=== PATIENT | female | born 1970 | race Caucasian/White ===

== ENCOUNTER 2017-06-06 14:28 | Emergency (ER) | payer OTHER, SELFPAY | END 2017-06-06 18:47 | disposition home or self-care (01) | PROVIDERS: Emergency Provider Family Medicine; Family Provider Nurse Practitioner Family; Visit Provider Family Medicine | DX: R10.12 Left upper quadrant pain (principal); N30.01 Acute cystitis with hematuria | CPT/HCPCS: 71020; 74177; 80053; 81001; 81025; 82150; 83690; 85025; 87086; 96365; 96375; 99284; J2405; Q9967 ==

== ENCOUNTER → 2017-07-01 13:23 | Outpatient (CLI) | payer OTHER, SELFPAY ==
--- NOTE | 2017-07-01 13:27 | US_ITS ---
US thyroid HISTORY: Thyromegaly ITS.REASON: enlarged thyroid ORDERING PHYSICIAN: Joey Morris MD PATIENT AGE: 46 years COMPARISON: None FINDINGS: Right lobe: 4.6 x 2.4 x 1.9 cm with diffuse heterogeneous echogenicity. 1.6 x 1.4 cm heterogeneous nodular area upper pole 2.4 x 1.8 cm heterogeneous nodular area mid polar region Left lobe: 4.1 x 1.9 x 1.9 cm with diffuse heterogeneous echogenicity 1.4 cm slightly hypoechoic nodule heterogeneous upper pole Isthmus: 4 mm thick with heterogeneous echogenicity IMPRESSION: Multinodular appearance of the thyroid gland. The largest nodular areas on the right at 2.4 cm
== END ==
PROVIDERS: Family Provider Nurse Practitioner Family; PCP Nurse Practitioner Family; Visit Provider Otolaryngology
DX: E04.9 Nontoxic goiter, unspecified (principal)
CPT/HCPCS: 76536

== ENCOUNTER → 2017-07-01 14:18 | Outpatient (CLI) | payer OTHER, SELFPAY ==
[2017-07-01 16:44] LABS: Free Thyroxine Index 3.3 ug/dL (5.93-13.13); T4 (Thyroxine) 10.3 ug/dl (4.7-13.3); Thyroid Stimulating Hormone 2.25 uIU/ml (0.358-3.740); Triiodothryronine (T3) Uptake 32 % (31-39)
[2017-07-08 08:47] LABS: Thyroid Peroxidase Antibodies >600 IU/mL (0-34)
[2017-07-13 19:19] LABS: Thyroid Stimulating Immunoglob 88 % (0-139)
== END ==
PROVIDERS: Family Provider Nurse Practitioner Family; PCP Nurse Practitioner Family; Visit Provider Otolaryngology
DX: E04.9 Nontoxic goiter, unspecified (principal)
CPT/HCPCS: 36415; 83520; 84436; 84443; 84479; 86376

== ENCOUNTER → 2017-08-02 10:06 | Outpatient (CLI) | payer OTHER, SELFPAY ==
--- NOTE | 2017-08-02 10:53 | US_ITS ---
US organ site (thyroid), US biopsy guidance, US thyroid Ordering Physician: Joey Morris MD HISTORY: ITS.REASON: NEOPLASM OF THYROIDthyroid. Nodule: 46 years: Female TECHNIQUE: Ultrasound thyroid with subsequent FNA lower pole right lobe nodule ========FINDINGS AND PROCEDURE: = ULTRASOUND thyroid COMPARISON is made to previous ultrasound thyroid 07/01/2017 from this facility. Inhomogeneous thyroid throughout but there is a more focal appearing nodule at the lower pole right lobe which measures up to 2.45 cm x 2 cm. The mass was identified& best approach for access to perform aspiration biopsy of this nodule. Scanning by Dr. Osuna and technologist MW ULTRASOUND-GUIDED FNA BIOPSY- thyroid nodule lower pole right lobe: Following sterile preparation as well as local skin, and cautious deeper placement of Xylocaine anesthetic . Under ultrasound guidance the biopsy needle, was advanced to the nodule and positioned. Needle tip was observed passing into the nodule on each of 4 FNA biopsies passes. FNA specimen material obtained and subsequently submitted to cytopathology. Patient tolerated procedure well. IMPRESSION: Enlarged inhomogeneous right lobe thyroid with a dominant ill-defined nodule lower pole right lobe . This 2.45 cm nodule at lower pole right lobe sampled with 4 FNA biopsy passes today CYTOPATHOLOGY REPORT: Negative for malignancy. Findings compatible with chronic lymphocytic thyroiditis
== END ==
PROVIDERS: Family Provider Nurse Practitioner Family; PCP Nurse Practitioner Family; Visit Provider Otolaryngology
DX: D49.7 Neoplasm of unspecified behavior of endocrine glands and other parts of nervous system (principal)
CPT/HCPCS: 10022; 76536; 76942

== ENCOUNTER 2017-08-02 12:17 | Emergency (ER) | payer OTHER, SELFPAY ==
[2017-08-02 13:20] VITALS: BP 168/100; PULSE 80; RESP 18; TEMP 36.8; O2SAT 96; BMI 42.5
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
[2017-08-02 14:24] LABS: Microscopic, Urine URINE MICROSCOPIC (MICROSCOPIC)
[2017-08-02 14:28] LABS: Appearance,Urine CLEAR (Clear); Bilirubin,Urine Negative (Negative); Blood, Urine Negative (Negative); Color,Urine YELLOW (Yellow); Glucose,Urine (UA) Negative (Negative); Ketones,Urine Negative (Negative); Leukocyte Esterase,Urine 1+ (Negative); Nitrate,Urine Negative (Negative); Protein,Urine Negative (Negative); Specific Gravity, Urine 1.025 (1.005-1.030); Urobilinogen,Urine 0.2 EU/dl (0.2)
[2017-08-02 14:43] LABS: Basophils % 0.2 % (0.1-2.0); Eosinophils # 0.2 K/mm3 (0.0-0.4); Eosinophils % 2.3 % (0.1-12.0); Hematocrit 34.4 % (37.0-47.0); Hemoglobin 11.3 g/dL (12.2-16.2); Lymphocytes # 2.4 K/mm3 (0.7-4.5); Lymphocytes % 30.3 K/mm3 (10-50); Mean Corpuscular HGB Conc 32.9 g/dL (31.8-35.4); Mean Corpuscular Hemoglobin 27.9 pg (27.0-31.2); Mean Corpuscular Volume 84.7 fl (81-99); Mean Platelet Volume 7.4 fl (7.4-10.4); Monocytes # 0.4 K/mm3 (0.1-1.0); Monocytes % 4.5 % (1.7-9.3); Neutrophils % 62.7 % (37.0-80.0); Platelet Count 281 K/mm3 (142-424); Red Blood Count 4.06 M/mm3 (4.20-5.40)
[2017-08-02 14:58] LABS: Bacteria,Urine 2+ /lpf; WBC,Urine Occasional #/hpf (0-3)
[2017-08-02 16:32] VITALS: BP 134/70; PULSE 78; RESP 20; TEMP 37.1; O2SAT 99
== END 2017-08-02 16:33 | disposition home or self-care (01) ==
PROVIDERS: Emergency Provider General Practice; Family Provider Nurse Practitioner Family; PCP Nurse Practitioner Family
DX: S20.20XA Contusion of thorax, unspecified, initial encounter (principal); V47.6XXA Car passenger injured in collision with fixed or stationary object in traffic accident, initial encounter; Y92.488 Other paved roadways as the place of occurrence of the external cause; Z79.82 Long term (current) use of aspirin; I10 Essential (primary) hypertension; E78.5 Hyperlipidemia, unspecified; E03.9 Hypothyroidism, unspecified
CPT/HCPCS: 36415; 73502; 74176; 81001; 85025; 87086; 99282

== ENCOUNTER → 2017-09-27 10:48 | Outpatient (CLI) | payer OTHER, SELFPAY ==
[2017-09-27 10:51] LABS: Adenovirus,PCR Not Detected (NotDetected); Bordetella Pertussis Not Detected (NotDetected); Chlamydophila Pneumoniae, PCR Not Detected (NotDetected); Coronavirus 229E Not Detected (NotDetected); Coronavirus NL63 Not Detected (NotDetected); Coronavirus OC43 Not Detected (NotDetected); Coronovirus HKU1,PCR Not Detected (NotDetected); Human Metapneumovirus Not Detected (NotDetected); Influenza A, PCR Not Detected (NotDetected); Influenza AH1, 2009 Not Detected (NotDetected); Influenza AH1, PCR Not Detected (NotDetected); Influenza AH3,PCR Not Detected (NotDetected); Influenza B, PCR Not Detected (NotDetected); Mycoplasma Pneumoniae, PCR Not Detected (NotDected); Parainfluenza 1, PCR Not Detected (NotDetected); Parainfluenza 2, PCR Not Detected (NotDetected); Parainfluenza 3, PCR Not Detected (NotDetected); Parainfluenza 4, PCR Not Detected (NotDetected); Respiratory Syncytial Virus Not Detected (NotDetected); Rhinovirus/Enterovirus Not Detected (NotDetected)
== END ==
PROVIDERS: Visit Provider Nurse Practitioner Family
DX: J02.9 Acute pharyngitis, unspecified (principal); R05 Cough
CPT/HCPCS: 87486; 87581; 87633; 87798

== ENCOUNTER → 2017-11-04 13:23 | Outpatient (CLI) | payer OTHER, SELFPAY ==
--- NOTE | 2017-11-04 13:24 | US_ITS ---
US thyroid HISTORY: ITS.REASON: thyroiditis ORDERING PHYSICIAN: Joey Morris MD PATIENT AGE: 47 years Comparison: 07/01/2017 FINDINGS: The right lobe measures 4.8 x 2.1 x 2.1 cm. There is diffuse heterogeneous echogenicity as before. Dominant nodule in the lower pole on the right is 3.6 x 2 cm not significantly changed. 1 cm isoechoic nodule upper pole unchanged. The left lobe is 4.1 x 1.2 x 1.8 cm 1.4 cm slightly hypoechoic nodule upper pole unchanged. IMPRESSION: Overall no change multinodular goiter
== END ==
PROVIDERS: Family Provider Nurse Practitioner Family; PCP Nurse Practitioner Family; Visit Provider Otolaryngology
DX: E06.9 Thyroiditis, unspecified (principal)
CPT/HCPCS: 76536

== ENCOUNTER → 2017-11-04 13:58 | Outpatient (CLI) | payer OTHER, SELFPAY ==
[2017-11-04 17:51] LABS: Free T4 (Free Thyroxine) 1.05 ng/dl (0.76-1.46); Thyroid Stimulating Hormone 1.76 uIU/ml (0.358-3.740)
[2017-11-06 19:35] LABS: Thyroid Peroxidase Antibodies >600 IU/mL (0-34)
[2017-11-07 20:18] LABS: Calcitonin <2.0 pg/mL (0.0-5.0)
[2017-11-09 15:56] LABS: Thyroid Stimulating Immunoglob <0.10 IU/L (0.00-0.55)
== END ==
PROVIDERS: Family Provider Nurse Practitioner Family; PCP Nurse Practitioner Family; Visit Provider Otolaryngology
DX: E06.9 Thyroiditis, unspecified (principal)
CPT/HCPCS: 36415; 82308; 83520; 84439; 84443; 86376

== ENCOUNTER 2017-12-07 16:29 | Observation (INO) ==
--- NOTE | 2017-12-07 16:43 | Emergency Department Note ---
ED Disposition Clinical Impression: Nausea vomiting and diarrhea, Atypical chest pain, Hypertension, Proctitis Disposition: Still a Patient Condition on Discharge: Fair Instructions: DI for Acute Abdomen Referrals: Dejah Aldridge [Primary Care Provider] - - Critical Care Critical Care Time: No Attestation: On 12/07/17, the high probability of a clinically significant, sudden or life threatening deterioration of the following system(s) required my full and direct attention, intervention and personal management. The time I documented below is in addition to time spent performing reported procedures but includes the following listed in this critical care notation. Medical Decision Making - Jose Inquiry Pt receiving controlled substance: No Jose was queried for this patient: No Vital Signs: 12/07/17 16:30 12/07/17 19:03 Temperature 97.9 F Temperature Source Oral Pulse Rate [Right Brachial] 69 58 L Respiratory Rate 20 18 Blood Pressure [Right Arm] 123/78 140/94 Blood Pressure Mean [Right Arm] 93 109 Blood Pressure Source [Right Arm] Automatic Cuff Automatic Cuff Blood Pressure Position [Right Arm] Sitting Sitting 02 Sat by Pulse Oximetry 98 99 Oxygen Delivery Method Room Air Room Air - Lab Data Lab Results 12/07/17 17:00: Urine Color Yellow, Urine Appearance Cloudy, Urine pH 5.5, Ur Specific [place] >= 1.030, Urine Protein 1+, Urine Glucose (UA) Negative, Urine Ketones Trace, Urine Blood Negative, Urine Nitrate Negative, Urine Bilirubin Negative, Urine Urobilinogen 0.2, Ur Leukocyte Esterase Negative, Urine RBC Occasional, Urine WBC 10-20, Ur Squamous Epith Cells Tntc, Urine Bacteria 3+, Hyaline Casts 3-5 12/07/17 17:13: WBC 8.5, RBC 5.50 H, Hgb 14.7, Hct 47.4 H, MCV 86.1, MCH 26.7 L , MCHC 31.0 L, RDW 15.3, Plt Count 334, MPV 6.9 L, Neut % (Auto) 66.8, Lymph % ( Auto) 25.6, [place] % (Auto) 5.1, Eos % (Auto) 2.2, Baso % (Auto) 0.2, Neut # (Auto ) 5.7, Lymph # (Auto) 2.2, [place] # (Auto) 0.4, Eos # (Auto) 0.2, Baso # (Auto) 0.0 12/07/17 17:13: Sodium 137, Potassium 4.0, Chloride 103, Carbon Dioxide 25, Anion Gap 13.0, BUN 12, Creatinine 1.03 H, Estimated Creat Clear 54, Estimated GFR 58 L, Est GFR ( Amer) 70, Glucose 97, Calcium 9.4, Magnesium 1.9, Total Bilirubin 0.8, AST 19, ALT 28, Alkaline Phosphatase 105, Troponin I < 0.02 , Total Protein 9.0 H, Albumin 4.3, Globulin 4.7 H, Albumin/Globulin Ratio 0.9 L , Lipase 152 Result diagrams: 12/07/17 17:13 12/07/17 17:13 Orders (Tests/Meds): ED MEDICATIONS Generic Name Dose Route Start Last Admin Trade Name Freq PRN Reason Stop Dose Admin Metronidazole 100 mls @ 100 mls/hr 12/07/17 19:30 12/07/17 19:35 Flagyl 500mg/100ml Ivpb IV 12/21/17 19:29 100 mls/hr Q8H BALTA Administration Protocol Metoclopramide HCl 5 mg 12/07/17 19:51 Reglan 10mg/2ml Vial IVP 12/07/17 19:52 ONCE ONE Discontinued Medications Generic Name Dose Route Start Last Admin Trade Name Freq PRN Reason Stop Dose Admin Famotidine 20 mg 12/07/17 16:44 12/07/17 17:05 Pepcid 20mg/2ml Vial IV 12/07/17 16:45 20 mg ONCE ONE Administration Sodium Chloride 1,000 mls @ 999 mls/hr 12/07/17 17:00 12/07/17 17:06 Sod Chlor 0.9% 1000ml Bag IV 12/07/17 18:00 999 mls/hr .Q1H1M BALTA Administration Ketorolac Tromethamine 30 mg 12/07/17 16:44 12/07/17 17:05 Toradol 30mg/Ml Vial IV 12/07/17 16:45 30 mg ONCE ONE Administration Levofloxacin 750 mg 12/07/17 19:26 12/07/17 19:34 Levaquin 750mg Tablet PO 12/07/17 19:27 750 mg ONCE ONE Administration Protocol Loperamide HCl 4 mg 12/07/17 17:40 12/07/17 18:28 Imodium 2 Mg Capsule PO 12/07/17 17:41 4 mg ONCE ONE Administration Meperidine HCl 12.5 mg 12/07/17 18:43 Meperidine 25mg/Ml 1ml Syringe IV 12/07/17 18:44 ONCE ONE Morphine Sulfate 2 mg 12/07/17 17:40 12/07/17 18:28 Morphine 2mg/Ml Syringe IV 12/07/17 17:41 2 mg ONCE ONE Administration Promethazine HCl 12.5 mg 12/07/17 16:44 12/07/17 17:05 Phenergan 25mg/Ml 1ml Vial IV 12/07/17 16:45 12.5 mg ONCE ONE Administration Sodium Chloride 25 ml 12/07/17 16:44 12/07/17 17:07 Sod Chlor 0.9% 25ml Bag IV 12/07/17 16:45 25 ml ONCE ONE Administration ORDERS Category Date Time Status CT abdomen pelvis wo con Stat Cat Scan 12/07/17 18:42 Taken Diarrhea Panel, PCR Stat Lab 12/07/17 18:00 Received Urine Culture Stat Micro 12/07/17 17:00 Received - Radiology Data #1 Image(s): Chest, Abdomen Image Reviewed: Yes I reviewed the patient's radiology image Preliminary Findings: Abnormal Chest x-ray is within normal limits. Normal x-ray no free air minute fluid levels without dilatation suggesting early picture of gastroenteritis no acute. see final report below: MPRESSION: 1. Air-fluid levels within the large bowel which may be seen with diarrhea or colitis. 2. Left nephrolithiasis - ECG Data Tracing #1 Normal sinus rhythm 66/min no acute finding ECG initial impression date: 12/07/17 ECG initial impression time: 16:30 Medical Decision Narrative: I discussed with on-call physician Dr. Alvarado who accepted to admit the patient for IV fluids IV antibiotics and surgical consultation. Nausea/Vomiting/Diarrhea HPI - General Chief complaint: Abdominal Pain Stated complaint: vomitting, diarrhea, chest pain Time Seen by Provider: 12/07/17 16:30 Mode of Arrival: Ambulatory Limitations: No Limitations Description of Symptoms (Recalled from ER Triage Doc. by RN): Pt c/o vomitting and diarrhea, states diarrhea began yesterday, vomtting began this morning. Pt reports began having intermittent sharp chest pain approx 2 hours ago, describes pain as sharp in nature and points to midsternal area when describing where she is hurting. - History of Present Illness HPI Narrative: I noted the above nursing triage and I agree. 47 years old white female s/p appendectomy with history of hypertension and fibroid disease of the neck. Yesterday, she developed diarrhea 10 and today she vomited 3 associated with sharp retrosternal chest pain intermittent and sharp in character. She developed progressive generalized weakness with no hematemesis coffee-ground emesis bleeding per rectum or melanotic stool. She has no dysuria hematuria or frequent. MD complaint: nausea, vomiting, diarrhea Onset (ago): day(s) (started yesterday) Description of Vomiting: food contents, watery, bilious Associated Abdominal Pain: No Associated symptoms: other (She complains of retrosternal chest pain.) - Related Data Home Medications Medication Instructions Recorded Confirmed aspirin 81 mg tablet,delayed 81 mg PO QDAY 06/21/17 11/04/17 release atorvastatin 80 mg tablet 80 mg PO QDAY 06/21/17 11/04/17 bisoprolol fumarate 5 mg tablet 5 mg PO QDAY 06/21/17 11/04/17 cetirizine 10 mg tablet 10 mg PO QDAY 06/21/17 11/04/17 hydrochlorothiazide 12.5 mg tablet 12.5 mg PO QDAY 06/21/17 11/04/17 sertraline 100 mg tablet 100 mg PO QDAY 06/21/17 11/04/17 spironolactone 25 mg tablet 25 mg PO QAM 06/21/17 11/04/17 Losartan Potassium [Cozaar] 100 mg PO .qd 08/02/17 11/04/17 furosemide 20 mg tablet 20 mg PO DAILY tab 09/01/17 11/04/17 Amlodipine Besylate [Amlodipine 10 mg PO DAILY 11/04/17 11/04/17 10mg Tab] Diclofenac Potassium [Diclofenac 50 mg PO BID 11/04/17 11/04/17 50mg Tab] Methocarbamol [Robaxin 750mg Tab] 750 mg PO BID 11/04/17 11/04/17 Previous Rx's Medication Instructions Recorded levothyroxine 88 mcg tablet 88 mcg PO DAILY 90 Days #90 tab 11/11/17 levothyroxine 88 mcg tablet 88 mcg PO ONCE #90 tab 11/11/17 Allergies Allergy/AdvReac Type Severity Reaction Status Date / Time No Known Allergies Allergy Verified 11/11/17 12:32 [facility] History I have reviewed the patient's past medical history: Yes Medical History: Reports:: Hyperlipidemia, Hypertension Denies:: Cancer, Diabetes Mellitus Type 1, Diabetes Mellitus Type 2, MRSA Other Medical History: Reports: Arthritis, Hypothyroidism, Sinus Problems, Thyroid Disease Comment: irregular heart beat Other Surgeries: Yes: Appendectomy, Tubal Ligation Amputation: No Fractures: No Comment: Thyroid Bx 08/02/2017 - Social History Smoking Status: Former smoker Tobacco Type: cigarettes #Yrs smoked (if former smoker): 10 Alcohol Intake: never Substance Use Type: denies use - Psychiatric History Expresses thoughts of harming self/others: None Suicide Plan Description: No Plan Family Hx:: Hypertension, Hyperlipidemia, Coronary Artery Disease Comment: Glaucoma, ROS Obtained: Yes All systems reviewed & no additional complaints Physical Exam - General General appearance: alert, in no apparent distress, other (No cardiopulmonary distress.) - Head Head exam: atraumatic, normocephalic, normal inspection - Eye Eye exam: Present: normal appearance, PERRL, EOMI - ENT ENT exam: Present: normal exam, normal oropharynx, mucous membranes moist, TM's normal bilaterally, normal external ear exam - Neck Neck exam: Present: normal inspection, full ROM, trachea midline. Absent: meningismus, lymphadenopathy - Chest Chest inspection: Present: normal inspection, symmetric chest wall rise. Absent : tenderness - Respiratory Respiratory exam: Present: normal lung sounds bilaterally. Absent: respiratory distress - Cardiovascular Cardiovascular exam: Present: regular rate, normal rhythm. Absent: JVD - Abdominal Exam Abdominal exam: Present: soft, normal bowel sounds. Absent: distention, tenderness, guarding, rebound, rigidity - Extremities Exam Extremities exam: Present: normal inspection, full ROM, normal capillary refill. Absent: calf tenderness - Back Exam Back exam: Present: normal inspection. Absent: tenderness - Neurological Exam Neurological exam: Present: alert, oriented X3, CN II-XII intact, motor sensory deficit, reflexes normal - Psychiatric Psychiatric exam: Present: normal affect, normal mood - Skin Skin exam: Present: warm, dry, intact, normal color - Lymphatic Lymphatic Findings: no adenopathy
[2017-12-07 17:21] LABS: Basophils % 0.2 % (0.1-2.0); Eosinophils # 0.2 K/mm3 (0.0-0.4); Eosinophils % 2.2 % (0.1-12.0); Hematocrit 47.4 % (37.0-47.0); Hemoglobin 14.7 g/dL (12.2-16.2); Lymphocytes # 2.2 K/mm3 (0.7-4.5); Lymphocytes % 25.6 K/mm3 (10-50); Mean Corpuscular Hemoglobin 26.7 pg (27.0-31.2); Mean Corpuscular Volume 86.1 fl (81-99); Mean Platelet Volume 6.9 fl (7.4-10.4); Monocytes # 0.4 K/mm3 (0.1-1.0); Monocytes % 5.1 % (1.7-9.3); Neutrophils # 5.7 K/mm3 (1.8-7.8); Neutrophils % 66.8 % (37.0-80.0); Platelet Count 334 K/mm3 (142-424); Red Cell Distribution Width 15.3 % (11.5-17.5); White Blood Count 8.5 K/mm3 (4.8-10.8)
[2017-12-07 17:36] LABS: Alanine Aminotransferase 28 U/L (12-78); Albumin Level 4.3 gm/dL (3.4-5.0); Albumin/Globulin Ratio 0.9 (1.1-1.8); Alkaline Phosphatase 105 U/L (46-116); Aspartate Amino Transferase 19 U/L (15-37); Bilirubin,Total 0.8 mg/dL (0.2-1.0); Blood Urea Nitrogen 12 mg/dL (7-18); Calcium 9.4 mg/dL (8.5-10.1); Carbon Dioxide 25 mmol/L (21.0-32.0); Chloride 103 mmol/L (98-107); Globulin 4.7 gm/dl (1.3-3.2); Glucose 97 mg/dL (74-106); Lipase 152 u/L (73-393); Sodium 137 mmol/L (136-145)
[2017-12-07 17:44] LABS: Microscopic, Urine URINE MICROSCOPIC (MICROSCOPIC)
[2017-12-07 17:46] LABS: Appearance,Urine CLOUDY (Clear); Blood, Urine Negative (Negative); Color,Urine YELLOW (Yellow); Glucose,Urine (UA) Negative (Negative); Ketones,Urine TRACE (Negative); Leukocyte Esterase,Urine Negative (Negative); PH,Urine 5.5 (5.0-8.5); Protein,Urine 1+ (Negative); Specific Gravity, Urine >= 1.030 (1.005-1.030); Urobilinogen,Urine 0.2 EU/dl (0.2)
[2017-12-07 18:14] LABS: Bilirubin,Urine Negative (Negative)
[2017-12-07 18:18] LABS: Bacteria,Urine 3+ /lpf; RBC,Urine Occasional #/hpf (0-3); Squamous Epithelial Cell,Urine TNTC #/hpf (0-5)
--- NOTE | 2017-12-07 20:47 | History & Physical Report ---
*Admission Date: 12/07/17 *Chief complaint: abd pain *History of present illness: this wf with lower abd pain with n/v over the last few days with no fever or diarrhea 7 years old white female s/p appendectomy with history of hypertension and fibroid disease of the neck. Yesterday, she developed diarrhea 10 and today she vomited 3 associated with sharp retrosternal chest pain intermittent and sharp in character. She developed progressive generalized weakness with no hematemesis coffee-ground emesis bleeding per rectum or melanotic stool. She has no dysuria hematuria or frequent. [facility] History I have reviewed the patient's past medical history: Yes Medical History: Reports:: Hyperlipidemia, Hypertension Denies:: Cancer, Diabetes Mellitus Type 1, Diabetes Mellitus Type 2, MRSA Other Medical History: Reports: Arthritis, Hypothyroidism, Sinus Problems, Thyroid Disease Other Surgeries: Yes: Appendectomy, Tubal Ligation Amputation: No Fractures: No - *Social History Smoking Status: Former smoker Tobacco Type: cigarettes #Yrs smoked (if former smoker): 10 Alcohol Intake: never Substance Use Type: denies use - Psychiatric History Expresses thoughts of harming self/others: None Suicide Plan Description: No Plan *Family Hx:: Hypertension, Hyperlipidemia, Coronary Artery Disease Review of Systems - Review of Systems Review of systems:: pertinent systems reviewed and negative unless documented below - Constitutional Denies fever(s) - Eyes Denies change in vision - ENT Denies sinus pain, Denies tongue swelling - *Cardiovascular Denies chest pain at rest - *Respiratory Denies chest congestion, Denies cough - *Gastrointestinal Reports abdominal pain, Reports nausea, Reports vomiting, Denies loose stools, Denies black, tarry stools - *Genitourinary Denies painful urination, Denies pelvic pain - *Musculoskeletal Denies joint pain, Denies joint swelling, Denies neck pain - Integumentary/Breasts Denies rash - *Neurologic Denies headache(s), Denies seizure-like activity - Psychiatric Denies depression Meds Home Medications Medication Instructions Recorded Confirmed Type aspirin 81 mg tablet,delayed 81 mg PO QDAY 06/21/17 11/04/17 History release atorvastatin 80 mg tablet 80 mg PO QDAY 06/21/17 11/04/17 History bisoprolol fumarate 5 mg tablet 5 mg PO QDAY 06/21/17 11/04/17 History cetirizine 10 mg tablet 10 mg PO QDAY 06/21/17 11/04/17 History hydrochlorothiazide 12.5 mg tablet 12.5 mg PO QDAY 06/21/17 11/04/17 History sertraline 100 mg tablet 100 mg PO QDAY 06/21/17 11/04/17 History spironolactone 25 mg tablet 25 mg PO QAM 06/21/17 11/04/17 History Losartan Potassium [Cozaar] 100 mg PO .qd 08/02/17 11/04/17 History furosemide 20 mg tablet 20 mg PO DAILY tab 09/01/17 11/04/17 History Amlodipine Besylate [Amlodipine 10 mg PO DAILY 11/04/17 11/04/17 History 10mg Tab] Diclofenac Potassium [Diclofenac 50 mg PO BID 11/04/17 11/04/17 History 50mg Tab] Methocarbamol [Robaxin 750mg Tab] 750 mg PO BID 11/04/17 11/04/17 History Allergies Allergy/AdvReac Type Severity Reaction Status Date / Time No Known Allergies Allergy Verified 11/11/17 12:32 Exam Vital signs and Labs for Last 24 Hours: Temp Pulse Resp BP Pulse Ox 97.9 F 58 L 18 140/94 99 12/07/17 16:30 12/07/17 19:03 12/07/17 19:03 12/07/17 19:03 12/07/17 19:03 Laboratory Results - last 24 hr 12/07/17 17:00: Urine Color Yellow, Urine Appearance Cloudy, Urine pH 5.5, Ur Specific [place] >= 1.030, Urine Protein 1+, Urine Glucose (UA) Negative, Urine Ketones Trace, Urine Blood Negative, Urine Nitrate Negative, Urine Bilirubin Negative, Urine Urobilinogen 0.2, Ur Leukocyte Esterase Negative, Urine RBC Occasional, Urine WBC 10-20, Ur Squamous Epith Cells Tntc, Urine Bacteria 3+, Hyaline Casts 3-5 12/07/17 17:13: WBC 8.5, RBC 5.50 H, Hgb 14.7, Hct 47.4 H, MCV 86.1, MCH 26.7 L , MCHC 31.0 L, RDW 15.3, Plt Count 334, MPV 6.9 L, Neut % (Auto) 66.8, Lymph % ( Auto) 25.6, [place] % (Auto) 5.1, Eos % (Auto) 2.2, Baso % (Auto) 0.2, Neut # (Auto ) 5.7, Lymph # (Auto) 2.2, [place] # (Auto) 0.4, Eos # (Auto) 0.2, Baso # (Auto) 0.0 12/07/17 17:13: Sodium 137, Potassium 4.0, Chloride 103, Carbon Dioxide 25, Anion Gap 13.0, BUN 12, Creatinine 1.03 H, Estimated Creat Clear 54, Estimated GFR 58 L, Est GFR ( Amer) 70, Glucose 97, Calcium 9.4, Magnesium 1.9, Total Bilirubin 0.8, AST 19, ALT 28, Alkaline Phosphatase 105, Troponin I < 0.02 , Total Protein 9.0 H, Albumin 4.3, Globulin 4.7 H, Albumin/Globulin Ratio 0.9 L , Lipase 152 I & O for Last 24 hours: Intake & Output 12/05/17 12/06/17 12/07/17 12/08/17 11:59 11:59 11:59 11:59 Weight 245 lb - Constitutional no acute distress - *Routine HEENT Exam Head: Present: normocephalic Eye: Present: EOMI, PERRL ENT: Present: mucous membranes dry - *Routine Neck Exam Present: supple - *Routine Respiratory Exam Present: CTA bilaterally - *Routine Cardiovascular Exam Present: RRR, murmur - *Routine Abdominal Exam Present: soft, tenderness - *Routine Extremities Exam Absent: calf tenderness - Routine Back/Spine/Pelvis Exam Back/Spine: Absent: CVA tenderness - *Routine Skin Exam Present: intact - *Routine Neurological Exam Present: alert, oriented X3, CN II-XII intact - Routine Psychiatric Exam Present: normal affect H&P: Result - Labs Labs: Short CBC 12/07/17 Range/Units 17:13 WBC 8.5 (4.8-10.8) K/mm3 Hgb 14.7 (12.2-16.2) g/dL Hct 47.4 H (37.0-47.0) % Plt Count 334 (142-424) K/mm3 BMP 12/07/17 17:13 Sodium 137 Potassium 4.0 Chloride 103 Carbon Dioxide 25 BUN 12 Creatinine 1.03 H Glucose 97 Calcium 9.4 Cardiac Enzymes 12/07/17 Range/Units 17:13 Troponin I < 0.02 (0.00-0.06) ng/ml Liver Function 12/07/17 Range/Units 17:13 Total Bilirubin 0.8 (0.2-1.0) mg/dL AST 19 (15-37) U/L ALT 28 (12-78) U/L Alkaline Phosphatase 105 (46-116) U/L Albumin 4.3 (3.4-5.0) gm/dL Urine 12/07/17 Range/Units 17:00 Urine Color Yellow (Yellow) Urine Appearance Cloudy (Clear) Urine pH 5.5 (5.0-8.5) Ur Specific [place] >= 1.030 (1.005-1.030) Urine Protein 1+ (Negative) Urine Glucose (UA) Negative (Negative) Assessment and Plan (1) Colitis Current visit: Yes Status: Acute Category: Medical Code(s): K52.9 - Noninfective gastroenteritis and colitis, unspecified
[2017-12-08 06:38] LABS: Basophils % 0.1 % (0.1-2.0); Eosinophils # 0.2 K/mm3 (0.0-0.4); Eosinophils % 3.7 % (0.1-12.0); Hematocrit 39.2 % (37.0-47.0); Lymphocytes # 1.5 K/mm3 (0.7-4.5); Lymphocytes % 26.1 K/mm3 (10-50); Mean Corpuscular HGB Conc 30.6 g/dL (31.8-35.4); Mean Corpuscular Hemoglobin 26.6 pg (27.0-31.2); Mean Corpuscular Volume 86.8 fl (81-99); Mean Platelet Volume 7.2 fl (7.4-10.4); Monocytes # 0.4 K/mm3 (0.1-1.0); Monocytes % 6.7 % (1.7-9.3); Neutrophils # 3.5 K/mm3 (1.8-7.8); Neutrophils % 63.3 % (37.0-80.0); Platelet Count 213 K/mm3 (142-424); Red Blood Count 4.52 M/mm3 (4.20-5.40); Red Cell Distribution Width 15.2 % (11.5-17.5); White Blood Count 5.6 K/mm3 (4.8-10.8)
[2017-12-08 07:13] LABS: Hemoglobin 12.1 g/dL (12.2-16.2)
[2017-12-08 07:17] LABS: Anion Gap 11.6 mEq/L (5-15); Potassium 3.6 mmoL/L (3.5-5.1)
[2017-12-08 07:51] LABS: Calcium 8.1 mg/dL (8.5-10.1)
--- NOTE | 2017-12-08 08:12 | Pharmacy Consult Notes ---
[facility] Pharmacy VTE Monitoring - Patient Demographics Admission date: 12/08/17 Report Date: 12/08/17 Time: 08:10 Allergies/Adverse Reactions: Patient Allergies No Known Allergies Allergy (Verified 11/11/17 12:32) Height: 1.57 m Weight: 112.293 kg Patient Problems: Current Active Problems Nausea vomiting and diarrhea (Acute) Atypical chest pain (Acute) Hypertension (Acute) Proctitis (Acute) Colitis (Acute) - VTE Risk Labs: VTE Related Lab Results Hgb 12.1 g/dL (12.2-16.2) L D 12/08/17 05:58 Hct 39.2 % (37.0-47.0) 12/08/17 05:58 Plt Count 213 K/mm3 (142-424) D 12/08/17 05:58 BUN 12 mg/dL (7-18) 12/08/17 05:58 Creatinine 0.84 mg/dL (0.55-1.02) 12/08/17 05:58 Estimated Creat Clear 66 mL/min (0-300) 12/08/17 05:58 Was VTE Risk Assessment Performed: Yes VTE Score: 2 VTE Risk Level: Very Low Risk Clinical Trial Participant: No - Prophylaxis VTE Prophylaxis Ordered?: Yes Types of VTE Prophylaxis: TEDS Knee High
--- NOTE | 2017-12-08 11:38 | Consult Report ---
*Admission Date: 12/08/17 *Chief complaint: nausea, vomiting, and diarrhea *History of present illness: This is a 47-year-old female seen in consultation from Dr. Alvarado for evaluation regarding abdominal pain. Below is a forwarded copy of her HPI from her admission history and physical. this wf with lower abd pain with n/v over the last few days with no fever or diarrhea 7 years old white female s/p appendectomy with history of hypertension and fibroid disease of the neck. Yesterday, she developed diarrhea 10 and today she vomited 3 associated with sharp retrosternal chest pain intermittent and sharp in character. She developed progressive generalized weakness with no hematemesis coffee-ground emesis bleeding per rectum or melanotic stool. She has no dysuria hematuria or frequent. Review of Systems - Constitutional Denies body ache(s) - *Cardiovascular Denies chest pain - *Respiratory Denies cough - *Gastrointestinal Reports abdominal pain, Reports loose stools, Reports nausea, Reports vomiting, Denies vomiting blood, Denies bright, red blood in stools - *Neurologic Denies headache(s), Denies seizure-like activity - Hematologic/Lymphatic Denies easy bleeding H History Medical History: Reports:: Hyperlipidemia, Hypertension Denies:: Cancer, Diabetes Mellitus Type 1, Diabetes Mellitus Type 2, MRSA Other Medical History: Reports: Arthritis, Hypothyroidism, Sinus Problems, Thyroid Disease Other Surgeries: Yes: Appendectomy, Thyroidectomy (biopsy), Tubal Ligation Amputation: No Fractures: No - *Social History Educational Level: Completed High School Smoking Status: Never smoker Tobacco Type: cigarettes #Yrs smoked (if former smoker): 10 Alcohol Intake: never Substance Use Type: denies use Occupational Status: unemployed Housing: house Household Members: significant other, children - Psychiatric History Expresses thoughts of harming self/others: None Suicide Plan Description: No Plan *Family Hx:: Hypertension, Hyperlipidemia, Coronary Artery Disease Meds Home Medications Medication Instructions Recorded Confirmed Type aspirin 81 mg tablet,delayed 81 mg PO QDAY 06/21/17 11/04/17 History release atorvastatin 80 mg tablet 80 mg PO QDAY 06/21/17 11/04/17 History bisoprolol fumarate 5 mg tablet 5 mg PO QDAY 06/21/17 11/04/17 History cetirizine 10 mg tablet 10 mg PO QDAY 06/21/17 11/04/17 History hydrochlorothiazide 12.5 mg tablet 12.5 mg PO QDAY 06/21/17 11/04/17 History sertraline 100 mg tablet 100 mg PO QDAY 06/21/17 11/04/17 History spironolactone 25 mg tablet 25 mg PO QAM 06/21/17 11/04/17 History Losartan Potassium [Cozaar] 100 mg PO .qd 08/02/17 11/04/17 History furosemide 20 mg tablet 20 mg PO DAILY tab 09/01/17 11/04/17 History Amlodipine Besylate [Amlodipine 10 mg PO DAILY 11/04/17 11/04/17 History 10mg Tab] Diclofenac Potassium [Diclofenac 50 mg PO BID 11/04/17 11/04/17 History 50mg Tab] Methocarbamol [Robaxin 750mg Tab] 750 mg PO BID 11/04/17 11/04/17 History Levothyroxine Sodium [Synthroid 88 mcg PO ONCE 12/07/17 12/07/17 History 88mcg (0.088mg) tablet] Allergies Allergy/AdvReac Type Severity Reaction Status Date / Time No Known Allergies Allergy Verified 11/11/17 12:32 Exam Vital signs and Labs for Last 24 Hours: Temp Pulse Resp BP Pulse Ox 97.8 F 67 16 108/74 95 12/08/17 07:45 12/08/17 07:45 12/08/17 07:45 12/08/17 07:45 12/08/17 07:45 Laboratory Results - last 24 hr 12/07/17 17:00: Urine Color Yellow, Urine Appearance Cloudy, Urine pH 5.5, Ur Specific [place] >= 1.030, Urine Protein 1+, Urine Glucose (UA) Negative, Urine Ketones Trace, Urine Blood Negative, Urine Nitrate Negative, Urine Bilirubin Negative, Urine Urobilinogen 0.2, Ur Leukocyte Esterase Negative, Urine RBC Occasional, Urine WBC 10-20, Ur Squamous Epith Cells Tntc, Urine Bacteria 3+, Hyaline Casts 3-5 12/07/17 17:13: WBC 8.5, RBC 5.50 H, Hgb 14.7, Hct 47.4 H, MCV 86.1, MCH 26.7 L , MCHC 31.0 L, RDW 15.3, Plt Count 334, MPV 6.9 L, Neut % (Auto) 66.8, Lymph % ( Auto) 25.6, [place] % (Auto) 5.1, Eos % (Auto) 2.2, Baso % (Auto) 0.2, Neut # (Auto ) 5.7, Lymph # (Auto) 2.2, [place] # (Auto) 0.4, Eos # (Auto) 0.2, Baso # (Auto) 0.0 12/07/17 17:13: Sodium 137, Potassium 4.0, Chloride 103, Carbon Dioxide 25, Anion Gap 13.0, BUN 12, Creatinine 1.03 H, Estimated Creat Clear 54, Estimated GFR 58 L, Est GFR ( Amer) 70, Glucose 97, Calcium 9.4, Magnesium 1.9, Total Bilirubin 0.8, AST 19, ALT 28, Alkaline Phosphatase 105, Troponin I < 0.02 , Total Protein 9.0 H, Albumin 4.3, Globulin 4.7 H, Albumin/Globulin Ratio 0.9 L , Lipase 152 12/07/17 17:13: ESR 52 H 12/07/17 17:13: C-Reactive Protein 1.5 H 12/07/17 18:00: Stl Aeromonas (PCR) Not detected, Stl C. cayetanensis PCR Not detected, Stool Rotavirus (PCR) Not detected, Stl Adenov F 40/41 PCR Not detected, Stool Astrovirus (PCR) Not detected, Stool Campylobacter PCR Not detected, Stl C.difficile Tox PCR Not detected, Stool Cryptosporidium PCR Not detected, Stl E.coli Shiga Tox PCR Not detected, Stool E coli O157 PCR Not detected, Stl Enterotoxigenic E PCR Not detected, Stool EPEC (PCR) Not detected , Stool EAEC (PCR) Not detected, Stl E. histolytica PCR Not detected, Stool Giardia Lamblia PCR Not detected, Stool Salmonella PCR Not detected, Stool Sapovirus (PCR) Not detected, Stl P. shigelloides PCR Not detected, Stl Shigella /EIEC PCR Not detected, St Y.enterocolitica PCR Not detected, Stool Vibrio (PCR ) Not detected, Stl Vibrio cholerae PCR Not detected, Stl Norovirus GI/GII PCR Not detected 12/08/17 05:58: WBC 5.6 D, RBC 4.52, Hgb 12.1 L D, Hct 39.2, MCV 86.8, MCH 26.6 L, MCHC 30.6 L, RDW 15.2, Plt Count 213 D, MPV 7.2 L, Neut % (Auto) 63.3, Lymph % (Auto) 26.1, [place] % (Auto) 6.7, Eos % (Auto) 3.7, Baso % (Auto) 0.1, Neut # (Auto) 3.5, Lymph # (Auto) 1.5, [place] # (Auto) 0.4, Eos # (Auto) 0.2, Baso # (Auto) 0.0 12/08/17 05:58: Sodium 139, Potassium 3.6, Chloride 108 H, Carbon Dioxide 23, Anion Gap 11.6, BUN 12, Creatinine 0.84, Estimated Creat Clear 66, Estimated GFR 73, Est GFR ( Amer) 88 D, Glucose 88, Calcium 8.1 L D, Magnesium 1.7 D I & O for Last 24 hours: Intake & Output 12/05/17 12/06/17 12/07/17 12/08/17 11:59 11:59 11:59 11:59 Intake Total 2034 Output Total 0 / 0 Balance 2034 Weight 247 lb 9.003 oz Microbiology Reports for the Last 24 Hours: Microbiology 12/07/17 17:00 Urine,Clean Catch Urine Culture - Preliminary - Constitutional no acute distress - *Routine Respiratory Exam Absent: respiratory distress - *Routine Cardiovascular Exam Present: RRR - *Routine Abdominal Exam Present: soft Results - Labs 12/08/17 05:58 12/08/17 05:58 Laboratory Results - last 24 hr 12/07/17 17:00: Urine Color Yellow, Urine Appearance Cloudy, Urine pH 5.5, Ur Specific [place] >= 1.030, Urine Protein 1+, Urine Glucose (UA) Negative, Urine Ketones Trace, Urine Blood Negative, Urine Nitrate Negative, Urine Bilirubin Negative, Urine Urobilinogen 0.2, Ur Leukocyte Esterase Negative, Urine RBC Occasional, Urine WBC 10-20, Ur Squamous Epith Cells Tntc, Urine Bacteria 3+, Hyaline Casts 3-5 12/07/17 17:13: WBC 8.5, RBC 5.50 H, Hgb 14.7, Hct 47.4 H, MCV 86.1, MCH 26.7 L , MCHC 31.0 L, RDW 15.3, Plt Count 334, MPV 6.9 L, Neut % (Auto) 66.8, Lymph % ( Auto) 25.6, [place] % (Auto) 5.1, Eos % (Auto) 2.2, Baso % (Auto) 0.2, Neut # (Auto ) 5.7, Lymph # (Auto) 2.2, [place] # (Auto) 0.4, Eos # (Auto) 0.2, Baso # (Auto) 0.0 12/07/17 17:13: Sodium 137, Potassium 4.0, Chloride 103, Carbon Dioxide 25, Anion Gap 13.0, BUN 12, Creatinine 1.03 H, Estimated Creat Clear 54, Estimated GFR 58 L, Est GFR ( Amer) 70, Glucose 97, Calcium 9.4, Magnesium 1.9, Total Bilirubin 0.8, AST 19, ALT 28, Alkaline Phosphatase 105, Troponin I < 0.02 , Total Protein 9.0 H, Albumin 4.3, Globulin 4.7 H, Albumin/Globulin Ratio 0.9 L , Lipase 152 12/07/17 17:13: ESR 52 H 12/07/17 17:13: C-Reactive Protein 1.5 H 12/07/17 18:00: Stl Aeromonas (PCR) Not detected, Stl C. cayetanensis PCR Not detected, Stool Rotavirus (PCR) Not detected, Stl Adenov F 40/41 PCR Not detected, Stool Astrovirus (PCR) Not detected, Stool Campylobacter PCR Not detected, Stl C.difficile Tox PCR Not detected, Stool Cryptosporidium PCR Not detected, Stl E.coli Shiga Tox PCR Not detected, Stool E coli O157 PCR Not detected, Stl Enterotoxigenic E PCR Not detected, Stool EPEC (PCR) Not detected , Stool EAEC (PCR) Not detected, Stl E. histolytica PCR Not detected, Stool Giardia Lamblia PCR Not detected, Stool Salmonella PCR Not detected, Stool Sapovirus (PCR) Not detected, Stl P. shigelloides PCR Not detected, Stl Shigella /EIEC PCR Not detected, St Y.enterocolitica PCR Not detected, Stool Vibrio (PCR ) Not detected, Stl Vibrio cholerae PCR Not detected, Stl Norovirus GI/GII PCR Not detected 12/08/17 05:58: WBC 5.6 D, RBC 4.52, Hgb 12.1 L D, Hct 39.2, MCV 86.8, MCH 26.6 L, MCHC 30.6 L, RDW 15.2, Plt Count 213 D, MPV 7.2 L, Neut % (Auto) 63.3, Lymph % (Auto) 26.1, [place] % (Auto) 6.7, Eos % (Auto) 3.7, Baso % (Auto) 0.1, Neut # (Auto) 3.5, Lymph # (Auto) 1.5, [place] # (Auto) 0.4, Eos # (Auto) 0.2, Baso # (Auto) 0.0 12/08/17 05:58: Sodium 139, Potassium 3.6, Chloride 108 H, Carbon Dioxide 23, Anion Gap 11.6, BUN 12, Creatinine 0.84, Estimated Creat Clear 66, Estimated GFR 73, Est GFR ( Amer) 88 D, Glucose 88, Calcium 8.1 L D, Magnesium 1.7 D Assessment and Plan (1) Colitis Current visit: Yes Status: Acute Category: Medical Code(s): K52.9 - Noninfective gastroenteritis and colitis, unspecified (2) Nausea vomiting and diarrhea Current visit: Yes Status: Acute Category: Medical Code(s): R11.2 - Nausea with vomiting, unspecified; R19.7 - Diarrhea, unspecified likely secondary to gastroenteritis No need for acute surgical intervention Slow advancement of diet Maintain hydration OK for discharge home from a surgical standpoint if and when she tolerates (at least) clear liquids
--- NOTE | 2017-12-08 13:32 | Discharge Summary ---
General - General Admission date:: 12/07/17 Discharge date: 12/08/17 HPI HPI: This is a 47-year-old female seen in consultation from Dr. Alvarado for evaluation regarding abdominal pain. Below is a forwarded copy of her HPI from her admission history and physical. this wf with lower abd pain with n/v over the last few days with no fever or diarrhea 7 years old white female s/p appendectomy with history of hypertension and fibroid disease of the neck. Yesterday, she developed diarrhea 10 and today she vomited 3 associated with sharp retrosternal chest pain intermittent and sharp in character. She developed progressive generalized weakness with no hematemesis coffee-ground emesis bleeding per rectum or melanotic stool. She has no dysuria hematuria or frequent. Hospital Course Hospital Course: pt did better with ivf and abx - labs remained stable and she was seen by surg - need for acute surgical intervention Slow advancement of diet Maintain hydration OK for discharge home from a surgical standpoint if and when she tolerates (at least) clear liquids pt tolerated diet and will d/c at this time to follow up with pcp and surg Objective Vital signs: Temp Pulse Resp BP Pulse Ox 97.8 F 67 16 108/74 95 12/08/17 07:45 12/08/17 07:45 12/08/17 07:45 12/08/17 07:45 12/08/17 07:45 no acute distress - *Routine HEENT Exam Head: Present: normocephalic Eye: Present: EOMI, PERRL ENT: Present: mucous membranes dry - *Routine Neck Exam Present: supple - *Routine Respiratory Exam Present: CTA bilaterally. Absent: respiratory distress - *Routine Cardiovascular Exam Present: RRR - *Routine Abdominal Exam Absent: tenderness - *Routine Extremities Exam Present: full ROM - *Routine Skin Exam Present: intact - *Routine Neurological Exam Present: alert, oriented X3, CN II-XII intact - Routine Psychiatric Exam Present: normal affect Results Labs on day of discharge: Labs from last 24 hours 12/08/17 12/08/17 12/07/17 05:58 05:58 18:00 WBC 5.6 D RBC 4.52 Hgb 12.1 L D Hct 39.2 MCV 86.8 MCH 26.6 L MCHC 30.6 L RDW 15.2 Plt Count 213 D MPV 7.2 L Neut % (Auto) 63.3 Lymph % (Auto) 26.1 Harvey % (Auto) 6.7 Eos % (Auto) 3.7 Baso % (Auto) 0.1 Neut # (Auto) 3.5 Lymph # (Auto) 1.5 Harvey # (Auto) 0.4 Eos # (Auto) 0.2 Baso # (Auto) 0.0 ESR Sodium 139 Potassium 3.6 Chloride 108 H Carbon Dioxide 23 Anion Gap 11.6 BUN 12 Creatinine 0.84 Estimated Creat Clear 66 Estimated GFR 73 Est GFR ( Amer) 88 D Glucose 88 Calcium 8.1 L D Magnesium 1.7 D Total Bilirubin AST ALT Alkaline Phosphatase Troponin I C-Reactive Protein Total Protein Albumin Globulin Albumin/Globulin Ratio Lipase Urine Color Urine Appearance Urine pH Ur Specific Ault Urine Protein Urine Glucose (UA) Urine Ketones Urine Blood Urine Nitrate Urine Bilirubin Urine Urobilinogen Ur Leukocyte Esterase Urine RBC Urine WBC Ur Squamous Epith Cells Urine Bacteria Hyaline Casts Stl Aeromonas (PCR) Not detected Stl C. cayetanensis PCR Not detected Stool Rotavirus (PCR) Not detected Stl Adenov F 40/41 PCR Not detected Stool Astrovirus (PCR) Not detected Stool Campylobacter PCR Not detected Stl C.difficile Tox PCR Not detected Stool Cryptosporidium PCR Not detected Stl E.coli Shiga Tox PCR Not detected Stool E coli O157 PCR Not detected Stl Enterotoxigenic E PCR Not detected Stool EPEC (PCR) Not detected Stool EAEC (PCR) Not detected Stl E. histolytica PCR Not detected Stool Giardia Lamblia PCR Not detected Stool Salmonella PCR Not detected Stool Sapovirus (PCR) Not detected Stl P. shigelloides PCR Not detected Stl Shigella/EIEC PCR Not detected St Y.enterocolitica PCR Not detected Stool Vibrio (PCR) Not detected Stl Vibrio cholerae PCR Not detected Stl Norovirus GI/GII PCR Not detected 12/07/17 12/07/17 12/07/17 17:13 17:13 17:13 WBC RBC Hgb Hct MCV MCH MCHC RDW Plt Count MPV Neut % (Auto) Lymph % (Auto) Harvey % (Auto) Eos % (Auto) Baso % (Auto) Neut # (Auto) Lymph # (Auto) Harvey # (Auto) Eos # (Auto) Baso # (Auto) ESR 52 H Sodium 137 Potassium 4.0 Chloride 103 Carbon Dioxide 25 Anion Gap 13.0 BUN 12 Creatinine 1.03 H Estimated Creat Clear 54 Estimated GFR 58 L Est GFR ( Amer) 70 Glucose 97 Calcium 9.4 Magnesium 1.9 Total Bilirubin 0.8 AST 19 ALT 28 Alkaline Phosphatase 105 Troponin I < 0.02 C-Reactive Protein 1.5 H Total Protein 9.0 H Albumin 4.3 Globulin 4.7 H Albumin/Globulin Ratio 0.9 L Lipase 152 Urine Color Urine Appearance Urine pH Ur Specific Ault Urine Protein Urine Glucose (UA) Urine Ketones Urine Blood Urine Nitrate Urine Bilirubin Urine Urobilinogen Ur Leukocyte Esterase Urine RBC Urine WBC Ur Squamous Epith Cells Urine Bacteria Hyaline Casts Stl Aeromonas (PCR) Stl C. cayetanensis PCR Stool Rotavirus (PCR) Stl Adenov F 40/41 PCR Stool Astrovirus (PCR) Stool Campylobacter PCR Stl C.difficile Tox PCR Stool Cryptosporidium PCR Stl E.coli Shiga Tox PCR Stool E coli O157 PCR Stl Enterotoxigenic E PCR Stool EPEC (PCR) Stool EAEC (PCR) Stl E. histolytica PCR Stool Giardia Lamblia PCR Stool Salmonella PCR Stool Sapovirus (PCR) Stl P. shigelloides PCR Stl Shigella/EIEC PCR St Y.enterocolitica PCR Stool Vibrio (PCR) Stl Vibrio cholerae PCR Stl Norovirus GI/GII PCR 12/07/17 12/07/17 17:13 17:00 WBC 8.5 RBC 5.50 H Hgb 14.7 Hct 47.4 H MCV 86.1 MCH 26.7 L MCHC 31.0 L RDW 15.3 Plt Count 334 MPV 6.9 L Neut % (Auto) 66.8 Lymph % (Auto) 25.6 Harvey % (Auto) 5.1 Eos % (Auto) 2.2 Baso % (Auto) 0.2 Neut # (Auto) 5.7 Lymph # (Auto) 2.2 Harvey # (Auto) 0.4 Eos # (Auto) 0.2 Baso # (Auto) 0.0 ESR Sodium Potassium Chloride Carbon Dioxide Anion Gap BUN Creatinine Estimated Creat Clear Estimated GFR Est GFR ( Amer) Glucose Calcium Magnesium Total Bilirubin AST ALT Alkaline Phosphatase Troponin I C-Reactive Protein Total Protein Albumin Globulin Albumin/Globulin Ratio Lipase Urine Color Yellow Urine Appearance Cloudy Urine pH 5.5 Ur Specific Ault >= 1.030 Urine Protein 1+ Urine Glucose (UA) Negative Urine Ketones Trace Urine Blood Negative Urine Nitrate Negative Urine Bilirubin Negative Urine Urobilinogen 0.2 Ur Leukocyte Esterase Negative Urine RBC Occasional Urine WBC 10-20 Ur Squamous Epith Cells Tntc Urine Bacteria 3+ Hyaline Casts 3-5 Stl Aeromonas (PCR) Stl C. cayetanensis PCR Stool Rotavirus (PCR) Stl Adenov F 40/41 PCR Stool Astrovirus (PCR) Stool Campylobacter PCR Stl C.difficile Tox PCR Stool Cryptosporidium PCR Stl E.coli Shiga Tox PCR Stool E coli O157 PCR Stl Enterotoxigenic E PCR Stool EPEC (PCR) Stool EAEC (PCR) Stl E. histolytica PCR Stool Giardia Lamblia PCR Stool Salmonella PCR Stool Sapovirus (PCR) Stl P. shigelloides PCR Stl Shigella/EIEC PCR St Y.enterocolitica PCR Stool Vibrio (PCR) Stl Vibrio cholerae PCR Stl Norovirus GI/GII PCR Preliminary micro results at discharge 12/07/17 17:00 Urine Culture - Preliminary Urine,Clean Catch DS: Diagnosis - Discharge Diagnosis (1) Colitis Status: Acute (2) Nausea vomiting and diarrhea Status: Acute Discharge Plan - Patient Discharge Instructions ACTIVITY: Continue current activity DIET: continue same diet - Follow up Plan Disposition: Home, Self-Custodial Medications: Home Medications Medication Instructions Recorded Confirmed Type aspirin 81 mg tablet,delayed 81 mg PO DAILY 06/21/17 12/08/17 History release atorvastatin 80 mg tablet 80 mg PO DAILY 06/21/17 12/08/17 History bisoprolol fumarate 5 mg tablet 5 mg PO DAILY 06/21/17 12/08/17 History cetirizine 10 mg tablet 10 mg PO DAILY 06/21/17 12/08/17 History hydrochlorothiazide 12.5 mg tablet 12.5 mg PO DAILY 06/21/17 12/08/17 History sertraline 100 mg tablet 100 mg PO DAILY 06/21/17 12/08/17 History Losartan Potassium [Cozaar] 100 mg PO DAILY 08/02/17 12/08/17 History furosemide 20 mg tablet 20 mg PO DAILY tab 09/01/17 12/08/17 History Amlodipine Besylate [Amlodipine 10 mg PO DAILY 11/04/17 12/08/17 History 10mg Tab] Diclofenac Potassium [Diclofenac 50 mg PO BID 11/04/17 12/08/17 History 50mg Tab] Methocarbamol [Robaxin 750mg Tab] 750 mg PO BID 11/04/17 12/08/17 History Levothyroxine Sodium [Synthroid 88 mcg PO ONCE 12/07/17 12/07/17 History 88mcg (0.088mg) tablet] Spironolactone [Aldactone 25mg 25 mg PO DAILY 12/08/17 12/08/17 History Tab] Prescriptions/Medication Reconciliation: Continue aspirin 81 mg tablet,delayed release 81 mg PO DAILY hydrochlorothiazide 12.5 mg tablet 12.5 mg PO DAILY cetirizine 10 mg tablet 10 mg PO DAILY bisoprolol fumarate 5 mg tablet 5 mg PO DAILY sertraline 100 mg tablet 100 mg PO DAILY atorvastatin 80 mg tablet 80 mg PO DAILY levothyroxine 88 mcg tablet 88 mcg PO DAILY 90 Days #90 tab furosemide 20 mg tablet 20 mg PO DAILY tab Losartan Potassium [Cozaar] 100 mg PO DAILY Amlodipine Besylate [Amlodipine 10mg Tab] 10 mg PO DAILY Methocarbamol [Robaxin 750mg Tab] 750 mg PO BID Levothyroxine Sodium [Synthroid 88mcg (0.088mg) tablet] 88 mcg PO ONCE Spironolactone [Aldactone 25mg Tab] 25 mg PO DAILY Discontinued Diclofenac Potassium [Diclofenac 50mg Tab] 50 mg PO BID
== END 2017-12-08 14:38 | disposition home or self-care (01) ==
LOC: 2ND 16:29 → ER 16:29 → 2ND 21:50
PROVIDERS: ADMIT Emergency Medicine; ATTEND Emergency Medicine

== ENCOUNTER → 2017-12-20 08:32 | Outpatient (CLI) | payer OTHER, SELFPAY ==
--- NOTE | 2017-12-20 08:30 | US_ITS ---
US transvaginal HISTORY: ITS.REASON: OVARIAN CYST ORDERING PHYSICIAN: Shelbi Rankin PATIENT AGE: 47 years Comparison: 12/07/2017 FINDINGS: The uterus measures 7.3 x 3.6 x 4.4 cm with a combined endometrial thickness of 4 mm. No uterine mass evident. The left ovary is 2.5 x 2.5 cm and contains a 2.3 x 1.8 cm cyst which has benign characteristics. The right ovary is 1.8 x 1.3 cm and has an unremarkable appearance. No cul-de-sac fluid evident. IMPRESSION: 2.3 cm left ovarian cyst otherwise negative pelvic ultrasound
== END ==
PROVIDERS: PCP Physician Assistant; Visit Provider Physician Assistant
DX: N83.209 Unspecified ovarian cyst, unspecified side (principal)
CPT/HCPCS: 76830

== ENCOUNTER → 2018-02-28 14:57 | Outpatient (CLI) | payer OTHER, SELFPAY ==
[2018-02-28 16:36] LABS: Free T4 (Free Thyroxine) 0.97 ng/dl (0.76-1.46); Thyroid Stimulating Hormone 2.28 uIU/ml (0.358-3.740)
[2018-03-04 18:26] LABS: Thyroid Peroxidase Antibodies 590 IU/mL (0-34)
[2018-03-04 18:32] LABS: Thyroid Stimulating Immunoglob <0.10 IU/L (0.00-0.55)
== END ==
PROVIDERS: Family Provider Nurse Practitioner Family; PCP Physician Assistant; Visit Provider Otolaryngology
DX: E04.1 Nontoxic single thyroid nodule (principal); E06.9 Thyroiditis, unspecified
CPT/HCPCS: 36415; 84439; 84443; 84445; 86376

== ENCOUNTER → 2018-03-07 08:56 | Outpatient (CLI) | payer OTHER, SELFPAY ==
--- NOTE | 2018-03-07 08:57 | US_ITS ---
ULTRASOUND THYROID HISTORY: Thyroid enlarged follow-up nodules. COMPARISON: Previous biopsy June 2017. Most recent scan November 04, 2017 . PROCEDURE: Multiple sagittal & transverse ultrasound images of the thyroid. ----- FINDINGS: Inhomogeneous gland/very heterogeneous thyroid gland bilaterally. Making it difficult to discern nodules from the irregular appearing background gland RIGHT LOBE: 4.6 length is 2.2 cm past 2.3 cm AP Nodule A: Nodule a measures up to 1.1 cm on sagittal view. I believe it measures actually a 1.4 cm transverse which is similar to the June 2017 study. Again the very inhomogeneous gland makes it difficult to delineate these nodules. Nodule B: at the midportion right lobe I has not changed significantly. It measures I believe up to 2.2 cm diameter on today's images stable since October and June 2017. Period Nodule C: Lower pole right lobe measures up to 2.4 x 2.16. It appears similar to October 2017 LEFT LOBE: 4.1 cm length x 1.9 cm wide x 1.7 cm AP Nodule A: 1.9 cm length x 0.8 cm AP 1.4 cm transverse solid nodule slightly variable density. :. Today's image demonstrates slight additional fullness at the inferior margin of this left lobe nodule which was not previously included on prior October 31, 2017 exam measurements. This making this measures slightly larger overall today. However when going back to the June study this nodule over in entirety I believe actually appears fairly stable. ( Its shape on the June, is reminiscent shape of [facility] that June) . ISTHMUS:. Normal thickness less than 4 mm. IMPRESSION......... Overall no significant change since October. Ongoing follow-up suggested Very coarse architecture, heterogeneous multinodular gland. Difficult to discern individual nodules. However the 3 nodules at right lobe show no significant no appreciable change since 2017 including the larger nodules towards the mid and lower right lobe. The nodule at upper pole left lobe I believe is actually stable since June 2017 when measured similar points. . Mild thyromegaly, with right lobe larger than left.
== END ==
PROVIDERS: Family Provider Nurse Practitioner Family; PCP Physician Assistant; Visit Provider Otolaryngology
DX: E04.1 Nontoxic single thyroid nodule (principal)
CPT/HCPCS: 76536

== ENCOUNTER → 2018-09-20 14:48 | Outpatient (CLI) | payer OTHER, SELFPAY ==
--- NOTE | 2018-09-20 14:50 | US_ITS ---
US thyroid HISTORY: Follow-up thyroid nodules ITS.REASON: thyroid nodule ORDERING PHYSICIAN: Joey Morris MD PATIENT AGE: 48 years Comparison: 03/07/2018 FINDINGS: The right lobe is 4.7 x 2.4 x 2.3 cm. There is heterogeneous echogenicity with multiple isoechoic nodules. 15 x 9 mm nodule upper pole, 2.6 x 2.4 cm nodule mid pole, 2.2 x 1.97 m nodule lower pole. These are not significant changed. Left lobe is 4.3 x 2.4 x 1.7 cm. 19 x 9 mm hypoechoic nodule upper pole unchanged. There is diffuse heterogeneous echogenicity of both thyroid lobes IMPRESSION: No change in multinodular goiter
== END ==
PROVIDERS: PCP Physician Assistant; Visit Provider Otolaryngology
DX: E03.9 Hypothyroidism, unspecified (principal); E04.1 Nontoxic single thyroid nodule; E06.9 Thyroiditis, unspecified
CPT/HCPCS: 76536

== ENCOUNTER → 2019-01-18 08:26 | Outpatient (CLI) | payer OTHER, SELFPAY ==
--- NOTE | 2019-01-18 08:28 | US_ITS ---
US thyroid HISTORY: Follow-up of thyroid nodules ITS.REASON: Thyroid nodule ORDERING PHYSICIAN: Joey Morris MD PATIENT AGE: 48 years Comparison: 09/20/2018, 03/07/2018 FINDINGS: Study is technically difficult due to diffuse heterogeneous echogenicity of the thyroid gland. The right lobe is 4.9 x 2.2 x 2 cm. Heterogeneous echogenicity noted with multiple heterogeneous nodules. Nodule A: Upper pole 2 x 1.5 cm, isoechoic with heterogeneous echogenicity previously 1.8 x 0.9 cm. Nodule B: 2 x 2 cm, isoechoic with heterogeneous echogenicity, ill-defined previously 2.6 x 2.4 cm Nodule C: 0.8 cm slightly hypoechoic unchanged lower pole posteriorly The left lobe is 4.2 x 1.4 x 1.8 cm. Nodule A: Heterogeneous and slightly hypoechoic upper pole 2 cm unchanged. IMPRESSION: Multinodular goiter. Multiple heterogeneous thyroid nodules probably unchanged given the difference in scanning technique. Continued follow-up suggested
[2019-01-18 14:44] LABS: Free T4 (Free Thyroxine) 0.91 ng/dl (0.76-1.46); Thyroid Stimulating Hormone 3.07 uIU/ml (0.358-3.740)
[2019-01-20 06:14] LABS: Thyroid Peroxidase Antibodies >600 IU/mL (0-34)
[2019-01-20 20:34] LABS: Thyroid Stimulating Immunoglob <0.10 IU/L (0.00-0.55)
== END ==
PROVIDERS: PCP Nurse Practitioner Family; Visit Provider Otolaryngology
DX: E04.1 Nontoxic single thyroid nodule (principal)
CPT/HCPCS: 36415; 76536; 84439; 84443; 84445; 86376

== ENCOUNTER 2019-01-25 17:00 | Outpatient (RCR) | payer OTHER, SELFPAY | END 2019-03-07 09:13 | disposition home or self-care (01) | LOC: PT.CARL 17:00 | PROVIDERS: Visit Provider Orthopaedic Surgery | DX: M25.511 Pain in right shoulder (principal) | CPT/HCPCS: 97010; 97014; 97033; 97110; 97140; 97163; G0283 ==

== ENCOUNTER → 2019-05-24 08:16 | Outpatient (CLI) | payer OTHER, SELFPAY ==
[2019-05-24 08:43] LABS: Blood Urea Nitrogen 14 mg/dL (7-18); Calcium 9.4 mg/dL (8.5-10.1); Carbon Dioxide 30 mmol/L (21.0-32.0); Chloride 103 mmol/L (98-107); Creatinine,Serum 0.84 mg/dL (0.55-1.02); Estimated Glomerular Filt Rate 73 ml/min (>60); GFR (African American) 88 ML/MIN (>60); Glucose 99 mg/dL (74-106); Sodium 143 mmol/L (136-145)
== END ==
PROVIDERS: Visit Provider Urology
DX: R06.00 Dyspnea, unspecified (principal); I11.9 Hypertensive heart disease without heart failure; I25.10 Atherosclerotic heart disease of native coronary artery without angina pectoris; E78.5 Hyperlipidemia, unspecified; K21.9 Gastro-esophageal reflux disease without esophagitis; E66.9 Obesity, unspecified; R53.83 Other fatigue; F17.200 Nicotine dependence, unspecified, uncomplicated
CPT/HCPCS: 36415; 80048

== ENCOUNTER → 2019-06-12 07:03 | Outpatient (CLI) | payer OTHER, SELFPAY ==
--- NOTE | 2019-06-12 | CA_ITS ---
APPROVED REPORT Exam: Pharmacologic Technologist: Emily Pascal Ht: 5 ft 2 in Wt: 245 lbs BSA: 2.08 m2 HR: 59 bpm BP: 187/119 mmHg Indications: Shortness of Air Medical History Medications: Levothyroxine,,,,, Furosemide (LASIX),,,,, Losartan,,,,, Atorvastatin,,,,, HCTZ,,,,, BisOPROLOL,,,,, DOxazosin,,,,, Sertraline,,,,, NaSAL SPRAY,,,,, INHALER,,,,, Stress Test Details Test: LEXISCAN HR Resting HR: 64 bpm Max Heart Rate (APMHR): 173 bpm Max HR Achieved: 96 bpm Target HR (85% APMHR): 147 bpm % of APMHR: 55 Recovery HR: 78 bpm BP Resting BP: 187.0/119.0 mmHg Max BP: 198.0/119.0 mmHg Recovery BP: 198.0/119.0 mmHg ECG Clinical Reason for Termination: Completed Protocol Exercise duration: 04:36 min Highest Stage Achieved: Stress ECG Conclusion Resting ECG: Normal sinus rhythm. Symptoms: No chest pain Arrhythmias/Ectopy: None ST-T Changes: , 1.[address] segment changes Conclusion: Non-diagnostic lexiscan stress test. Patient received the infusion per protocol without chest pain, ST segment changes or arrhythmias. See the nuclear report for further information. Electronically signed by : Kleber Cash, 06/13/2019 15:18:57
--- NOTE | 2019-06-12 07:04 | CA_ITS ---
APPROVED REPORT EXAM: Comprehensive 2D, Doppler, and color-flow Echocardiogram [employer] Servicer: Maria Guardado RVT Ht: 5 ft 4 in Wt: 251lbs BSA: 2.16 BP: 150/92 mmHg Indications: Shortness of Breath, Dyspnea, Hypertension,Smoker,Edema 2D Dimensions LVOT 1.90 cm (M/F) 1.5-2.5 M-Mode Dimensions RVDd 1.44 cm (0.9-2.6) LVDd 5.58 cm (3.5-5.7) LVDs 4.14 cm (3.5-5.7) IVSd 0.76 cm (0.6-1.1) PWd 0.68 cm (0.6-1.1) EF (Teich) 50.20% FS 25.80% EDV (Teich) 152.40 mL ESV (Teich) 75.90 mL LV Diastology E/A Ratio 1.34 Mitral Valve MV A Velocity 52.00 (40-130 cm/s) Left Ventricle Left atrium is normal size, left ventricle is normal size, mild concentric left ventricular hypertrophy, visually estimated ejection fraction 55% with no regional wall motion abnormality, diastolic parameters are inconclusive. Right Ventricle Right atrium right ventricular normal size and contractility. Aortic Valve Aortic valve is minimally thickened and fibrosed. Mitral Valve Mitral valve is grossly normal, there is mild mitral regurgitation. Tricuspid Valve Tricuspid valve is grossly normal, there is mild tricuspid regurgitation. Pulmonic Valve Pulmonic valve is poorly visualized. Great Vessels Aortic root is normal size. Pericardium No significant pericardial effusion noted. Conclusion 1. Normal left ventricular size, preserved left ventricular systolic function, visually estimated ejection fraction 55% with no regional wall motion abnormality, diastolic parameters are inconclusive. 2. Mild mitral and tricuspid regurgitation. 3. No significant pericardial effusion noted. Electronically signed by : Kleber Cash, 06/13/2019 15:11:42
--- NOTE | 2019-06-12 07:04 | NM_ITS ---
APPROVED REPORT Exam: Nuclear Stress Test Indication: Chest pain, SOB, HTN, High cholesterol, Former tobacco use, Family history Patient Location: Outpatient Stress Tech: Emily Pascal NM Tech:Una Noland, ARRT, RT (R)(N) Ht: 5 ft 2 in Wt: 245 lbs Bra Size: 42D HR: 59 bpm BP: 187/119 mmHg BSA: 2.08 m2 BMI: 44.8 History: Chest pain, SOB, HTN, High cholesterol, Former tobacco use, Family history Procedure: Patient received a 0.4 mg of intravenous Lexiscan, resting heart rate 59 bpm, resting blood pressure 187/119 mmHg, with Lexiscan maximum heart rate achived was 95 bpm which is Less than 85 % of the maximum predicted heart rate and blood pressure was 181/112 mmHg. With Lexiscan, patient denied any complaint of chest pain. Electrocardiogram Resting electrocardiogram showed sinus rhythm, with Lexiscan there is less than 1.[address] segment depression noted from the baseline EKG. The EKG portion of the Lexiscan Myoview is nondiagnostic. Cardiac Stress and Resting SPECT Images: Cardiac Stress and Resting SPECT images were obtained using technetium 99m Myoview 31.8 mCi stress and 10.08 mCi at rest. Gated SPECT with analysis of segmental wall motion and calculation of the ejection fraction also done. Mild decrease tracer activity in the anterior wall which improves on the resting images is likely secondary to reversible ischemia, computer derived ejection fraction is 54% with no regional wall motion abnormality, right ventricle is normal size and contractility. The study is technically limited due to patient's body habitus. Conclusion: 1. The EKG portion of the Lexiscan Myoview is nondiagnostic. 2. Likely mild reversible ischemia involving the anterior wall, computer derived ejection fraction 54% with no regional wall motion abnormality, right ventricle is normal size and contractility. 3. Likely abnormal Lexiscan Myoview study, the study is technically limited due to patient's body habitus. Electronically signed by : Kleber Cash, 06/16/2019 12:16:06
--- NOTE | 2019-06-12 07:34 | HMH.ITSHM ---
Current Home Medications as stated by this patient Peyton Peterson or small business representative. []DOXAZOSIN SERTRALINE LOSARTAN FUROSEMIDE HCTZ LEVOTHYROXINE ATORVASTATIN INHALER BISOPROLOL NASAL SPRAY
== END ==
PROVIDERS: PCP Nurse Practitioner Family; Visit Provider Urology
DX: R06.09 Other forms of dyspnea (principal); I11.9 Hypertensive heart disease without heart failure; R60.9 Edema, unspecified; R94.39 Abnormal result of other cardiovascular function study; Z82.49 Family history of ischemic heart disease and other diseases of the circulatory system
CPT/HCPCS: 78452; 93017; 93306; A9502; J2785

== ENCOUNTER 2019-06-20 23:53 | Observation (INO) ==
[2019-06-20 23:32] LABS: Basophils % 0.4 % (0.1-2.0); Eosinophils # 0.2 K/mm3 (0.0-0.4); Hematocrit 39.4 % (37.0-47.0); Hemoglobin 12.7 g/dL (12.2-16.2); Lymphocytes # 2.5 K/mm3 (0.7-4.5); Mean Corpuscular HGB Conc 32.3 g/dL (31.8-35.4); Mean Corpuscular Volume 85.2 fl (81-99); Mean Platelet Volume 7.5 fl (7.4-10.4); Monocytes # 0.3 K/mm3 (0.1-1.0); Neutrophils # 7.2 K/mm3 (1.8-7.8); Neutrophils % 70.6 % (37.0-80.0); Platelet Count 303 K/mm3 (142-424); Red Blood Count 4.63 M/mm3 (4.20-5.40); Red Cell Distribution Width 14.7 % (11.5-17.5); White Blood Count 10.2 K/mm3 (4.8-10.8)
[2019-06-20 23:37] LABS: Anion Gap 12.6 mEq/L (5-15); Blood Urea Nitrogen 13 mg/dL (7-18); Calcium 8.9 mg/dL (8.5-10.1); Carbon Dioxide 30 mmol/L (21.0-32.0); Chloride 102 mmol/L (98-107); Glucose 104 mg/dL (74-106); Sodium 141 mmol/L (136-145)
--- NOTE | 2019-06-21 00:51 | Emergency Department Note ---
ED Disposition Clinical Impression: CAD (coronary artery disease) Qualifiers: Coronary Disease-Associated Artery/Lesion type: unspecified vessel or lesion type [place] vs. transplanted heart: [place] heart Associated angina: angina presence unspecified Qualified Code(s): I25.10 - Atherosclerotic heart disease of [place] coronary artery without angina pectoris Obesity Qualifiers: Obesity type: due to excess calories Obesity classification: adult class 3 (BMI >= 40) Serious obesity comorbidity presence: with serious comorbidity Body mass index: BMI 45.0-49.9 Qualified Code(s): E66.01 - Morbid (severe) obesity due to excess calories; Z68.42 - Body mass index (BMI) 45.0-49.9, adult Medication adverse effect Qualifiers: Encounter type: initial encounter Qualified Code(s): T50.905A - Adverse effect of unspecified drugs, medicaments and biological substances, initial encounter Disposition: Admitted as Observation Condition on Discharge: Good - Critical Care Critical Care Time: No Attestation: On 06/20/19, the high probability of a clinically significant, sudden or life threatening deterioration of the following system(s) required my full and direct attention, intervention and personal management. The time I documented below is in addition to time spent performing reported procedures but includes the following listed in this critical care notation. Medical Decision Making - Medical Records Medical records reviewed: Yes: I reviewed the patient's medical records. - Jose Inquiry Pt receiving controlled substance: No Vital Signs: 06/20/19 23:11 Temperature 97.7 F Temperature Source Oral Pulse Rate [Right Brachial] 62 Respiratory Rate 18 Blood Pressure [Right Arm] 123/72 Blood Pressure Mean [Right Arm] 89 Blood Pressure Source [Right Arm] Automatic Cuff Blood Pressure Position [Right Arm] Sitting 02 Sat by Pulse Oximetry 94 L Oxygen Delivery Method Room Air - Lab Data Lab results reviewed: Yes: I reviewed the patient's lab results. Lab Results 06/20/19 23:18: WBC 10.2, RBC 4.63, Hgb 12.7, Hct 39.4, MCV 85.2, MCH 27.5, MCHC 32.3, RDW 14.7, Plt Count 303, MPV 7.5, Neut % (Auto) 70.6, Lymph % (Auto) 24.0, [place] % (Auto) 3.0, Eos % (Auto) 2.0, Baso % (Auto) 0.4, Neut # (Auto) 7.2, Lymph # (Auto) 2.5, [place] # (Auto) 0.3, Eos # (Auto) 0.2, Baso # (Auto) 0.0 06/20/19 23:18: Sodium 141, Potassium 3.6, Chloride 102, Carbon Dioxide 30, Anion Gap 12.6, BUN 13, Creatinine 1.23 H, Estimated Creat Clear 45, Estimated GFR 47 L, Est GFR ( Amer) 57 L, Glucose 104, Calcium 8.9, Troponin I < 0.02 06/20/19 23:18: Serum HCG, Qual Negative Result diagrams: 06/20/19 23:18 06/20/19 23:18 Orders (Tests/Meds): ORDERS Category Date Time Status Chest XR -- portable [XR chest portable] Stat Exams 06/20/19 23:17 Taken Troponin I Q3H Lab 06/21/19 02:30 Ordered Troponin I Q3H Lab 06/21/19 05:30 Ordered - ECG Data Tracing #1 Normal Sinus Rhythm: Yes Ischemic changes: non-specific ST-T wave changes - Physician Consults Physician Consulted: santy Reason -: Pt condition Additional Consult: ade Reason -: Admission - INNA Score for Non-Stemi Age of Patient: 40-49 years old Heart Rate: 50-69 bpm Systolic Blood Pressure: 120-139 mmhg Serum Creatinine: 1.20-1.59 mg/dl CHF [place] Class: I-No CHF Other Risk Factors: None Non-Stemi Risk Score: 72 Weakness HPI - General Chief complaint: Weakness Stated complaint: hypotension Time Seen by Provider: 06/21/19 00:00 Mode of Arrival: EMS Source of Information: Patient, EMS, Medical Record Limitations: No Limitations Description of Symptoms (Recalled from ER Triage Doc. by RN): hypotensive after taking first dose of carvedilol; was put on it today for her heart by dr madera's office; states is due to have a cardiac cath in the morning for a 70% LAD blockage she was made aware of. states she felt dizzy and lightheaded and got concerned so she called 911 - History of Present Illness HPI Narrative: pt with hx of cad and to have cath this am - took meds tonight and felt dizzy and blurred vision - no syncope or loss of vision MD Complaint: generalized weakness Onset (ago): hour(s) Duration: now resolved Migration: none Context: new medication Associated symptoms: denies other symptoms - Related Data Home Medications Medication Instructions Recorded Confirmed aspirin 81 mg tablet,delayed 81 mg PO DAILY 06/21/17 06/21/19 release cetirizine 10 mg tablet 10 mg PO DAILY 06/21/17 06/21/19 sertraline 100 mg tablet 100 mg PO DAILY 06/21/17 06/21/19 Doxazosin Mesylate [Cardura 4mg 4 mg PO BID 06/21/19 06/21/19 Tab] Loperamide HCl [Imodium 2 mg 2 mg PO DIRECTED 06/21/19 06/21/19 capsule] carvediloL [Carvedilol 25mg Tab] 25 mg PO BID 06/21/19 06/21/19 hydroCHLOROthiazide 50 mg PO DAILY 06/21/19 06/21/19 [Hydrochlorothiazide 50mg Tab] Previous Rx's Medication Instructions Recorded levothyroxine 88 mcg tablet 88 mcg PO DAILY #90 tab 03/24/18 nitroglycerin 0.4 mg sublingual 0.4 mg SUBLINGUAL Q5-15M PRN #30 05/26/18 tablet tab atorvastatin 80 mg tablet 80 mg PO DAILY #30 tab 02/06/19 furosemide 20 mg tablet 20 mg PO DAILY #30 tab 02/06/19 losartan 100 mg tablet 100 mg PO DAILY #30 tab 02/06/19 Allergies Allergy/AdvReac Type Severity Reaction Status Date / Time No Known Allergies Allergy Verified 06/19/19 13:54 [facility] History - Hepatitis A Screen Drug use history?: No High risk sexual behaviors?: No History of sexually transmitted infection?: No Currently employed?: No Childcare worker?: No Do you have indoor plumbing?: Yes Do you have electricity?: Yes Attestation statement:: This patient has been screened for Hepatitis A risk factors. I have reviewed the patient's past medical history: Yes Medical History: Reports:: Asthma, Chronic Obstructive Pulmonary Disease (COPD), Gastroesophageal Reflux Disease(GERD), Hyperlipidemia, Hypertension Denies:: Cancer, Diabetes Mellitus Type 1, Diabetes Mellitus Type 2, Internal Pacemaker, MRSA Other Medical History: Reports: Arthritis, Hypothyroidism, Sinus Problems, Thyroid Disease Comment: irregular heart beat Other Surgeries: Yes: Appendectomy, Thyroidectomy, Tubal Ligation. No: Pacemaker Amputation: No Fractures: No Comment: Thyroid Bx 08/02/2017 - Social History Smoking Status: Never smoker Tobacco Type: cigarettes #Yrs smoked (if former smoker): 10 Alcohol Intake: never Substance Use Type: denies use Occupational Status: unemployed Housing: house Household Members: significant other, children Family Hx:: Hypertension, Hyperlipidemia, Coronary Artery Disease Comment: Glaucoma, ROS Obtained: Yes All systems reviewed & no additional complaints - Constitutional Constitutional: Denies fever(s) - Eyes Eyes: Denies change in vision - ENT Ears, Nose, Mouth, and Throat: Denies sore throat - Cardiovascular Cardiovascular: Reports as per HPI, Denies chest pain, Denies dyspnea, Reports lightheadedness - Respiratory Respiratory: No cough - Gastrointestinal Gastrointestingal: Denies: abdominal pain - Genitourinary Female Genitourinary: Denies hematuria - Musculoskeletal Musculoskeletal: Denies joint swelling - Integumentary/Breasts Skin/Breast: Denies rash - Neurologic Neurologic: Denies focal weakness, Denies headache(s), Denies seizure-like acti vity Physical Exam - General General appearance: alert, obese - Head Head exam: normocephalic - Eye Eye exam: Present: PERRL, EOMI. Absent: nystagmus - ENT ENT exam: Present: mucous membranes moist - Neck Neck exam: Present: trachea midline - Respiratory Respiratory exam: Present: normal lung sounds bilaterally. Absent: respiratory distress - Cardiovascular Cardiovascular exam: Present: regular rate, systolic murmur - Abdominal Exam Abdominal exam: Present: soft - Extremities Exam Extremities exam: Present: full ROM. Absent: calf tenderness - Neurological Exam Neurological exam: Present: alert, oriented X3, CN II-XII intact - Psychiatric Psychiatric exam: Present: normal affect - Skin Skin exam: Absent: rash
--- NOTE | 2019-06-21 07:34 | Pharmacy Consult Notes ---
[facility] Pharmacy VTE Monitoring - Patient Demographics Admission date: 06/21/19 Report Date: 06/21/19 Time: 07:34 Allergies/Adverse Reactions: Patient Allergies No Known Allergies Allergy (Verified 06/19/19 13:54) Height: 1.57 m Weight: 109.798 kg Patient Problems: Current Active Problems Medication adverse effect (Acute) CAD (coronary artery disease) (Chronic) Obesity (Acute) - VTE Risk Labs: VTE Related Lab Results Hgb 12.7 g/dL (12.2-16.2) 06/20/19 23:18 Hct 39.4 % (37.0-47.0) 06/20/19 23:18 Plt Count 303 K/mm3 (142-424) 06/20/19 23:18 BUN 13 mg/dL (7-18) 06/20/19 23:18 Creatinine 1.23 mg/dL (0.55-1.02) H 06/20/19 23:18 Estimated Creat Clear 45 mL/min (50-200) 06/20/19 23:18 Was VTE Risk Assessment Performed: Yes VTE Score: 2 VTE Risk Level: Very Low Risk Clinical Trial Participant: No - Prophylaxis VTE Prophylaxis Ordered?: Yes Types of VTE Prophylaxis: TEDS Knee High Location of Applied Device: Bilateral Lower Extremeties
--- NOTE | 2019-06-21 08:32 | History & Physical Report ---
*Admission Date: 06/21/19 <HaqRasheeda 06/21/19 08:32> *Chief complaint: Near syncopal episode <HaqRasheeda 06/21/19 08:47> *History of present illness: Nicholas is a 48-year-old female with a history of hypertension, leg edema, and recent abnormal stress test who presented to [facility] emergency room after nearly passing out. She describes taking her cardiac meds last evening after which she became dizzy was unable to walk. She states she had recently been started on a new blood pressure pill on 06/19/2019 but did not start until last evening. She also describes not taking any of her meds for the last few days until last evening. Denies having chest pain and shortness of breath. She did become a little nauseated. She denies palpitations and diaphoresis. She had a positive stress test about 2 weeks ago with her follow-up visit on 06/19/2019. Blood pressure was found to be quite elevated and medication was added. Plan was made for cardiac catheterization this a.m. She has not had any chest pain. Troponin I's have been negative x3. She has had no chest pain since admission and is breathing without problems. <EunKathyaRasheeda 06/21/19 08:47> [facility] History Medical History: Reports:: Asthma, Chronic Obstructive Pulmonary Disease (COPD), Coronary Artery Disease, Gastroesophageal Reflux Disease(GERD), Hyperlipidemia, Hypertension Denies:: Cancer, Diabetes Mellitus Type 1, Diabetes Mellitus Type 2, Internal Pacemaker, MRSA <Rasheeda Haq 06/21/19 08:32> *Have you ever received a pneumonia vaccine?: No <Rasheeda Haq 06/21/19 08:32> *Have you received a flu vaccine this season?: No (Would like to have prior to leaving) <Rasheeda Haq 06/21/19 08:32> Other Medical History: Reports: Arthritis, Hypothyroidism, Sinus Problems, Thyroid Disease <Rasheeda Haq 06/21/19 08:32> Other Surgeries: Yes: Appendectomy, Thyroidectomy, Tubal Ligation. No: Pacemaker <Rasheeda Haq 06/21/19 08:32> Amputation: No <Rasheeda Haq 06/21/19 08:32> Fractures: No <Rasheeda Haq 06/21/19 08:32> - *Social History Educational Level: Completed High School <Rasheeda Haq 06/21/19 08:32> Smoking Status: Former smoker <Rasheeda Haq 06/21/19 08:32> Tobacco Type: cigarettes <Rasheeda Haq 06/21/19 08:32> #Yrs smoked (if former smoker): 10 <Rasheeda Haq 06/21/19 08:32> Smoking End Date: 08/29/2018 <Rasheeda Haq 06/21/19 08:32> Alcohol Intake: current <Rasheeda Haq 06/21/19 08:32> Alcohol Intake Frequency:: holidays/special occasions only <EunRasheeda 06/21/19 08:32> Substance Use Type: denies use <EunRasheeda 06/21/19 08:32> *Occupational Status:: unemployed <EunRasheeda 06/21/19 08:32> Housing: house <EunRasheeda 06/21/19 08:32> Household Members: children <Rasheeda Haq 06/21/19 08:32> *Travel in the last 8 weeks: None <Rasheeda Haq 06/21/19 08:32> Comment: She babysits with her 8-month-old granddaughter <EunRasheeda 06/21/19 08:47> Family Hx:: Coronary Artery Disease, Heart Attack, Hyperlipidemia, Hypertension <HaqRasheeda 06/21/19 08:32> Review of Systems - Constitutional Denies fever(s), Denies headache(s) <HaqRasheeda 06/21/19 08:47> - Eyes Reports blurry vision, Reports change in vision <EunRasheeda 06/21/19 08:47> - ENT Denies ear pain, Denies sore throat <EunRasheeda 06/21/19 08:47> - *Cardiovascular Denies chest pain, Denies shortness of breath, Denies irregular heart rhythm <Rasheeda Haq 06/21/19 08:47> - *Respiratory Denies cough, Denies shortness of breath <Rasheeda Haq 06/21/19 08:47> - *Gastrointestinal Denies abdominal pain, Denies change in stools, Denies constipation, Denies loose stools, Denies heartburn, Denies vomiting blood, Denies vomiting <EunRasheeda Chalino 06/21/19 08:47> - *Genitourinary Denies difficulty urinating <Rasheeda Haq - 06/21/19 08:47> - *Musculoskeletal Reports joint pain <HaqRasheeda 06/21/19 08:47> - *Neurologic Denies abnormal walking, Denies localized weakness, Denies headache(s), Denies seizure-like activity <Rasheeda Haq - 06/21/19 08:47> Meds Home Medications Medication Instructions Recorded Confirmed Type aspirin 81 mg tablet,delayed 81 mg PO DAILY 06/21/17 06/21/19 History release cetirizine 10 mg tablet 10 mg PO DAILY 06/21/17 06/21/19 History sertraline 100 mg tablet 100 mg PO DAILY 06/21/17 06/21/19 History levothyroxine 88 mcg tablet 88 mcg PO DAILY #90 tab 03/24/18 06/21/19 Rx nitroglycerin 0.4 mg sublingual 0.4 mg SUBLINGUAL Q5-15M PRN #30 05/26/18 06/21/19 Rx tablet tab atorvastatin 80 mg tablet 80 mg PO DAILY #30 tab 02/06/19 06/21/19 Rx furosemide 20 mg tablet 20 mg PO DAILY #30 tab 02/06/19 06/21/19 Rx losartan 100 mg tablet 100 mg PO DAILY #30 tab 02/06/19 06/21/19 Rx Doxazosin Mesylate [Cardura 4mg 4 mg PO BID 06/21/19 06/21/19 History Tab] Loperamide HCl [Imodium 2 mg 2 mg PO DIRECTED 06/21/19 06/21/19 History capsule] Metoclopramide HCl [Reglan 5mg 5 mg PO AC 06/21/19 06/21/19 History Tablet] NIFEdipine [Procardia Xl] 90 mg PO DAILY 06/21/19 06/21/19 History Spironolactone 100 mg PO DAILY 06/21/19 06/21/19 History carvediloL [Carvedilol 25mg Tab] 25 mg PO BID 06/21/19 06/21/19 History hydroCHLOROthiazide 50 mg PO DAILY 06/21/19 06/21/19 History [Hydrochlorothiazide 50mg Tab] methocarbamoL [Methocarbamol 750mg 750 mg PO BID 06/21/19 06/21/19 History Tab] <SlickCrow hodgson Mark - 06/21/19 14:37> Allergies Allergy/AdvReac Type Severity Reaction Status Date / Time No Known Allergies Allergy Verified 06/19/19 13:54 <SlickCrow Mark - 06/21/19 14:37> Exam Vital signs and Labs for Last 24 Hours: Temp Pulse Resp BP Pulse Ox 97.7 F 69 18 118/80 95 06/21/19 11:58 06/21/19 14:00 06/21/19 14:00 06/21/19 14:00 06/21/19 14:00 Laboratory Results - last 24 hr 06/20/19 23:18: WBC 10.2, RBC 4.63, Hgb 12.7, Hct 39.4, MCV 85.2, MCH 27.5, MCHC 32.3, RDW 14.7, Plt Count 303, MPV 7.5, Neut % (Auto) 70.6, Lymph % (Auto) 24.0, [place] % (Auto) 3.0, Eos % (Auto) 2.0, Baso % (Auto) 0.4, Neut # (Auto) 7.2, Lymph # (Auto) 2.5, [place] # (Auto) 0.3, Eos # (Auto) 0.2, Baso # (Auto) 0.0 06/20/19 23:18: Sodium 141, Potassium 3.6, Chloride 102, Carbon Dioxide 30, Anion Gap 12.6, BUN 13, Creatinine 1.23 H, Estimated Creat Clear 45, Estimated GFR 47 L, Est GFR ( Amer) 57 L, Glucose 104, Calcium 8.9, Troponin I < 0.02 06/20/19 23:18: Serum HCG, Qual Negative 06/21/19 02:35: Troponin I < 0.02 06/21/19 06:24: Troponin I < 0.02 <SlickCrow Mark - 06/21/19 14:37> Temp Pulse Resp BP Pulse Ox 98.6 F 64 20 119/66 94 L 06/21/19 04:00 06/21/19 04:00 06/21/19 04:00 06/21/19 04:00 06/21/19 04:00 Laboratory Results - last 24 hr 06/20/19 23:18: WBC 10.2, RBC 4.63, Hgb 12.7, Hct 39.4, MCV 85.2, MCH 27.5, MCHC 32.3, RDW 14.7, Plt Count 303, MPV 7.5, Neut % (Auto) 70.6, Lymph % (Auto) 24.0, [place] % (Auto) 3.0, Eos % (Auto) 2.0, Baso % (Auto) 0.4, Neut # (Auto) 7.2, Lymph # (Auto) 2.5, [place] # (Auto) 0.3, Eos # (Auto) 0.2, Baso # (Auto) 0.0 06/20/19 23:18: Sodium 141, Potassium 3.6, Chloride 102, Carbon Dioxide 30, Anion Gap 12.6, BUN 13, Creatinine 1.23 H, Estimated Creat Clear 45, Estimated GFR 47 L, Est GFR ( Amer) 57 L, Glucose 104, Calcium 8.9, Troponin I < 0.02 06/20/19 23:18: Serum HCG, Qual Negative 06/21/19 02:35: Troponin I < 0.02 06/21/19 06:24: Troponin I < 0.02 <Rasheeda Haq - 06/21/19 08:32> I & O for Last 24 hours: Intake & Output 06/19/19 06/20/19 06/21/19 06/22/19 11:59 11:59 11:59 11:59 Intake Total 118 / 118 Balance 118 / 118 Weight 242 lb 1 oz <Crow Kruger - 06/21/19 14:37> Intake & Output 06/18/19 06/19/19 06/20/19 06/21/19 11:59 11:59 11:59 11:59 Intake Total 118 / 118 Balance 118 / 118 Weight 242 lb 1 oz <Rasheeda Haq - 06/21/19 08:32> Radiology Reports for the Last 24 Hours: 06/20/2019 chest x-ray IMPRESSION: No acute findings. <Rasheeda Haq 06/21/19 08:47> - Constitutional no acute distress <Rasheeda Haq 06/21/19 08:47> - *Routine HEENT Exam Head: Present: normocephalic <Rasheeda Haq 06/21/19 08:47> Eye: Present: PERRL. Absent: conjunctival icterus, scleral injection <Rasheeda Haq 06/21/19 08:47> - *Routine Neck Exam Present: supple. Absent: carotid bruit, lymphadenopathy, thyromegaly <Rasheeda Haq 06/21/19 08:47> - *Routine Respiratory Exam Present: CTA bilaterally (Anteriorly and posteriorly) <Rasheeda Haq 06/21/19 08:47> - *Routine Cardiovascular Exam Present: RRR <Rasheeda Haq 06/21/19 08:47> Comments: monitor showing sinus rhythm <Rasheeda Haq 06/21/19 08:47> - *Routine Abdominal Exam Present: soft, normoactive bowel sounds. Absent: tenderness, distended <Rasheeda Haq 06/21/19 08:47> - *Routine Extremities Exam Present: pulses intact. Absent: edema, calf tenderness <Rasheeda Haq 06/21/19 08:47> - *Routine Neurological Exam Present: alert, oriented X3 <Rasheeda Haq 06/21/19 08:47> Assessment and Plan (1) Medication adverse effect Current visit: Yes Status: Acute Qualifiers: Encounter type: initial encounter Qualified Code(s): T50.905A - Adverse effect of unspecified drugs, medicaments and biological substances, initial encounter Category: Medical Code(s): T50.905A - Adverse effect of unspecified drugs, medicaments and biological substances, initial encounter (2) CAD (coronary artery disease) Current visit: Yes Status: Chronic Qualifiers: Coronary Disease-Associated Artery/Lesion type: unspecified vessel or lesion type [place] vs. transplanted heart: [place] heart Associated angina: angina presence unspecified Qualified Code(s): I25.10 - Atherosclerotic heart disease of [place] coronary artery without angina pectoris Category: Medical Code(s): I25.10 - Atherosclerotic heart disease of [place] coronary artery without angina pectoris (3) Hypertension Current visit: No Status: Chronic Qualifiers: Hypertension type: essential hypertension Qualified Code(s): I10 - Essential (primary) hypertension Category: Medical Code(s): I10 - Essential (primary) hypertension (4) Edema Current visit: No Status: Chronic Qualifiers: Edema type: unspecified Qualified Code(s): R60.9 - Edema, unspecified Category: Medical Code(s): R60.9 - Edema, unspecified (5) GERD (gastroesophageal reflux disease) Current visit: No Status: Chronic Qualifiers: Esophagitis presence: without esophagitis Qualified Code(s): K21.9 - Gastro-esophageal reflux disease without esophagitis Category: Medical Code(s): K21.9 - Gastro-esophageal reflux disease without esophagitis (6) Hyperlipemia Current visit: No Status: Chronic Qualifiers: Hyperlipidemia type: mixed hyperlipidemia Qualified Code(s): E78.2 - Mixed hyperlipidemia Category: Medical Code(s): E78.5 - Hyperlipidemia, unspecified <Rasheeda Haq - 06/21/19 08:33> (1) Shortness of breath Current visit: Yes Status: Acute Category: Medical Code(s): R06.02 - Shortness of breath (2) Abnormal stress test Current visit: Yes Status: Acute Category: Medical Code(s): R94.39 - Abnor mal result of other cardiovascular function study (3) Medication adverse effect Current visit: Yes Status: Acute Qualifiers: Encounter type: initial encounter Qualified Code(s): T50.905A - Adverse effect of unspecified drugs, medicaments and biological substances, initial encounter Category: Medical Code(s): T50.905A - Adverse effect of unspecified drugs, medicaments and biological substances, initial encounter (4) Hypertension Current visit: No Status: Chronic Qualifiers: Hypertension type: essential hypertension Qualified Code(s): I10 - Essential (primary) hypertension Category: Medical Code(s): I10 - Essential (primary) hypertension (5) Edema Current visit: No Status: Chronic Qualifiers: Edema type: unspecified Qualified Code(s): R60.9 - Edema, unspecified Category: Medical Code(s): R60.9 - Edema, unspecified (6) GERD (gastroesophageal reflux disease) Current visit: No Status: Chronic Qualifiers: Esophagitis presence: without esophagitis Qualified Code(s): K21.9 - Gastro-esophageal reflux disease without esophagitis Category: Medical Code(s): K21.9 - Gastro-esophageal reflux disease without esophagitis (7) Hyperlipemia Current visit: No Status: Chronic Qualifiers: Hyperlipidemia type: mixed hyperlipidemia Qualified Code(s): E78.2 - Mixed hyperlipidemia Category: Medical Code(s): E78.5 - Hyperlipidemia, unspecified (8) Obesity Current visit: Yes Status: Chronic Qualifiers: Obesity type: due to excess calories Obesity classification: adult class 3 (BMI >= 40) Serious obesity comorbidity presence: with serious comorbidity Body mass index: BMI 45.0-49.9 Qualified Code(s): E66.01 - Morbid (severe) obesity due to excess calories; Z68.42 - Body mass index (BMI) 45.0-49.9, adult Category: Medical Code(s): E66.9 - Obesity, unspecified (9) Fatigue Current visit: No Status: Chronic Qualifiers: Fatigue type: other Qualified Code(s): R53.83 - Other fatigue Category: Medical Code(s): R53.83 - Other fatigue (10) Hypertensive heart disease Current visit: No Status: Chronic Qualifiers: Heart failure presence: without heart failure Qualified Code(s): I11.9 - Hypertensive heart disease without heart failure Category: Medical Code(s): I11.9 - Hypertensive heart disease without heart failure (11) Tobacco dependence syndrome Current visit: No Status: Chronic Category: Medical Code(s): F17.200 - Nicotine dependence, unspecified, uncomplicated <SlickCrow Mark - 06/21/19 14:37> - Assessment and plan all Dx Assessment and Plan for all problems:: Patient seen and examined this morning. She is comfortable. Concur with above assessment and plan. Defer to cardiology for further recommendations. <Crow Kruger - 06/21/19 14:37> Cardiology to see. She will have a Cardiac cath sometime today. <Rasheeda Haq - 06/21/19 08:47>
--- NOTE | 2019-06-21 09:53 | Consult Report ---
History of Present Illness Consult date: 06/21/19 Requesting physician: Yefri Alvarado Consult reason: hypotension Chief complaint: weakness and dizziness Additional Medical History:: 1. Hypertension 2. Hyperlipidemia 3. GERD 4. COPD 5. Diastolic dysfunction History of present illness: This is a 48-year-old white female who is a known patient of Dr. Romeo. The patient was seen this week and set up for left heart cath and renal angiogram today due to shortness of breath, abnormal stress test and malignant hypertension. She does not have any known coronary artery disease. She did have a previous stress test a few years ago that was normal and now her recent stress test is abnormal and she is being set up for left heart cath to determine whether or not she has coronary artery disease. Her blood pressure medications were changed at her visit this week. The patient states that she took the carvedilol and the Procardia that she was changed to and she started to feel bad. She states that she suddenly became weak and dizzy and felt as if she were going to pass out. The patient states that she felt like her heart was racing when this happened and just did not feel well. She decided to come into the emergency department because she felt like she was having a reaction to 1 of the new medications. The patient has previously taking bisoprolol with no issues in the past. She believes that the carvedilol is the medication that caused her to feel so bad. However she took the carvedilol and Procardia at the same time. The patient reports that her shortness of breath continues. She is short of breath all the time and it is worse with minimal exertion. Rest does improve the symptoms but does not always completely resolve it. She does have an abnormal stress test and is scheduled to undergo left cardiac catheterization today as well as renal angiogram. She denies any fever, chills, nausea, vomiting, diarrhea, PND or orthopnea. [facility] History I have reviewed the patient's past medical history: Yes Medical History: Reports:: Asthma, Chronic Obstructive Pulmonary Disease (COPD), Gastroesophageal Reflux Disease(GERD), Hyperlipidemia, Hypertension Denies:: Cancer, Diabetes Mellitus Type 1, Diabetes Mellitus Type 2, Internal Pacemaker, MRSA *Have you ever received a pneumonia vaccine?: No *Have you received a flu vaccine this season?: No (Would like to have prior to leaving) Other Medical History: Reports: Arthritis, Hypothyroidism, Sinus Problems, Thyroid Disease Other Surgeries: Yes: Appendectomy, Thyroidectomy, Tubal Ligation. No: Pacemaker Amputation: No Fractures: No - *Social History Educational Level: Completed High School Smoking Status: Former smoker Tobacco Type: cigarettes #Yrs smoked (if former smoker): 10 Smoking End Date: 08/29/2018 Alcohol Intake: current Alcohol Intake Frequency:: holidays/special occasions only Substance Use Type: denies use *Occupational Status:: unemployed Housing: house Household Members: children *Travel in the last 8 weeks: None Family Hx:: Coronary Artery Disease, Heart Attack, Hyperlipidemia, Hypertension Meds Home Medications Medication Instructions Recorded Confirmed Type aspirin 81 mg tablet,delayed 81 mg PO DAILY 06/21/17 06/21/19 History release cetirizine 10 mg tablet 10 mg PO DAILY 06/21/17 06/21/19 History sertraline 100 mg tablet 100 mg PO DAILY 06/21/17 06/21/19 History levothyroxine 88 mcg tablet 88 mcg PO DAILY #90 tab 03/24/18 06/21/19 Rx nitroglycerin 0.4 mg sublingual 0.4 mg SUBLINGUAL Q5-15M PRN #30 05/26/18 06/21/19 Rx tablet tab atorvastatin 80 mg tablet 80 mg PO DAILY #30 tab 02/06/19 06/21/19 Rx furosemide 20 mg tablet 20 mg PO DAILY #30 tab 02/06/19 06/21/19 Rx losartan 100 mg tablet 100 mg PO DAILY #30 tab 02/06/19 06/21/19 Rx Amlodipine Besylate [Amlodipine 10 mg PO DAILY 06/21/19 06/21/19 History 10mg Tab] Doxazosin Mesylate [Cardura 4mg 2 mg PO BID 06/21/19 06/21/19 History Tab] Loperamide HCl [Imodium 2 mg 2 mg PO DIRECTED 06/21/19 06/21/19 History capsule] Metoclopramide HCl [Reglan 5mg 5 mg PO AC 06/21/19 06/21/19 History Tablet] Spironolactone 100 mg PO DAILY 06/21/19 06/21/19 History bisoproloL fumarate [Bisoprolol 10 mg PO DAILY 06/21/19 06/21/19 History 10mg Tablet] hydroCHLOROthiazide 50 mg PO DAILY 06/21/19 06/21/19 History [Hydrochlorothiazide 50mg Tab] methocarbamoL [Methocarbamol 750mg 750 mg PO BID 06/21/19 06/21/19 History Tab] Allergies Allergy/AdvReac Type Severity Reaction Status Date / Time No Known Allergies Allergy Verified 06/19/19 13:54 Review of Systems - Review of Systems Review of systems:: pertinent systems reviewed and negative unless documented below - Constitutional Reports fatigue, Reports lack of energy, Reports weakness - *Respiratory Reports shortness of breath, Reports shortness of breath with activity - *Neurologic Reports dizziness, Reports weakness, Denies abnormal walking, Denies localized weakness, Denies headache(s), Denies seizure-like activity Exam Vital signs and Labs for Last 24 Hours: Temp Pulse Resp BP Pulse Ox 97.9 F 66 18 111/63 94 L 06/21/19 08:00 06/21/19 08:00 06/21/19 08:00 06/21/19 08:00 06/21/19 08:00 Laboratory Results - last 24 hr 06/20/19 23:18: WBC 10.2, RBC 4.63, Hgb 12.7, Hct 39.4, MCV 85.2, MCH 27.5, MCHC 32.3, RDW 14.7, Plt Count 303, MPV 7.5, Neut % (Auto) 70.6, Lymph % (Auto) 24.0, Mcculloch % (Auto) 3.0, Eos % (Auto) 2.0, Baso % (Auto) 0.4, Neut # (Auto) 7.2, Lymph # (Auto) 2.5, Mcculloch # (Auto) 0.3, Eos # (Auto) 0.2, Baso # (Auto) 0.0 06/20/19 23:18: Sodium 141, Potassium 3.6, Chloride 102, Carbon Dioxide 30, Anion Gap 12.6, BUN 13, Creatinine 1.23 H, Estimated Creat Clear 45, Estimated GFR 47 L, Est GFR ( Amer) 57 L, Glucose 104, Calcium 8.9, Troponin I < 0.02 06/20/19 23:18: Serum HCG, Qual Negative 06/21/19 02:35: Troponin I < 0.02 06/21/19 06:24: Troponin I < 0.02 I & O for Last 24 hours: Intake & Output 06/18/19 06/19/19 06/20/19 06/21/19 23:59 23:59 23:59 23:59 Intake Total 118 / 118 Balance 118 / 118 Weight 247 lb 242 lb 1 oz Narrative: Her telemetry strip is sinus rhythm with a rate of 61. - Constitutional no acute distress, morbidly obese - *Routine HEENT Exam Head: Present: normocephalic, atraumatic Eye: Present: EOMI, PERRL ENT: Present: mucous membranes moist - *Routine Neck Exam Present: supple, full ROM, normal carotid upstroke. Absent: JVD, carotid bruit, lymphadenopathy - *Routine Respiratory Exam Present: CTA bilaterally - *Routine Cardiovascular Exam Present: RRR, Normal S1, Normal S2. Absent: murmur, gallop - *Routine Abdominal Exam Present: soft, normoactive bowel sounds. Absent: tenderness, distended - *Routine Extremities Exam Present: edema, full ROM, pulses intact, normal capillary refill. Absent: cyanosis, clubbing - *Routine Skin Exam Present: intact, warm. Absent: erythema, rash - *Routine Neurological Exam Present: alert, oriented X3, CN II-XII intact, moving all extremities, normal speech. Absent: sensory deficit, motor deficit - Routine Psychiatric Exam Present: normal affect, normal thought process - Detailed Eye Exam Eyelids: Left normal inspection Assessment and Plan (1) Shortness of breath Current visit: Yes Status: Acute Category: Medical Code(s): R06.02 - Shortness of breath (2) Abnormal stress test Current visit: Yes Status: Acute Category: Medical Code(s): R94.39 - Abnormal result of other cardiovascular function study (3) Medication adverse effect Current visit: Yes Status: Acute Qualifiers: Encounter type: initial encounter Qualified Code(s): T50.905A - Adverse effect of unspecified drugs, medicaments and biological substances, initial encounter Category: Medical Code(s): T50.905A - Adverse effect of unspecified drugs, medicaments and biological substances, initial encounter (4) Hypertension Current visit: No Status: Chronic Qualifiers: Hypertension type: essential hypertension Qualified Code(s): I10 - Essential (primary) hypertension Category: Medical Code(s): I10 - Essential (primary) hypertension (5) Edema Current visit: No Status: Chronic Qualifiers: Edema type: unspecified Qualified Code(s): R60.9 - Edema, unspecified Category: Medical Code(s): R60.9 - Edema, unspecified (6) GERD (gastroesophageal reflux disease) Current visit: No Status: Chronic Qualifiers: Esophagitis presence: without esophagitis Qualified Code(s): K21.9 - Gastro-esophageal reflux disease without esophagitis Category: Medical Code(s): K21.9 - Gastro-esophageal reflux disease without esophagitis (7) Hyperlipemia Current visit: No Status: Chronic Qualifiers: Hyperlipidemia type: mixed hyperlipidemia Qualified Code(s): E78.2 - Mixed hyperlipidemia Category: Medical Code(s): E78.5 - Hyperlipidemia, unspecified (8) Obesity Current visit: Yes Status: Chronic Qualifiers: Obesity type: due to excess calories Obesity classification: adult class 3 (BMI >= 40) Serious obesity comorbidity presence: with serious comorbidity Body mass index: BMI 45.0-49.9 Qualified Code(s): E66.01 - Morbid (severe) obesity due to excess calories; Z68.42 - Body mass index (BMI) 45.0-49.9, adult Category: Medical Code(s): E66.9 - Obesity, unspecified (9) Fatigue Current visit: No Status: Chronic Qualifiers: Fatigue type: other Qualified Code(s): R53.83 - Other fatigue Category: Medical Code(s): R53.83 - Other fatigue (10) Hypertensive heart disease Current visit: No Status: Chronic Qualifiers: Heart failure presence: without heart failure Qualified Code(s): I11.9 - Hypertensive heart disease without heart failure Category: Medical Code(s): I11.9 - Hypertensive heart disease without heart failure (11) Tobacco dependence syndrome Current visit: No Status: Chronic Category: Medical Code(s): F17.200 - Nicotine dependence, unspecified, uncomplicated - Assessment and plan all Dx Assessment and Plan for all problems:: Plan: 1. The patient was admitted to the hospital after an adverse reaction to 1 of her new medications. She was recently started on carvedilol and Procardia. Both medications have been discontinued at this time as her blood pressure is on the lower side. 2. The patient has been scheduled for left cardiac catheterization today on an outpatient basis due to her continued shortness of breath and abnormal stress test. We will proceed with left cardiac catheterization as previously scheduled to evaluate for coronary artery disease. 3. She is also been set up for a renal angiogram given her malignantly elevated high blood pressure on an outpatient basis. However her blood pressure is under good control today. 4. Her LDL goal is less than 100. 5. Her blood pressure is well controlled. 6. Tobacco cessation is highly advised and counseled. 7. We will get her started back on bisoprolol 10 mg p.o. daily as she took this in the past with no issues. 8. Weight loss is highly encouraged. 9. We will get her started back on her diuretics for her bilateral lower extremity edema. 10. The patient has been educated on the risks and benefits of proceeding with left cardiac catheterization and renal angiogram. The patient is verbalized understanding and is agreeable in proceeding with the procedures. 11. Further recommendations will be made pending the patient's response to treatment and the results of her left cardiac catheterization and renal angiogram later today. Thank you for the opportunity to help participate in the care of this patient.
[2019-06-22 07:10] LABS: Basophils % 0.4 % (0.1-2.0); Eosinophils # 0.1 K/mm3 (0.0-0.4); Eosinophils % 2.2 % (0.1-12.0); Hematocrit 38.5 % (37.0-47.0); Hemoglobin 12.3 g/dL (12.2-16.2); Lymphocytes # 2.2 K/mm3 (0.7-4.5); Lymphocytes % 35.5 % (10-50); Mean Corpuscular Volume 86.9 fl (81-99); Mean Platelet Volume 7.3 fl (7.4-10.4); Monocytes # 0.3 K/mm3 (0.1-1.0); Monocytes % 3.9 % (1.7-9.3); Neutrophils # 3.7 K/mm3 (1.8-7.8); Neutrophils % 58.1 % (37.0-80.0); Platelet Count 238 K/mm3 (142-424); Red Blood Count 4.43 M/mm3 (4.20-5.40); Red Cell Distribution Width 14.6 % (11.5-17.5); White Blood Count 6.3 K/mm3 (4.8-10.8)
[2019-06-22 07:21] LABS: Calcium 8.7 mg/dL (8.5-10.1)
--- NOTE | 2019-06-22 07:57 | Progress Note ---
Subjective Date: 06/22/19 Time: 07:55 Interval history: 48-year-old white female in no acute distress. Patient now admits that she was not taking her medication for blood pressure at home. Cardiac cath yesterday showed normal coronary arteries and normal renal arteries as well. Exam Vital signs and Labs for Last 24 Hours: Temp Pulse Resp BP Pulse Ox 97.5 F L 75 17 139/92 H 96 06/22/19 04:00 06/22/19 04:00 06/22/19 04:00 06/22/19 04:00 06/22/19 04:00 Laboratory Results - last 24 hr 06/22/19 06:39: WBC 6.3 D, RBC 4.43, Hgb 12.3, Hct 38.5, MCV 86.9, MCH 27.8, MCHC 32.0, RDW 14.6, Plt Count 238, MPV 7.3 L, Neut % (Auto) 58.1, Lymph % (Auto) 35.5, Dickens % (Auto) 3.9, Eos % (Auto) 2.2, Baso % (Auto) 0.4, Neut # (Auto) 3.7, Lymph # (Auto) 2.2, Dickens # (Auto) 0.3, Eos # (Auto) 0.1, Baso # (Auto) 0.0 06/22/19 06:39: Sodium 140, Potassium 4.0, Chloride 106, Carbon Dioxide 30, Anion Gap 8.0, BUN 10, Creatinine 0.83 D, Estimated Creat Clear 63, Estimated GFR 74, Est GFR ( Amer) 89 D, Glucose 100, Calcium 8.7 I & O for Last 24 hours: Intake & Output 06/19/19 06/20/19 06/21/19 06/22/19 11:59 11:59 11:59 11:59 Intake Total 118 / 118 2087 / 2087 Output Total 800 / 800 Balance 118 / 118 1287 / 1287 Weight 242 lb 1 oz 249 lb 3 oz - *Routine Respiratory Exam Present: CTA bilaterally. Absent: accessory muscle use, rales, rhonchi, wheezes - *Routine Cardiovascular Exam Present: RRR. Absent: murmur, gallop, rubs Progress Note: A&P (1) Shortness of breath Status: Acute Current Visit: Yes (2) Abnormal stress test Status: Acute Current Visit: Yes (3) Medication adverse effect Status: Acute Current Visit: Yes (4) Hypertension Status: Chronic Current Visit: No (5) Edema Status: Chronic Current Visit: No (6) GERD (gastroesophageal reflux disease) Status: Chronic Current Visit: No (7) Hyperlipemia Status: Chronic Current Visit: No (8) Obesity Status: Chronic Current Visit: Yes (9) Fatigue Status: Chronic Current Visit: No (10) Hypertensive heart disease Status: Chronic Current Visit: No (11) Tobacco dependence syndrome Status: Chronic Current Visit: No Assessment and Plan for All Diagnoses:: 1. Okay for discharge home from cardiology standpoint. 2. Home medication recommendations include bisoprolol 10 mg daily, spironolactone 25 mg daily and Lasix 20 mg daily. Discontinue all other medications for blood pressure at this time. 3. Follow-up in our office in 1 week with a BMP.
--- NOTE | 2019-06-22 08:13 | Progress Note ---
<Nikki Selby - Last Filed: 06/22/19 08:08> Internal Medicine - PN: Subj *Date: 06/22/19 *Time: 08:08 Interval history: Patient states she is feeling well this morning. She denies any chest pain or shortness of breath. She states she slept well last night and ate well this morning. Her only complaint is some pain at her IV site. Exam Vital signs and Labs for Last 24 Hours: Temp Pulse Resp BP Pulse Ox 97.5 F L 75 17 139/92 H 96 06/22/19 04:00 06/22/19 04:00 06/22/19 04:00 06/22/19 04:00 06/22/19 04:00 Laboratory Results - last 24 hr 06/22/19 06:39: WBC 6.3 D, RBC 4.43, Hgb 12.3, Hct 38.5, MCV 86.9, MCH 27.8, MCHC 32.0, RDW 14.6, Plt Count 238, MPV 7.3 L, Neut % (Auto) 58.1, Lymph % (Auto) 35.5, Wright % (Auto) 3.9, Eos % (Auto) 2.2, Baso % (Auto) 0.4, Neut # (Auto) 3.7, Lymph # (Auto) 2.2, Wright # (Auto) 0.3, Eos # (Auto) 0.1, Baso # (Auto) 0.0 06/22/19 06:39: Sodium 140, Potassium 4.0, Chloride 106, Carbon Dioxide 30, Anion Gap 8.0, BUN 10, Creatinine 0.83 D, Estimated Creat Clear 63, Estimated GFR 74, Est GFR ( Amer) 89 D, Glucose 100, Calcium 8.7 I & O for Last 24 hours: Intake & Output 06/19/19 06/20/19 06/21/19 06/22/19 11:59 11:59 11:59 11:59 Intake Total 118 / 118 2086 / 2086 Output Total 800 / 800 Balance 118 / 118 1287 / 1287 Weight 242 lb 1 oz 249 lb 3 oz Radiology Reports for the Last 24 Hours: Cardiac Cath IMPRESSION Normal coronary arteries Preserved ejection fraction Elevated LVEDP consistent with diastolic dysfunction Normal renal arteries PLAN 1. Medical management - Constitutional no acute distress - *Routine Respiratory Exam Present: CTA bilaterally - *Routine Cardiovascular Exam Present: RRR - *Routine Abdominal Exam Present: soft, normoactive bowel sounds. Absent: tenderness - *Routine Extremities Exam Absent: cyanosis, clubbing, edema - *Routine Skin Exam Present: warm. Absent: rash - *Routine Neurological Exam Present: alert, oriented X3 Assessment and Plan (1) Shortness of breath Current visit: Yes Status: Acute Category: Medical Code(s): R06.02 - Shortness of breath (2) Abnormal stress test Current visit: Yes Status: Acute Category: Medical Code(s): R94.39 - Abnormal result of other cardiovascular function study (3) Medication adverse effect Current visit: Yes Status: Acute Qualifiers: Encounter type: initial encounter Qualified Code(s): T50.905A - Adverse effect of unspecified drugs, medicaments and biological substances, initial encounter Category: Medical Code(s): T50.905A - Adverse effect of unspecified drugs, medicaments and biological substances, initial encounter (4) Hypertension Current visit: No Status: Chronic Qualifiers: Hypertension type: essential hypertension Qualified Code(s): I10 - Essential (primary) hypertension Category: Medical Code(s): I10 - Essential (primary) hypertension (5) Edema Current visit: No Status: Chronic Qualifiers: Edema type: unspecified Qualified Code(s): R60.9 - Edema, unspecified Category: Medical Code(s): R60.9 - Edema, unspecified (6) GERD (gastroesophageal reflux disease) Current visit: No Status: Chronic Qualifiers: Esophagitis presence: without esophagitis Qualified Code(s): K21.9 - Gastro-esophageal reflux disease without esophagitis Category: Medical Code(s): K21.9 - Gastro-esophageal reflux disease without esophagitis (7) Hyperlipemia Current visit: No Status: Chronic Qualifiers: Hyperlipidemia type: mixed hyperlipidemia Qualified Code(s): E78.2 - Mixed hyperlipidemia Category: Medical Code(s): E78.5 - Hyperlipidemia, unspecified (8) Obesity Current visit: Yes Status: Chronic Qualifiers: Obesity type: due to excess calories Obesity classification: adult class 3 (BMI >= 40) Serious obesity comorbidity presence: with serious comorbidity Body mass index: BMI 45.0-49.9 Qualified Code(s): E66.01 - Morbid (severe) obesity due to excess calories; Z68.42 - Body mass index (BMI) 45.0-49.9, adult Category: Medical Code(s): E66.9 - Obesity, unspecified (9) Fatigue Current visit: No Status: Chronic Qualifiers: Fatigue type: other Qualified Code(s): R53.83 - Other fatigue Category: Medical Code(s): R53.83 - Other fatigue (10) Hypertensive heart disease Current visit: No Status: Chronic Qualifiers: Heart failure presence: without heart failure Qualified Code(s): I11.9 - Hypertensive heart disease without heart failure Category: Medical Code(s): I11.9 - Hypertensive heart disease without heart failure (11) Tobacco dependence syndrome Current visit: No Status: Chronic Category: Medical Code(s): F17.200 - Nicotine dependence, unspecified, uncomplicated - Assessment and plan all Dx Assessment and Plan for all problems:: Patient's cardiac cath was normal. Cardiology feels she can be discharged home on her home medications to include bisoprolol 10 mg daily, spironolactone 25 mg daily, and Lasix 20 mg daily. They recommend to discontinue all other medications for blood pressure at this time and she will follow-up in their office in 1 week. <Crow Kruger - Last Filed: 06/22/19 08:19> Internal Medicine - PN: Subj *Date: 06/22/19 *Time: 08:18 Exam Vital signs and Labs for Last 24 Hours: Temp Pulse Resp BP Pulse Ox 97.5 F L 77 19 145/77 H 98 06/22/19 08:00 06/22/19 08:00 06/22/19 08:00 06/22/19 08:00 06/22/19 08:00 Laboratory Results - last 24 hr 06/22/19 06:39: WBC 6.3 D, RBC 4.43, Hgb 12.3, Hct 38.5, MCV 86.9, MCH 27.8, MCHC 32.0, RDW 14.6, Plt Count 238, MPV 7.3 L, Neut % (Auto) 58.1, Lymph % (Auto) 35.5, Wright % (Auto) 3.9, Eos % (Auto) 2.2, Baso % (Auto) 0.4, Neut # (Auto) 3.7, Lymph # (Auto) 2.2, Wright # (Auto) 0.3, Eos # (Auto) 0.1, Baso # (Auto) 0.0 06/22/19 06:39: Sodium 140, Potassium 4.0, Chloride 106, Carbon Dioxide 30, Anion Gap 8.0, BUN 10, Creatinine 0.83 D, Estimated Creat Clear 63, Estimated GFR 74, Est GFR ( Amer) 89 D, Glucose 100, Calcium 8.7 I & O for Last 24 hours: Intake & Output 06/19/19 06/20/19 06/21/19 06/22/19 11:59 11:59 11:59 11:59 Intake Total 118 / 118 7 / 2087 Output Total 800 / 800 Balance 118 / 118 1287 / 1287 Weight 242 lb 1 oz 249 lb 3 oz Assessment and Plan (1) Shortness of breath Current visit: Yes Status: Acute Category: Medical Code(s): R06.02 - Shortness of breath (2) Abnormal stress test Current visit: Yes Status: Acute Category: Medical Code(s): R94.39 - Abnormal result of other cardiovascular function study (3) Medication adverse effect Current visit: Yes Status: Acute Qualifiers: Encounter type: initial encounter Qualified Code(s): T50.905A - Adverse effect of unspecified drugs, medicaments and biological substances, initial encounter Category: Medical Code(s): T50.905A - Adverse effect of unspecified drugs, medicaments and biological substances, initial encounter (4) Hypertension Current visit: No Status: Chronic Qualifiers: Hypertension type: essential hypertension Qualified Code(s): I10 - Essential (primary) hypertension Category: Medical Code(s): I10 - Essential (primary) hypertension (5) Edema Current visit: No Status: Chronic Qualifiers: Edema type: unspecified Qualified Code(s): R60.9 - Edema, unspecified Category: Medical Code(s): R60.9 - Edema, unspecified (6) GERD (gastroesophageal reflux disease) Current visit: No Status: Chronic Qualifiers: Esophagitis presence: without esophagitis Qualified Code(s): K21.9 - Gastro-esophageal reflux disease without esophagitis Category: Medical Code(s): K21.9 - Gastro-esophageal reflux disease without esophagitis (7) Hyperlipemia Current visit: No Status: Chronic Qualifiers: Hyperlipidemia type: mixed hyperlipidemia Qualified Code(s): E78.2 - Mixed hyperlipidemia Category: Medical Code(s): E78.5 - Hyperlipidemia, unspecified (8) Obesity Current visit: Yes Status: Chronic Qualifiers: Obesity type: due to excess calories Obesity classification: adult class 3 (BMI >= 40) Serious obesity comorbidity presence: with serious comorbidity Body mass index: BMI 45.0-49.9 Qualified Code(s): E66.01 - Morbid (severe) obesity due to excess calories; Z68.42 - Body mass index (BMI) 45.0-49.9, adult Category: Medical Code(s): E66.9 - Obesity, unspecified (9) Fatigue Current visit: No Status: Chronic Qualifiers: Fatigue type: other Qualified Code(s): R53.83 - Other fatigue Category: Medical Code(s): R53.83 - Other fatigue (10) Hypertensive heart disease Current visit: No Status: Chronic Qualifiers: Heart failure presence: without heart failure Qualified Code(s): I11.9 - Hypertensive heart disease without heart failure Category: Medical Code(s): I11.9 - Hypertensive heart disease without heart failure (11) Tobacco dependence syndrome Current visit: No Status: Chronic Category: Medical Code(s): F17.200 - Nicotine dependence, unspecified, uncomplicated - Assessment and plan all Dx Assessment and Plan for all problems:: Patient seen and examined. Concur with above. Reinforced importance of medication compliance
--- NOTE | 2019-06-22 12:59 | Electrocardiograph Report ---
APPROVED REPORT Exam: Resting ECG HR:60 bpm ECG Measurements Heart Rate 60 AXES UT 162 P 25 QRSd 74 QRS 54 QT 442 T65 QTc 442 <Conclusion> Normal sinus rhythm Normal ECG Electronically signed by : Vance Flood, 06/22/2019 12:59:02
--- NOTE | 2019-06-23 21:48 | Discharge Summary ---
General - General Admission date:: 06/21/19 <Crow Kruger - 06/25/19 08:26> 06/21/19 <Nikki Selby - 06/23/19 21:49> Discharge date: 06/22/19 <Nikki Selby - 06/23/19 21:49> HPI HPI: Nicholas is a 48-year-old female with a history of hypertension, leg edema, and recent abnormal stress test who presented to [facility] emergency room after nearly passing out. She describes taking her cardiac meds, after which, she became dizzy was unable to walk. She states she had recently been started on a new blood pressure pill on 06/19/2019 but did not start until the night of admission. She also describes not taking any of her meds for the last few days until the night of admission. Denies having chest pain and shortness of breath. She did become a little nauseated. She denies palpitations and diaphoresis. She had a positive stress test about 2 weeks ago with her follow-up visit on 06/19/2019. Blood pressure was found to be quite elevated and medication was added. Plan was made for cardiac catheterization. <Nikki Selby - 06/23/19 21:49> Hospital Course Hospital Course: Patient's chest x-ray showed nothing acute. Her chest pain resolved and her cardiac enzymes returned normal. As patient was already scheduled for a cardiac cath, cardiology felt this should be done. Her carvedilol and Procardia were discontinued due to hypotension. She was started on bisoprolol 10 mg daily as she had taken this in the past without any issues. She was also started back on diuretics for her bilateral lower extremity edema. She had a heart catheterization and it showed normal coronaries with a preserved ejection fraction. There was an elevated LVEDP consistent with diastolic dy sfunction. Her renal arteries were normal. She was kept overnight after the heart cath and felt well by the next morning. She slept well and was eating well. Cardiology felt she was stable to be discharged home on bisoprolol 10 mg daily, spironolactone 25 mg daily, and Lasix 20 mg daily. They recommended to discontinue all other medications for blood pressure and follow-up in their office in 1 week. The reinforced the importance of medical compliance and the patient was stable to be discharged. <Nikki Selby - 06/23/19 21:49> Objective Vital signs: Temp Pulse Resp BP Pulse Ox 97.5 F L 80 19 145/77 H 98 06/22/19 08:00 06/22/19 12:00 06/22/19 08:00 06/22/19 08:00 06/22/19 08:00 <Crow Kruger - 06/25/19 08:26> Temp Pulse Resp BP Pulse Ox 97.5 F L 80 19 145/77 H 98 06/22/19 08:00 06/22/19 12:00 06/22/19 08:00 06/22/19 08:00 06/22/19 08:00 <Nikki Selby - 06/23/19 21:49> Narrative: - Constitutional no acute distress - *Routine Respiratory Exam Present: CTA bilaterally - *Routine Cardiovascular Exam Present: RRR - *Routine Abdominal Exam Present: soft, normoactive bowel sounds. Absent: tenderness - *Routine Extremities Exam Absent: cyanosis, clubbing, edema - *Routine Skin Exam Present: warm. Absent: rash - *Routine Neurological Exam Present: alert, oriented X3 <Nikki Selby - 06/23/19 21:49> DS: Diagnosis - Discharge Diagnosis (1) Shortness of breath Status: Acute (2) Abnormal stress test Status: Acute (3) Medication adverse effect Status: Acute (4) Hypertension Status: Chronic (5) Edema Status: Chronic (6) GERD (gastroesophageal reflux disease) Status: Chronic (7) Hyperlipemia Status: Chronic (8) Obesity Status: Chronic (9) Fatigue Status: Chronic (10) Hypertensive heart disease Status: Chronic (11) Tobacco dependence syndrome Status: Chronic <Nikki Selby - 06/23/19 21:43> (1) Shortness of breath Status: Acute (2) Abnormal stress test Status: Acute (3) Medication adverse effect Status: Acute (4) Hypertension Status: Chronic (5) Edema Status: Chronic (6) GERD (gastroesophageal reflux disease) Status: Chronic (7) Hyperlipemia Status: Chronic (8) Obesity Status: Chronic (9) Fatigue Status: Chronic (10) Hypertensive heart disease Status: Chronic (11) Tobacco dependence syndrome Status: Chronic <Crow Kruger - 06/25/19 08:26> Discharge Plan - Patient Discharge Instructions ACTIVITY: Continue current activity <Nikki Selby - 06/23/19 21:49> DIET: continue same diet <Nikki Selby - 06/23/19 21:49> Additional Instructions: BMP Lab before visit <SlickCrow Mark - 06/25/19 08:26> Patient Instructions: Heart-Healthy Diet, DI for Angina, DI for Cardiac Catheterization, DI for Surgical Site Infection <Crow Kruger - 06/25/19 08:26> Forms: <Crow Kruger - 06/25/19 08:26> - Follow up Plan Follow up with: Raman Salvador MD [Staff Physician] - 06/28/19 9:50 am <Crow Kruger - 06/25/19 08:26> Disposition: Home, Self-Care <Crow Kruger - 06/25/19 08:26> Home Medications: Home Medications Medication Instructions Recorded Confirmed Type aspirin 81 mg tablet,delayed 81 mg PO DAILY 06/21/17 06/21/19 History release cetirizine 10 mg tablet 10 mg PO DAILY 06/21/17 06/21/19 History sertraline 100 mg tablet 100 mg PO DAILY 06/21/17 06/21/19 History levothyroxine 88 mcg tablet 88 mcg PO DAILY #90 tab 03/24/18 06/21/19 Rx nitroglycerin 0.4 mg sublingual 0.4 mg SUBLINGUAL Q5-15M PRN #30 05/26/18 06/21/19 Rx tablet tab atorvastatin 80 mg tablet 80 mg PO DAILY #30 tab 02/06/19 06/21/19 Rx furosemide 20 mg tablet 20 mg PO DAILY #30 tab 02/06/19 06/21/19 Rx Loperamide HCl [Imodium 2 mg 2 mg PO DIRECTED 06/21/19 06/21/19 History capsule] Metoclopramide HCl [Reglan 5mg 5 mg PO AC 06/21/19 06/21/19 History Tablet] Spironolactone 100 mg PO DAILY 06/21/19 06/21/19 History methocarbamoL [Methocarbamol 750mg 750 mg PO BID 06/21/19 06/21/19 History Tab] bisoproloL fumarate [Zebeta 5mg 10 mg PO DAILY #30 tab 06/22/19 Rx tablet] <Crow Kruger - 06/25/19 08:26> Prescriptions/Medication Reconciliation: New bisoproloL fumarate [Zebeta 5mg tablet] 10 mg PO DAILY #30 tab Continued aspirin 81 mg tablet,delayed release 81 mg PO DAILY cetirizine 10 mg tablet 10 mg PO DAILY sertraline 100 mg tablet 100 mg PO DAILY furosemide 20 mg tablet 20 mg PO DAILY #30 tab levothyroxine 88 mcg tablet 88 mcg PO DAILY #90 tab nitroglycerin 0.4 mg sublingual tablet 0.4 mg SUBLINGUAL Q5-15M PRN #30 tab PRN Reason: chest pain atorvastatin 80 mg tablet 80 mg PO DAILY #30 tab Loperamide HCl [Imodium 2 mg capsule] 2 mg PO DIRECTED Metoclopramide HCl [Reglan 5mg Tablet] 5 mg PO AC methocarbamoL [Methocarbamol 750mg Tab] 750 mg PO BID Spironolactone 100 mg PO DAILY Discontinued losartan 100 mg tablet 100 mg PO DAILY #30 tab hydroCHLOROthiazide [Hydrochlorothiazide 50mg Tab] 50 mg PO DAILY carvediloL [Carvedilol 25mg Tab] 25 mg PO BID NIFEdipine [Procardia Xl] 90 mg PO DAILY Doxazosin Mesylate [Cardura 4mg Tab] 4 mg PO BID <Crow Kruger - 06/25/19 08:26> - Problem Reconciliation Problems Reviewed?: Yes <Crow Kruger - 06/25/19 08:26> Yes <Nikki Selby - 06/23/19 21:49> - Additional Information Additional Information: Patient seen and examined. Concur with plan for discharge as outlined above. <Crow Kruger - 06/25/19 08:26>
== END 2019-06-22 15:00 | disposition home or self-care (01) ==
LOC: 2ND 23:53 → ER 23:53 → 2ND 06-21 02:19
PROVIDERS: ADMIT Family Medicine; ATTEND Family Medicine
DX: Z79.899 Other long term (current) drug therapy; Z23 Encounter for immunization; I25.10 Atherosclerotic heart disease of native coronary artery without angina pectoris; K21.9 Gastro-esophageal reflux disease without esophagitis; Z91.128 Patient's intentional underdosing of medication regimen for other reason; I95.2 Hypotension due to drugs; T46.1X5A Adverse effect of calcium-channel blockers, initial encounter; R94.39 Abnormal result of other cardiovascular function study; J44.9 Chronic obstructive pulmonary disease, unspecified; E66.01 Morbid (severe) obesity due to excess calories; E03.9 Hypothyroidism, unspecified; I50.30 Unspecified diastolic (congestive) heart failure; R06.09 Other forms of dyspnea; I11.0 Hypertensive heart disease with heart failure; T44.7X5A Adverse effect of beta-adrenoreceptor antagonists, initial encounter; Z82.49 Family history of ischemic heart disease and other diseases of the circulatory system; Z72.0 Tobacco use; E78.2 Mixed hyperlipidemia; Z68.42 Body mass index [BMI] 45.0-49.9, adult
CPT/HCPCS: 36252; 36415; 71010; 71045; 80048; 84484; 84703; 85025; 90686; 93005; 93458; 99152; 99283; C1725; C1760; C1769; G0378; J1644; Q9967

== ENCOUNTER → 2019-06-28 07:43 | Outpatient (CLI) | payer OTHER, SELFPAY ==
[2019-06-28 10:57] LABS: Anion Gap 13.6 mEq/L (5-15); Blood Urea Nitrogen 17 mg/dL (7-18); Calcium 9.1 mg/dL (8.5-10.1); Carbon Dioxide 29 mmol/L (21.0-32.0); Chloride 103 mmol/L (98-107); Creatinine,Serum 0.88 mg/dL (0.55-1.02); Estimated Glomerular Filt Rate 69 ml/min (>60); GFR (African American) 83 ML/MIN (>60); Glucose 89 mg/dL (74-106); Potassium 4.6 mmoL/L (3.5-5.1); Sodium 141 mmol/L (136-145)
== END ==
PROVIDERS: Visit Provider Family Medicine
DX: R06.02 Shortness of breath (principal); R94.39 Abnormal result of other cardiovascular function study; I10 Essential (primary) hypertension
CPT/HCPCS: 36415; 80048

== ENCOUNTER → 2019-07-25 12:44 | Outpatient (CLI) | payer OTHER, SELFPAY ==
--- NOTE | 2019-07-25 12:44 | US_ITS ---
PROCEDURE: US THYROID CLINICAL INDICATION: Goiter Follow-up thyroid nodules COMPARISON: 01/18/2019 FINDINGS: Right lobe: 5 x 2.2 x 2.2 cm. There is diffuse heterogeneous echogenicity. Multiple nodules are present including a solid isoechoic nodule upper pole at 14 mm by 22 mm unchanged, solid-appearing hypoechoic nodule mid polar region at 24 x 14 mm unchanged, solid-appearing isoechoic nodule lower pole at 17 mm unchanged. Hypoechoic nodules present along the posterior and inferior right lobe at 8 mm unchanged Left lobe: 4 x 1.2 x 1.6 cm. Diffuse heterogeneous echogenicity. Isoechoic 16 mm nodule lower pole unchanged Isthmus: Additional findings: IMPRESSION: No change multinodular goiter Dictated by: Mino Mendosa MD 07/25/2019 15:47 Electronically signed by Mino Mendosa MD in [place] 07/25/2019 15:47
== END ==
PROVIDERS: PCP Physician Assistant; Visit Provider Otolaryngology
DX: E06.3 Autoimmune thyroiditis (principal)
CPT/HCPCS: 76536

== ENCOUNTER → 2019-10-25 15:37 | Outpatient (CLI) | payer OTHER, SELFPAY ==
[2019-10-25 18:08] LABS: Anion Gap 12.2 mEq/L (5-15); Blood Urea Nitrogen 9 mg/dl (7-17); Calcium 9.7 mg/dl (8.4-10.2); Carbon Dioxide 28 mmol/L (22.0-30.0); Chloride 102 mmol/L (98-107); Estimated Glomerular Filt Rate 89 ml/min (>60); GFR (African American) 108 ML/MIN (>60); Glucose 90 mg/dl (74-100); Potassium 4.2 mmoL/L (3.5-5.1); Sodium 138 mmol/L (136-145)
== END ==
PROVIDERS: Visit Provider Urology
DX: E78.5 Hyperlipidemia, unspecified (principal); I10 Essential (primary) hypertension; I51.89 Other ill-defined heart diseases; F17.200 Nicotine dependence, unspecified, uncomplicated
CPT/HCPCS: 36415; 80048

== ENCOUNTER → 2020-01-31 14:15 | Outpatient (CLI) | payer OTHER, SELFPAY ==
--- NOTE | 2020-01-31 14:16 | US_ITS ---
PROCEDURE: US THYROID CLINICAL INDICATION: Hypothyroid Month follow-up COMPARISON: US US THYROID from 07/25/2019 FINDINGS: Right lobe: 2.5cm x 5.0cm x 2.1cm Left lobe: 1.5cm x 4.2cm x 1.5cm Isthmus: 5 mm Additional findings: There is diffuse heterogeneous echogenicity of the thyroid gland with a multinodular configuration. On the right there is a 12 mm nodular area in the upper pole unchanged and a 23 mm nodular area in the mid polar region unchanged as well as a 23 nodular area in the lower pole probably unchanged given difference in technique. On the left a hypoechoic nodules noted in the upper pole at 7 mm unchanged. A 15 mm hypoechoic nodular area noted in the mid polar region unchanged IMPRESSION: No change multinodular goiter Dictated by: Mino Mendosa MD 02/01/2020 09:06 Mino Mendosa MD in [place] 02/01/2020 09:06
[2020-01-31 15:37] LABS: Basophils % 0.5 % (0.1-2.0); Eosinophils # 0.1 K/mm3 (0.0-0.4); Eosinophils % 1.3 % (0.1-12.0); Hematocrit 42.7 % (37.0-47.0); Hemoglobin 14.4 g/dL (12.2-16.2); Lymphocytes # 3.2 K/mm3 (0.7-4.5); Lymphocytes % 35.5 % (10-50); Mean Corpuscular HGB Conc 33.8 g/dL (31.8-35.4); Mean Corpuscular Hemoglobin 28.5 pg (27.0-31.2); Mean Corpuscular Volume 84.3 fl (81-99); Mean Platelet Volume 7.3 fl (7.4-10.4); Monocytes # 0.3 K/mm3 (0.1-1.0); Monocytes % 3.7 % (1.7-9.3); Neutrophils # 5.3 K/mm3 (1.8-7.8); Platelet Count 303 K/mm3 (142-424); Red Blood Count 5.06 M/mm3 (4.20-5.40); Red Cell Distribution Width 14.5 % (11.5-17.5); White Blood Count 8.9 K/mm3 (4.8-10.8)
[2020-01-31 15:56] LABS: Hemoglobin A1C 5.5 % (4.0-6.0)
[2020-01-31 16:08] LABS: Chloride 102 mmol/L (98-107); Potassium 4.3 mmoL/L (3.5-5.1); Sodium 142 mmol/L (136-145)
[2020-01-31 16:11] LABS: Alanine Aminotransferase 19 U/L (12-78); Albumin Level 4.6 g/dl (3.5-5.0); Albumin/Globulin Ratio 1.3 (1.1-1.8); Alkaline Phosphatase 95 U/L (38-126); Anion Gap 15.3 mEq/L (5-15); Aspartate Amino Transferase 23 U/L (14-36); Bilirubin,Total 0.9 mg/dl (0.2-1.3); Blood Urea Nitrogen 17 mg/dl (7-17); Carbon Dioxide 29 mmol/L (22.0-30.0); Estimated Glomerular Filt Rate 77 ml/min (>60); GFR (African American) 93 ML/MIN (>60); Globulin 3.5 g/dL (1.3-3.2); Glucose 91 mg/dl (74-100); Total Protein,Serum 8.1 g/dl (6.3-8.2)
[2020-01-31 16:28] LABS: Free T4 (Free Thyroxine) 1.13 ng/dl (0.78-2.19)
[2020-01-31 16:42] LABS: Thyroid Stimulating Hormone 2.33 uIU/mL (0.465-4.68)
[2020-02-02 10:16] LABS: Thyroid Peroxidase Antibodies >600 IU/mL (0-34)
[2020-02-03 10:16] LABS: Thyroid Stimulating Immunoglob <0.10 IU/L (0.00-0.55)
[2020-02-04 15:09] LABS: Calcitonin <2.0 pg/mL (0.0-5.0)
== END ==
PROVIDERS: PCP Nurse Practitioner Family; Visit Provider Otolaryngology
DX: E04.1 Nontoxic single thyroid nodule (principal); E06.3 Autoimmune thyroiditis
CPT/HCPCS: 36415; 76536; 80053; 82308; 83036; 84439; 84443; 84445; 85025; 86376

== ENCOUNTER → 2020-07-11 13:10 | Outpatient (CLI) | payer OTHER, SELFPAY ==
[2020-07-11 13:44] LABS: Basophils # 0.1 K/mm3 (0-0.2); Basophils % 0.5 % (0.1-2.0); Eosinophils # 0.2 K/mm3 (0.0-0.4); Eosinophils % 2.6 % (0.1-12.0); Lymphocytes # 2.5 K/mm3 (0.7-4.5); Lymphocytes % 27.8 % (10-50); Mean Corpuscular HGB Conc 32.7 g/dL (31.8-35.4); Mean Corpuscular Hemoglobin 27.9 pg (27.0-31.2); Mean Corpuscular Volume 85.5 fl (81-99); Mean Platelet Volume 7.9 fl (7.4-10.4); Monocytes # 0.4 K/mm3 (0.1-1.0); Monocytes % 3.9 % (1.7-9.3); Neutrophils # 5.9 K/mm3 (1.8-7.8); Neutrophils % 65.3 % (37.0-80.0); Platelet Count 365 K/mm3 (142-424); Red Blood Count 5.38 M/mm3 (4.20-5.40); Red Cell Distribution Width 15.1 % (11.5-17.5)
[2020-07-11 13:48] LABS: Hemoglobin A1C 5.3 % (4.0-6.0)
[2020-07-11 14:31] LABS: Chloride 98 mmol/L (98-107)
[2020-07-11 14:32] LABS: Sodium 140 mmol/L (136-145)
[2020-07-11 14:34] LABS: Alanine Aminotransferase 25 U/L (12-78); Alkaline Phosphatase 110 U/L (38-126); Aspartate Amino Transferase 28 U/L (14-36); Bilirubin,Total 0.6 mg/dl (0.2-1.3); Blood Urea Nitrogen 18 mg/dl (7-17); Carbon Dioxide 33 mmol/L (22.0-30.0); Estimated Glomerular Filt Rate 53 ml/min (>60); GFR (African American) 64 ML/MIN (>60)
[2020-07-11 14:35] LABS: Albumin Level 5.1 g/dl (3.5-5.0); Albumin/Globulin Ratio 1.4 (1.1-1.8); Calcium 10.4 mg/dl (8.4-10.2); Chol/HDL Ratio 4.1 (1-3.5); Cholesterol 203 mg/dl (140-200); Globulin 3.7 g/dL (1.3-3.2); Glucose 103 mg/dl (74-100); HDL Cholesterol 49 mg/dl (40-60); Total Protein,Serum 8.8 g/dl (6.3-8.2); Triglycerides 295 mg/dl (30-150); VLDL Cholesterol 59 mg/dL (0-40)
== END ==
PROVIDERS: Visit Provider Nurse Practitioner Family
DX: I10 Essential (primary) hypertension (principal); E78.5 Hyperlipidemia, unspecified; L02.12 Furuncle of neck; L03.90 Cellulitis, unspecified
CPT/HCPCS: 36415; 80053; 80061; 83036; 85025

== ENCOUNTER → 2020-07-12 11:05 | Outpatient (CLI) | payer OTHER, SELFPAY ==
[2020-07-12 11:37] LABS: Basophils # 0.1 K/mm3 (0-0.2); Basophils % 0.5 % (0.1-2.0); Eosinophils # 0.3 K/mm3 (0.0-0.4); Hematocrit 45.1 % (37.0-47.0); Hemoglobin 14.4 g/dL (12.2-16.2); Lymphocytes # 3.2 K/mm3 (0.7-4.5); Lymphocytes % 32.6 % (10-50); Mean Corpuscular HGB Conc 31.9 g/dL (31.8-35.4); Mean Corpuscular Hemoglobin 27.4 pg (27.0-31.2); Mean Platelet Volume 7.4 fl (7.4-10.4); Monocytes # 0.4 K/mm3 (0.1-1.0); Neutrophils # 5.8 K/mm3 (1.8-7.8); Neutrophils % 59.8 % (37.0-80.0); Platelet Count 374 K/mm3 (142-424); Red Blood Count 5.24 M/mm3 (4.20-5.40); Red Cell Distribution Width 15.3 % (11.5-17.5); White Blood Count 9.7 K/mm3 (4.8-10.8)
[2020-07-12 12:30] LABS: Blood Urea Nitrogen 19 mg/dl (7-17); Calcium 10.4 mg/dl (8.4-10.2); Carbon Dioxide 28 mmol/L (22.0-30.0); Chloride 101 mmol/L (98-107); Estimated Glomerular Filt Rate 59 ml/min (>60); GFR (African American) 72 ML/MIN (>60); Glucose 125 mg/dl (74-100); Sodium 141 mmol/L (136-145); Urine Pregnancy, HCG Qual. Negative (Negative)
[2020-07-12 12:52] LABS: Coronavirus 19 IgG Antibody Negative (Negative); Coronavirus 19 IgM Antibody Negative (Negative)
== END ==
PROVIDERS: Visit Provider Surgery
DX: Z01.812 Encounter for preprocedural laboratory examination (principal); Z20.822 Contact with and (suspected) exposure to COVID-19; L02.212 Cutaneous abscess of back [any part, except buttock and flank]
CPT/HCPCS: 36415; 80048; 81025; 85025; 86328

== ENCOUNTER → 2020-07-14 11:41 | Outpatient (CLI) | payer OTHER, SELFPAY | PROVIDERS: PCP Nurse Practitioner Family; Visit Provider Surgery | DX: Z01.818 Encounter for other preprocedural examination (principal); Z20.822 Contact with and (suspected) exposure to COVID-19; L02.212 Cutaneous abscess of back [any part, except buttock and flank] | CPT/HCPCS: U0003 ==

== ENCOUNTER 2020-07-15 06:13 | Day surgery (SDC) | payer OTHER, SELFPAY ==
[2020-07-12 13:58] VITALS: BMI 42.3
[2020-07-15] VITALS (11 sets, daily range): BP systolic 132–158; BP diastolic 80–103; PULSE 66–88; RESP 18–20; TEMP 36.2–36.6; O2SAT 93–97
--- NOTE | 2020-07-15 07:00 | P.PN_ITS ---
[facility] Anesthesia Checklist - Patient Identification Patient Identification: Arm Band, Verbal (Name & ) - Structural Data Admitted From: Home Planned Operative Procedure/s: I AND D Consent for Planned Operative Procedure(s) Verified: Yes Verified Documents: Surgical Consent - Chart Verification Results Verified: None - Additional verifications Anesthesia Reactions: No Hx Blood Transfusions: No Blood Transfusion Reaction: No - Anesthesia Plan Anesthesia Risk discussed: Yes Anesthesia Plan: Patient unable to respond/answer ASA Class: II Anesthesia Type: General [facility] History I have reviewed the patient's past medical history: Yes Medical History: Reports:: Asthma, Chronic Obstructive Pulmonary Disease (COPD), Coronary Artery Disease, Gastroesophageal Reflux Disease(GERD), Hyperlipidemia, Hypertension, MRSA (back) Denies:: Cancer, Diabetes Mellitus Type 1, Diabetes Mellitus Type 2, Internal Pacemaker, Seizures *Have you ever received a pneumonia vaccine?: No *Have you received a flu vaccine this season?: No Other Medical History: Reports: Arthritis, Hypothyroidism, Sinus Problems, Thyroid Disease. Denies: Blood Transfusion Reaction Anesthesia experience/problems:: none Other Surgeries: Yes: Appendectomy, Cardiac Catheterization, Thyroidectomy, Tubal Ligation, Other. No: Pacemaker Amputation: No Fractures: No - *Social History Last grade of school completed: High school graduate Smoking Status: Former smoker Tobacco Type: cigarettes #Yrs smoked (if former smoker): 10 Alcohol Intake: never Alcohol Intake Frequency:: holidays/special occasions only Substance Use Type: denies use *Occupational Status:: unemployed Housing: house Household Members: family *Travel in the last 8 weeks: None Family Hx:: Hyperlipidemia, Hypertension
--- NOTE | 2020-07-15 07:40 | P.OP_ITS ---
Date of procedure: 07/15/20 Pre-op Diagnosis:: Abscess right mid back Post-op Diagnosis:: Same Procedure performed:: Incision and drainage abscess right mid back with limited debridement of subcutaneous tissues Surgeon:: Carlos Jansen MD TE[employer] LINE REPAIRER:: Other Anesthesia: LMA Estimated blood loss (mL): 15 Clinical Note:: Patient is a 49-year-old female from [place] who now lives in [place] referred by Kacey Levin from the [facility] for right back abscess. Patient states that this area started as a tender spot on 07/05/2020. She was seen and evaluated in [facility] emergency department the following day on 07/06/2020. She was given a prescription for Bactrim. Reportedly the surgeons in [facility] could not see her for 2 weeks. She followed up with her primary care provider on 07/10/2020. She had Keflex added to her antibiotic regimen and was referred for surgical evaluation. She was seen as a consultation on 07/12/2020. Arrangements were made for early operative incision and drainage under anesthesia. Operative findings:: Consistent with abscessed sebaceous cyst. Overall size of the area of erythema and induration measured approximately 8 x 4 cm. There was central fluctuance. Underlying material was consistent with purulent liquid with caseous debris co nsistent with abscessed sebaceous cyst Operative note:: Patient was taken to the operating room. She was given preoperative intravenous antibiotics. General anesthesia was induced. She was positioned in left lateral position. The area was prepped and draped in the standard surgical fashion. Limited central incision was made overlying the area of fluctuance. Wound was probed with a hemostat. There was some purulent material which exuded from the wound. This was sent for culture. The wound was probed with a hemostat. Incision was opened somewhat to unroofed the abscess cavity. There is some underlying caseous debris consistent with abscess ruptured sebaceous cyst. At this was evacuated and some of the cyst capsule was debrided with sharp dissection. Overall length of the incision measured 3 cm. Wound was irrigated. Hemostasis was achieved with electrocautery. Local anesthetic was infiltrated. Wound was packed with a saline moistened portion of gauze. And covered with clean dry sterile dressing. Condition: stable Disposition: PACU Specimens:: Cultures Complications:: None immediately apparent
--- NOTE | 2020-07-15 07:55 | HMH.ANESI ---
[facility] Anesthesia Record Part I Intake, IV Amount: 800 Estimated blood loss (mL): 5 Urine output (mL): 0 Blood Pressure: 143/86 SaO2: 93 Pulse Rate: 81 Respiratory Rate: 18 Temperature: 97.6 F Patient is:: Awake Stable to PACU at:: 07:56
--- NOTE | 2020-07-15 09:42 | SW/DCPLANNER ---
SET UP WOUND CARE FOR THIS PATIENT WITH [facility] TO START IN THE AM... PATIENT IS TO GO BACK TO THE DOCTOR NEXT WEEK AND IF SHE NEEDS TO CONTINUE DSG CHANGES SHE WILL EITHER NEED TO COME BACK TO THE HOSPITAL OR HAVE FAMILY TO DO IT.. MEDICAID WILL ONLY PAY FOR ONE WEEK OF HOME HEALTH AT THAT TIME SHE WILL NEED TO EITHER HAVE SOMEONE TO ASSIST OR COME BACK TO THE OUTPATIENT DEPT... PATIENT HAS BEEN DISCHARGED TO HOME.
--- NOTE | 2020-07-15 13:54 | P.PN_ITS ---
[facility] Anesthesia Record Part II Discharge Time: 08:18 Destination: Surgical Day Care (OP Surgery) PACU nurse assessment reviewed?: Yes Patient Condition:: Good Anesthesia Complications:: None Swallowing reflex intact?: Yes Cyanosis?: No Blood Pressure: 135/84 Pulse Rate: 70 Temperature: 97.4 F Mental Status: Alert & Oriented Pain level:: 0 Nausea and/or vomitting:: None Intake, IV Amount: 0
== END 2020-07-15 09:20 | disposition home or self-care (01) ==
LOC: OR 06:14
PROVIDERS: PCP Nurse Practitioner Family; Visit Provider Surgery
PROC: (CPT 10061; principal; 2020-07-15 07:30)
DX: L02.212 Cutaneous abscess of back [any part, except buttock and flank] (principal); J44.9 Chronic obstructive pulmonary disease, unspecified; I10 Essential (primary) hypertension; E78.5 Hyperlipidemia, unspecified; I25.10 Atherosclerotic heart disease of native coronary artery without angina pectoris; K21.9 Gastro-esophageal reflux disease without esophagitis; Z86.14 Personal history of Methicillin resistant Staphylococcus aureus infection; M19.90 Unspecified osteoarthritis, unspecified site; E03.9 Hypothyroidism, unspecified; Z79.82 Long term (current) use of aspirin; Z79.899 Other long term (current) drug therapy
CPT/HCPCS: 10061; 87070; 87075; 87205; 96374; J2405

== ENCOUNTER 2020-09-30 13:09 | Emergency (ER) | payer OTHER, SELFPAY ==
[2020-09-30] VITALS (7 sets, daily range): BP systolic 151–186; BP diastolic 82–125; PULSE 56–94; RESP 16–18; TEMP 36.7–37.2; O2SAT 96–100; BMI 43.2
--- NOTE | 2020-09-30 13:39 | HMH.EDUTC ---
[facility] [place] Clinical Impression: Hypertension Qualifiers: Hypertension type: unspecified Qualified Code(s): I10 - Essential (primary) hypertension Disposition: Home, Self-Care Condition on Discharge: Good Additional Instructions: Please take blood pressure medications as prescribed and follow-up with your primary care doctor for further reconciliation to ensure blood pressure is as well controlled as possible. Return if recurrent headache/vision changes, chest pain, shortness of breath, other new concerning symptoms. Referrals: Kacey Levin APRN [Primary Care Provider] - Medical Decision Making - Medical Records Medical records reviewed: No: I reviewed the patient's medical records. - Jose Inquiry Pt receiving controlled substance: No Vital Signs: 09/30/20 13:50 09/30/20 14:34 09/30/20 15:31 Temperature 98.9 F 98.9 F Temperature Source Oral Oral Pulse Rate 69 Pulse Rate [Left Radial] 94 H 83 Respiratory Rate 16 18 Blood Pressure 184/117 H Blood Pressure [Right Arm] 186/124 H 180/125 H Blood Pressure Mean 148 Blood Pressure Mean [Right Arm] 144 143 Blood Pressure Source Blood Pressure Source [Right Arm] Automatic Cuff Blood Pressure Position Blood Pressure Position [Right Arm] Sitting 02 Sat by Pulse Oximetry 99 100 97 Oxygen Delivery Method Room Air Room Air 09/30/20 16:01 09/30/20 16:31 09/30/20 17:01 Temperature Temperature Source Pulse Rate 78 64 56 L Pulse Rate [Left Radial] Respiratory Rate Blood Pressure 164/113 H 174/108 H 153/82 H Blood Pressure [Right Arm] Blood Pressure Mean 130 130 107 Blood Pressure Mean [Right Arm] Blood Pressure Source Blood Pressure Source [Right Arm] Blood Pressure Position Blood Pressure Position [Right Arm] 02 Sat by Pulse Oximetry 98 98 96 Oxygen Delivery Method 09/30/20 17:43 Temperature 98.0 F Temperature Source Oral Pulse Rate 60 Pulse Rate [Left Radial] Respiratory Rate 16 Blood Pressure 151/83 H Blood Pressure [Right Arm] Blood Pressure Mean Blood Pressure Mean [Right Arm] Blood Pressure Source Automatic Cuff Blood Pressure Source [Right Arm] Blood Pressure Position Supine Blood Pressure Position [Right Arm] 02 Sat by Pulse Oximetry Oxygen Delivery Method Room Air - Lab Data Lab Results 09/30/20 15:10: WBC 7.8, RBC 4.96, Hgb 13.4, Hct 42.1, MCV 84.9, MCH 27.0, MCHC 31.9, RDW 15.2, Plt Count 295, MPV 7.4, Neut % (Auto) 56.0, Lymph % (Auto) 37.5, Cowley % (Auto) 3.6, Eos % (Auto) 2.6, Baso % (Auto) 0.3, Neut # (Auto) 4.4, Lymph # (Auto) 2.9, Cowley # (Auto) 0.3, Eos # (Auto) 0.2, Baso # (Auto) 0.0 09/30/20 15:10: Sodium 139, Potassium 4.5, Chloride 103, Carbon Dioxide 31 H, Anion Gap 9.5, BUN 10, Creatinine 0.70, Estimated Creat Clear 87, Estimated GFR 89, Est GFR ( Amer) 108, Glucose 91, Calcium 9.8, Total Bilirubin 0.7, AST 49 H, ALT 37, Alkaline Phosphatase 81, Troponin I < 0.01, Total Protein 8.3 H, Albumin 4.6, Globulin 3.7 H, Albumin/Globulin Ratio 1.2 Result diagrams: 09/30/20 15:10 09/30/20 15:10 Orders (Tests/Meds): ED MEDICATIONS Discontinued Medications Generic Name Dose Route Start Last Admin Trade Name Freq PRN Reason Stop Dose Admin Bisoprolol Fumarate 10 mg 10/01/20 14:31 Bisoprolol 5mg Tablet PO 10/01/20 14:32 ONCE ONE Bisoprolol Fumarate 10 mg 09/30/20 14:31 09/30/20 15:33 Bisoprolol 5mg Tablet PO 09/30/20 14:32 10 mg ONCE ONE Administration Furosemide 20 mg 09/30/20 14:31 09/30/20 15:32 Furosemide 20mg Tablet PO 09/30/20 14:32 20 mg ONCE ONE Administration Medical Decision Narrative: She was transferred to the er due to her elevated b/p and having headache and blurry vision. [facility] [place] - General Stated complaint: blood pressure Time Seen by Provider: 09/30/20 13:40 - History of Present Illness Provider Complaint: She states that she was at Dr. Jansen's office and it was found that her
--- NOTE | 2020-09-30 14:10 | HMH.EDGENADL ---
ED Disposition Clinical Impression: Hypertension Qualifiers: Hypertension type: unspecified Qualified Code(s): I10 - Essential (primary) hypertension Disposition: Home, Self-Care Condition on Discharge: Good Additional Instructions: Please take blood pressure medications as prescribed and follow-up with your primary care doctor for further reconciliation to ensure blood pressure is as well controlled as possible. Return if recurrent headache/vision changes, chest pain, shortness of breath, other new concerning symptoms. Referrals: Kacey Levin APRN [Primary Care Provider] - - Critical Care Critical Care Time: No Attestation: On 09/30/20, the high probability of a clinically significant, sudden or life threatening deterioration of the following system(s) required my full and direct attention, intervention and personal management. The time I documented below is in addition to time spent performing reported procedures but includes the following listed in this critical care notation. Medical Decision Making - Medical Records Medical records reviewed: Yes: I reviewed the patient's medical records. - Jose Inquiry Pt receiving controlled substance: No Vital Signs: 09/30/20 13:50 09/30/20 14:34 09/30/20 15:31 Temperature 98.9 F 98.9 F Temperature Source Oral Oral Pulse Rate 69 Pulse Rate [Left Radial] 94 H 83 Respiratory Rate 16 18 Blood Pressure 184/117 H Blood Pressure [Right Arm] 186/124 H 180/125 H Blood Pressure Mean 148 Blood Pressure Mean [Right Arm] 144 143 Blood Pressure Source [Right Arm] Automatic Cuff Blood Pressure Position [Right Arm] Sitting 02 Sat by Pulse Oximetry 99 100 97 Oxygen Delivery Method Room Air Room Air 09/30/20 16:01 09/30/20 16:31 09/30/20 17:01 Temperature Temperature Source Pulse Rate 78 64 56 L Pulse Rate [Left Radial] Respiratory Rate Blood Pressure 164/113 H 174/108 H 153/82 H Blood Pressure [Right Arm] Blood Pressure Mean 130 130 107 Blood Pressure Mean [Right Arm] Blood Pressure Source [Right Arm] Blood Pressure Position [Right Arm] 02 Sat by Pulse Oximetry 98 98 96 Oxygen Delivery Method - Lab Data Lab Results 09/30/20 15:10: WBC 7.8, RBC 4.96, Hgb 13.4, Hct 42.1, MCV 84.9, MCH 27.0, MCHC 31.9, RDW 15.2, Plt Count 295, MPV 7.4, Neut % (Auto) 56.0, Lymph % (Auto) 37.5, Da[place]hin % (Auto) 3.6, Eos % (Auto) 2.6, Baso % (Auto) 0.3, Neut # (Auto) 4.4, Lymph # (Auto) 2.9, Dauphin # (Auto) 0.3, Eos # (Auto) 0.2, Baso # (Auto) 0.0 09/30/20 15:10: Sodium 139, Potassium 4.5, Chloride 103, Carbon Dioxide 31 H, Anion Gap 9.5, BUN 10, Creatinine 0.70, Estimated Creat Clear 87, Estimated GFR 89, Est GFR ( Amer) 108, Glucose 91, Calcium 9.8, Total Bilirubin 0.7, AST 49 H, ALT 37, Alkaline Phosphatase 81, Troponin I < 0.01, Total Protein 8.3 H, Albumin 4.6, Globulin 3.7 H, Albumin/Globulin Ratio 1.2 Result diagrams: 09/30/20 15:10 09/30/20 15:10 Orders (Tests/Meds): ED MEDICATIONS Discontinued Medications Generic Name Dose Route Start Last Admin Trade Name Freq PRN Reason Stop Dose Admin Bisoprolol Fumarate 10 mg 10/01/20 14:31 Bisoprolol 5mg Tablet PO 10/01/20 14:32 ONCE ONE Bisoprolol Fumarate 10 mg 09/30/20 14:31 09/30/20 15:33 Bisoprolol 5mg Tablet PO 09/30/20 14:32 10 mg ONCE ONE Administration Furosemide 20 mg 09/30/20 14:31 09/30/20 15:32 Furosemide 20mg Tablet PO 09/30/20 14:32 20 mg ONCE ONE Administration ORDERS Category Date Time Status Troponin I Q3H Lab 09/30/20 17:30 Ordered Troponin I Q3H Lab 09/30/20 20:30 Ordered Medical Decision Narrative: Patient presents the emergency department with dull headache and blood pressure complaint. On arrival her blood pressure is around 190/117 mmHg and she does have some vague symptoms associated with blood pressure potentially. At this time, patient will be given her home dose of bisoprolol as well as a Lasix th
--- NOTE | 2020-09-30 14:30 | XR_ITS ---
PROCEDURE: XR CHEST PORTABLE CLINICAL HISTORY: hypertension COMPARISON: CR CXR CHEST(2 VIEWS-NOT PORTABLE) from 06/06/2017 CR CXR2V XR chest 2V from 09/09/2018 CR XR CHEST PORTABLE from 06/20/2019 FINDINGS: The cardiomediastinal silhouette and pulmonary vascularity are within normal limits. The lungs are clear without infiltrates, suspicious nodules, or pleural effusions. No acute bony abnormalities. IMPRESSION: No acute findings. Dictated by: Mino Mendosa MD 09/30/2020 15:31 Mino Mendosa MD in [place] 09/30/2020 15:31
--- NOTE | 2020-09-30 15:03 | ECG_ITS ---
APPROVED REPORT Exam: Resting ECG HR:70 bpm ECG Measurements Heart Rate 70 AXES MI 190 P 40 QRSd 76 QRS 28 QT 404 T 46 QTc 436 Conclusion Normal sinus rhythm Low voltage QRS Old septal changes Abnormal ECG Electronically signed by : Vance Flood, 10/02/2020 17:37:20
[2020-09-30 15:21] LABS: Basophils % 0.3 % (0.1-2.0); Eosinophils # 0.2 K/mm3 (0.0-0.4); Eosinophils % 2.6 % (0.1-12.0); Hematocrit 42.1 % (37.0-47.0); Hemoglobin 13.4 g/dL (12.2-16.2); Lymphocytes # 2.9 K/mm3 (0.7-4.5); Lymphocytes % 37.5 % (10-50); Mean Corpuscular HGB Conc 31.9 g/dL (31.8-35.4); Mean Corpuscular Volume 84.9 fl (81-99); Mean Platelet Volume 7.4 fl (7.4-10.4); Monocytes # 0.3 K/mm3 (0.1-1.0); Monocytes % 3.6 % (1.7-9.3); Neutrophils # 4.4 K/mm3 (1.8-7.8); Platelet Count 295 K/mm3 (142-424); Red Blood Count 4.96 M/mm3 (4.20-5.40); Red Cell Distribution Width 15.2 % (11.5-17.5); White Blood Count 7.8 K/mm3 (4.8-10.8)
[2020-09-30 15:26] LABS: Chloride 103 mmol/L (98-107); Potassium 4.5 mmoL/L (3.5-5.1); Sodium 139 mmol/L (136-145)
[2020-09-30 15:29] LABS: Alanine Aminotransferase 37 U/L (12-78); Albumin Level 4.6 g/dl (3.5-5.0); Albumin/Globulin Ratio 1.2 (1.1-1.8); Alkaline Phosphatase 81 U/L (38-126); Anion Gap 9.5 mEq/L (5-15); Aspartate Amino Transferase 49 U/L (14-36); Bilirubin,Total 0.7 mg/dl (0.2-1.3); Blood Urea Nitrogen 10 mg/dl (7-17); Calcium 9.8 mg/dl (8.4-10.2); Carbon Dioxide 31 mmol/L (22.0-30.0); Creatinine Clearance Estimated 87 mL/min (50-200); Estimated Glomerular Filt Rate 89 ml/min (>60); GFR (African American) 108 ML/MIN (>60); Globulin 3.7 g/dL (1.3-3.2); Glucose 91 mg/dl (74-100); Total Protein,Serum 8.3 g/dl (6.3-8.2)
[2020-09-30 15:41] LABS: Troponin I < 0.01 ng/ml (0.00-0.034)
== END 2020-09-30 17:45 | disposition home or self-care (01) ==
LOC: UTC 13:54 → ER 13:55
PROVIDERS: Emergency Medicine; Emergency Provider Nurse Practitioner Family; PCP Nurse Practitioner Family
DX: I16.0 Hypertensive urgency (principal); R51.9 Headache, unspecified; J44.9 Chronic obstructive pulmonary disease, unspecified; K21.9 Gastro-esophageal reflux disease without esophagitis; E78.5 Hyperlipidemia, unspecified; Z87.891 Personal history of nicotine dependence; Z79.899 Other long term (current) drug therapy
CPT/HCPCS: 71045; 80053; 84484; 85025; 93005; 99282

== ENCOUNTER 2021-01-14 13:03 | Emergency (ER) | payer OTHER, SELFPAY ==
[2021-01-14 14:00] VITALS: BP 147/100; PULSE 98; O2SAT 99
[2021-01-14 14:05] VITALS: BP 165/103; PULSE 106; RESP 20; TEMP 37.4; O2SAT 97; BMI 41.5
[2021-01-14 14:07] LABS: Adenovirus,PCR Not Detected (NotDetected); Bordetella Pertussis Not Detected (NotDetected); Chlamydophila Pneumoniae, PCR Not Detected (NotDetected); Coronavirus 19, PCR Not Detected (NotDetected); Coronavirus 229E Not Detected (NotDetected); Coronavirus NL63 Not Detected (NotDetected); Coronavirus OC43 Not Detected (NotDetected); Coronovirus HKU1,PCR Not Detected (NotDetected); Human Metapneumovirus Not Detected (NotDetected); Influenza A, PCR Not Detected (NotDetected); Influenza AH1, 2009 Not Detected (NotDetected); Influenza AH1, PCR Not Detected (NotDetected); Influenza AH3,PCR Not Detected (NotDetected); Influenza B, PCR Not Detected (NotDetected); Mycoplasma Pneumoniae, PCR Not Detected (NotDetected); Parainfluenza 1, PCR Not Detected (NotDetected); Parainfluenza 2, PCR Not Detected (NotDetected); Parainfluenza 3, PCR Not Detected (NotDetected); Parainfluenza 4, PCR Not Detected (NotDetected); Rhinovirus/Enterovirus Not Detected (NotDetected)
--- NOTE | 2021-01-14 14:11 | XR_ITS ---
PROCEDURE: XR CHEST PORTABLE CLINICAL HISTORY: cough Cough and congestion COMPARISON: CR CXR2V XR chest 2V from 09/09/2018 CR XR CHEST PORTABLE from 06/20/2019 CR XR CHEST PORTABLE from 09/30/2020 FINDINGS: The cardiomediastinal silhouette and pulmonary vascularity are within normal limits. The lungs are clear without infiltrates, suspicious nodules, or pleural effusions. No acute bony abnormalities. IMPRESSION: No acute findings. Dictated by: Mino Mendosa MD 01/14/2021 14:50 Mino Mendosa MD in [facility] 01/14/2021 14:50
--- NOTE | 2021-01-14 14:12 | HMH.EDGENADL ---
ED Disposition Clinical Impression: Viral illness Disposition: Home, Self-Care Condition on Discharge: Good Referrals: Kacey Levin APRN [Primary Care Provider] - 3 days Time of Disposition: 14:16 - Critical Care Critical Care Time: No Attestation: On 01/14/21, the high probability of a clinically significant, sudden or life threatening deterioration of the following system(s) required my full and direct attention, intervention and personal management. The time I documented below is in addition to time spent performing reported procedures but includes the following listed in this critical care notation. Medical Decision Making - Medical Records Medical records reviewed: Yes: I reviewed the patient's medical records. - Jose Inquiry Pt receiving controlled substance: No Vital Signs: 01/14/21 14:00 01/14/21 14:05 Temperature 99.4 F Temperature Source Oral Pulse Rate 98 H Pulse Rate [Left] 106 H Respiratory Rate 20 Blood Pressure 147/100 H Blood Pressure [Right Arm] 165/103 H Blood Pressure Mean [Right Arm] 123 Blood Pressure Source [Right Arm] Automatic Cuff Blood Pressure Position [Right Arm] Supine 02 Sat by Pulse Oximetry 99 97 Oxygen Delivery Method Room Air Orders (Tests/Meds): ORDERS Category Date Time Status CXR --portable [XR chest portable] Stat Exams 01/14/21 14:11 Taken Full Resp Panel w/COVID ([facility]) Routine Lab 01/14/21 14:00 Received - Radiology Data #1 Image(s): Chest Image Reviewed: Yes I reviewed the patient's radiology image Preliminary Findings: Normal/NAD Medical Decision Narrative: 50yo F evaluated for cough. Patient denies fever. Wants to be retested for Covid. Covid test as well as full respiratory panel swab has been completed. Will obtain single view chest x-ray. O2 sats are 97% on room air while coughing. Patient to be discharged home and call with results of her viral swabs. General Adult HPI - General Stated complaint: headache, congestion, sore throat Time Seen by Provider: 01/14/21 14:00 Mode of Arrival: Ambulatory - History of Present Illness HPI narrative: 50yo F presents to the emergency department as directed by her PCP with concern for possible Covid. Patient was tested last Wednesday and found to be negative. She was treated with antibiotics for strep throat. She continues to have a cough, that she states is productive. She denies any fever. She reports exposure to other people with Covid. She reports a loss of sense of smell. She is very congested. No baseline pulmonary dysfunction. - Related Data Home Medications Medication Instructions Recorded Confirmed sertraline 100 mg tablet 100 mg PO DAILY 06/21/17 09/30/20 Previous Rx's Medication Instructions Recorded levothyroxine 88 mcg tablet 88 mcg PO DAILY #90 tab 02/05/20 cephalexin 750 mg capsule 500 mg PO TID 10 Days #30 cap 09/30/20 sulfamethoxazole 800 1 tab PO Q12H 10 Days #20 tab 09/30/20 mg-trimethoprim 160 mg tablet aspirin 81 mg tablet,delayed 81 mg PO DAILY #30 tab 01/08/21 release atorvastatin 80 mg tablet 80 mg PO DAILY #30 tab 01/08/21 bisoprolol fumarate 10 mg tablet 10 mg PO DAILY #30 tab 01/08/21 furosemide 20 mg tablet 20 mg PO DAILY #30 tab 01/08/21 spironolactone 100 mg tablet 100 mg PO DAILY #30 tab 01/08/21 Allergies Allergy/AdvReac Type Severity Reaction Status Date / Time No Known Allergies Allergy Verified 09/30/20 12:55 [facility] History - Hepatitis A Screen Drug use history?: No Attestation statement:: This patient has been screened for Hepatitis A risk factors. I have reviewed the patient's past medical history: Yes Medical History: Reports:: Asthma, Chronic Obstructive Pulmonary Disease (COPD), Coronary Artery Disease, Gastroesophageal Reflux Disease(GERD), Hyperlipidemia, Hypertension, MRSA Denies:: Cancer, Diabetes Mellitus Type 1, Diabetes Mellitus Type 2, Internal Pacemaker, Seizures Other Medical History: Rep
--- NOTE | 2021-01-14 14:26 | PC.NURSE ---
Rad at bedside
[2021-01-14 14:45] VITALS: BP 147/93; PULSE 94; RESP 20; TEMP 37.7; O2SAT 97
[2021-01-14 15:29] LABS: Respiratory Syncytial Virus Detected (NotDetected)
--- NOTE | 2021-01-14 16:27 | PC.NURSE ---
attempted to call patient cell phone to update her on test results. patient did not answer. will attempt to call back at a later time.
--- NOTE | 2021-01-14 18:27 | PC.NURSE ---
called patient and received answer. updated patient on resp panel results.
== END 2021-01-14 14:45 | disposition home or self-care (01) ==
LOC: UTC 13:05 → ER 13:51
PROVIDERS: Emergency Provider Family Medicine; PCP Nurse Practitioner Family
DX: J06.9 Acute upper respiratory infection, unspecified (principal); B97.4 Respiratory syncytial virus as the cause of diseases classified elsewhere; Z87.891 Personal history of nicotine dependence; J44.9 Chronic obstructive pulmonary disease, unspecified; K21.9 Gastro-esophageal reflux disease without esophagitis; I25.10 Atherosclerotic heart disease of native coronary artery without angina pectoris; E78.5 Hyperlipidemia, unspecified; I10 Essential (primary) hypertension; Z79.899 Other long term (current) drug therapy
CPT/HCPCS: 71045; 87581; 87633; 87798; 99281

== ENCOUNTER 2021-01-22 13:56 | Emergency (ER) | payer OTHER, SELFPAY ==
[2021-01-22 14:38] VITALS: BP 149/89; PULSE 93; RESP 22; TEMP 36.6; O2SAT 97; BMI 42.3
--- NOTE | 2021-01-22 14:49 | HMH.EDUTC ---
[facility] Disposition Clinical Impression: Encounter for laboratory testing for COVID-19 virus Sinusitis Qualifiers: Sinusitis location: unspecified location Chronicity: unspecified Qualified Code(s): J32.9 - Chronic sinusitis, unspecified Disposition: Home, Self-Care Condition on Discharge: Good Instructions: DI for COVID-19 (Suspected or Confirmed ), Coronavirus Disease 2019, Preventing the Spread of Coronavirus Discharge Instructions, Sinusitis, DI for Sinusitis Additional Instructions: *Monitor Temp, Over the counter Motrin or Tylenol as directed/as needed Tylenol every 4 hours and Motrin every 6 hours (as long as your family doctor has told you that you can take it) for fever or pain. and straight to ER if unable to lower temp less than 101.0 after medication given *Warm salt water gargles may help to soothe the throat *Throat Lozenges *Warm fluids like tea with honey may help to soothe the throat *Sleep elevated Follow up IMMEDIATELY for new or worsening symptoms or no Noticeable improvement over the next 48-72 hours. 911 for difficulty breathing or swallowing You were tested for today for COVID19 your test result should be back in the next 24-48 hours, you may call to the [facility] [[email or web address]] to see if your test results are back in the next 48 hours [phone] [facility] [[email or web address]] hours are 9am-9pm You was given a handout with instructions for Self Quarantine and Self isolation for while you wait on test results and what to do if they are positive If you are positive the Health Dept will be contacting you also Prescriptions: Amoxicillin/Potassium Clav [Augmentin 875-125 Tablet] 1 tab PO Q12H 7 Days #14 tab Transmission Status: Pending to [facility] Benzonatate [Tessalon Perle 100mg Cap*] 100 mg PO TID PRN #15 cap PRN Reason: Cough Transmission Status: Pending to [facility] Referrals: Kacey Levin APRN [Primary Care Provider] - As needed Time of Disposition: 14:57 Medical Decision Making - Jose Inquiry Pt receiving controlled substance: No Jose was queried for this patient: No Vital Signs: 01/22/21 14:38 Temperature 98 F Temperature Source Oral Pulse Rate [Left] 93 H Respiratory Rate 22 Blood Pressure [Right Arm] 149/89 H Blood Pressure Mean [Right Arm] 109 02 Sat by Pulse Oximetry 97 Orders (Tests/Meds): ORDERS Category Date Time Status Covid-19 Nasal PCR ([facility]) Routine Lab 01/22/21 14:02 Ordered [facility] HPI - General Stated complaint: covid symptoms/test Time Seen by Provider: 01/22/21 14:49 Mode of Arrival: Ambulatory Source of Information: Patient Limitations: No Limitations Description of Symptoms (Recalled from Triage Doc. by RN): pt c/o loss of taste and smell. HEENT Symptoms (Recalled from RN notes): Yes (loss of taste/smell) Resp Symptoms (Recalled from RN notes): No Skin Symptoms (Recalled from RN notes): No MS Symptoms (Recalled from RN notes): No Functional Status (Recalled from RN notes): na - History of Present Illness Provider Complaint: Patient state that she was dx with RSV about a week ago and since then she is still feeling bad and has loss her sense of smell and taste States that she is wanting to get tested for COVID again States that also she has been having sinus pain and pressure with yellowish green mucous and thinks she may have a sinus infection too - Related Data Home Medications Medication Instructions Recorded Confirmed sertraline 100 mg tablet 100 mg PO DAILY 06/21/17 09/30/20 Previous Rx's Medication Instructions Recorded levothyroxine 88 mcg tablet 88 mcg PO DAILY #90 tab 02/05/20 cephalexin 750 mg capsule 500 mg PO TID 10 Days #30 cap 09/30/20 sulfamethoxazole 800 1 tab PO Q12H 10 Days #20 tab 09/30/20 mg-trimethoprim 160 mg tablet aspirin 81 mg tablet,delayed 81 mg PO DAILY #30 tab 01/08/21 release atorvastatin 80 mg tablet 80 mg PO DAILY #30 tab 01/08/21 bisoprolol fumarate 10 mg tablet 10 mg PO DAILY #30 tab 01/08/21 furosemide 20 mg
[2021-01-22 15:23] VITALS: BP 143/85; PULSE 90; RESP 21; TEMP 36.6
== END 2021-01-22 15:23 | disposition home or self-care (01) ==
PROVIDERS: Emergency Provider Nurse Practitioner; PCP Nurse Practitioner Family
DX: J32.9 Chronic sinusitis, unspecified (principal); Z20.822 Contact with and (suspected) exposure to COVID-19; J44.9 Chronic obstructive pulmonary disease, unspecified; I25.10 Atherosclerotic heart disease of native coronary artery without angina pectoris; K21.9 Gastro-esophageal reflux disease without esophagitis; E78.5 Hyperlipidemia, unspecified; I10 Essential (primary) hypertension; Z79.899 Other long term (current) drug therapy
CPT/HCPCS: 99202; G0463; U0003

== ENCOUNTER → 2021-02-03 14:36 | Outpatient (CLI) | payer OTHER, SELFPAY ==
--- NOTE | 2021-02-03 14:59 | US_ITS ---
PROCEDURE: US THYROID CLINICAL INDICATION: hx thyroiditis COMPARISON: US US THYROID from 01/31/2020 FINDINGS: Right lobe: 3.9 x 2.5 x 2.2 cm. There is diffuse heterogeneous echogenicity. Previously noted areas of nodularity are not significantly change in may actually represent just diffuse heterogeneous echogenicity as opposed to true nodules. Left lobe: 4.3 x 2 x 2 cm with diffuse heterogeneous echogenicity previously noted nodular areas are not significantly changed and may only represent heterogeneous areas of echogenicity as opposed to true nodules not readily demonstrated well in both transverse and sagittal planes. Isthmus: 4 mm in thickness Additional findings: IMPRESSION: Overall no change in the diffuse heterogeneous echogenicity of both lobes of the thyroid gland with a somewhat nodular contour but no discrete nodule demonstrated in both transverse and longitudinal planes Dictated by: Mino Mendosa MD 02/03/2021 17:42 Mino Mendosa MD in [place] 02/03/2021 17:42
[2021-02-03 16:13] LABS: Free T4 (Free Thyroxine) 1.03 ng/dl (0.78-2.19)
[2021-02-03 16:26] LABS: Thyroid Stimulating Hormone 3.09 uIU/mL (0.465-4.68)
[2021-02-05 12:42] LABS: Thyroid Peroxidase Antibodies >600 IU/mL (0-34)
[2021-02-07 08:17] LABS: Thyroid Stimulating Immunoglob <0.10 IU/L (0.00-0.55)
== END ==
PROVIDERS: PCP Nurse Practitioner Family; Visit Provider Otolaryngology
DX: E03.9 Hypothyroidism, unspecified (principal); E06.9 Thyroiditis, unspecified
CPT/HCPCS: 36415; 76536; 84439; 84443; 84445; 86376

== ENCOUNTER → 2021-02-27 07:57 | Outpatient (CLI) | payer OTHER, SELFPAY ==
[2021-02-27 08:45] VITALS: PULSE 73; PULSE 76
== END ==
PROVIDERS: PCP Nurse Practitioner Family; Visit Provider Internal Medicine Pulmonary Disease
DX: R06.00 Dyspnea, unspecified (principal)
CPT/HCPCS: 94060; 94618; 94640; 94726; 94729

== ENCOUNTER → 2021-03-17 10:10 | Outpatient (CLI) | payer OTHER, SELFPAY ==
--- NOTE | 2021-03-17 10:10 | CA_ITS ---
APPROVED REPORT EXAM: Comprehensive 2D, Doppler, and color-flow Echocardiogram Smelter Operator: Landy Krishnan RDCS Ht: 5 ft 4 in Wt: 255lbs BSA: 2.17 BP: 150/103 mmHg Indications: HTN,LOPEZ,OBESITY M-Mode Dimensions RVDd 1.92 cm (0.9-2.6) LA Diam 2.40 cm (1.9-4.0) LVDd 4.89 cm (3.5-5.7) Ao Diam 3.19 cm (2.0-3.7) LVDs 3.87 cm (3.5-5.7) IVSd 0.82 cm (0.6-1.1) PWd 0.90 cm (0.6-1.1) EF (Teich) 42.40% FS 20.90% EDV (Teich) 112.30 mL TAPSE 1.49 (<1.7) ESV (Teich) 64.70 mL LV Diastology E Decel Time 193.00 (160-240 msec) E/A Ratio 0.8 MED E' 5.30 (< 7 cm/sec) E'/MED E' Ratio 9.60 (>14) LAT E' 6.00 (<10 cm/sec) E/LAT E' Ratio 8.48 (>14) Mitral Valve MV E Max Kei. 51.00 (40-130 cm/s) MV A Velocity 61.00 (40-130 cm/s) E/A Ratio 0.84 MV Decel. Time 193.00 (160-240 ms) MV PHT 57.00 ms Left Ventricle Left atrium is mildly enlarged, left ventricle is normal size, mild concentric left ventricular hypertrophy, visually estimated ejection fraction 55% with no regional wall motion abnormality, grade 1 diastolic dysfunction seen without tissue Doppler evidence of raise left atrial pressure. Right Ventricle Right atrium and right ventricle is normal size and contractility. Aortic Valve Aortic valve is grossly normal. There is no aortic stenosis or aortic insufficiency. Mitral Valve Mitral valve grossly normal, there is trace mitral regurgitation. Tricuspid Valve Tricuspid valve grossly normal, there is trace tricuspid regurgitation, tricuspid regurgitation jet velocity is inadequate for calculation of the right ventricular systolic pressure. Pulmonic Valve Pulmonic valve is poorly visualized. Great Vessels Aortic root is normal size. Inferior vena cava is normal size with normal inspiratory collapse. Pericardium No significant pericardial effusion noted. Conclusion 1. Normal left ventricular size, preserved left ventricular systolic function, visually estimated ejection fraction 55% with no regional wall motion abnormality, grade 1 diastolic dysfunction seen without tissue Doppler evidence of raise left atrial pressure. 2. Trace mitral and tricuspid regurgitation. 3. No significant pericardial effusion noted. 4. Inferior vena cava is normal size with normal inspiratory collapse. Electronically signed by : Kleber Cash MD 03/17/2021 19:17:13
[2021-03-17 11:40] LABS: Chloride 102 mmol/L (98-107); Potassium 4.6 mmoL/L (3.5-5.1); Sodium 143 mmol/L (136-145)
[2021-03-17 11:42] LABS: Basophils # 0.1 K/mm3 (0-0.2); Basophils % 0.9 % (0.1-2.0); Eosinophils # 0.2 K/mm3 (0.0-0.4); Eosinophils % 2.7 % (0.1-12.0); Hematocrit 46.2 % (37.0-47.0); Hemoglobin 14.6 g/dL (12.2-16.2); Lymphocytes # 2.9 K/mm3 (0.7-4.5); Lymphocytes % 36.5 % (10-50); Mean Corpuscular HGB Conc 31.7 g/dL (31.8-35.4); Mean Corpuscular Hemoglobin 28.3 pg (27.0-31.2); Mean Corpuscular Volume 89.4 fl (81-99); Mean Platelet Volume 7.9 fl (7.4-10.4); Monocytes # 0.3 K/mm3 (0.1-1.0); Monocytes % 4.1 % (1.7-9.3); Neutrophils # 4.5 K/mm3 (1.8-7.8); Neutrophils % 55.7 % (37.0-80.0); Platelet Count 359 K/mm3 (142-424); Red Blood Count 5.16 M/mm3 (4.20-5.40); Red Cell Distribution Width 15.3 % (11.5-17.5); White Blood Count 8.1 K/mm3 (4.8-10.8)
[2021-03-17 11:43] LABS: Anion Gap 13.6 mEq/L (5-15); Blood Urea Nitrogen 15 mg/dl (7-17); Calcium 9.7 mg/dl (8.4-10.2); Carbon Dioxide 32 mmol/L (22.0-30.0); Estimated Glomerular Filt Rate 89 ml/min (>60); GFR (African American) 108 ML/MIN (>60); Glucose 103 mg/dl (74-100)
[2021-03-20 16:12] LABS: D001-IgE D pteronyssinus <0.10 kU/L (Class 0); D002-IgE D farinae <0.10 kU/L (Class 0); E001-IgE Cat Dander <0.10 kU/L (Class 0); E005-IgE Dog Dander <0.10 kU/L (Class 0); E072-IgE Mouse Urine <0.10 kU/L (Class 0); G002-IgE Bermuda Grass <0.10 kU/L (Class 0); G006-IgE Timothy Grass <0.10 kU/L (Class 0); I006-IgE Cockroach, German <0.10 kU/L (Class 0); Immunoglobulin E, Total 24 IU/mL (6-495); M001-IgE Penicillium chrysogen <0.10 kU/L (Class 0); M002-IgE Cladosporium herbarum <0.10 kU/L (Class 0); M003-IgE Aspergillus fumigatus <0.10 kU/L (Class 0); M006-IgE Alternaria alternata <0.10 kU/L (Class 0); T001-IgE Maple/Box Elder <0.10 kU/L (Class 0); T003-IgE Common Silver Birch <0.10 kU/L (Class 0); T006-IgE Cedar, Mountain <0.10 kU/L (Class 0); T007-IgE Oak, White <0.10 kU/L (Class 0); T008-IgE Elm, American <0.10 kU/L (Class 0); T010-IgE Walnut <0.10 kU/L (Class 0); T011-IgE Maple Leaf Sycamore <0.10 kU/L (Class 0); T014-IgE Cottonwood <0.10 kU/L (Class 0); T015-IgE Ash, White <0.10 kU/L (Class 0); T022-IgE Pecan, Hickory <0.10 kU/L (Class 0); T070-IgE White Mulberry <0.10 kU/L (Class 0); W001-IgE Ragweed, Short <0.10 kU/L (Class 0); W011-IgE Thistle, Russian <0.10 kU/L (Class 0); W014-IgE Pigweed, Common <0.10 kU/L (Class 0); W018-IgE Sheep Sorrel <0.10 kU/L (Class 0)
== END ==
PROVIDERS: Internal Medicine Pulmonary Disease; Urology; PCP Nurse Practitioner Family; Visit Provider Nurse Practitioner Family
DX: R06.09 Other forms of dyspnea (principal)
CPT/HCPCS: 36415; 80048; 82785; 85025; 86003; 93306

== ENCOUNTER → 2021-03-17 10:44 | Outpatient (CLI) | payer OTHER, SELFPAY | PROVIDERS: Visit Provider Internal Medicine Pulmonary Disease | DX: B97.4 Respiratory syncytial virus as the cause of diseases classified elsewhere (principal) | CPT/HCPCS: 36415; 80048; 82785; 85025; 86003 ==

== ENCOUNTER → 2021-09-01 13:58 | Outpatient (CLI) | payer OTHER, SELFPAY ==
[2021-09-01 16:21] LABS: Thyroid Stimulating Hormone 4.16 uIU/mL (0.465-4.68)
== END ==
PROVIDERS: Visit Provider Otolaryngology
DX: E03.9 Hypothyroidism, unspecified (principal)
CPT/HCPCS: 36415; 84443

== ENCOUNTER → 2021-09-25 13:35 | Outpatient (CLI) | payer OTHER, SELFPAY | PROVIDERS: PCP Nurse Practitioner Family; Visit Provider Nurse Practitioner Family | DX: G47.33 Obstructive sleep apnea (adult) (pediatric) (principal) | CPT/HCPCS: 95806 ==

== ENCOUNTER 2021-11-13 17:24 | Emergency (ER) | payer OTHER, SELFPAY ==
[2021-11-13 17:26] VITALS: BP 171/124; PULSE 110; RESP 18; TEMP 37.5; O2SAT 95; BMI 40.9
--- NOTE | 2021-11-13 17:59 | XR_ITS ---
PROCEDURE INFORMATION: Exam: XR Chest Exam date and time: 11/13/2021 6:07 PM Age: 51 years old Clinical indication: Patient HX: Cough and congestion since Wednesday morning at 5am she stated. TECHNIQUE: Imaging protocol: XR of the chest. Views: 1 view. COMPARISON: CR XR CHEST PORTABLE 01/14/2021 2:26 PM FINDINGS: Lungs: Unremarkable. No consolidation. Pleural spaces: Unremarkable. No pleural effusion. No pneumothorax. Heart/Mediastinum: Unremarkable. No cardiomegaly. Bones/joints: Unremarkable. IMPRESSION: No acute findings.
[2021-11-13 18:07] LABS: Microscopic, Urine URINE MICROSCOPIC (MICROSCOPIC)
[2021-11-13 18:11] LABS: Appearance,Urine CLOUDY (Clear); Blood, Urine Negative (Negative); Color,Urine DK YELLOW (Yellow); Glucose,Urine (UA) Negative (Negative); Ketones,Urine Negative (Negative); Leukocyte Esterase,Urine 2+ (Negative); Nitrate,Urine Negative (Negative); PH,Urine 6.5 (5.0-8.5); Protein,Urine TRACE (Negative); Specific Gravity, Urine 1.025 (1.005-1.030)
[2021-11-13 18:15] LABS: Bilirubin,Urine 1+ (Negative)
--- NOTE | 2021-11-13 18:27 | HMH.EDGENADL ---
ED Disposition Clinical Impression: Gallbladder sludge UTI (urinary tract infection) Qualifiers: Urinary tract infection type: acute cystitis Hematuria presence: without hematuria Qualified Code(s): N30.00 - Acute cystitis without hematuria Disposition: Home, Self-Care Condition on Discharge: Good Instructions: Gallstones Prescriptions: cephALEXin [Cephalexin 500mg Tab] 500 mg PO BID #14 tab Transmission Status: Pending to [id number] Referrals: Kacey Levin APRN [Primary Care Provider] - Conor Taylor MD [Staff Physician] - - Critical Care Critical Care Time: No Attestation: On 11/13/21, the high probability of a clinically significant, sudden or life threatening deterioration of the following system(s) required my full and direct attention, intervention and personal management. The time I documented below is in addition to time spent performing reported procedures but includes the following listed in this critical care notation. Medical Decision Making - Medical Records Medical records reviewed: Yes: I reviewed the patient's medical records. - Jose Inquiry Pt receiving controlled substance: No Vital Signs: 11/13/21 17:26 11/13/21 18:30 Temperature 99.5 F Temperature Source Oral Pulse Rate 101 H Pulse Rate [Left Radial] 110 H Respiratory Rate 18 18 Blood Pressure 156/108 H Blood Pressure [Right Arm] 171/124 H Blood Pressure Mean 124 Blood Pressure Mean [Right Arm] 139 Blood Pressure Source [Right Arm] Automatic Cuff Blood Pressure Position [Right Arm] Sitting 02 Sat by Pulse Oximetry 95 98 Oxygen Delivery Method Room Air - Lab Data Lab Results 11/13/21 18:00: Urine Color Dk yellow, Urine Appearance Cloudy, Urine pH 6.5, Ur Specific [place] 1.025, Urine Protein Trace, Urine Glucose (UA) Negative, Urine Ketones Negative, Urine Blood Negative, Urine Nitrate Negative, Urine Bilirubin 1+ A, Urine Urobilinogen 1.0, Ur Leukocyte Esterase 2+ A, Urine RBC Occasional, Urine WBC 10-20, Ur Squamous Epith Cells 3-5, Urine Bacteria 2+, Urine Mucus 1+ 11/13/21 18:19: WBC 7.3, RBC 4.88, Hgb 13.6, Hct 41.6, MCV 85.3, MCH 27.9, MCHC 32.7, RDW 15.1, Plt Count 255, MPV 7.6, Neut % (Auto) 67.4, Lymph % (Auto) 20.6, Coffee % (Auto) 5.0, Eos % (Auto) 4.7, Baso % (Auto) 2.4 H, Neut # (Auto) 4.9, Lymph # (Auto) 1.5, Coffee # (Auto) 0.4, Eos # (Auto) 0.3, Baso # (Auto) 0.2 11/13/21 18:19: Sodium 138, Potassium 4.0, Chloride 103, Carbon Dioxide 27, Anion Gap 12.0, BUN 9, Creatinine 0.70, Estimated Creat Clear 169, Estimated GFR 89, Est GFR ( Amer) 107, Glucose 99, Calcium 9.4, Total Bilirubin 0.9, AST 43 H, ALT 30, Alkaline Phosphatase 92, Total Protein 8.0, Albumin 4.5, Globulin 3.5 H, Albumin/Globulin Ratio 1.3, Lipase 104 Result diagrams: 11/13/21 18:19 11/13/21 18:19 Orders (Tests/Meds): ED MEDICATIONS Generic Name Dose Route Start Last Admin Trade Name Freq PRN Reason Stop Dose Admin Sodium Chloride 1,000 mls @ 999 mls/hr 11/13/21 18:00 11/13/21 18:22 Sod Chlor 0.9% 1000ml Bag IV 11/13/21 19:00 999 mls/hr .Q1H1M BALTA Administration Ceftriaxone Sodium 1 gm/ 50 mls @ 100 mls/hr 11/13/21 19:45 11/13/21 19:48 Sodium Chloride IV 11/27/21 19:44 100 mls/hr Q24H BALTA Administration Discontinued Medications Generic Name Dose Route Start Last Admin Trade Name Freq PRN Reason Stop Dose Admin Ketorolac Tromethamine 30 mg 11/13/21 17:59 11/13/21 18:22 Ketorolac 30mg/Ml Vial IV 11/13/21 18:00 30 mg ONCE ONE Administration ORDERS Category Date Time Status Urine Culture Stat Micro 11/13/21 18:00 Received - Radiology Data #1 Image(s): Chest Image Reviewed: Yes I reviewed the patient's radiology results, Yes I reviewed the patient's radiology image, Yes I have reviewed radiologist's interpretation Preliminary Findings: Normal/NAD - CT Data CT Scan: Abdomen, Pelvis Time Received: 19:[address] Reviewed: Yes: I have reviewed the tavares
[2021-11-13 18:29] LABS: Basophils # 0.2 K/mm3 (0-0.2); Basophils % 2.4 % (0.1-2.0); Eosinophils # 0.3 K/mm3 (0.0-0.4); Eosinophils % 4.7 % (0.1-12.0); Hematocrit 41.6 % (37.0-47.0); Hemoglobin 13.6 g/dL (12.2-16.2); Lymphocytes # 1.5 K/mm3 (0.7-4.5); Lymphocytes % 20.6 % (10-50); Mean Corpuscular HGB Conc 32.7 g/dL (31.8-35.4); Mean Corpuscular Hemoglobin 27.9 pg (27.0-31.2); Mean Corpuscular Volume 85.3 fl (81-99); Mean Platelet Volume 7.6 fl (7.4-10.4); Monocytes # 0.4 K/mm3 (0.1-1.0); Neutrophils # 4.9 K/mm3 (1.8-7.8); Neutrophils % 67.4 % (37.0-80.0); Platelet Count 255 K/mm3 (142-424); Red Blood Count 4.88 M/mm3 (4.20-5.40); Red Cell Distribution Width 15.1 % (11.5-17.5); White Blood Count 7.3 K/mm3 (4.8-10.8)
[2021-11-13 18:30] VITALS: BP 156/108; PULSE 101; RESP 18; O2SAT 98
[2021-11-13 18:34] LABS: Chloride 103 mmol/L (98-107); Sodium 138 mmol/L (136-145)
[2021-11-13 18:37] LABS: Alanine Aminotransferase 30 U/L (12-78); Alkaline Phosphatase 92 U/L (38-126); Aspartate Amino Transferase 43 U/L (14-36); Bilirubin,Total 0.9 mg/dl (0.2-1.3); Blood Urea Nitrogen 9 mg/dl (7-17); Calcium 9.4 mg/dl (8.4-10.2); Carbon Dioxide 27 mmol/L (22.0-30.0); Creatinine Clearance Estimated 169 mL/min (50-200); Estimated Glomerular Filt Rate 89 ml/min (>60); GFR (African American) 107 ML/MIN (>60); Glucose 99 mg/dl (74-100); Lipase 104 U/L (23-300)
[2021-11-13 18:38] LABS: Albumin Level 4.5 g/dl (3.5-5.0); Albumin/Globulin Ratio 1.3 (1.1-1.8); Globulin 3.5 g/dL (1.3-3.2)
[2021-11-13 18:40] LABS: Bacteria,Urine 2+ /lpf; Mucus,Urine 1+ /lpf; RBC,Urine Occasional #/hpf (0-3)
--- NOTE | 2021-11-13 19:04 | CT_ITS ---
PROCEDURE INFORMATION: Exam: CT Abdomen And Pelvis Without Contrast Exam date and time: 11/13/2021 7:06 PM Age: 51 years old Clinical indication: Abdominal pain; Localized; Right upper quadrant (ruq); Additional info: Ruq pain TECHNIQUE: Imaging protocol: Computed tomography of the abdomen and pelvis without contrast. Radiation optimization: All CT scans at this facility use at least one of these dose optimization techniques: automated exposure control; mA and/or kV adjustment per patient size (includes targeted exams where dose is matched to clinical indication); or iterative reconstruction. COMPARISON: [facility] CT abdomen pelvis wo con 01/03/2018 5:43 PM FINDINGS: Liver: Normal. No mass. Gallbladder and bile ducts: Increased density within the gallbladder consistent with sludge. No stones identified. Pancreas: See Intraperitoneal space finding. Spleen: Normal. No splenomegaly. Adrenal glands: Normal. No mass. Kidneys and ureters: Nonobstructing 4.5 mm calculus midpole left kidney. Stomach and bowel: Scattered diverticula are demonstrated within the sigmoid colon. Findings compatible with diverticulosis. Appendix: No evidence of appendicitis. Intraperitoneal space: There is subtle stranding of the mesenteric fat in the region of the pancreas. Similar findings were demonstrated on the previous study. The pancreas is suboptimally defined secondary to lack of bowel vascular opacification. Mild changes of pancreatitis could not be excluded (series 3 image number 44, 45). Clinically correlate. Vasculature: Unremarkable. No abdominal aortic aneurysm. Lymph nodes: Unremarkable. No enlarged lymph nodes. Urinary bladder: Unremarkable as visualized. Reproductive: Unremarkable as visualized. Bones/joints: Unremarkable. No acute fracture. Soft tissues: Unremarkable. IMPRESSION: 1. Subtle stranding of the mesenteric fat in the region of the pancreas. Mild changes of pancreatitis could not be excluded. Pancreas is not optimally visualized due to lack of oral as well as IV contrast. Clinical laboratory correlation recommended. 2. Gallbladder sludge. 3. 4.5 mm nonobstructing calculus midpole left kidney. 4. Diverticulosis. No evidence of diverticulitis.
--- NOTE | 2021-11-13 19:14 | PC.NURSE ---
pt back from ct
[2021-11-13 20:05] VITALS: BP 154/97; PULSE 90; RESP 18; TEMP 37.1; O2SAT 98
== END 2021-11-13 20:13 | disposition home or self-care (01) ==
PROVIDERS: Emergency Provider Emergency Medicine; PCP Nurse Practitioner Family
DX: K82.8 Other specified diseases of gallbladder (principal); N30.00 Acute cystitis without hematuria; Z86.14 Personal history of Methicillin resistant Staphylococcus aureus infection; J44.9 Chronic obstructive pulmonary disease, unspecified; I25.10 Atherosclerotic heart disease of native coronary artery without angina pectoris; K21.9 Gastro-esophageal reflux disease without esophagitis; E78.5 Hyperlipidemia, unspecified; I10 Essential (primary) hypertension
CPT/HCPCS: 71045; 74176; 80053; 81001; 83690; 85025; 87086; 96365; 96375; 99284; J0696

== ENCOUNTER → 2021-11-17 12:46 | Outpatient (CLI) | payer OTHER, SELFPAY ==
--- NOTE | 2021-11-17 12:47 | US_ITS ---
FINAL REPORT CLINICAL HISTORY: hypothyroid COMPARISON: February 03, 2021 FINDINGS: THYROID ULTRASOUND Sonographic images of the thyroid was obtained. The right lobe of the thyroid measures 4.3 x 3.1 x 2.7 cm. There is a 7 x 9 x 8 mm solid hypoechoic TI-RADS 4 nodule. There is a 15 x 6 x 11 mm solid isoechoic TI-RADS 3 nodule. In the lower pole there is a 12 x 9 x 10 solid hypoechoic TI-RADS 4 nodule. The left lobe of the thyroid measures 4.0 x 1.8 x 1.8 cm. In the lower pole there is an 8 x 7 x 7 mm solid hypoechoic TI-RADS 4 nodule. The isthmus measures 3 mm. IMPRESSION: Direct comparison is difficult but overall appearance is similar to the prior exam. Recommend additional follow-up in 12 months. Reviewed, Interpreted and Dictated by Carlos Obregon III, MD Transcribed by Vanita Macias Authenticated and [facility]
== END ==
PROVIDERS: PCP Nurse Practitioner Family; Visit Provider Otolaryngology
DX: E03.9 Hypothyroidism, unspecified (principal)
CPT/HCPCS: 76536

== ENCOUNTER → 2021-11-24 14:06 | Outpatient (CLI) | payer OTHER, SELFPAY ==
--- NOTE | 2021-11-24 14:09 | XR_ITS ---
FINAL REPORT CLINICAL HISTORY: Acute cough x 3 wks COMPARISON: November 13, 2021 FINDINGS: Two views of the chest were obtained. The heart size and pulmonary vascularity are within normal limits. The mediastinum is normal. No acute pulmonary abnormality is identified. There is no pneumothorax. There is [id number] degenerative change in the thoracic spine. IMPRESSION: No active cardiopulmonary disease. Reviewed, Interpreted and Dictated by Carlos Obregon III, MD Transcribed by Vanita Macias Authenticated and [facility]
== END ==
PROVIDERS: PCP Nurse Practitioner Family; Visit Provider Nurse Practitioner Family
DX: R06.00 Dyspnea, unspecified (principal); I51.89 Other ill-defined heart diseases; E78.5 Hyperlipidemia, unspecified; J06.9 Acute upper respiratory infection, unspecified; R60.9 Edema, unspecified; F17.200 Nicotine dependence, unspecified, uncomplicated
CPT/HCPCS: 71046

== ENCOUNTER 2021-11-24 19:06 | Emergency (ER) | payer OTHER, SELFPAY ==
[2021-11-24 19:03] VITALS: BP 122/79; PULSE 99; RESP 18; TEMP 36.7; O2SAT 97; BMI 40.2
--- NOTE | 2021-11-24 19:12 | XR_ITS ---
PROCEDURE INFORMATION: Exam: XR Chest Exam date and time: 11/24/2021 7:43 PM Age: 51 years old Clinical indication: Shortness of breath; Patient HX: SOA w palpitations x 1 day; Additional info: Syncope TECHNIQUE: Imaging protocol: XR of the chest. Views: 1 view. COMPARISON: CR XR CHEST 2V 11/24/2021 2:25 PM FINDINGS: Lungs: Unremarkable. No consolidation. Pleural spaces: Unremarkable. No pleural effusion. No pneumothorax. Heart/Mediastinum: Unremarkable. No cardiomegaly. Bones/joints: Unremarkable. IMPRESSION: No acute findings.
--- NOTE | 2021-11-24 19:12 | CT_ITS ---
PROCEDURE INFORMATION: Exam: CT Head Without Contrast Exam date and time: 11/24/2021 7:36 PM Age: 51 years old Clinical indication: Dizziness and visual disturbance; Additional info: Vertigo w change in vision TECHNIQUE: Imaging protocol: Computed tomography of the head without contrast. Radiation optimization: All CT scans at this facility use at least one of these dose optimization techniques: automated exposure control; mA and/or kV adjustment per patient size (includes targeted exams where dose is matched to clinical indication); or iterative reconstruction. COMPARISON: [facility] CT HEAD W/O CONTRAST 06/19/2016 11:36 AM FINDINGS: Brain: Small left basal ganglia dilated perivascular space. Cerebral ventricles: No ventriculomegaly. Paranasal sinuses: Mucosal thickening and secretions in the paranasal sinuses. Mastoid air cells: Visualized mastoid air cells are well aerated. Bones/joints: Hyperostosis frontalis interna. Soft tissues: Unremarkable. Vasculature: Mild chronic small vessel ischemic changes. IMPRESSION: 1. No acute intracranial findings. 2. Mucosal thickening and secretions in the paranasal sinuses. Please exclude acute sinusitis.
--- NOTE | 2021-11-24 19:14 | HMH.EDGENADL ---
ED Disposition Clinical Impression: Hypokalemia Syncope Qualifiers: Syncope type: unspecified Qualified Code(s): R55 - Syncope and collapse Disposition: Still a Patient Condition on Discharge: Fair Instructions: DI for Syncope in Adults (Fainting) Prescriptions: Potassium Citrate [Potassium Citrate ER] 20 meq PO DAILY 10 Days #20 tab Transmission Status: Pending to [phone] Referrals: Provider,Referral, MD [Primary Care Provider] - Time of Disposition: 20:47 - Critical Care Critical Care Time: No Attestation: On , the high probability of a clinically significant, sudden or life threatening deterioration of the following system(s) required my full and direct attention, intervention and personal management. The time I documented below is in addition to time spent performing reported procedures but includes the following listed in this critical care notation. Medical Decision Making - Medical Records Medical records reviewed: Yes: I reviewed the patient's medical records. - Jose Inquiry Pt receiving controlled substance: No Vital Signs: 11/24/21 19:03 Temperature 98.0 F Temperature Source Oral Pulse Rate [Right] 99 H Respiratory Rate 18 Blood Pressure [Right Arm] 122/79 Blood Pressure Mean [Right Arm] 93 02 Sat by Pulse Oximetry 97 - Lab Data Lab Results 11/24/21 19:21: WBC 8.5, RBC 4.86, Hgb 13.9, Hct 38.6, MCV 79.3 L, MCH 28.6, MCHC 36.0 H, RDW 14.3, Plt Count 368, MPV 7.2 L, Neut % (Auto) 59.3, Lymph % (Auto) 31.7, Sumter % (Auto) 5.1, Eos % (Auto) 3.4, Baso % (Auto) 0.6, Neut # (Auto) 5.0, Lymph # (Auto) 2.7, Sumter # (Auto) 0.4, Eos # (Auto) 0.3, Baso # (Auto) 0.1 11/24/21 19:21: Sodium 141, Potassium 2.8 L*, Chloride 100, Carbon Dioxide 33 H, Anion Gap 10.8, BUN 14, Creatinine 0.90, Estimated Creat Clear 130, Estimated GFR 66, Est GFR ( Amer) 80, Glucose 113 H, Calcium 9.6, Magnesium 1.6, Total Bilirubin 0.3, AST 40 H, ALT 27, Alkaline Phosphatase 61, Troponin I < 0.01, Total Protein 7.3, Albumin 4.0, Globulin 3.3 H, Albumin/Globulin Ratio 1.2 11/24/21 19:21: Serum HCG, Qual Negative 11/24/21 19:21: SARS-CoV-2 (PCR) Not detected, Influenza A Untype (PCR) Not detected, Influenza Type B (PCR) Not detected 11/24/21 19:21: D-Dimer 1.20 H Result diagrams: 11/24/21 19:21 11/24/21 19:21 Orders (Tests/Meds): ED MEDICATIONS Discontinued Medications Generic Name Dose Route Start Last Admin Trade Name Freq PRN Reason Stop Dose Admin Potassium Chloride 40 meq 11/24/21 20:10 11/24/21 20:18 Potassium Chloride 20meq Tab PO 11/24/21 20:11 40 meq ONCE ONE Administration ORDERS Category Date Time Status CT angio chest PE protocol Stat Cat Scan 11/24/21 20:09 Ordered Troponin I Q3H Lab 11/24/21 22:15 Ordered Troponin I Q3H Lab 11/25/21 01:15 Ordered Urinalysis and Microscopic Stat Lab 11/24/21 19:12 Ordered - ECG Data Tracing #1 Sinus tachycardia with ventricular rate of 102 beats minute. QRS 88, QTc 420. No ST segment changes. No arrhythmia. Medical Decision Narrative: In summary this is a previously healthy 51-year-old female presenting to the emergency department with syncope. Patient clinically stable on arrival. Vital signs within normal limits, exception of sinus tachycardia. Will obtain CBC, CMP, chest x-ray, EKG, troponin profile, D-dimer, noncontrast head CT. Laboratory results show hypokalemia with potassium of 2.8. Given 40 mill equivalent oral potassium. Renal function is adequate. Other electrolytes are within normal limits. D-dimer is elevated at 1.2. Patient is tachycardic. Concern for pulmonary embolism. CT angio PE obtained. Troponin is undetectable. Doubt right heart strain. EKG shows sinus tachycardia. No signs of ischemia or arrhythmia. Noncontrast head CT shows no intracranial mass or bleed. Does show evidence of acute sinusitis. Care of this patient handed off to the oncoming physician, Dr. Alvarado, joselo
[2021-11-24 19:29] LABS: Coronavirus 19, PCR Not Detected (NotDetected); Influenza A, PCR Not Detected (NotDetected); Influenza B, PCR Not Detected (NotDetected)
[2021-11-24 19:30] LABS: Basophils # 0.1 K/mm3 (0-0.2); Basophils % 0.6 % (0.1-2.0); Eosinophils # 0.3 K/mm3 (0.0-0.4); Eosinophils % 3.4 % (0.1-12.0); Hematocrit 38.6 % (37.0-47.0); Hemoglobin 13.9 g/dL (12.2-16.2); Lymphocytes # 2.7 K/mm3 (0.7-4.5); Lymphocytes % 31.7 % (10-50); Mean Corpuscular Hemoglobin 28.6 pg (27.0-31.2); Mean Corpuscular Volume 79.3 fl (81-99); Mean Platelet Volume 7.2 fl (7.4-10.4); Monocytes # 0.4 K/mm3 (0.1-1.0); Monocytes % 5.1 % (1.7-9.3); Neutrophils % 59.3 % (37.0-80.0); Platelet Count 368 K/mm3 (142-424); Red Blood Count 4.86 M/mm3 (4.20-5.40); Red Cell Distribution Width 14.3 % (11.5-17.5); White Blood Count 8.5 K/mm3 (4.8-10.8)
[2021-11-24 19:50] LABS: Alanine Aminotransferase 27 U/L (12-78); Albumin/Globulin Ratio 1.2 (1.1-1.8); Alkaline Phosphatase 61 U/L (38-126); Anion Gap 10.8 mEq/L (5-15); Aspartate Amino Transferase 40 U/L (14-36); Bilirubin,Total 0.3 mg/dl (0.2-1.3); Blood Urea Nitrogen 14 mg/dl (7-17); Calcium 9.6 mg/dl (8.4-10.2); Carbon Dioxide 33 mmol/L (22.0-30.0); Chloride 100 mmol/L (98-107); Creatinine Clearance Estimated 130 mL/min (50-200); Estimated Glomerular Filt Rate 66 ml/min (>60); GFR (African American) 80 ML/MIN (>60); Globulin 3.3 g/dL (1.3-3.2); Glucose 113 mg/dl (74-100); Magnesium 1.6 mg/dl (1.6-2.3); Sodium 141 mmol/L (136-145); Total Protein,Serum 7.3 g/dl (6.3-8.2)
[2021-11-24 19:51] LABS: HCG Qualitative, Serum Negative (Negative)
--- NOTE | 2021-11-24 19:56 | ECG_ITS ---
APPROVED REPORT Exam: Resting ECG HR:102 bpm ECG Measurements Heart Rate 102 AXES MT 182 P 65 QRSd 88 QRS 44 QT 361 T 61 QTc 420 Conclusion SINUS TACHYCARDIA POSSIBLE LEFT ATRIAL ENLARGEMENT [-0.1mV P-WAVE IN V1/V2] ABNORMAL RHYTHM ECG UNCONFIRMED REPORT Electronically signed by : Vance Flood MD 11/25/2021 22:17:29
[2021-11-24 19:59] LABS: Potassium 2.8 mmoL/L (3.5-5.1)
--- NOTE | 2021-11-24 19:59 | PC.NURSE ---
notified MD of critical potassium 2.8
--- NOTE | 2021-11-24 19:59 | PC.NURSE ---
Critical potassium of 2.8 called from lab. notified.
--- NOTE | 2021-11-24 20:09 | CT_ITS ---
PROCEDURE INFORMATION: Exam: CTA Chest With Contrast Exam date and time: 11/24/2021 8:32 PM Age: 51 years old Clinical indication: Shortness of breath and other: Uri; Patient HX: Syncope, SOB; Additional info: Syncope, uri TECHNIQUE: Imaging protocol: Computed tomographic angiography of the chest with contrast. 3D rendering (Not supervised by radiologist): MIP and/or 3D reconstructed images were created by the technologist. Radiation optimization: All CT scans at this facility use at least one of these dose optimization techniques: automated exposure control; mA and/or kV adjustment per patient size (includes targeted exams where dose is matched to clinical indication); or iterative reconstruction. Contrast material: ISOVUE; Contrast volume: 70 ml; Contrast route: INTRAVENOUS (IV); COMPARISON: CR XR CHEST PORTABLE 11/24/2021 7:43 PM FINDINGS: Pulmonary arteries: Evaluation of the pulmonary arteries is limited to the segmental arterial level due to patient motion artifact. Aorta: Unremarkable. No aortic aneurysm. No aortic dissection. Lungs: Mild scarring and atelectasis in the lower lungs. Pleural spaces: Unremarkable. No pneumothorax. No pleural effusion. Heart: Unremarkable. No cardiomegaly. No pericardial effusion. Lymph nodes: Unremarkable. No enlarged lymph nodes. Bones/joints: Old right rib fractures. Soft tissues: Unremarkable. Other findings: Stigmata of old granulomatous disease. There is a posterior sebaceous cyst. IMPRESSION: Evaluation of the pulmonary arteries is limited to the segmental arterial level due to patient motion artifact. Within the limitations of the study, no pulmonary emboli.
[2021-11-24 20:28] LABS: Troponin I < 0.01 ng/ml (0.00-0.034)
[2021-11-24 21:59] VITALS: BP 126/79; PULSE 81; RESP 18; TEMP 36.7; O2SAT 97
--- NOTE | 2021-11-24 22:47 | PC.NURSE ---
Pt stated it was ok to give information to daughter. This RN updated pt's daughter on POC and d/c status. She is headed this way to cook pickled meat pt, 20 min ETA
== END 2021-11-24 23:40 | disposition home or self-care (01) ==
PROVIDERS: Emergency Medicine; Emergency Provider Emergency Medicine
DX: E87.6 Hypokalemia (principal); R55 Syncope and collapse; Z79.82 Long term (current) use of aspirin; Z79.899 Other long term (current) drug therapy; J44.9 Chronic obstructive pulmonary disease, unspecified; I25.10 Atherosclerotic heart disease of native coronary artery without angina pectoris; K21.9 Gastro-esophageal reflux disease without esophagitis; E78.5 Hyperlipidemia, unspecified; I10 Essential (primary) hypertension; Z86.14 Personal history of Methicillin resistant Staphylococcus aureus infection; M19.90 Unspecified osteoarthritis, unspecified site; E03.9 Hypothyroidism, unspecified
CPT/HCPCS: 70450; 71045; 71275; 80053; 83735; 84484; 84703; 85025; 85378; 93005; 96365; 96375; 99284; C9803; J2405; Q9967; U0003; U0005

== ENCOUNTER → 2022-03-04 09:42 | Outpatient (CLI) | payer OTHER, SELFPAY | PROVIDERS: Visit Provider Surgery | DX: Z01.812 Encounter for preprocedural laboratory examination (principal); Z20.822 Contact with and (suspected) exposure to COVID-19; Z12.11 Encounter for screening for malignant neoplasm of colon | CPT/HCPCS: C9803; U0003; U0005 ==

== ENCOUNTER 2022-03-06 09:45 | Day surgery (SDC) | payer OTHER, SELFPAY ==
[2022-03-03 13:01] VITALS: BMI 39.7
[2022-03-06] VITALS (7 sets, daily range): BP systolic 101–165; BP diastolic 59–110; PULSE 75–104; RESP 16–20; TEMP 36.1–37.2; O2SAT 95–100
[2022-03-06 10:24] LABS: Urine Pregnancy, HCG Qual. Negative (Negative)
--- NOTE | 2022-03-06 10:38 | P.PN_ITS ---
PFSH PFSH Medical History Asthma COPD (chronic obstructive pulmonary disease) Coronary artery disease Ex-smoker GERD (gastroesophageal reflux disease) History of left heart catheterization (LHC) HTN (hypertension), benign Hyperlipemia MATTHEW on CPAP Tobacco dependence syndrome Surgical History History of appendectomy History of incision and drainage History of tubal ligation Family History Other Glaucoma Hyperlipidemia Social History Smoking Status: Current some day smoker tobacco type: e-cigarettes second hand exposure: No alcohol intake: never substance use type: denies use current occupational status: disabled Travel in the last 8 weeks: None household members: family housing: house current occupational exposures/hazards: No caffeine: Yes [facility] Anesthesia Checklist Patient Identification Patient Identification: Arm Band Structural Data Admitted From: Home Planned Operative Procedure/s: Colonoscopy Consent for Planned Operative Procedure(s) Verified: Yes NPO Status Verified Time NPO: 00:00 Additional verifications Anesthesia Reactions: No Hx Blood Transfusions: No Blood Transfusion Reaction: No Airway Assessment C-Spine Mobility Assessed: Yes TMJ Mobility Assessed: Yes Dentition: Good Dentition Neurological Assessment Level of Consciousness: Awake Hx Seizures: No Numbness or tingling in extremities: No Anesthesia Plan Anesthesia Risk discussed: Yes Anesthesia Plan: Verified ASA Class: III Anesthesia Type: MAC
--- NOTE | 2022-03-06 11:29 | HMH.SCOPE ---
Procedure: Date: 03/06/22 Patient Date of :: 1970 Procedure Performed:: Total colonoscopy to terminal ileum with polypectomy using biopsy forceps and snare Indications:: Patient is a 51-year-old female whom I had seen in the past for infected sebaceous cyst on the back. She was scheduled for initial screening colonoscopy. She currently has no primary care provider. Performing Provider:: Carlos Jansen MD Referring Provider:: None Sedation:: MAC sedation Procedure:: Patient was taken to endoscopy procedure room. She was positioned in lateral decubitus position. Adequate intravenous sedation was achieved with anesthesia titration of propofol. Digital examination was performed which was unremarkable. Variable stiffness Olympus colonoscope was inserted via the anus. Is advanced to the cecum. Colonic preparation was good. Ileocecal valve and appendiceal orifice were clearly identified. Colonoscope was advanced a short distance into the terminal ileum which appeared grossly normal. Within the cecum there was a very tiny diminutive polyp removed with cold biopsy forceps. Colonoscope was slowly withdrawn through the colon. In the sigmoid colon there was a very tiny diminutive polyp which was removed with cutting snare. Residual polypoid tissue removed with biopsy forceps. There were some sigmoid diverticuli. Retroflexion within the rectum revealed internal hemorrhoids with anal papilla. Colonoscope was withdrawn. Findings:: Very tiny diminutive polyp in cecum and sigmoid colon Rare sigmoid diverticuli Internal hemorrhoids and anal papilla Recommendations:: Follow-up colonoscopy pending pathology. Likely 5 years Complications:: None Estimated blood obtained (mL): 1
== END 2022-03-06 12:20 | disposition home or self-care (01) ==
PROVIDERS: Visit Provider Surgery
PROC: 0DJD8ZZ Inspection of Lower Intestinal Tract, Via Natural or Artificial Opening Endoscopic (ICD-10-PCS; CPT 45380; principal; 2022-03-06 10:30)
DX: Z12.11 Encounter for screening for malignant neoplasm of colon (principal); K63.5 Polyp of colon; F17.210 Nicotine dependence, cigarettes, uncomplicated
CPT/HCPCS: 45380; 45385; 81025; J2704

== ENCOUNTER → 2022-09-10 13:31 | Outpatient (CLI) | payer OTHER, SELFPAY ==
--- NOTE | 2022-09-10 13:31 | US_ITS ---
FINAL REPORT TECHNIQUE: Real-time grayscale and color ultrasound of the thyroid was performed. CLINICAL HISTORY: thyroid nodules COMPARISON: 11/17/2021 FINDINGS: The right thyroid lobe is heterogeneous and measures 2.1 x 2.4 x 5.3 cm. There is an isoechoic TI-RADS 3 nodule in the mid right thyroid lobe measuring 1.2 cm. The right lobe is otherwise globular in contour. An upper pole nodule is grossly stable. What is measured as lower pole nodule is favored to represent heterogeneous lower pole. Left lobe measures 2.1 x 1.6 x 4.4 cm. It is diffusely heterogeneous. Discrete nodules are difficult to visualize. There is a mixed cystic and solid sub cm upper pole nodule grossly similar to prior study. Isthmus measures 5 mm. IMPRESSION: Diffusely heterogeneous thyroid. Discrete nodules are somewhat difficult to measure due to heterogenicity. There are no convincing concerning nodules that need to be biopsied. Reviewed, Interpreted and Dictated by Zuleika Stein MD Transcribed by Linda Avina Authenticated and . [facility]
[2022-09-10 16:33] LABS: Thyroid Stimulating Hormone 4.72 uIU/mL (0.465-4.68)
== END ==
PROVIDERS: PCP Nurse Practitioner Family; Visit Provider Otolaryngology
DX: E03.9 Hypothyroidism, unspecified (principal)
CPT/HCPCS: 36415; 76536; 84443

== ENCOUNTER → 2023-04-13 11:52 | Outpatient (CLI) | payer OTHER, SELFPAY ==
[2023-04-13 13:59] LABS: Free T4 (Free Thyroxine) 1.22 ng/dl (0.78-2.19)
[2023-04-13 14:08] LABS: Thyroid Stimulating Hormone 1.59 uIU/mL (0.465-4.68)
== END ==
PROVIDERS: PCP Nurse Practitioner Family; Visit Provider Nurse Practitioner
DX: E03.9 Hypothyroidism, unspecified (principal)
CPT/HCPCS: 36415; 84439; 84443

== ENCOUNTER 2023-05-11 07:26 | Day surgery (SDC) | payer OTHER, SELFPAY ==
[2023-05-07 13:05] VITALS: BMI 39.7
[2023-05-11] VITALS (7 sets, daily range): BP systolic 141–173; BP diastolic 90–113; PULSE 60–68; RESP 18; TEMP 36.4–36.7; O2SAT 96–100
== END 2023-05-11 09:45 | disposition home or self-care (01) ==
PROVIDERS: PCP Nurse Practitioner Family; Visit Provider Ophthalmology
PROC: (CPT 66984; principal; 2023-05-11 09:30)
DX: H25.812 Combined forms of age-related cataract, left eye (principal)
CPT/HCPCS: 66984; V2632

== ENCOUNTER 2023-06-22 09:58 | Day surgery (SDC) | payer OTHER, SELFPAY ==
[2023-06-22] VITALS (7 sets, daily range): BP systolic 143–174; BP diastolic 78–98; PULSE 55–75; RESP 16–18; TEMP 36.8; O2SAT 95–100; BMI 42.3
[2023-06-22] MEDS: TETRACAINE 0.5% OPTH SOL 15ML OP ×3 (10:25→10:35)
[2023-06-22] MEDS: PHENYLEPHRINE 2.5% OPHTH SOLN 2ML 0.0500000000000000028 ML OP ×3 (10:25→10:35)
[2023-06-22] MEDS: CYCLOPENTOLATE 2% OPHTH SOLN 2ML BOTTLE OP ×3 (10:25→10:35)
[2023-06-22] MEDS: SODIUM CHLORIDE 0.9% 10ML FLUSH SYRINGE 10 ML IV ×2 (10:43→12:42)
[2023-06-22] MEDS: MIDAZOLAM 2MG/2ML VIAL 1 MG IV (12:42)
[2023-06-22] MEDS: LIDOCAINE 1% PF 2ML AMPULE 2 ML IJ (12:49)
[2023-06-22] MEDS: TOBRAMYCIN/DEX OPTH SUSP 2.5ML OP (12:54)
[2023-06-22] MEDS: TIMOLOL 0.5% OPTH SOLN 5ML OP (12:55)
== END 2023-06-22 13:14 | disposition home or self-care (01) ==
PROVIDERS: PCP Nurse Practitioner Family; Visit Provider Ophthalmology
PROC: (CPT 66984; principal; 2023-06-22 12:30)
DX: H25.811 Combined forms of age-related cataract, right eye (principal)
CPT/HCPCS: 66984; V2632

== ENCOUNTER 2023-09-21 08:02 | Day surgery (SDC) | payer OTHER, SELFPAY ==
[2023-09-17 10:36] VITALS: BMI 42.0
[2023-09-21 08:55] VITALS: PULSE 77; RESP 17; TEMP 36.6; O2SAT 99
[2023-09-21] MEDS: TETRACAINE 0.5% OPTH SOL 15ML OP (09:07)
[2023-09-21] MEDS: APRACLONIDINE 0.5% OPHTH SOLN 5ML OP (09:07)
[2023-09-21] MEDS: TROPICAMIDE 1% OPTH SOLN 2ML OP (09:08)
[2023-09-21] MEDS: PHENYLEPHRINE 2.5% OPHTH SOLN 2ML 0.0500000000000000028 ML OP (09:08)
--- NOTE | 2023-09-21 12:52 | HMH.PROCNOTE ---
[facility] Procedure Note Date: 09/21/23 Time: 12:52 Procedure Note:: Preoperative diagnosis: Posterior Opacification [Right/left] eye Postoperative diagnosis: same Operation: YAG Laser Capsulotomy The patient has undergone uneventful cataract surgery in the past. The patient has noticed that the vision has decreased from the previous good level postop. The patient reports that he/she is having trouble reading and/or driving or that glare is giving them a problem. On exam, the patient was found to have visually significant posterior capsular opacification. The treatment options, risks and benefits were explained and the patient elected to have YAG laser capsulotomy in an attempt to improve the vision. Of note, the best corrected visual acuity is in the 23/30 or worse range by refraction or glare testing. The eye was dilated and 1 drop of 0.5% Iopidine applied. YAG laser energy was applied to the posterior capsular bag with good formation of an opening and no complications were noted. The patient will be seen back for follow up in 2 weeks. 74 pulses 255mj
== END 2023-09-21 12:18 | disposition home or self-care (01) ==
LOC: OUTP 08:03
PROVIDERS: PCP Nurse Practitioner Family; Visit Provider Ophthalmology
PROC: (CPT 66821; principal; 2023-09-21 08:30)
DX: H26.491 Other secondary cataract, right eye (principal)
CPT/HCPCS: 66821

== ENCOUNTER 2023-10-29 12:18 | Outpatient (CLI) | payer OTHER, SELFPAY ==
--- NOTE | 2023-10-29 12:19 | US_ITS ---
FINAL REPORT TECHNIQUE: Sonographic images of the thyroid were obtained. CLINICAL HISTORY: 6 month repeat COMPARISON: 09/10/2022 FINDINGS: THYROID ULTRASOUND The right thyroid gland measures 4.3 x 2.2 x 1.9 cm. The left thyroid gland measures 4.3 x 1.7 x 1.6 cm. The thyroid has a heterogeneous echotexture and multiple nodules bilaterally. The largest nodule on the right measures 14 x 11 x 9 mm. It is mostly solid and isoechoic consistent with a TI-RADS 3 nodule. This nodule is somewhat smaller compared to the prior exam when it measured 20 x 16 x 16 mm. The largest nodule on the left measures 11 x 10 x 9 mm. It is solid, hypoechoic and consistent with a TI-RADS 4 nodule. This nodule was not well-seen on the prior exam. IMPRESSION: Mild nodular goiter with a possible new nodule in the left thyroid lobe. Consider 6 to 12-month follow-up ultrasound. Reviewed, Interpreted and Dictated by Carlos Obregon III, MD Transcribed by Isabel Vaz Authenticated and [facility]
[2023-10-29 15:22] LABS: Free T4 (Free Thyroxine) 1.11 ng/dl (0.78-2.19)
[2023-10-29 15:37] LABS: Thyroid Stimulating Hormone 2.05 uIU/mL (0.465-4.68)
== END 2023-10-29 23:59 | disposition home or self-care (01) ==
LOC: RAD 12:19
PROVIDERS: PCP Nurse Practitioner Family; Visit Provider Nurse Practitioner
DX: E06.3 Autoimmune thyroiditis (principal)
CPT/HCPCS: 36415; 76536; 84439; 84443

== ENCOUNTER 2024-05-01 09:00 | Outpatient (CLI) | payer OTHER, SELFPAY ==
--- NOTE | 2024-05-01 09:01 | US_ITS ---
FINAL REPORT CLINICAL HISTORY: HX OF GOITER -- NODULES COMPARISON: 10/29/2023 FINDINGS: THYROID ULTRASOUND: The right lobe of the thyroid measures 4.7 cm in sagittal length. The left lobe of the thyroid gland measures 4.4 cm in sagittal length. The isthmus of the thyroid gland measures 4.4 mm in thickness. Today's examination reveals a diffuse multinodular goiter, with heterogeneous echotexture, difficult to visualize individual nodules. Would suggest follow-up thyroid ultrasound in 6 months for further evaluation. IMPRESSION: Enlarged heterogeneous thyroid gland, with difficulty visualizing individual nodules. The overall appearance is consistent with a diffuse multinodular goiter. Would suggest follow-up thyroid ultrasound in 6 months for further evaluation. Reviewed, Interpreted and Dictated by Elroy Forrester MD Transcribed by Mini Mcintyre Authenticated and [facility]
[2024-05-01 10:00] LABS: Free T4 (Free Thyroxine) 0.89 ng/dl (0.78-2.19)
[2024-05-01 10:13] LABS: Thyroid Stimulating Hormone 8.32 uIU/mL (0.465-4.68)
== END 2024-05-01 23:59 | disposition home or self-care (01) ==
LOC: RAD 09:01
PROVIDERS: PCP Nurse Practitioner Family; Visit Provider Nurse Practitioner
DX: E04.9 Nontoxic goiter, unspecified (principal); E04.1 Nontoxic single thyroid nodule
CPT/HCPCS: 36415; 76536; 84439; 84443

== ENCOUNTER 2024-10-13 13:38 | Outpatient (CLI) | payer OTHER, SELFPAY ==
--- NOTE | 2024-10-13 13:30 | US_ITS ---
FINAL REPORT TECHNIQUE: Real-time grayscale and color ultrasound of the thyroid was performed. CLINICAL HISTORY: evaluate thyroid nodules COMPARISON: 05/01/2024 FINDINGS: The thyroid gland measures 49 x 26 x 13 mm on the right and 38 x 19 x 14 mm on the left. The isthmus measures 4 mm. The thyroid gland is heterogeneous and diffusely nodular. Nodules: Hypoechoic focus lower pole right lobe measuring 5 mm, TR 3. Left upper lobe hypoechoic nodule measuring 6 mm, TR 4. IMPRESSION: Diffuse goiter. TR 4 superior left lobe. No follow-up required per TI-RADS criteria. Reviewed, Interpreted and Dictated by Elroy Forrester MD Transcribed by Linda Avina Authenticated and [facility]
--- OUTSIDE RECORDS SUMMARY | 2024-10-13 13:40 | XMS_ITS | Continuity of Care Document ---
Author Organization [facility] Phone Care Team Providers Care Ring Spinner Name Role Phone INOCENTE CORRAL Primary Attending INOCENTE CORRAL Unavailable [phone] INOCENTE CORRAL Primary Care [phone] INOCENTE CORRAL Admitting ALLERGIES AND ADVERSE REACTIONS ALLERGIES AND ADVERSE REACTIONS Code System Allergy Substance Adverse Reaction Date Reaction (Severity) Comment Status Reported By Updated By No Known Allergies [id number] on April 06, 2023 1:24:16 AM [facility] RESULTS Patient: ESTHER MOREJON Date of : August 29 2 7 LABORATORY RESULTS ORDER 100: COMP METABOLIC PA LAURENCE (LOINC: 02620-2) ORDER DATE: August 31, 2024 8:12:00 PM UT Specimen Source: Serum/Plasm a Specimen Type: Acellular blo od (serum or plasma) specimen PERFORMING LAB: [address] [id number] Result Comment: Final Result Date: August 31, 2024 8:41:00 PM UT (TECH: HC) LOINC TEST FLAG RESULT REFERENCE RANGE UPDA ASUNCION BY 2951-2 Sodium [Moles/volume ] in Serum or Plasma N 141 mmol/L 136 mmol/L - 145 mmol/L August 31, 2024 8:41:00 PM UTC (TECH: HC) 2823-3 Potassium [Moles/vol ume] in Serum or Plasma N 3.9 mmol/L 3.5 mmol/L - 5.1 mmol/L August 31, 2024 8:41:00 PM UT (TECH: HC) 2075-0 Chloride [Moles/volu me] in Serum or Plasma N 105 mmol/L 98 mmol/L - 107 mmol/L August 31, 2024 8:41:00 PM UTC (TECH: [facility]) 8-9 Carbon dioxide, tota l [Moles/volume] in Serum or Plasma N 29 mmol/L 21 mmol/L - 32 mmol/L August 31, 2024 8:41:00 PM UTC (TECH: HC) 75793-8 Anion gap 3 in Serum or Plasma N 7.0 August 31, 2024 8:41:00 PM UTC (TECH: HC) 2345-7 Glucose [Mass/volume ] in Serum or Plasma N 83 mg/dL 70 mg/dL - 110 mg/dL August 31, 2024 8:41:00 PM UTC (TECH: HC) 3094-0 Urea nitrogen [Mass/volume] in Serum or Plasma N 11 mg/dL 7 mg/dL - 18 mg/dL August 31 8:41:00 PM UTC (TECH: HC) 2160-0 Creatinine [Mass/vol ume] in Serum or Plasma N 0.9 mg/dL 0.6 mg/dL - 1.0 mg/dL August 31, 2024 8:41:00 PM UTC (TECH: [facility]) 3097-3 Urea nitrogen/Creati nine [Mass Ratio] in Serum or Plasma N 12.2 9 - August 31, 2024 8:41:00 PM UTC (TECH: [facility]) 14296-8 Glomerular filtratio n rate/1.73 sq M.predicted by Creatinine-based formula (MDRD) N 76 mL/min >60 August 31, 2024 8:41:00 PM UTC (TECH: [facility]) 74045-1 Osmolality of Serum or Plasma by calculated by sum of electrolytes N 292 mosm/kg 275 mosm/kg - 301 mosm/kg August 31, 2024 8:41:00 PM UTC (TECH: HC) 2885-2 Protein [Mass/volume ] in Serum or Plasma N 7.6 g/dL 6.4 g/dL - 8.2 g/dL August 31, 2024 8:41:00 PM UTC (TECH: HC) 1751-7 Albumin [Mass/volume ] in Serum or Plasma N 3.9 g/dL 3.4 g/dL - 5.0 g/dL August 31, 2024 8:41:00 PM UTC (TECH: ) 88130-7 Calcium [Mass/volume ] in Serum or Plasma N 9.6 mg/dL 8.5 mg/dL - 10.1 mg/dL August 31, 2024 8:41:00 PM [facility] ([employer] ) 78614-0 Calcium [Mass/volume ] corrected for total protein in Serum or Plasma N 9.7 mg/dL 8.5 mg/dL - 1 0.1 mg/dL August 31, 2024 8:41:00 PM [facility] ([employer] ) 1975-2 Bilirubin.total [Mass/volume] in Serum or Plasma N 0.4 mg/dL 0.4 mg/dL - 1.5 mg/dL August 31, 2024 8:41:00 PM [facility] ([employer] ) 1920-8 Aspartate aminotrans ferase [Enzymatic activity/volume] in Serum or Plasma N 16 U/L 15 U/L - 37 U/L August 31, 2024 8:41:00 PM [facility] ([employer] ) 1742-6 Alanine aminotransfe rase [Enzymatic activity/volume] in Serum or Plasma N 25 U/L 12 U/L - 78 U/L August 31, 2024 8:41:00 PM [facility] ([employer] ) 6768-6 Alkaline phosphatase [Enzymatic activity/volume] in Serum or Plasma N 84 U/L 50 U/L - 120 U/L August 31, 2024 8:41:00 PM [facility] ([employer] ) LABORATORY NARRATIVE RESULTS Information is not available RADIOLOGY RESULTS Information is not available PATHOLOGY NARRATIVE RESULTS Information is not available MICROBIOLOGY RESULTS No Micro Labs/Results Exist for Patient BLOOD ADMIN RESULTS Information is not available MEDICATIONS HOME MEDICATIONS Status RXNORM NDC Medication Dose Route Frequency Dates Comments Reported By Updated By Drug Treatment Unknown DISCHARGE MEDICATIONS Status RXNORM NDC Medication Dose Route Frequency Dates Comments Physician Updated By No Discharge Medication Info rmation Available INPATIENT MEDICATIONS Status RXNORM NDC Medication Dose Route Frequency Rat e Quantity Dates Comments Physician Updated By No Inpatient Medication Info rmation Available SOCIAL HISTORY SOCIAL HISTORY SNOMED-CT Social History Element Description Effective Dates Offered Cessation Comment UpdatedBy [id number] Smoking Status Unknown If Ever Smoked SOCIAL HISTORY - Gender Sex: Female SOCIAL HISTORY - Status : status i nformation is not available Intention in Next Year: intention information is not available SOCIAL HISTORY - Sexual Behavior Sexual Orientation Gender Identity SNOMED-CT Description SNO MED -CT Description Activity Level No of Partners Partner Type UpdatedBy Information is not available HEALTH CONCERNS Problems Concern Status Health Concern problem infor mation not available. Smoking Status Status Years Used Consumed packs p er day Health Concern smoking histo ry information not available. Family History Concern Status Health Concern family histor y information not available. ENCOUNTERS ENCOUNTER INFORMATION Reason for Visit Z51.81 Admission August 31, 2024 8:12:[address] [id number] Discharge August 31, 2024 9:12:00 PM [facility] DI SCHARGED TO HOME OR SELF CARE ENCOUNTER DIAGNOSES Notes information is not lilly ilable. Code System Diagnosis Onset Date Diagnosis information is not available. ABSTRACT DIAGNOSES Code System Diagnosis Updated By Z51.81 ICD10 ENCOUNTER FOR TH ERAPEUTIC DRUG LEVEL MONITORING [id number] on September 04, 2024 11:38:12 AM [facility] Z51.81 ICD10 ENCOUNTER FOR TH ERAPEUTIC DRUG LEVEL MONITORING [id number] on September 04, 2024 11:38:13 AM [facility] CARE TEAM Care Ring Spinner Role INOCENTE CORRAL Primary Attending INOCENTE CORRAL Referring INOCENTE CORRAL Primary Care INOCENTE CORRAL Admitting CARE TEAM CARE acct exec Role on Team Status Start Date End Date Update d By ELLIS LOTT Referring normal August 31, 2024 4:00:00 AM [facility] August 31, 2024 9:12:00 PM [facility] [id number] on September 01, 2024 10:54:21 AM [facility] ELLIS LOTT Attending normal August 31, 2024 4:00:00 AM [facility] August 31, 2024 9:12:00 PM [facility] [id number] on September 01, 2024 10:54:21 AM [facility] ELLIS LOTT Admitting normal August 31, 2024 4:00:00 AM [facility] August 31, 2024 9:12:00 PM [facility] [id number] on September 01, 2024 10:54:21 AM [facility] ELLIS LOTT PCP normal August 31, 2024 8:12:34 PM [facility] August 31, 2024 9:12:00 PM [facility] [id number] on September 01, 2024 10:54:21 AM [facility]
--- OUTSIDE RECORDS SUMMARY | 2024-10-13 13:40 | XMS_ITS | Continuity of Care Document ---
[facility] Organization [facility] Address [address] [address] Care Team Providers Care Inflated Ball Molder Name Role Phone INOCENTE CORRAL Primary Care Provider [phone] Assessment No assessment recorded. Plan of Treatment Reminders Order Date Submit Date Provider Last Modified By Organization Details Last Modified Time Details Appointments None record ed. Lab None record ed. Referral None record ed. Procedures None record ed. Surgeries None record ed. Imaging None record ed. Medication Orders None record ed. Patient TargetsNo targets recorded. Patient InstructionsNo instructions recorded. Reason for Referral None Reported. Problems Name Problem SNOMED Code Status Onset Date Resolution Date Notes Provider Name and Address Organization Details Recorded Time Essential hypertension 32727475 Active 2021 Larry Maurilio null, [place] & [place] 4 15:05:59 Chronic bronchitis 63217293 Active 2021 Lynda Stout null, [place] - [place] - [place] & [place] 2 08:52:05 Hypothyroidism 62030138 Active 2021 Larry Thorpe null, [place] - [facility] - [place] & [place] 4 15:06:10 Asthma 129681078 Active 2021 Larry Maurilio null, [place] [facility] [place] & [place] 4 15:05:49 Gastroesophage al reflux disease 586501778 Active 2021 Larry Thorpe null, [place] [facility] [place] & [place] 4 15:06:05 Anxiety 98709550 Active 2021 Larry Thorpe null, [place] [facility] [place] & [place] 4 15:05:47 Edema 249114278 Active 2021 Larry Thorpe null, [place] - [facility] & [place] 4 15:05:56 Fatigue 59142977 Active 2021 Larry Thorpe null, [place] [facility] & [place] 4 15:06:01 Atherosclerosi s Active 2021 Larry Thorpe null, [place] [facility] [place] [facility] & [place] 4 15:05:51 Obstructive sleep apnea syndrome 35315174 Active 2021 Larry Thorpe null, [place] [facility] & [place] 4 15:06:16 Hyperlipidemia 31617783 Active 2021 Larry Thorpe null, [place] [facility] - [facility] & [place] 4 15:06:08 Allergic rhinitis 97354398 Active 2021 Larry Thorpe null[place] [facility] - [place] 4 15:05:45 Depressive disorder 76390078 Active 2021 Larry Thorpe null, [place] - [facility] - [facility] & [place] 4 15:05:54 Obesity 710581775 Active 2021 Larry Thorpe null, [place] - [facility] - [facility] & [place] 4 15:06:13 Acquired hypothyroidism 934960392 Active 2023 INOCENTE CORRAL NP [address] [place], [address] , [place] - [facility] - [place] & [place] 4 15:48:18 Prediabetes 523774818 Active 2023 INOCENTE CORRAL NP [address] [place], [address], [place] [facility] - [place] & [place] 4 15:48:21 Menopausal flushing 694895357 Active 2023 Larry Thorpe null, [place] - [facility] - [facility] & [place] 4 15:19:55 Problem Notes None recorded. Procedures Surgical History Date Name Laterality Status Provider Name and Address Organization Details Recorded Time 03/06/20 22 colonoscopy completed Not Available [facility] 07/19/2022 12:31:01 08/13/19 20 cardiac catheterization completed Not Available [facility] 07/19/2022 12:31:01 08/13/19 18 [facility] 12:31:01 11/13/19 15 Appendectomy completed Not Available [facility] 07/19/2022 12:31:01 Thyroid Surgery completed INOCENTE CORRAL NP [address] [place] [address], [address] [place] [address], [place] - [facility] - [place] & [place] 07/09/2023 11:52:28 Appendectomy completed INOCENTE CORRAL NP [address] [place] [address], [address] [place] [address], [place] - [facility] & [place] 07/09/2023 11:52:28 Colonoscopy completed INOCENTE CORRAL NP [address] [place] [address], [address] [place] [address], [place] - [facility] & [place] 07/09/2023 11:52:28 Cardiovascular Surgery completed INOCENTE CORRAL NP [address] [place] [address], [address] [place] [address], [place] - [facility] & [place] 07/09/2023 11:52:28 Tubal Ligation completed Not Available [facility] 07/19/2022 12:31:01 Imaging Results None recorded. Procedure Notes None recorded. Medical Equipment None Reported. Allergies Allergen ID Allergen Name Allergen Category Reaction Reaction Severity Criticality Documentation Date Start Date Code Code System Note Provider Name and Address Organization Details Recorded Time [id number] No known allergy (situatio n) Not available Not available Not available Not available 09/11/2024 [id number] SNOMED Ana Laura Colon null, [place] - [facility] - [place] & [place] 15:46:44 Medications Name Sig Start Date Stop Date Status Note LastModified by Organization Details LastModified Time Prescriptio n - Renewal active Not Available Not Available Not Available atorvastati n 80 mg tablet Take 1 tablet every day by oral route for 90 days. active Not Available Not Available No t Available ofloxacin 0.3 % eye drops INSTILL 1 DROP INTO OPERATIVE EYE 4 TIMES A DAY FOR 7 DAYS 07/09 completed Not Available Not Available Not Available fluconazole 150 mg tablet 1 tablet today and repeat in 7 to 10 days 07/09 completed Not Available Not Available Not Available hydrocodone 5 mg-acetamin ophen 325 mg tablet TAKE ONE TABLET BY MOUTH EVERY 6 HOURS NEEDED FOR PAIN active Not Available Not Available No t Available phenazopyri dine 200 mg tablet TAKE 1 TABLET BY MOUTH THREE TIMES DAILY AFTER MEALS 03/25 completed Not Available Not Available Not Available sertraline 100 mg tablet TAKE 1 TABLET BY MOUTH ONCE DAILY active Not Available Not Available No t Available metronidazo le 500 mg tablet TAKE 1 TABLET BY MOUTH TWICE DAILY 05/29 completed Not Available Not Available Not Available ciprofloxac in 500 mg tablet TAKE 1 TABLET BY MOUTH TWICE DAILY FOR 10 DAYS 02/06 completed Not Available Not Available Not Available omeprazole 40 mg capsule,del ayed release TAKE 1 CAPSULE BY MOUTH ONCE DAILY active Not Available Not Available No t Available Euthyrox 100 mcg tablet TAKE 1 TABLET BY MOUTH ONCE DAILY IN THE MORNING ON AN EMPTY STOMACH 08/04 completed Not Available Not Available Not Available bisoprolol fumarate 10 mg tablet TAKE 1 TABLET BY MOUTH ONCE DAILY active Not Available Not Available No t Available baclofen 20 mg tablet Take 1 tablet 3 times a day by oral route for 30 days. active Not Available Not Available No t Available ketorolac 0.5 % eye drops STARTING 3 DAYS BEFORE SURGERY, INSTILL 1 DROP INTO OPERATIVE EYE 4 TIMES A DAY FOR 10 DAYS THEN DECREASE TO TWICE A DAY FOR 14 DAYS 07/09 completed Not Available Not Available Not Available bisoprolol fumarate 5 mg tablet TAKE 1 TABLET BY MOUTH ONCE DAILY 07/21 completed Not Available Not Available Not Available prednisolon e acetate 1 % eye drops,suspe nsion INSTILL 1 DROP INTO OPERATIVE EYE 4 TIMES A DAY FOR 7 DAYS THEN DECREASE TO TWICE A DAY FOR 14 DAYS 07/09 completed Not Available Not Available Not Available amlodipine 10 mg tablet Take 1 tablet by mouth once daily active Not Available Not Available No t Available potassium citrate ER 10 mEq (1,080 mg) tablet,exte nded release TAKE 2 TABLETS BY MOUTH ONCE DAILY FOR 10 DAYS 03/25 completed Not Available Not Available Not Available cephalexin 500 mg capsule TAKE 1 CAPSULE BY MOUTH EVERY 12 HOURS FOR 10 DAYS 07/09 completed Not Available Not Available Not Available naproxen sodium 550 mg tablet TAKE 1 TABLET BY MOUTH EVERY 12 HOURS NEEDED 05/29 completed Not Available Not Available Not Available levothyroxi ne 125 mcg tablet TAKE 1 TABLET BY MOUTH ONCE DAILY 07/09 completed Not Available Not Available Not Available fluorometho lone 0.1 % eye drops,suspe nsion INSTILL 1 DROP INTO RIGHT EYE THREE TIMES DAILY FOR 5 DAYS 05/29 completed Not Available Not Available Not Available brimonidine 0.2 % eye drops 05/29 completed Not Available Not Available Not Available Advair Diskus 250 mcg-50 mcg/dose powder for inhalation INHALE 1 DOSE 2 TIMES EACH DAY. 09/23 completed Not Available Not Available Not Available bupropion HCl 75 mg tablet Take 1 tablet twice a day by oral route for 90 days. active Not Available Not Available No t Available hydrochloro thiazide 12.5 mg capsule TAKE 1 CAPSULE 1 TIME EACH DAY 03/25 completed Not Available Not Available Not Available amoxicillin 400 mg/5 mL oral suspension TAKE 10 ML BY MOUTH TWICE DAILY FOR 7 DAYS 04/07 completed Not Available Not Available Not Available mupirocin 2 % topical ointment APPLY A THIN FILM TO THE AFFECTED AREA OF SKIN 3 TIMES EACH DAY 07/09 completed Not Available Not Available Not Available nystatin 100,000 unit/gram topical powder APPLY POWDER TOPICALLY TO AFFECTED AREA TWICE DAILY 2024 active Not Available Not Available Not Avai lable cefuroxime axetil 500 mg tablet TAKE 1 TABLET BY MOUTH TWICE DAILY 03/25 completed Not Available Not Available Not Available methylpredn isolone 4 mg tablets in a dose pack TAKE DIRECTED ON OPACKAGE 05/29 completed Not Available Not Available Not Available albuterol sulfate HFA 90 mcg/actuati on aerosol inhaler Inhale 2 puffs every 4-6 hours by inhalatio n route. 05/29 completed Not Available Not Available Not Available ondansetron 4 mg disintegrat ing tablet place ONE TABLET ON TOP OF THE TONGUE EVERY 8 HOURS NEEDED FOR NAUSEA AND FOR VOMITING active Not Available Not Available No t Available cefdinir 300 mg capsule TAKE 1 CAPSULE BY MOUTH EVERY 12 HOURS FOR 7 DAYS 05/29 completed Not Available Not Available Not Available fluticasone propionate 50 mcg/actuati on nasal spray,suspe nsion USE 1 SPRAY(S) IN EACH NOSTRIL ONCE DAILY active Not Available Not Available No t Available loratadine 10 mg tablet TAKE 1 TABLET BY MOUTH ONCE DAILY 05/29 completed Not Available Not Available Not Available spironolact one 50 mg tablet TAKE 2 TABLETS 1 TIME EACH DAY IN THE MORNING FOR HIGH BLOOD PRESSURE 03/25 completed Not Available Not Available Not Available amoxicillin 875 mg-potassiu m clavulanate 125 mg tablet TAKE 1 TABLET BY MOUTH EVERY 12 HOURS FOR 10 DAYS 08/10 completed Not Available Not Available Not Available neomycin 3.5 mg/g-polymy norma B 10,000 unit/g-dexa meth 0.1 % eye oint APPLY INTO RIGHT EYE AT NIGHT 05/29 completed Not Available Not Available Not Available valsartan 160 mg-hydrochl orothiazide 25 mg tablet TAKE 1 TABLET BY MOUTH ONCE DAILY FOR BLOOD PRESSURE 08/04 completed Not Available Not Available Not Available moxifloxaci n 0.5 % eye drops 05/29 completed Not Available Not Available Not Available bupropion HCl XL 150 mg 24 hr tablet, extended release Take 1 tablet every day by oral route in the morning for 90 days. 02/22 completed Not Available Not Available Not Available nitrofurant oin monohydrate /macrocryst als 100 mg capsule TAKE 1 CAPSULE BY MOUTH EVERY 12 HOURS FOR 5 DAYS 02/06 completed Not Available Not Available Not Available chlorhexidi ne gluconate 0.12 % mouthwash RINSE WITH 15ML FOR 30 SECONDS AND SPIT, USE TWICE DAILY (MORNING AND EVENING) AFTER BRUSHING AND FLOSSING . 04/07 completed Not Available Not Available Not Available sodium fluoride 1.1 % dental paste USE DIRECTED 05/29 completed Not Available Not Available Not Available valsartan 320 mg-hydrochl orothiazide 25 mg tablet Take 1 tablet every day by oral route for 90 days. active Not Available Not Available No t Available fenofibrate nanocrystal lized 48 mg tablet TAKE 1 TABLET 1 TIME EACH DAY active Not Available Not Available No t Available cholecalcif najma (vitamin D3) 50 mcg (2,000 unit) capsule TAKE 1 CAPSULE BY MOUTH ONCE DAILY active Not Available Not Available No t Available Durezol 0.05 % eye drops INSTILL 1 DROP INTO RIGHT EYE 4 TIMES DAILY 09/26 completed Not Available Not Available Not Available GaviLyte-G 236 gram-22.74 gram-6.74 gram-5.86 gram oral solution TAKE 240 ML BY MOUTH EVERY 10 MINUTES UNTIL FECAL EFFLUENT IS CLEAR. 03/25 completed Not Available Not Available Not Available levothyroxi ne 125 mcg capsule TAKE 1 CAPSULE BY MOUTH ONCE DAILY active Not Available Not Available No t Available Veozah 45 mg tablet Take by oral route for 90 days. active Not Available Not Available No t Available Vitals None Recorded Social History Question Answer Notes LastModified by Organizat ion Details LastModified Time Tobacco Smoking Status Former Smoker Lynda Stout [facility], [facility] & [place] 03/25/2022 10:38:09 Do You Have An Advance Directive? No [email or web address] Information not available 12/06/2023 What Is Your Level Of Alcohol Consumption? None Information not available 03/25/2022 Do You Wear A Helmet When Biking? Yes [email or web address] Information not available 12/06/2023 Are You Blind Or Do You Have Difficulty Seeing? Yes [email or web address] Information not available 08/04/2022 What Is Your Level Of Caffeine Consumption? Occasional Information not available 07/09/2023 In The 14 Days Before Symptom Onset, Have You Had Close Contact With A Laboratory-confir med COVID-19 While That Case Was Ill? No [email or web address] Information not available 12/06/2023 In The 14 Days Before Symptom Onset, Have You Had Close Contact With A Person Who Is Under Investigation For COVID-19 While That Person Was Ill? No [email or web address] Information not available 12/06/2023 Have You Been To An Area Known To Be High Risk For COVID-19? No [email or web address] Information not available 12/06/2023 Are You Currently Employed? No Information not available 12/06/2023 Are You Deaf Or Do You Have Serious Difficulty Hearing? No [email or web address] Information not available 12/06/2023 What Type Of Diet Are You Following? REGULAR [email or web address] Information not available 12/06/2023 Have You Processed Blood Or Body Fluids From An Ebola Virus Disease Patient Without Appropriate PPE? No [email or web address] Information not available 12/06/2023 Do You Reside In Or Have You Traveled To An Area Where Ebola Virus Transmission Is Active? No [email or web address] Information not available 12/06/2023 Do You Or Have You Ever Used E-cigarettes Or Vape? Current User Of Electronic Cigarettes Information not available 07/09/2023 Have There Been Any Changes To Your Family Or Social Situation? No [email or web address] Information no t available 12/06/2023 What Is The Fluoride Status Of Your Home? Unknown [email or web address] Information not available 12/06/2023 When Did You Quit Smoking? 6-10yearssince lastvishal Information not available 07/09/2023 Are There Any Guns Present In Your Home? No [email or web address] Information not available 12/06/2023 Have You Recently Or Are You Planning To Travel To An Area With Zika Virus? No [email or web address] Information not available 12/06/2023 Do You Use Insect Repellent Routinely? Yes [email or web address] Information not available 12/06/2023 Do You Feel Safe At Home? Yes [email or web address] Information not available 12/06/2023 Do You Have A Medical Power Of Customer Service Coordinator? No [email or web address] Information not available 12/06/2023 What Was The Date Of Your Most Recent Tobacco Screening? 06/02/2024 [email or web address] Information not available 06/02/2024 Do You Have Any Pets? No [email or web address] Information not available 12/06/2023 Do You Use Your Seat Belt Or Car Seat Routinely? Yes [email or web address] Information not available 12/06/2023 Do You Have Smoke And Carbon Monoxide Detectors In Your Home? Yes Information not available 12/06/2023 Are You Passively Exposed To Smoke? Yes Information no t available 08/04/2022 Do You Or Have You Ever Used Smokeless Tobacco? Never Used Smokeless Tobacco Information not available 03/25/2022 Do You Feel Stressed (tense, Restless, Nervous, Or Anxious, Or Unable To Sleep At Night)? [id number] [email or web address] Information not available 08/04/2022 Do You Use Any Illicit Or Recreational Drugs? No Information not available 03/25/2022 Do You Use Sunscreen Routinely? Yes [email or web address] Information not available 12/06/2023 Has Tobacco Cessation Counseling Been Provided? No Information not available 07/09/2023 Are You Currently In School? No [email or web address] Information not available 12/06/2023 Do You Or Have You Ever Used Any Other Forms Of Tobacco Or Nicotine? Yes Information not available 07/09/2023 Sex: Female Functional Status Question Answer Note LastModified by Organizat ion Details LastModified Time Do you have difficulty walking or climbing stairs? No [email or web address] Information not available 12/06/2023 Do you have transportation difficulties? No [email or web address] Information not available 12/06/2023 Are you able to walk? YESWOREST Information not available 12/06/2023 Do you have difficulty doing errands alone? No [email or web address] Information not available 12/06/2023 Are you able to care for yourself? Yes [email or web address] Information n ot available 12/06/2023 Do you have difficulty dressing or bathing? No [email or web address] Information not available 12/06/2023 What is your exercise level? Occasional [email or web address] Information not available 08/04/2022 Mental Status Question Answer Note LastModified by Organization D etails LastModified Time Do you have difficulty concentrating, remembering or making decisions? No [email or web address] Information no t available 12/06/2023 Family History Relationship Description Onset Age of this Age Resolved Age Notes LastModified by Organization Details LastModified Time Mother Glaucoma Not availab le 06/02/2024 15:12:21 Mother Hyperlipidem ia [email or web address] Not available 06/02 15:12:21 Father Heart disease [email or web address] Not available 07/2023 14:29:46 Father Essential hypertension [email or web address] Not available 15:12:21 Daughter Bipolar disorder [email or web address] Not available 06/02 15:12:21 Son Asthma Not available 06/02/2024 15:12:21 Son Attention deficit hyperactivit y disorder [email or web address] Not available 05/15 15:12:21 Medical History Condition Response Allergies/Hayfever Y Anxiety Disorder Y Vision or Eye Problems Y Back Problems Y Thyroid Problems Y Hypothyroidism Y Reflux/GERD Y High Cholesterol Y Headaches Y Hypertension Y Obstructive Sleep Apnea Y Gynecological History Statement/Question Response Current Control Method None Sexually Active? N Obstetrics History GPAL:G 0 P 0 0 0 0 Immunizations Vaccine Type Date Status Note Provider Nam e and Address Organization Details Recorded Time Td(adult) unspecified formulation 01/02/2015 completed Lynda [place], [place] - [facility] & [place] 07/21/2022 14:07:40 Influenza, split virus, quadrivalent, PF 06/22/2019 completed Lynda Stout null, [place] - [facility] & [place] 07/21/2022 14:07:40 Influenza, split virus, quadrivalent, PF 02/26/2017 completed Lynda Stout null, [place] [facility] & [place] 07/21/2022 14:07:40 Influenza, split virus, quadrivalent, PF 03/18/2015 completed Lynda Stout null, [place] [facility] & [place] 07/21/2022 14:07:40 Influenza, split virus, quadrivalent, PF 03/24/2018 completed Lynda [place], [place] - [facility] & [place] 07/21/2022 14:07:40 Past Encounters Encounter ID Performer Location Encounter Start Date Encounter Closed Date Diagnosis/Indication Diagnosis SNOMED-CT Code Diagnosis ICD10 Code Diagnosis Note [id number] INOCENTE CORRAL NP [facility] [address] [address] 08/31/2024 14:56:35 09/06/2024 03:55:58 Therapeutic drug monitoring assay 89575714 Z51.81 check liver enzymes todaydenie s any medication side effects Health Concerns Section Related Observation LastModified by Organization Detai ls LastModified Time None Recorded Concern Status LastModified by Organization Details LastModified Time None Recorded Payers Encounter Date Sequence Insurance Name Policy Number Policy Art Covered Member ID Art Member ID Guarantor Name 08/31/2024 1 [employer] [facility] (MEDICAID HMO) Peyton Peterson [id number] Peyton Peterson OBGyn Episode No OBEpisode recorded.
--- OUTSIDE RECORDS SUMMARY | 2024-10-13 13:40 | XMS_ITS | Continuity of Care Document ---
Author Organization [facility] Phone Care Team Providers Care Manager Validation Name Role Phone INOCENTE CORRAL Primary Care [phone] INOCENTE CORRAL Admitting INOCENTE CORRAL Unavailable INOCENTE CORRAL Primary Attending ALLERGIES AND ADVERSE REACTIONS ALLERGIES AND ADVERSE REACTIONS Code System Allergy Substance Adverse Reaction Date Reaction (Severity) Comment Status Reported By Updated By No Known Allergies [email or web address] on April 06, 2023 1:24:16 AM [facility] RESULTS Patient: ESTHER MOREJON Date of : [birth year] 7 LABORATORY RESULTS ORDER 100: LIPID PANEL (LOIN C: 99762-6) ORDER DATE: June 02, 2024 10:16:00 PM UT Specimen Source: Serum/Plasm a Specimen Type: Acellular blo od (serum or plasma) specimen PERFORMING LAB: [address] [id number] Result Comment: Final Result Date: June 02, 2024 10:47:00 PM UT (TECH: [employer]) LOINC TEST FLAG RESULT REFERENCE RANGE UPDA ASUNCION BY 2571-8 Triglyceride [Mass/volume] in Serum or Plasma N 148 mg/dL 20 mg/dL - 200 mg/dL June 02, 2024 10:47:00 PM UTC (TECH: [facility]) 3-3 Cholesterol [Mass/volume] in Serum or Plasma N 173 mg/dL 0 mg/dL - 200 mg/dL June 02, 2024 10:47:00 PM UTC (TECH: [facility]) 5-9 Cholesterol in HDL [Mass/volume] in Serum or Plasma L 58 mg/dL 60 mg/dL June 02, 2024 10:47:00 PM UTC (TECH: [employer]) 17429-8 Cholesterol in LDL [Mass/volume] in Serum or Plasma by calculation L 85 mg/dL 100 mg/dL June 02, 2024 10:47:00 PM UTC (TECH: [facility]) 2095-8 Cholesterol in HDL/Cholesterol.tota l [Mass Ratio] in Serum or Plasma N 3 - 5 June 02, 2024 10:47:00 PM UTC (TECH: [employer]) ORDER 200: HEMOGLOBIN A1C (L OINC: 4548-4) ORDER DATE: June 02, 2024 10:16:00 PM UTC Specimen Source: Whole Blood Specimen Type: Whole blood s ample PERFORMING LAB: [address] [id number] Result Comment: Final Result Date: June 02, 2024 11:00:00 PM UT (TECH: [employer]) LOINC TEST FLAG RESULT REFERENCE RANGE UPDA ASUNCION BY 4548-4 Hemoglobin A1c/Hemoglobin.tot al in Blood N 5.4 % 4.5 % - 6.2 % June 02, 2024 11:00:00 PM UT (TECH: [employer]) 77417-9 Glucose mean value [Mass/volume] in Blood Estimated from glycated hemoglobin N 108 mg/dl 82 mg/dl - 131 mg/dl June 02, 2024 11:00:00 PM UTC (TECH: [employer]) ORDER 300: CBC AUTO W DIFF ( LOINC: 86949-6) ORDER DATE: June 02, 2024 10:16:00 PM UT Specimen Source: Whole Blood Specimen Type: Whole blood s ample PERFORMING LAB: [address] [id number] Result Comment: Final Result Date: June 02, 2024 10:27:00 PM UTC (TECH: [employer]) LOINC TEST FLAG RESULT REFERENCE RANGE UPDA ASUNCION BY 6690-2 Leukocytes [#/volume] in Blood by Automated count N 6.2 10^3/uL 4.5 10^3/uL - 11.5 10^3/uL June 02, 2024 10:27:00 PM UT (TECH: [employer]) 789-8 Erythrocytes [#/volume] in Blood by Automated count N 4.70 10^6/uL 4.25 10^6/uL - 5.57 10^6/uL June 02, 2024 10:27:00 PM UTC (TECH: [employer]) 718-7 Hemoglobin [Mass/volume] in Blood N 12.7 g/dL 12.0 g/dL - 15.7 g/dL June 02, 2024 10:27:00 PM UTC (TECH: [employer]) 54570-3 Hematocrit [Volume Fraction] of Blood N 40.5 % 36.0 % - 47.0 % June 02, 2024 10:27:00 PM UTC (TECH: [employer]) 787-2 Erythrocyte mean corpuscular volume [Entitic volume] by Automated count N 86.2 fl 80 fl - 95 fl June 02, 2024 10:27:00 PM UTC (TECH: [employer]) 57752-2 Erythrocyte mean corpuscular hemoglobin [Entitic mass] in Blood from [place] by Automated count N 27.0 pg 27.0 pg - 34.0 pg June 02, 2024 10:27:00 PM UTC (TECH: [employer]) 77653-7 Erythrocyte mean corpuscular hemoglobin concentration [Mass/volume] in Blood from [place] by Automated count L 31.4 g/dL 32.0 g/dL - 36.0 g/dL June 02, 2024 10:27:00 PM UTC (TECH: [employer]) 08343-4 Platelets [#/volume] in Blood N 263 10^3/uL 150 10^3/uL - 450 10^3/uL June 02, 2024 10:27:00 PM UTC (TECH: [employer]) 62157-7 Erythrocyte distribution width [Ratio] N 13.5 % 12.3 % - 15.1 % June 02, 2024 10:27:00 PM UTC (TECH: [employer]) 96319-1 Platelet mean volume [Entitic volume] in Blood by Automated count N 9.9 fl 7.4 fl - 10.4 fl June 02, 2024 10:27:00 PM UTC (TECH: [employer]) 25992-1 Granulocytes/100 leukocytes in Blood by Automated count N 54.7 % 40 % - 75 % June 02, 2024 10:27:00 PM UTC (TECH: [employer]) 736-9 Lymphocytes/100 leukocytes in Blood by Automated count N 36.2 % 15 % - 57 % June 02, 2024 10:27:00 PM UTC (TECH: [employer]) 5905-5 Monocytes/100 leukocytes in Blood by Automated count N 6.3 % 4.0 % - 12.0 % June 02, 2024 10:27:00 PM UTC (TECH: [employer]) 713-8 Eosinophils/100 leukocytes in Blood by Automated count N 2.4 % 0.0 % - 4.0 % June 02, 2024 10:27:00 PM UTC (TECH: [employer]) 706-2 Basophils/100 leukocytes in Blood by Automated count N 0.2 % 0.0 % - 1.0 % June 02, 2024 10:27:00 PM UTC (TECH: [employer]) 17762-7 Immature granulocytes [#/volume] in Blood N 0.2 % 0.0 % - 0.8 % June 02, 2024 10:27:00 PM UTC (TECH: [employer]) 57536-9 Granulocytes [#/volume] in Blood by Automated count N 3.42 10^3/uL June 02, 2024 10:27:00 PM UTC (TECH: [employer]) 731-0 Lymphocytes [#/volume] in Blood by Automated count N 2.26 10^3/uL June 02, 2024 10:27:00 PM UTC (TECH: [employer]) 742-7 Monocytes [#/volume] in Blood by Automated count N 0.39 10^3/uL June 02, 2024 10:27:00 PM UTC (TECH: [employer]) 711-2 Eosinophils [#/volume] in Blood by Automated count N 0.15 10^3/uL June 02, 2024 10:27:00 PM UTC (TECH: [employer]) 704-7 Basophils [#/volume] in Blood by Automated count N 0.01 10^3/uL June 02, 2024 10:27:00 PM UTC (TECH: [employer]) 75060-7 Immature granulocytes [#/volume] in Blood N 0.01 10^3/uL June 02, 2024 10:27:00 PM UTC (TECH: [employer]) 05852-2 Manual differential performed [Presence] in Blood N NO June 02, 2024 10:27:00 PM UTC (TECH: [employer]) ORDER 400: THYROID STIMULATI NG HORMONE (LOINC: 3016-3) ORDER DATE: June 02, 2024 10:16:00 PM UTC Specimen Source: Serum/Plasm a Specimen Type: Acellular blo od (serum or plasma) specimen PERFORMING LAB: [address] [id number] Result Comment: Final Result Date: June 02, 2024 10:47:00 PM UTC (TECH: [employer]) LOINC TEST FLAG RESULT REFERENCE RANGE UPDA ASUNCION BY 3016-3 Thyrotropin [Units/volume] in Serum or Plasma N 1.48 mIU/mL 0.34 mIU/mL - 4.80 mIU/mL June 02, 2024 10:47:00 PM UTC (TECH: [employer]) ORDER 500: T4 FREE (LOINC: 3 024-7) ORDER DATE: June 02, 2024 10:16:00 PM UTC Specimen Source: Serum/Plasm a Specimen Type: Acellular blo od (serum or plasma) specimen PERFORMING LAB: [address] [id number] Result Comment: Final Result Date: June 02, 2024 10:48:00 PM UTC (TECH: [employer]) LOINC TEST FLAG RESULT REFERENCE [place] 3024-7 Thyroxine (T4) free [Mass/volume] in Serum or Plasma N 1.05 ng/dl 0.76 ng/dl - 1.46 ng/dl June 02, 2024 10:48:00 PM UTC (TECH: [employer]) ORDER 600: COMP METABOLIC PA LAURENCE (LOINC: 65885-5) ORDER DATE: June 02, 2024 10:16:00 PM UTC Specimen Source: Serum/Plasm a Specimen Type: Acellular blo od (serum or plasma) specimen PERFORMING LAB: [address] [id number] Result Comment: Final Result Date: June 02, 2024 10:48:00 PM UTC (TECH: [employer]) LOINC TEST FLAG RESULT REFERENCE RANGE UPDA ASUNCION BY 2951-2 Sodium [Moles/volume ] in Serum or Plasma N 145 mmol/L 136 mmol/L - 145 mmol/L June 02, 2024 10:48:00 PM UTC (TECH: [employer]) 2823-3 Potassium [Moles/volume] in Serum or Plasma N 4.3 mmol/L 3.5 mmol/L - 5.1 mmol/L June 02, 2024 10:48:00 PM UT (TECH: [employer]) 5-0 Chloride [Moles/volume] in Serum or Plasma N 107 mmol/L 98 mmol/L - 107 mmol/L June 02, 2024 10:48:00 PM UT (TECH: [employer]) 2027-9 Carbon dioxide, tota l [Moles/volume] in Serum or Plasma N 29 mmol/L 21 mmol/L - 32 mmol/L June 02, 2024 10:48:00 PM UT (TECH: [employer]) 35708-6 Anion gap 3 in Serum or Plasma N 9.0 June 02, 2024 10:48:00 PM UT (TECH: [employer]) 2345-7 Glucose [Mass/volume ] in Serum or Plasma N 87 mg/dL 70 mg/dL - 110 mg/dL June 02, 2024 10:48:00 PM UT (TECH: [employer]) 3094-0 Urea nitrogen [Mass/volume] in Serum or Plasma N 10 mg/dL 7 mg/dL - 18 mg/dL June 02, 2024 10:48:00 PM UT (TECH: [employer]) 2160-0 Creatinine [Mass/volume] in Serum or Plasma N 0.9 mg/dL 0.6 mg/dL - 1.0 mg/dL June 02, 2024 10:48:00 PM UT (TECH: [employer]) 3097-3 Urea nitrogen/Creatinine [Mass Ratio] in Serum or Plasma N 11.1 - June 02, 2024 10:48:00 PM UT (TECH: [employer]) 14902-9 Glomerular filtratio n rate/1.73 sq M.predicted by Creatinine-based formula (MDRD) N 77 mL/min >60 June 02, 2024 10:48:00 PM UT (TECH: [employer]) 2885-2 Protein [Mass/volume ] in Serum or Plasma N 7.4 g/dL 6.4 g/dL - 8.2 g/dL June 02, 2024 10:48:00 PM UT (TECH: [employer]) 1751-7 Albumin [Mass/volume ] in Serum or Plasma N 3.9 g/dL 3.4 g/dL - 5.0 g/dL June 02, 2024 10:48:00 PM UT (TECH: [employer]) 79307-7 Calcium [Mass/volume ] in Serum or Plasma N 9.7 mg/dL 8.5 mg/dL - 10.1 mg/dL June 02, 2024 10:48:00 PM UTC (Bitbar: [employer]) 68431-5 Calcium [Mass/volume ] corrected for total protein in Serum or Plasma N 9.8 mg/dL 8.5 mg/dL - 10.1 mg/dL June 02, 2024 10:48:00 PM UTC (TECH: [employer]) 1975-2 Bilirubin.total [Mass/volume] in Serum or Plasma N 0.5 mg/dL 0.4 mg/dL - 1.5 mg/dL June 02, 2024 10:48:00 PM UTC (TECH: [employer]) 1920-8 Aspartate aminotransferase [Enzymatic activity/volume] in Serum or Plasma N 18 U/L 15 U/L - 37 U/L June 02, 2024 10:48:00 PM UTC (Bitbar: [employer]) 1742-6 Alanine aminotransferase [Enzymatic activity/volume] in Serum or Plasma N 31 U/L 12 U/L - 78 U/L June 02, 2024 10:48:00 PM UTC (TECH: [employer]) 6768-6 Alkaline phosphatase [Enzymatic activity/volume] in Serum or Plasma N 78 U/L 50 U/L - 120 U/L June 02, 2024 10:48:00 PM UTC (TECH: [employer]) ORDER 700: HCV ANTIBODY (YADIEL NC: 08843-0) ORDER DATE: June 02, 2024 10:16:00 PM UTC Specimen Source: Serum Specimen Type: Serum specime n PERFORMING LAB: [address] [id number] Result Comment: June 04, 2024 1:07:00 PM UTC HCV antibody alone does not differentiate between Result Comment: June 04, 2024 1:07:00 PM UTC previously resolved infection and active infection. Result Comment: June 04, 2024 1:07:00 PM UTC Equivocal and Reactive HCV antibody results should be Result Comment: June 04, 2024 1:07:00 PM UTC followed up with an HCV RNA test to support the diagnosis Result Comment: June 04, 2024 1:07:00 PM UTC of active HCV infection. Result Comment: June 04, 2024 1:07:00 PM UTC Performed at: CB - [facility] [place] Result Comment: June 04, 2024 1:07:00 PM [facility] [address], [place] [id number] Result Comment: June 04, 2024 1:07:00 PM [facility] Systems Tester: Ananda Lau PhD, Phone: [phone] Result Comment: June 04, 2024 1:07:00 PM UT Final Result Date: June 02, 2024 10:16:00 PM [facility] (TECH: LAB) LOINC TEST FLAG [place] [address]-0 Hepatitis C virus Ab [Presence] in Serum or Plasma by Immunoassay N Non Reactive Non Reactive May 152023 10:16:00 PM [facility] (TECH: LAB) LABORATORY NARRATIVE RESULTS Information is not available [...] Description Effective Dates Offered Cessation Comment UpdatedBy [id number] Smoking Status Unknown If Ever Smoked SOCIAL [...] available. ENCOUNTERS ENCOUNTER INFORMATION Reason for Visit E78.2 Admission June 02, 2024 10:14:00 PM UT C [facility] [address] [facility] [place] [id number] Discharge June 02, 2024 11:14:00 PM UT C DISCHARGED TO HOME OR SELF CARE ENCOUNTER DIAGNOSES Notes information is not lilly ilable. Code System Diagnosis Onset Date Diagnosis information is not available. ABSTRACT DIAGNOSES Code System Diagnosis Updated By Z11.59 ICD10 ENCOUNTER FOR SC REENING FOR OTHER VIRAL DISEASES [id number] on June 05, 2024 10:02:24 AM [facility] I10 ICD10 ESSENTIAL (PRIMARY) HYPERTEN RUTH [id number] on June 05, 2024 10:02:24 AM [facility] E78.2 ICD10 MIXED HYPERLIPIDEMIA [id number] on June 05, 2024 10:02:24 AM [facility] Z11.59 ICD10 ENCOUNTER FOR SC REENING FOR OTHER VIRAL DISEASES [id number] on June 05, 2024 10:02:24 AM [facility] I10 ICD10 ESSENTIAL (PRIMARY) HYPERTEN RUTH [id number] on June 05, 2024 10:02:24 AM [facility] E78.2 ICD10 MIXED HYPERLIPIDEMIA [id number] on June 05, 2024 10:02:24 AM [facility] E03.4 ICD10 ATROPHY OF THYROID (ACQUIRED ) [id number] on June 05, 2024 10:02:24 AM [facility] R73.03 ICD10 PREDIABETES [id number] on Dece mb2023 10:02:24 AM [facility] Z76.89 ICD10 PERSONS ENCOUNTE [facility] IN OTHER SPECIFIED CIRCUMSTANCES [id number] on June 05, 2024 10:02:24 AM [facility] CARE TEAM Care Manager Validation Role INOCENTE CORRAL Primary Care INOCENTE CORRAL Admitting INOCENTE CORRAL Referring INOCENTE CORRAL 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
--- OUTSIDE RECORDS SUMMARY | 2024-10-13 13:41 | XMS_ITS | Data Portability ---
Author Organization [facility] Pender Address [address] [place] [address] Care Team Providers Care Machine Feeder Raw Stock Name Role Phone INOCENTE CORRAL Primary Care Provider Assessment No assessment recorded. Plan of Treatment Reminders Order Date Submit Date Provider Last Modified By Organization Details Last Modified Time Details Appointments None recorded. Lab lipid panel, serum 2023 [facility] (Laboratory), [address] [place], [address], 4 17:49:03 HbA1c (hemoglobi n A1c), blood 2023 [facility] (Laboratory), [address] [place], [address], 4 18:00:45 CMP, serum or plasma 2023 [facility] (Laboratory), [address] [place], [address], 4 17:50:08 CBC w/ auto diff 2023 [facility] (Laboratory), [address] [place], [address], 4 17:28:56 hepatitis C virus Ab, serum 2023 [facility] (Laboratory), [address] [place], [address], 4 08:13:53 TSH + free T4, serum 2023 [facility] (Laboratory), [address] [place], [address], 4 08:27:25 TSH, serum or plasma 2023 [facility] (Laboratory), [address] [place], [address], 4 17:06:05 influenza virus A + B + SARS-CoV-2 (COVID19) Ag panel, rapid IA, upper respirator y specimen 2023 [facility], [address] [facility] [place], [address], 4 16:26:24 hemoglobin A1c + average glucose, QN, blood [email or web address] (Laboratory), [address] [place], [address], 4 07:35:41 rapid strep group A, throat 2023 [facility], [address] [place], [address], 4 16:26:24 CMP, serum or plasma 2023 [facility] (Laboratory), [address] [place], [address], 4 17:06:07 CBC w/ auto diff 2023 [facility] (Laboratory), [address] [place], [address], 4 16:51:03 urinalysis , dipstick 2023 [facility], [address] [place], [address], 4 10:37:19 culture, urine 2023 [facility] (Laboratory), [address] [place], [address], 4 07:28:40 culture, urine 2023 024 [facility] (Laboratory), [address] [place], [address], 4 06:18:01 urinalysis , dipstick 2023 [facility], [address] [place], [address], 4 15:15:48 CMP, serum or plasma 2023 [facility] (Laboratory), [address] [place], [address], 4 16:49:12 Referral None recorded. Procedures None recorded. Surgeries None recorded. Imaging MAMMO, screening, digital, bilateral [address] (Scheduling), [address] [place], [address], 5 07:37:37 CT, abdomen + pelvis, w/o contrast [address] (Scheduling), [address] [place], [address], 4 08:03:00 CT, abdomen + pelvis, w/o contrast 2023 024 [facility] (Scheduling), [address] [place], [address], 4 10:20:20 Medication Orders Medrol (Lefty) 4 mg tablets in a dose pack 2023 024 [facility], [address] [place] [address], [address], 4 15:52:13 Veozah 45 mg tablet 2023 024 [facility], [address] [place] [address], [address], 4 10:49:32 bupropion HCl XL 150 mg 24 hr tablet, extended release 2023 024 [facility], [address] [place] [address], [address], 4 17:29:59 cefdinir 300 mg capsule 2023 024 [facility], [address] [place] [address], [address], 4 10:48:38 Macrobid 100 mg capsule 2023 024 [facility], [address] [place] [address], [address], 4 15:31:41 Patient TargetsNo targets recorded. Patient InstructionsNo instructions recorded. Reason for Referral None Reported. Results Created Date Observation Date Name Description Value Unit Range Abnormal Flag Note LastModifiedBy Organization Detail LastModifiedTime 12/06/19 24 12/06/2023 COMP METAB OLIC PANEL sodium 142 mmol/ L 136-14 5 Not Available [facility] (Lab Registration) [address] [place], [address], 12/06/2023 16:49:12 12/06/19 24 12/06/2023 COMP METAB OLIC PANEL potassium 4.3 mmol/ L 3.5-5. 1 Not Available [facility] (Lab Registration) [address] [place], [address], 12/06/2023 16:49:12 12/06/19 24 12/06/2023 COMP METAB OLIC PANEL chloride 103 mmol/ L 98-107 Not Available [facility] (Lab Registration) [address] [place], [address], 12/06/2023 16:49:12 12/06/19 24 12/06/2023 COMP METAB OLIC PANEL carbon dioxide 30 mmol/ L 21-32 Not Available [facility] (Lab Registration) [address] [place], [address], 12/06/2023 16:49:12 12/06/19 24 12/06/2023 COMP METAB OLIC PANEL anion gap 9.0 Not Available [facility] (Lab Registration) [address] [place], [address], 12/06/2023 16:49:12 12/06/19 24 12/06/2023 COMP METAB OLIC PANEL glucose 93 mg/dL 70-110 Not Available [facility] (Lab Registration) [address] [place], [address], 12/06/2023 16:49:12 12/06/19 24 12/06/2023 COMP METAB OLIC PANEL blood urea nitrogen 22 mg/dL 7-18 high Not Available [facility] (Lab Registration) [address] [place], [address], 12/06/2023 16:49:12 12/06/19 24 12/06/2023 COMP METAB OLIC PANEL creatinine 1.2 mg/dL 0.6-1. 0 high Not Available [facility] (Lab Registration) [address] [place], [address], 12/06/2023 16:49:12 12/06/19 24 12/06/2023 COMP METAB OLIC PANEL BUN/creatini ne ratio 18.3 ratio 9-21 Not Available [facility] (Lab Registration) [address] [place], [address], 12/06/2023 16:49:12 12/06/19 24 12/06/2023 COMP METAB OLIC PANEL estimated glom filtration rate 54 mL/mi n >60- low Not Available [facility] (Lab Registration) [address] [place], [address], 12/06/2023 16:49:12 12/06/19 24 12/06/2023 COMP METAB OLIC PANEL total protein 7.7 g/dL 6.4-8. 2 Not Available [facility] (Lab Registration) [address] [place], [address], 12/06/2023 16:49:12 12/06/19 24 12/06/2023 COMP METAB OLIC PANEL albumin 4.1 g/dL 3.4-5. 0 Not Available [facility] (Lab Registration) [address] [place], [address], 12/06/2023 16:49:12 12/06/19 24 12/06/2023 COMP METAB OLIC PANEL calcium 10.0 mg/dL 8.5-10 .1 Not Available [facility] (Lab Registration) [address] [place], [address], 12/06/2023 16:49:12 12/06/19 24 12/06/2023 COMP METAB OLIC PANEL corrected calcium 9.9 mg/dL 8.5-10 .1 Not Available [facility] (Lab Registration) [address] [place], [address], 12/06/2023 16:49:12 12/06/19 24 12/06/2023 COMP METAB OLIC PANEL bilirubin total 0.7 mg/dL 0.4-1. 5 Not Available [facility] (Lab Registration) [address] [place], [address], 12/06/2023 16:49:12 12/06/19 24 12/06/2023 COMP METAB OLIC PANEL AST (SGOT) 19 U/L 15-37 Not Available [facility] (Lab Registration) [address] [place], [address], 12/06/2023 16:49:12 12/06/19 24 12/06/2023 COMP METAB OLIC PANEL ALT (SGPT) 36 U/L 12-78 Not Available [facility] (Lab Registration) [address] [place], [address], 12/06/2023 16:49:12 12/06/19 24 12/06/2023 COMP METAB OLIC PANEL alk phosphatase 70 U/L 50-120 Not Available [facility] (Lab Registration) [address] [place], [address], 12/06/2023 16:49:12 12/06/19 24 12/06/2023 COMP METAB OLIC PANEL note Unles s other wilson noted testi ng perfo rmed at: [facility] [address] [place] [address] [phone] Ryan gonzalez MD CLIA: [id number] Not Available [facility] (Lab Registration) [address] [place], [address], 12/06/2023 16:49:12 12/06/19 24 12/06/2023 CULTU RE URINE results LT 12-06 616 70,00 0 COL/M L Gram Negat rashida Rods Not Available [facility] (Lab Registration) [address] [place], [address], 12/07/2023 06:18:01 12/06/19 24 12/06/2023 CULTU RE URINE note Unles s other wilson noted testi ng perfo rmed at: [facility] [address] [place] [address] [phone] Ryan gonzalez MD CLIA: [id number] Not Available [facility] (Lab Registration) [address] [place], [address], 12/07/2023 06:18:01 12/06/19 24 12/06/2023 CULTU RE URINE culccur ===== ===== ===== ===== ===== ===== ===== ===== ===== ===== ===== ===== ===== ===== ===== ===== ===== ===== ===== ===== ===== ===== ===== ===== Speci men NO.: [id number] Exam Statu s: Final Proce dure: CULTU RE URINE ===== ===== ===== ===== ===== ===== ===== ===== ===== ===== ===== ===== ===== ===== ===== ===== ===== ===== ===== ===== ===== ===== ===== ===== Iso/R esult : 01 Esche huma a coli Antim icrob ic/Do se ERIC Syste eric Urine __ ___ ___ Ampic illin >16 R R Amp/S ulbac vicente 16/8 I I Aztre onam <=4 S S Cefaz satnam <=2 S S Cefep rahul <=2 S S Cefot axime <=2 S S Cefox itin <=8 S S Cefta zidim e <=1 S S Ceftr iaxon e <=1 S S Cefur oxime <=4 S S Cipro floxa kita >2 R R Ertap enem <=0.5 S S Genta micin >8 R R Levof loxac in >4 R R Merop enem <=1 S S Nitro furan toin <=32 S S Pip/T azo <=16 S S Tetra cycli ne >8 R R Tobra mycin 8 I I Trime th/Valverde lfa >238 R R LT 12-06 616 70,00 0 COL/M L Gram Negat rashida Rods Not Available [facility] (Lab Registration) [address] [place], [address], 12/12/2023 16:10:47 12/06/19 24 12/06/2023 CULTU RE URINE note Unles s other wilson noted testi ng perfo rmed at: [facility] [address] [place] [address] [phone] Ryan gonzalez MD CLIA: [id number] Not Available [facility] (Lab Registration) [address] [place], [address], 12/12/2023 16:10:47 12/06/19 24 12/06/2023 urina lysis , dipst ick Leukocytes (reference range) trace Not Available [address] [place], [address], 12/06/2023 15:02:15 12/06/19 24 12/06/2023 urina lysis , dipst ick Nitrite (reference range:) negati ve Not Available [address] [place], [address], 12/06/2023 15:02:15 12/06/19 24 12/06/2023 urina lysis , dipst ick Urobilinogen (reference range) 1 Not Available [address] [place], [address], 12/06/2023 15:02:15 12/06/19 24 12/06/2023 urina lysis , dipst ick Protein (reference range) 300 Not Available [address] [place], [address], 12/06/2023 15:02:15 12/06/19 24 12/06/2023 urina lysis , dipst ick pH (reference range 5-8.5) 5.5 Not Available [address] [place], [address], 12/06/2023 15:02:15 12/06/19 24 12/06/2023 urina lysis , dipst ick Blood (reference range:) large Not Available [address] [place], [address], 12/06/2023 15:02:15 12/06/19 24 12/06/2023 urina lysis , dipst ick Specific [place] (reference range) 1.030 Not Available [address] [place], [address], 12/06/2023 15:02:15 12/06/19 24 12/06/2023 urina lysis , dipst ick Ketone (reference range) trace Not Available [address] [place], [address], 12/06/2023 15:02:15 12/06/19 24 12/06/2023 urina lysis , dipst ick Bilirubin (reference range) modera te Not Available [address] [place], [address], 12/06/2023 15:02:15 12/06/19 24 12/06/2023 urina lysis , dipst ick Glucose (reference range) 100 Not Available [address] [place], [address], 12/06/2023 15:02:15 12/06/19 24 12/06/2023 urina lysis , dipst ick Color (reference range: yellow-brown ) [place] Not Available [address] [place], [address], 12/06/2023 15:02:15 12/22/19 24 12/22/2023 CULTU RE URINE results LT 12-22 726 Mixed Yennifer of Three or More Organ isms Prese nt. Cultu re Indic ates Conta minat ion of Speci men Durin gColl ectio n. Sugge st Recol lecti on with Steri le Techn ique. Not Available [facility] (Lab Registration) [address] [place], [address], 12/23/2023 07:28:40 12/22/19 24 12/22/2023 CULTU RE URINE note Unles s other wilson noted testi ng perfo rmed at: [facility] [address] [place] [address] [phone] Ryan gonzalez MD CLIA: [id number] Not Available [facility] (Lab Registration) [address] [place], [address], 12/23/2023 07:28:40 12/22/19 24 12/22/2023 urina lysis , dipst ick Leukocytes (reference range) trace Not Available [address] [place], [address], 12/22/2023 09:57:23 12/22/19 24 12/22/2023 urina lysis , dipst ick Nitrite (reference range:) negati ve Not Available [address] [place], [address], 12/22/2023 09:57:23 12/22/19 24 12/22/2023 urina lysis , dipst ick Urobilinogen (reference range) 1 Not Available [address] [place], [address], 12/22/2023 09:57:23 12/22/19 24 12/22/2023 urina lysis , dipst ick Protein (reference range) trace Not Available [address] [place], [address], 12/22/2023 09:57:23 12/22/19 24 12/22/2023 urina lysis , dipst ick pH (reference range 5-8.5) 7.0 Not Available [address] [place], [address], 12/22/2023 09:57:23 12/22/19 24 12/22/2023 urina lysis , dipst ick Blood (reference range:) negati ve Not Available [address] [place], [address], 12/22/2023 09:57:23 12/22/19 24 12/22/2023 urina lysis , dipst ick Specific [place] (reference range) 1.020 Not Available [address] [place], [address], 12/22/2023 09:57:23 12/22/19 24 12/22/2023 urina lysis , dipst ick Ketone (reference range) negati ve Not Available [address] [place], [address], 12/22/2023 09:57:23 12/22/19 24 12/22/2023 urina lysis , dipst ick Bilirubin (reference range) negati ve Not Available [address] [place], [address], 12/22/2023 09:57:23 12/22/19 24 12/22/2023 urina lysis , dipst ick Glucose (reference range) negati ve Not Available [address] [place], [address], 12/22/2023 09:57:23 12/22/19 24 12/22/2023 urina lysis , dipst ick Color (reference range: yellow-brown ) Yellow Not Available [facility] [address] [place], [address], 12/22/2023 09:57:23 02/07/20 24 02/07/2024 CBC AUTO W DIFF WBC 7.4 10 4.5-11 .5 Not Available [facility] (Lab Registration) [address] [place], [address], 02/07/2024 16:51:03 02/07/20 24 02/07/2024 CBC AUTO W DIFF RBC 4.75 10 4.25-5 .57 Not Available [facility] (Lab Registration) [address] [place], [address], 02/07/2024 16:51:03 02/07/20 24 02/07/2024 CBC AUTO W DIFF HGB 13.4 g/dL 12.0-1 5.7 Not Available [facility] (Lab Registration) [address] [place], [address], 02/07/2024 16:51:03 02/07/20 24 02/07/2024 CBC AUTO W DIFF HCT 40.1 % 36.0-4 7.0 Not Available [facility] (Lab Registration) [address] [place], [address], 02/07/2024 16:51:03 02/07/20 24 02/07/2024 CBC AUTO W DIFF MCV 84.4 fL 80-95 Not Available [facility] (Lab Registration) [address] [place], [address], 02/07/2024 16:51:03 02/07/20 24 02/07/2024 CBC AUTO W DIFF MCH 28.2 pg 27.0-3 4.0 Not Available [facility] (Lab Registration) [address] [place], [address], 02/07/2024 16:51:03 02/07/20 24 02/07/2024 CBC AUTO W DIFF MCHC 33.4 g/dL 32.0-3 6.0 Not Available [facility] (Lab Registration) [address] [place], [address], 02/07/2024 16:51:03 02/07/20 24 02/07/2024 CBC AUTO W DIFF platelet count 275 10 150-45 0 Not Available [facility] (Lab Registration) [address] [place], [address], 02/07/2024 16:51:03 02/07/20 24 02/07/2024 CBC AUTO W DIFF RDW 13.6 % 12.3-1 5.1 Not Available [facility] (Lab Registration) [address] [place], [address], 02/07/2024 16:51:03 02/07/20 24 02/07/2024 CBC AUTO W DIFF MPV 9.4 fL 7.4-10 .4 Not Available [facility] (Lab Registration) [address] [place], [address], 02/07/2024 16:51:03 02/07/20 24 02/07/2024 CBC AUTO W DIFF granulocyte% 55.3 % 40-75 Not Available [facility] (Lab Registration) [address] [place], [address], 02/07/2024 16:51:03 02/07/20 24 02/07/2024 CBC AUTO W DIFF lymphocyte% 36.4 % 15-57 Not Available [facility] (Lab Registration) [address] [place], [address], 02/07/2024 16:51:03 02/07/20 24 02/07/2024 CBC AUTO W DIFF monocyte% 5.1 % 4.0-12 .0 Not Available [facility] (Lab Registration) [address] [place], [address], 02/07/2024 16:51:03 02/07/20 24 02/07/2024 CBC AUTO W DIFF eosinophil% 2.8 % 0.0-4. 0 Not Available [facility] (Lab Registration) [address] [place], [address], 02/07/2024 16:51:03 02/07/20 24 02/07/2024 CBC AUTO W DIFF basophil% 0.3 % 0.0-1. 0 Not Available [facility] (Lab Registration) [address] [place], [address], 02/07/2024 16:51:03 02/07/20 24 02/07/2024 CBC AUTO W DIFF immature granulocytes % 0.1 % 0.0-0. 8 Not Available [facility] (Lab Registration) [address] [place], [address], 02/07/2024 16:51:03 02/07/20 24 02/07/2024 CBC AUTO W DIFF granulocyte# 4.11 10 Not Available [facility] (Lab Registration) [address] [place], [address], 02/07/2024 16:51:03 02/07/20 24 02/07/2024 CBC AUTO W DIFF lymphocyte# 2.71 10 Not Available [facility] (Lab Registration) [address] [place], [address], 02/07/2024 16:51:03 02/07/20 24 02/07/2024 CBC AUTO W DIFF monocyte# 0.38 10 Not Available [facility] (Lab Registration) [address] [place], [address], 02/07/2024 16:51:03 02/07/20 24 02/07/2024 CBC AUTO W DIFF eosinophil# 0.21 10 Not Available [facility] (Lab Registration) [address] [place], [address], 02/07/2024 16:51:03 02/07/20 24 02/07/2024 CBC AUTO W DIFF basophil# 0.02 10 Not Available [facility] (Lab Registration) [address] [place], [address], 02/07/2024 16:51:03 02/07/20 24 02/07/2024 CBC AUTO W DIFF immature granulocytes # 0.01 10 Not Available [facility] (Lab Registration) [address] [place], [address], 02/07/2024 16:51:03 02/07/20 24 02/07/2024 CBC AUTO W DIFF manual differential NO Not Available [facility] (Lab Registration) [address] [place], [address], 02/07/2024 16:51:03 02/07/20 24 02/07/2024 CBC AUTO W DIFF note Eileenes s other wilson noted testi ng perfo rmed at: [facility] [address] [place] [address] [phone] Ryan gonzalez MD CLIA: [id number] Not Available [facility] (Lab Registration) [address] [place], [address], 02/07/2024 16:51:03 02/07/20 24 02/07/2024 HEMOG LOBIN A1C glycosylated hemoglobin A1C 5.4 % 4.5-6. 2 Not Available [facility] (Lab Registration) [address] [place], [address], 02/07/2024 16:56:24 02/07/20 24 02/07/2024 HEMOG LOBIN A1C estimated average glucose 108 mg/dL 82-131 Not Available [facility] (Lab Registration) [address] [place], [address], 02/07/2024 16:56:24 02/07/20 24 02/07/2024 HEMOG LOBIN A1C note Unles s other wilson noted testi ng perfo rmed at: [facility] [address] [place] [address] [phone] Ryan gonzalez MD CLIA: [id number] Not Available [facility] (Lab Registration) [address] [place], [address], 02/07/2024 16:56:24 02/07/20 24 02/07/2024 THYRO ID STIMU LATIN G HORMO NE thyroid stimulating hormone 4.43 mIU/m L 0.34-4 .80 Not Available [facility] (Lab Registration) [address] [place], [address], 02/07/2024 17:06:05 02/07/20 24 02/07/2024 THYRO ID STIMU LATIN G HORMO NE note Unles s other wilson noted testi ng perfo rmed at: [facility] [address] [place] [address] [phone] Ryan gonzalez MD CLIA: [id number] Not Available [facility] (Lab Registration) [address] [place], [address], 02/07/2024 17:06:05 02/07/20 24 02/07/2024 COMP METAB OLIC PANEL sodium 137 mmol/ L 136-14 5 Not Available [facility] (Lab Registration) [address] [place], [address], 02/07/2024 17:06:07 02/07/20 24 02/07/2024 COMP METAB OLIC PANEL potassium 3.8 mmol/ L 3.5-5. 1 Not Available [facility] (Lab Registration) [address] [place], [address], 02/07/2024 17:06:07 02/07/20 24 02/07/2024 COMP METAB OLIC PANEL chloride 100 mmol/ L 98-107 Not Available [facility] (Lab Registration) [address] [place], [address], 02/07/2024 17:06:07 02/07/20 24 02/07/2024 COMP METAB OLIC PANEL carbon dioxide 29 mmol/ L 21-32 Not Available [facility] (Lab Registration) [address] [place], [address], 02/07/2024 17:06:07 02/07/20 24 02/07/2024 COMP METAB OLIC PANEL anion gap 8.0 Not Available [facility] (Lab Registration) [address] [place], [address], 02/07/2024 17:06:07 02/07/20 24 02/07/2024 COMP METAB OLIC PANEL glucose 93 mg/dL 70-110 Not Available [facility] (Lab Registration) [address] [place], [address], 02/07/2024 17:06:07 02/07/20 24 02/07/2024 COMP METAB OLIC PANEL blood urea nitrogen 12 mg/dL 7-18 Not Available [facility] (Lab Registration) [address] [place], [address], 02/07/2024 17:06:07 02/07/20 24 02/07/2024 COMP METAB OLIC PANEL creatinine 0.9 mg/dL 0.6-1. 0 Not Available [facility] (Lab Registration) [address] [place], [address], 02/07/2024 17:06:07 02/07/20 24 02/07/2024 COMP METAB OLIC PANEL BUN/creatini ne ratio 13.3 ratio 9-21 Not Available [facility] (Lab Registration) [address] [place], [address], 02/07/2024 17:06:07 02/07/20 24 02/07/2024 COMP METAB OLIC PANEL estimated glom filtration rate 77 mL/mi n >60- Not Available [facility] (Lab Registration) [address] [place], [address], 02/07/2024 17:06:07 02/07/20 24 02/07/2024 COMP METAB OLIC PANEL total protein 7.9 g/dL 6.4-8. 2 Not Available [facility] (Lab Registration) [address] [place], [address], 02/07/2024 17:06:07 02/07/20 24 02/07/2024 COMP METAB OLIC PANEL albumin 4.0 g/dL 3.4-5. 0 Not Available [facility] (Lab Registration) [address] [place], [address], 02/07/2024 17:06:07 02/07/20 24 02/07/2024 COMP METAB OLIC PANEL calcium 9.5 mg/dL 8.5-10 .1 Not Available [facility] (Lab Registration) [address] [place], [address], 02/07/2024 17:06:07 02/07/20 24 02/07/2024 COMP METAB OLIC PANEL corrected calcium 9.5 mg/dL 8.5-10 .1 Not Available [facility] (Lab Registration) [address] [place], [address], 02/07/2024 17:06:07 02/07/20 24 02/07/2024 COMP METAB OLIC PANEL bilirubin total 0.7 mg/dL 0.4-1. 5 Not Available [facility] (Lab Registration) [address] [place], [address], 02/07/2024 17:06:07 02/07/20 24 02/07/2024 COMP METAB OLIC PANEL AST (SGOT) 15 U/L 15-37 Not Available [facility] (Lab Registration) [address] [place], [address], 02/07/2024 17:06:07 02/07/20 24 02/07/2024 COMP METAB OLIC PANEL ALT (SGPT) 28 U/L 12-78 Not Available [facility] (Lab Registration) [address] [place], [address], 02/07/2024 17:06:07 02/07/20 24 02/07/2024 COMP METAB OLIC PANEL alk phosphatase 80 U/L 50-120 Not Available [facility] (Lab Registration) [address] [place], [address], 02/07/2024 17:06:07 02/07/20 24 02/07/2024 COMP METAB OLIC PANEL note Unles s other wilson noted testi ng perfo rmed at: [facility] [place] [address] [phone] Ryan gonzalez MD CLIA: [id number] Not Available [facility] (Lab Registration) [address] [place], [address], 02/07/2024 17:06:07 02/07/20 24 02/07/2024 influ sophia virus A + B + SARS- CoV-2 (COVI D19) Ag panel , rapid IA, upper respi rator y speci men FLU A negati ve Not Available [address] [place], [address], 02/07/2024 15:27:31 02/07/20 24 02/07/2024 influ sophia virus A + B + SARS- CoV-2 (COVI D19) Ag panel , rapid IA, upper respi rator y speci men FLU B negati ve Not Available [address] [place], [address], 02/07/2024 15:27:31 02/07/20 24 02/07/2024 influ sophia virus A + B + SARS- CoV-2 (COVI D19) Ag panel , rapid IA, upper respi rator y speci men SARS COV + SARS OV 2 negati ve Not Available [address] [place], [address], 02/07/2024 15:27:31 02/07/20 24 02/07/2024 rapid strep group A, throa t Strep negati ve Not Available [facility] [address] [place], [id number], 02/07/2024 15:29:18 06/02/20 24 06/02/2024 CBC AUTO W DIFF WBC 6.2 10 4.5-11 .5 Not Available [facility] (Lab Registration) [address] [place], [address], 06/02/2024 17:28:56 06/02/20 24 06/02/2024 CBC AUTO W DIFF RBC 4.70 10 4.25-5 .57 Not Available [facility] (Lab Registration) [address] [place], [address], 06/02/2024 17:28:56 06/02/20 24 06/02/2024 CBC AUTO W DIFF HGB 12.7 g/dL 12.0-1 5.7 Not Available [facility] (Lab Registration) [address] [place], [address], 06/02/2024 17:28:56 06/02/20 24 06/02/2024 CBC AUTO W DIFF HCT 40.5 % 36.0-4 7.0 Not Available [facility] (Lab Registration) [address] [place], [address], 06/02/2024 17:28:56 06/02/20 24 06/02/2024 CBC AUTO W DIFF MCV 86.2 fL 80-95 Not Available [facility] (Lab Registration) [address] [place], [address], 06/02/2024 17:28:56 06/02/20 24 06/02/2024 CBC AUTO W DIFF MCH 27.0 pg 27.0-3 4.0 Not Available [facility] (Lab Registration) [address] [place], [address], 06/02/2024 17:28:56 06/02/20 24 06/02/2024 CBC AUTO W DIFF MCHC 31.4 g/dL 32.0-3 6.0 low Not Available [facility] (Lab Registration) [address] [place], [address], 06/02/2024 17:28:56 06/02/20 24 06/02/2024 CBC AUTO W DIFF platelet count 263 10 150-45 0 Not Available [facility] (Lab Registration) [address] [place], [address], 06/02/2024 17:28:56 06/02/20 24 06/02/2024 CBC AUTO W DIFF RDW 13.5 % 12.3-1 5.1 Not Available [facility] (Lab Registration) [address] [place], [address], 06/02/2024 17:28:56 06/02/20 24 06/02/2024 CBC AUTO W DIFF MPV 9.9 fL 7.4-10 .4 Not Available [facility] (Lab Registration) [address] [place], [address], 06/02/2024 17:28:56 06/02/20 24 06/02/2024 CBC AUTO W DIFF granulocyte% 54.7 % 40-75 Not Available [facility] (Lab Registration) [address] [place], [address], 06/02/2024 17:28:56 06/02/20 24 06/02/2024 CBC AUTO W DIFF lymphocyte% 36.2 % 15-57 Not Available [facility] (Lab Registration) [address] [place], [address], 06/02/2024 17:28:56 06/02/20 24 06/02/2024 CBC AUTO W DIFF monocyte% 6.3 % 4.0-12 .0 Not Available [facility] (Lab Registration) [address] [place], [address], 06/02/2024 17:28:56 06/02/20 24 06/02/2024 CBC AUTO W DIFF eosinophil% 2.4 % 0.0-4. 0 Not Available [facility] (Lab Registration) [address] [place], [address], 06/02/2024 17:28:56 06/02/20 24 06/02/2024 CBC AUTO W DIFF basophil% 0.2 % 0.0-1. 0 Not Available [facility] (Lab Registration) [address] [place], [address], 06/02/2024 17:28:56 06/02/20 24 06/02/2024 CBC AUTO W DIFF immature granulocytes % 0.2 % 0.0-0. 8 Not Available [facility] (Lab Registration) [address] [place], [address], 06/02/2024 17:28:56 06/02/20 24 06/02/2024 CBC AUTO W DIFF granulocyte# 3.42 10 Not Available [facility] (Lab Registration) [address] [place], [address], 06/02/2024 17:28:56 06/02/20 24 06/02/2024 CBC AUTO W DIFF lymphocyte# 2.26 10 Not Available [facility] (Lab Registration) [address] [place], [address], 06/02/2024 17:28:56 06/02/20 24 06/02/2024 CBC AUTO W DIFF monocyte# 0.39 10 Not Available [facility] (Lab Registration) [address] [place], [address], 06/02/2024 17:28:56 06/02/20 24 06/02/2024 CBC AUTO W DIFF eosinophil# 0.15 10 Not Available [facility] (Lab Registration) [address] [place], [address], 06/02/2024 17:28:56 12/20/20 24 06/02/2024 CBC AUTO W DIFF basophil# 0.01 10 Not Available [facility] (Lab Registration) [address] [place], [address], 06/02/2024 17:28:56 06/02/20 24 06/02/2024 CBC AUTO W DIFF immature granulocytes # 0.01 10 Not Available [facility] (Lab Registration) [address] [place], [address], 06/02/2024 17:28:56 06/02/20 24 06/02/2024 CBC AUTO W DIFF manual differential NO Not Available [facility] (Lab Registration) [address] [place], [address], 06/02/2024 17:28:56 06/02/20 24 06/02/2024 CBC AUTO W DIFF note Unles s other wilson noted testi ng perfo rmed at: [facility] [address] [place] [address] [phone] Ryan gonzalez MD CLIA: [id number] Not Available [facility] (Lab Registration) [address] [place], [address], 06/02/2024 17:28:56 06/02/20 24 06/02/2024 LIPID PANEL triglyceride 148 mg/dL 20-200 The Natio nal [employer] l [employer]ca tion [employer]gr am (NCEP ) has set the follo wing guide lines for Fasti ng Trigl yceri sulema: FELICITY L: <150 mg/dL BORDE RLINE HIGH: 150 - 199 mg/dL HIGH: 200 - 499 mg/dL VERY HIGH: > or =500 mg/dL Not Available [facility] (Lab Registration) [address] [place], [address], 06/02/2024 17:49:03 06/02/20 24 06/02/2024 LIPID PANEL cholesterol 173 mg/dL 0-200 The Natio nal [employer] l [employer]ca tion Progr am (NCEP ) has set the follo wing guide lines for Fasti ng Salima stero l: KALPANA ABLE: <200 mg/dL BORDE RLINE HIGH: 200 - 239 mg/dL HIGH: > or =240 mg/dL Not Available [facility] (Lab Registration) [address], [place], [address], 06/02/2024 17:49:03 06/02/20 24 06/02/2024 LIPID PANEL HDL cholesterol 58 mg/dL 60- low The Natio nal [employer] l [employer]ca tion Progr am (PREP ) has set the follo wing guide lines for Fasti ng HDL Salima stero l: LOW HDL: <40 mg/dL FELICITY L: 40 - 60 mg/dL KALPANA ABLE: >60 mg/dL Not Available [facility] (Lab Registration) [address], [place], [address], 06/02/2024 17:49:03 06/02/20 24 06/02/2024 LIPID PANEL LDL calculated 85 mg/dL 100- low The Natio nal [employer] l [employer]ca tion Progr am (PREP ) has set the follo wing guide lines for Fasti ng LDL Salima stero l: OPTIM AL: < 100 mg/dL LOW RISK: 100 - 129 mg/dL BORDE RLINE HIGH: 130 - 159 mg/dL HIGH: 160 - 189 mg/dL VERY HIGH: > or = 190 mg/dL Not Available [facility] (Lab Registration) [address], [place], [address], 06/02/2024 17:49:03 06/02/20 24 06/02/2024 LIPID PANEL chol/HDL ratio 3 -5 Not Available [facility] (Lab Registration) [address] [place], [address], 06/02/2024 17:49:03 06/02/20 24 06/02/2024 LIPID PANEL note Unles s other wilson noted testi ng perfo rmed at: [facility] [address] [place] [address] [phone] Ryan gonzalez MD CLIA: [id number] Not Available [facility] (Lab Registration) [address], [place], [address], 06/02/2024 17:49:03 06/02/20 24 06/02/2024 THYRO ID STIMU LATIN G HORMO NE thyroid stimulating hormone 1.48 mIU/m L 0.34-4 .80 Not Available [facility] (Lab Registration) [address], [place], [address], 06/02/2024 17:49:06 06/02/20 24 06/02/2024 THYRO ID STIMU LATIN G HORMO NE note Unles s other wilson noted testi ng perfo rmed at: [facility] [address] [place] [phone] Ryan gonzalez MD CLIA: [id number] Not Available [facility] (Lab Registration) [address], [place], [address], 06/02/2024 17:49:06 06/02/20 24 06/02/2024 T4 FREE T4,free 1.05 NG/dL 0.76-1 .46 Effec tive today 013 new Refer ence Range . Not Available [facility] (Lab Registration) [address], [place], [address], 06/02/2024 17:49:07 06/02/20 24 06/02/2024 T4 FREE note Unles s other wilson noted testi ng perfo rmed at: [facility] [address] [place] [phone] Ryan gonzalez MD CLIA: [id number] Not Available [facility] (Lab Registration) [address] [place], [address], 06/02/2024 17:49:07 06/02/20 24 06/02/2024 COMP METAB OLIC PANEL sodium 145 mmol/ L 136-14 5 Not Available [facility] (Lab Registration) [address] [place], [address], 06/02/2024 17:50:08 06/02/20 24 06/02/2024 COMP METAB OLIC PANEL potassium 4.3 mmol/ L 3.5-5. 1 Not Available [facility] (Lab Registration) [address] [place], [address], 06/02/2024 17:50:08 06/02/20 24 06/02/2024 COMP METAB OLIC PANEL chloride 107 mmol/ L 98-107 Not Available [facility] (Lab Registration) [address] [place], [address], 06/02/2024 17:50:08 06/02/20 24 06/02/2024 COMP METAB OLIC PANEL carbon dioxide 29 mmol/ L 21-32 Not Available [facility] (Lab Registration) [address] [place], [address], 06/02/2024 17:50:08 06/02/20 24 06/02/2024 COMP METAB OLIC PANEL anion gap 9.0 Not Available [facility] (Lab Registration) [address] [place], [address], 06/02/2024 17:50:08 06/02/20 24 06/02/2024 COMP METAB OLIC PANEL glucose 87 mg/dL 70-110 Not Available [facility] (Lab Registration) [address] [place], [address], 06/02/2024 17:50:08 06/02/20 24 06/02/2024 COMP METAB OLIC PANEL blood urea nitrogen 10 mg/dL 7-18 Not Available [facility] (Lab Registration) [address] [place], [address], 06/02/2024 17:50:08 06/02/20 24 06/02/2024 COMP METAB OLIC PANEL creatinine 0.9 mg/dL 0.6-1. 0 Not Available [facility] (Lab Registration) [address], [place], [address], 06/02/2024 17:50:08 06/02/20 24 06/02/2024 COMP METAB OLIC PANEL BUN/creatini ne ratio 11.1 9- Not Available [facility] (Lab Registration) [address], [place], [address], 06/02/2024 17:50:08 06/02/20 24 06/02/2024 COMP METAB OLIC PANEL estimated glom filtration rate 77 mL/mi n >60- GFR LIMIT ATION : The eGFR equat ion CKD-E PI 2020 is not appli cable for pedia tric patie nts or great er than 90 years of age. The follo wing condi tions may alter the GFR resul t: extre mes in body size, malnu triti on or obesi ty, skele howard muscl e disea se, parap legia or quadr ipleg ia, veget michael diet or rapid ly tai ing kiney funct ion. Not Available [facility] (Lab Registration) [address], [place], [address], 06/02/2024 17:50:08 06/02/20 24 06/02/2024 COMP METAB OLIC PANEL total protein 7.4 g/dL 6.4-8. 2 Not Available [facility] (Lab Registration) [address] [place], [address], 06/02/2024 17:50:08 06/02/20 24 06/02/2024 COMP METAB OLIC PANEL albumin 3.9 g/dL 3.4-5. 0 Not Available [facility] (Lab Registration) [address] [place], [address], 06/02/2024 17:50:08 06/02/20 24 06/02/2024 COMP METAB OLIC PANEL calcium 9.7 mg/dL 8.5-10 .1 Not Available [facility] (Lab Registration) [address], [place], [address], 06/02/2024 17:50:08 06/02/20 24 06/02/2024 COMP METAB OLIC PANEL corrected calcium 9.8 mg/dL 8.5-10 .1 Not Available [facility] (Lab Registration) [address] [place], [address], 06/02/2024 17:50:08 06/02/20 24 06/02/2024 COMP METAB OLIC PANEL bilirubin total 0.5 mg/dL 0.4-1. 5 Not Available [facility] (Lab Registration) [address] [place], [address], 06/02/2024 17:50:08 06/02/20 24 06/02/2024 COMP METAB OLIC PANEL AST (SGOT) 18 U/L 15-37 Not Available [facility] (Lab Registration) [address] [place], [address], 06/02/2024 17:50:08 06/02/20 24 06/02/2024 COMP METAB OLIC PANEL ALT (SGPT) 31 U/L 12-78 Not Available [facility] (Lab Registration) [address] [place], [address], 06/02/2024 17:50:08 06/02/20 24 06/02/2024 COMP METAB OLIC PANEL alk phosphatase 78 U/L 50-120 Not Available [facility] (Lab Registration) [address] [place], [address], 06/02/2024 17:50:08 06/02/20 24 06/02/2024 COMP METAB OLIC PANEL note Unles s other wilson noted testi ng perfo rmed at: [facility] [address] [facility] [place] [address] [phone] Ryan gonzalez MD CLIA: [id number] Not Available [facility] (Lab Registration) [address] [place], [address], 06/02/2024 17:50:08 06/02/20 24 06/02/2024 HEMOG LOBIN A1C glycosylated hemoglobin A1C 5.4 % 4.5-6. 2 Not Available [facility] (Lab Registration) [address] [place], [address], 06/02/2024 18:00:45 06/02/20 24 06/02/2024 HEMOG LOBIN A1C estimated average glucose 108 mg/dL 82-131 Not Available [facility] (Lab Registration) [address] [place], [address], 06/02/2024 18:00:45 06/02/20 24 06/02/2024 HEMOG LOBIN A1C note Unles s other wilson noted testi ng perfo rmed at: [facility] [address] [place] [address] [phone] Ryan gonzalez MD CLIA: [id number] Not Available [facility] (Lab Registration) [address] , [place], [address], 06/02/2024 18:00:45 06/02/20 24 06/02/2024 HCV ANTIB CECILIA note Unles s other wilson noted testi ng perfo rmed at: [facility] [address] [place] [address] [phone] Ryan gonzalez MD CLIA: [id number] Not Available [facility] (Lab Registration) [address] [place], [address], 06/04/2024 08:13:53 06/02/20 24 06/04/2024 HCV ANTIB CECILIA HCV antibody NON REACTI VE non reacti ve HCV antib cecilia alone does not diffe renti ate betwe en previ ously resol suzan infec tion and activ e infec tion. Equiv ocal and React rashida HCV antib cecilia resul ts shoul d be follo wed up with an HCV RNA test to suppo rt the diagn osis of activ e HCV infec tion. Perfo rmed at: - [facility] [address] [facility], [place] [id number] Lab Direc tor: Juanito jerome PhD, Phone : [phone] Not Available [facility] (Lab Registration) [address], [place], [address], 06/04/2024 08:13:53 09/01/19 25 08/31/2024 COMP METAB OLIC PANEL sodium 141 mmol/ L 136-14 5 Not Available [facility] (Lab Registration) [address] [place], [address], 08/31/2024 16:42:29 09/01/19 25 08/31/2024 COMP METAB OLIC PANEL potassium 3.9 mmol/ L 3.5-5. 1 Not Available [facility] (Lab Registration) [address] [place], [address], 08/31/2024 16:42:29 09/01/19 25 08/31/2024 COMP METAB OLIC PANEL chloride 105 mmol/ L 98-107 Not Available [facility] (Lab Registration) [address] [place], [address], 08/31/2024 16:42:29 09/01/19 25 08/31/2024 COMP METAB OLIC PANEL carbon dioxide 29 mmol/ L 21-32 Not Available [facility] (Lab Registration) [address] [place], [address], 08/31/2024 16:42:29 09/01/19 25 08/31/2024 COMP METAB OLIC PANEL anion gap 7.0 Not Available [facility] (Lab Registration) [address] [place], [address], 08/31/2024 16:42:29 09/01/19 25 08/31/2024 COMP METAB OLIC PANEL glucose 83 mg/dL 70-110 Not Available [facility] (Lab Registration) [address], [place], [address], 08/31/2024 16:42:29 09/01/19 25 08/31/2024 COMP METAB OLIC PANEL blood urea nitrogen 11 mg/dL 7-18 Not Available [facility] (Lab Registration) [address], [place], [address], 08/31/2024 16:42:29 09/01/19 25 08/31/2024 COMP METAB OLIC PANEL creatinine 0.9 mg/dL 0.6-1. 0 Not Available [facility] (Lab Registration) [address], [place], [address], 08/31/2024 16:42:29 09/01/19 25 08/31/2024 COMP METAB OLIC PANEL BUN/creatini ne ratio 12.2 9-21 Not Available [facility] (Lab Registration) [address], [place], [address], 08/31/2024 16:42:29 09/01/19 25 08/31/2024 COMP METAB OLIC PANEL estimated glom filtration rate 76 mL/mi n >60- GFR LIMIT ATION : The eGFR equat ion CKD-E PI 2020 is not appli cable for pedia tric patie nts or great er than 90 years of age. The follo wing condi tions may alter the GFR resul t: extre mes in body size, malnu triti on or obesi ty, skele howard muscl e disea se, parap legia or quadr ipleg ia, veget michael diet or rapid ly tai ing kiney funct ion. Not Available [facility] (Lab Registration) [address], [place], [address], 08/31/2024 16:42:29 09/01/19 25 08/31/2024 COMP METAB OLIC PANEL osmolality (calculated) 292 mOsm/ kg 275-30 1 OSMOL ALITY IS A CALCU LATIO N UTILI ZING THE SERUM /PLAS MA SODIU M, GLUCO SE AND UREA NITRO GEN (BUN) LEVEL S. FOR THE MOST ACCUR ATE RESUL T A MEASU RED SERUM OSMOL ALITY IS SHAUNA SANTANA. Not Available [facility] (Lab Registration) [address], [place], [address], 08/31/2024 16:42:29 09/01/19 25 08/31/2024 COMP METAB OLIC PANEL total protein 7.6 g/dL 6.4-8. 2 Not Available [facility] (Lab Registration) [address] [place], [address], 08/31/2024 16:42:29 09/01/19 25 08/31/2024 COMP METAB OLIC PANEL albumin 3.9 g/dL 3.4-5. 0 Not Available [facility] (Lab Registration) [address] [place], [address], 08/31/2024 16:42:29 09/01/19 25 08/31/2024 COMP METAB OLIC PANEL calcium 9.6 mg/dL 8.5-10 .1 Not Available [facility] (Lab Registration) [address] [place], [address], 08/31/2024 16:42:29 09/01/19 25 08/31/2024 COMP METAB OLIC PANEL corrected calcium 9.7 mg/dL 8.5-10 .1 Not Available [facility] (Lab Registration) [address] [place], [address], 08/31/2024 16:42:29 09/01/19 25 08/31/2024 COMP METAB OLIC PANEL bilirubin total 0.4 mg/dL 0.4-1. 5 Not Available [facility] (Lab Registration) [address] [place], [address], 08/31/2024 16:42:29 09/01/19 25 08/31/2024 COMP METAB OLIC PANEL AST (SGOT) 16 U/L 15-37 Not Available [facility] (Lab Registration) [address] [place], [address], 08/31/2024 16:42:29 09/01/19 25 08/31/2024 COMP METAB OLIC PANEL ALT (SGPT) 25 U/L 12-78 Not Available [facility] (Lab Registration) [address] [place], [address], 08/31/2024 16:42:29 09/01/19 25 08/31/2024 COMP METAB OLIC PANEL alk phosphatase 84 U/L 50-120 Not Available [facility] (Lab Registration) [address] [place], [address], 08/31/2024 16:42:29 09/01/19 25 08/31/2024 COMP METAB OLIC PANEL note Unles s other wilson noted testi ng perfo rmed at: [facility] [address] [place] [address] [phone] Ryan gonzalez MD CLIA: [id number] Not Available [facility] (Lab Registration) [address] [place], [address], 08/31/2024 16:42:29 12/07/19 24 12/07/2023 CT, abdom en + pelvi s, w/o contr ast [facility] [address] [place] [address] Phone: Fax: Name: PEYTON SANTANA Exam Date: 024 : 972 Age 53 years Gender : F Access ion: [id number] Physic jessica: AMBURG EY, TAFFAN Y Facili ty: [facility] Facili ty HSV: Outpat ient Exam: CT ABD/PE L NO ORAL OR IV CONTR EXAM: CT ABDOME N AND PELVIS WITHOU T IV CONTRA ST INDICA TION: Abdomi nal pain TECHNI QUE: The patien t was not inject ed with IV contra st. Oral contra st was not admini stered . Axial images were obtain ed from the lung bases to the pubic symphy sis by comput ed tomogr aphy. This study was perfor med with techni ques to keep radiat ion doses as low as reason ably achiekaz ball, (GOSIA ). Indivi dualiz ed dose reduct ion techni ques using automa conor exposu re contro l or adjust ment of mA and/or kV accord ing to the patien t size were employ ed. COMPAR SHAHEEN: None FINDIN GS: LUNG BASES: Clear. LIVER: Grossl y unrema rkable GALLBL ADDER/ BILIAR Y TREE: Unrema rkable SPLEEN : No spleno megaly . ADRENA L GLANDS : Unrema rkable . PANCRE : Grossl y unrema rkable KIDNEY S: A few nonobs tructi ng left renal calcul i measur ing up to 7 mm. No hydron ephros is bilate rally. BOWEL: No small bowel dilata tion. No coloni c dilati on. Extens rashida coloni c divert iculos is withou t acute divert iculit is. Mild coloni c stool and gas. Prior append ectomy PERITO NEUM/R ETROPE RITONE UM: No free fluid. No free air. LYMPH NODES: Small promin ent retrop eriton eal lymph nodes are non-pa tholog ically enlarg ed by size criter ia. No mesent pat adenop athy. BLADDE R: Unrema rkable REPROD UCTIVE ORGANS : Bilate ral tubal clips, otherw ise uterus and adnexa struct ures are grossl y unrema rkable . VASCUL AR: No aortic aneury sm. No iliac aneury sm. BONES: No suspic ious osseou s lesion . Mild degene rative change s. SOFT TISSUE S: Tiny fat-co ntaini ng umbili miguel hernia . IMPRES RUTH: Small nonobs tructi ng left renal calcul i. No acute proces s. Legall y authen ticate d by TERESA Randolph MD 12-06 10:15: 55 Dictat ed By: Feliberto rojas Transc ribed By: Feliberto rojas Transc ribed On: 024 10:15 AM Electr onical ly signed by: Feliberto rojas 024 Thank you for referr PEYTON Roberts to [facility]. Legall y authen ticate d by TERESA Randolph MD 12-06 10:15: 55 CC'ed Logic: Orderi ng Provid er: AMBURG EY TAFFAN Y CC Provid er: AMBURG EY TAFFAN Y Attend ing Provid er: AMBURG EY TAFFAN Y Referr ing Provid er: AMBURG EY TAFFAN Y Admitt ing Provid er: AMBURG EY TAFFAN Y [facility] (Radiology) [address] , [place], [address], 12/07/2023 15:26:17 05/04/20 24 05/01/2024 [place], thyro id No observ ation record ed. [facility] [address], [place], [address], 05/04/2024 11:30:21 Result Notes None recorded. Problems Name Problem SNOMED Code Status Onset Date Resolution Date Notes Provider Name and Address Organization Details Recorded Time Essential hypertension 54416103 Active 2021 Larry Maurilio null, [place] - [facility] [place] 4 15:05:59 Chronic bronchitis 22665788 Active 2021 Lynda Stout null, [place] [facility] [place] 2 08:52:05 Hypothyroidism 84431428 Active 2021 Larry Thorpe null, [place] [facility] [place] 4 15:06:10 Asthma 037118891 Active 2021 Larry Thorpe [place], [place] [facility] [place] 4 15:05:49 Gastroesophage al reflux disease 207371732 Active 2021 [facility] Thor[facility] null, [place] [facility] [place] 4 15:06:05 Anxiety 77804975 Active 2021 Larry Thorpe [place], [place] [facility] [place] 4 15:05:47 Edema 388446844 Active 2021 Larry Thorpe null, [place] [facility] [place] 4 15:05:56 Fatigue 11328765 Active 2021 Larry Thorpe [place], [place] [facility] 4 15:06:01 Atherosclerosi s Active 2021 Larry Thorpe [place], [place] [place] 4 15:05:51 Obstructive sleep apnea syndrome 50345844 Active 2021 Larry Thorpe [place] [facility] 4 15:06:16 Hyperlipidemia 20266785 Active 2021 Larry Thorpe [place], [place] 4 15:06:08 Allergic rhinitis 93808312 Active 2021 Larry Thorpe [place] 4 15:05:45 Depressive disorder 35929018 Active 2021 Larry Thorpe [place], [place] 4 15:05:54 Obesity 724140076 Active 2021 Larry Thorpe [place] [facility] 4 15:06:13 Acquired hypothyroidism 179149470 Active 2023 INOCENTE COR[facility]AL NP [address] [place], [address], [place] [facility] [place] 4 15:48:18 Prediabetes 659910011 Active 2023 INOCENTE [facility] NP [address] [place], [address], [place] [facility] [place] 4 15:48:21 Menopausal flushing 346490837 Active 2023 Larry Thorpe null, [place] [facility] [place] 4 15:19:55 Problem Notes None recorded. Procedures Surgical History Date Name Laterality Status Provider Name and Address Organization Details Recorded Time 09/23/20 22 colonoscopy completed Not Available [facility] 07/19/2022 12:31:01 08/13/19 20 cardiac catheterization completed Not Available [facility] 07/19/2022 12:31:01 08/13/19 18 biopsy of thyroid completed Not Available [facility] 07/19/2022 12:31:01 11/13/19 15 Appendectomy completed Not Available [facility] 07/19/2022 12:31:01 Thyroid Surgery completed INOCENTE CORRAL NP [address] [place], [address], [place] [facility] [place] 07/09/2023 11:52:28 Appendectomy completed INOCENTE [facility] NP [address] [place], [address], [place] [facility] [place] 07/09/2023 11:52:28 Colonoscopy completed INOCENTE [facility] NP [address] [place], [address], [place] [facility] [place] 07/09/2023 11:52:28 Cardiovascular Surgery completed INOCENTE [facility] NP [address] [place], [address], [place] [facility] [place] 07/09/2023 11:52:28 Tubal Ligation completed Not Available [facility] 07/19/2022 12:31:01 Imaging Results Imaging Date Name Status LastModified by Organiz ation Details LastModified Time 12/07/2023 CT, abdomen + pelvis, w/o contrast completed [facility] (Radiology) [address] , [place], [address], 12/07/2023 15:26:17 05/01/2024 [place], thyroid completed [facility] [address], [place], [address], 05/04/2024 11:30:21 Procedure Notes None recorded. Medical Equipment None Reported. Allergies Allergen ID Allergen Name Allergen Category Reaction Reaction Severity Criticality Documentation Date Start Date Code Code System Note Provider Name and Address Organization Details Recorded Time 039575 No known allergy (situatio n) Not available Not available Not available Not available 09/11/2024 78770 6003 SNOMED Ana Laura Colon null, [place] [facility] [place] 5 15:46:44 Medications Name Sig Start Date Stop [...] Available Not Available No t Available Vitals Date Recorded Body height Body mass index (BMI) Body weight Body temperature Oxygen saturation Oxygen saturation in Arterial blood by Pulse oximetry Heart rate Respiratory rate Systolic blood pressure Diastolic blood pressure Provider Name and Address Organization Details Last Updated DateTime 4 162.56 cm 41.2 kg/m2 026535. 17 g 97.2 [degF] 97 % 97 % 71 /min 18 /min 127 mm[Hg] 89 mm[Hg] [place] [facility] [place] 4 15:05:19 Date Recorded Body height Body mass index (BMI) Body weight Body temperature Oxygen saturation Oxygen saturation in Arterial blood by Pulse oximetry Heart rate Systolic blood pressure Diastolic blood pressure Provider Name and Address Organization Details Last Updated DateTime 4 162.56 cm 41 kg/m2 703582. 58 g 98.2 [degF] 97 % 97 % 96 /min 133 mm[Hg] 93 mm[Hg] Jm romano [place] - [facility] & [place] 4 15:27:51 Date Recorded Body height Body mass index (BMI) Body weight Body temperature Oxygen saturation Oxygen saturation in Arterial blood by Pulse oximetry Heart rate Systolic blood pressure Diastolic blood pressure Provider Name and Address Organization Details Last Updated DateTime 4 162.56 cm 40.7 kg/m2 831775. 39 g 97.9 [degF] 99 % 99 % 64 /min 145 mm[Hg] 102 mm[Hg] Jm romano [facility] & [place] 4 15:26:24 Social History Question Answer Notes LastModified by Organizat ion Details LastModified Time Tobacco Smoking Status Former Smoker Lynda Stout rocky, [facility] & [place] 03/25/2022 10:38:09 Do You Have An Advance Directive? No [email or web address] Information not available 12/06/2023 What Is Your Level Of Alcohol Consumption? None Information not available 03/25/2022 Do You Wear A Helmet When Biking? Yes [email or web address] Information not available 12/06/2023 Are You Blind Or Do You Have Difficulty Seeing? Yes [email or web address] Information not available 08/04/2022 What Is Your Level Of Caffeine Consumption? Occasional Information not available 07/09/2023 In The 14 Days Before Symptom Onset, Have You Had Close Contact With A Laboratory-confir med COVID-19 While That Case Was Ill? No [email or web address] Information not available 12/06/2023 In The 14 Days Before Symptom Onset, Have You Had Close Contact With A Person Who Is Under Investigation For COVID-19 While That Person Was Ill? No [email or web address] Information not available 12/06/2023 Have You Been To An Area Known To Be High Risk For COVID-19? No [email or web address] Information not available 12/06/2023 Are You Currently Employed? No [email or web address] Information not available 12/06/2023 Are You Deaf Or Do You Have Serious Difficulty Hearing? No [email or web address] Information not available 12/06/2023 What Type Of Diet Are You Following? REGULAR [email or web address] Information not available 12/06/2023 Have You Processed Blood Or Body Fluids From An Ebola Virus Disease Patient Without Appropriate PPE? No [email or web address] Information not available 12/06/2023 Do You Reside In Or Have You Traveled To An Area Where Ebola Virus Transmission Is Active? No [email or web address] Information not available 12/06/2023 Do You Or Have You Ever Used E-cigarettes Or Vape? Current User Of Electronic Cigarettes [email or web address] Information not available 07/09/2023 Have There Been Any Changes To Your Family Or Social Situation? No [email or web address] Information no t available 12/06/2023 What Is The Fluoride Status Of Your Home? Unknown [email or web address] Information not available 12/06/2023 When Did You Quit Smoking? 6-10yearssince lastvishal diaz29 Information not available 07/09/2023 Are There Any Guns Present In Your Home? No [email or web address] Information not available 12/06/2023 Have You Recently Or Are You Planning To Travel To An Area With Zika Virus? No [email or web address] Information not available 12/06/2023 Do You Use Insect Repellent Routinely? Yes [email or web address] Information not available 12/06/2023 Do You Feel Safe At Home? Yes [email or web address] Information not available 12/06/2023 Do You Have A Medical Power Of Subway Repair Supervisor? No [email or web address] Information not available 12/06/2023 What Was The Date Of Your Most Recent Tobacco Screening? 06/02/2024 [email or web address] Information not available 06/02/2024 Do You Have Any Pets? No Information not available 12/06/2023 Do You Use Your Seat Belt Or Car Seat Routinely? Yes [email or web address] Information not available 12/06/2023 Do You Have Smoke And Carbon Monoxide Detectors In Your Home? Yes [email or web address] Information not available 12/06/2023 Are You Passively Exposed To Smoke? Yes [email or web address] Information no t available 08/04/2022 Do You Or Have You Ever Used Smokeless Tobacco? Never Used Smokeless Tobacco Information not available 03/25/2022 Do You Feel Stressed (tense, Restless, Nervous, Or Anxious, Or Unable To Sleep At Night)? [id number] [email or web address] Information not available 08/04/2022 Do You Use Any Illicit Or Recreational Drugs? No Information not available 03/25/2022 Do You Use Sunscreen Routinely? Yes [email or web address] Information not available 12/06/2023 Has Tobacco Cessation Counseling Been Provided? No Information not available 07/09/2023 Are You Currently In School? No [email or web address] Information not available 12/06/2023 Do You Or Have You Ever Used Any Other Forms Of Tobacco Or Nicotine? Yes Information not available 07/09/2023 Sex: Female Functional Status Question Answer Note LastModified by Organizat ion Details LastModified Time Do you have difficulty walking or climbing stairs? No [email or web address] Information not available 12/06/2023 Do you have transportation difficulties? No [email or web address] Information not available 12/06/2023 Are you able to walk? YESWOREST [email or web address] Information not available 12/06/2023 Do you have difficulty doing errands alone? No [email or web address] Information not available 12/06/2023 Are you able to care for yourself? Yes [email or web address] Information n ot available 12/06/2023 Do you have difficulty dressing or bathing? No [email or web address] Information not available 12/06/2023 What is your exercise level? Occasional Information not available 08/04/2022 Mental Status Question Answer Note LastModified by Organization D etails LastModified Time Do you have difficulty concentrating, remembering or making decisions? No [email or web address] Information no t available 12/06/2023 Family History [...] 15:12:21 Medical History Condition Response Allergies/Hayfever Y Thyroid Problems Y Hypothyroidism Y Obstructive Sleep Apnea Y Anxiety Disorder Y Vision or Eye Problems Y Back Problems Y Reflux/GERD Y High Cholesterol Y Headaches Y Hypertension Y Gynecological History Statement/Question Response Current Control Method None Sexually Active? N Obstetrics History GPAL:G 0 P 0 0 0 0 Immunizations Vaccine Type Date Status Note Provider Nam e and Address Organization Details Recorded Time Td(adult) unspecified formulation 01/02/2015 completed Lynda Stout null, [place] [facility] [place] & [place] 07/21/2022 14:07:40 Influenza, split virus, quadrivalent, PF 06/22/2019 completed Lynda Stout [place] [facility] [place] & [place] 07/21/2022 14:07:40 Influenza, split virus, quadrivalent, PF 02/26/2017 completed Lynda Sotut [place], [place] [facility] [place] & [place] 07/21/2022 14:07:40 Influenza, split virus, quadrivalent, PF 03/18/2015 completed Lynda Stout [place] [facility] [place] & [place] 07/21/2022 14:07:40 Influenza, split virus, quadrivalent, PF 03/24/2018 completed Lynda Stout null, [place] [facility] [place] & [place] 07/21/2022 14:07:40 Past Encounters Encounter ID Performer Location Encounter Start Date Encounter Closed Date Diagnosis/Indication Diagnosis SNOMED-CT Code Diagnosis ICD10 Code Diagnosis Note [id number] INOCENTE CORRAL NP [email or web address] [address] [address] 03/25/2022 10:27:13 03/25/2022 12:00:30 Hypothyroidism 93977861 E03.9 medication s as prescribed awaiting tsh Hypoglycemia 168502143 E 16.2 awaiting [email or web address] forced diet and lifestyle changes Essential hypertension 68038786 I10 educated on goal of less than 130/90advi sed low sodium diet, healthy lifestyle including exercise as ablecontin ue current medication regimenER if any symptoms such as chest pain, shortness of breath Mixed hyperlipidemia 267 233324 E78.2 reinforced lifestyle, diet and exercise education Mixed anxi ety and depressive disorder 827358139 F41.8 controlled except able to tell she has been out of sertraline denies SI/HI Gastroesop hageal reflux disease 598217979 K21.9 Avoid spicy foods, carbonated beverages, lying down 30 minutes to 1 hour after eating Eat smaller portion sizes Take medication s as prescribed Weight management [id number] DALY JONES[address] [address] 07/21/2022 14:02:18 07/27/2022 14:59:10 Diarrhea 65131225 R19.7 reports ate two can of arlene sausages right before recallER if any worsening or urgent signs or symptoms arise Essential hypertension 74402170 I10 cardiology increased medication yesterday but hasnt picked up yetadvised important to merchandise pickup/receiving associate to get BP un controledu cated on goal of less than 130/90advi sed low sodium diet, healthy lifestyle including exercise as ableER if any symptoms such as chest pain, shortness of breath Hypothyroidism 77390062 E03.9 medication s as prescribed awaiting tsh [id number] INOCENTE CORRAL NP [address] [address] 08/04/2022 12:25:30 08/04/2022 14:34:04 Essential hypertension 37050625 I10 educated on goal of less than 130/90advi sed low sodium diet, healthy lifestyle including exercise as ableER if any symptoms such as chest pain, shortness of breathcont inue current medication [id number] INOCENTE CORRAL NP [address] [address] 09/23/2022 13:48:59 10/06/2022 09:14:30 Screening mammography of bilateral breasts 3055217224 66061 Z12.31 agrees to mammogram Contact dermatitis 97715 004 L25.9 keep skin clean and drytx as discussedf /u if symptoms persist or worsen Candidiasis of skin 4988 3006 B37.2 keep skin clean and drychange if sweatymedi cations as prescribed Essential hypertension 27338480 I10 educated on goal of less than 130/90elev ated today; but hasn't had any of her medication sadvised low sodium diet, healthy lifestyle including exercise as ableER if any symptoms such as chest pain, shortness of breathcont inue current medication Mixed hyperlipidemia 267 344168 E78.2 reinforced lifestyle, diet and exercise education [id number] Jesús Garrett MD [address] [place] [address] 01/01/2023 12:18:20 01/01/2023 13:57:57 Streptococcal tonsillitis 28886776 J03.00 Acute strep throat. Positive systemic symptoms. Patient states she has trouble swallowing pills would like liquid antibiotic . She has no known allergies. We use amoxicilli n for treatment. I explained that she was contagious until 48 hours of antibiotic s. Recommend Tylenol for discomfort . Rest push fluidsBloo d pressure is elevated. I recommend strongly she go home and take her blood pressure pill. [id number] INOCENTE CORRAL NP [address] [place] [address] 04/07/2023 11:05:25 04/07/2023 11:43:40 Localized infection of skin AND/OR subcutaneous tissue 766946184 L08.9 keep clean and drykeflex as prescribed by ER for UTI will help with skin as wellwarm compresses topical ointmentf/ u if symptoms persist or worsen [id number] Real Barkley MD [address] [place] [address] 07/09/2023 11:33:04 07/09/2023 16:28:01 Mixed anxiety and depressive disorder 030987245 F41.8 controlled except able to tell she has been out of sertraline denies SI/HIhas not worked for years due to anxiety and depression ; letter for food stamps must see therapist to get letter at least every 1 to 2 months Essential hypertension 22689667 I10 educated on goal of less than 130/90elev ated today; but hasn't had any of her medication sadvised low sodium diet, healthy lifestyle including exercise as ableER if any symptoms such as chest pain, shortness of breathcont inue current medication Hypothyroidism 25555568 E03.4 medication s as prescribed awaiting tsh Vitamin D deficiency 347 81322 E55.9 recheck today Mixed hyperlipidemia 267 765701 E78.2 reinforced lifestyle, diet and exercise education Gastroesop hageal reflux disease 706616945 K21.9 Avoid spicy foods, carbonated beverages, lying down 30 minutes to 1 hour after eating Eat smaller portion sizes Take medication s as prescribed Weight management Allergic rhinitis 128982 04 J30.9 controlled refill given [id number] Real Barkley MD [address] [place] [address] 07/15/2023 10:28:09 07/16/2023 11:05:53 Dysuria 07700765 R30.0 Acute cystitis 47936123 N30.01 [id number] CHELA BUI Therapeut ic Intervent ions at [address] [place] [address] 08/10/2023 14:14:10 08/12/2023 14:13:48 [id number] INOCENTE CORRAL NP [address] [place] [address] 08/10/2023 15:02:17 08/11/2023 12:59:37 Localized enlarged lymph nodes 603040142 R59.0 medication as prescribed f/u if symptoms persist or worsenavoi d scratching or picking Essential hypertension 56477856 I10 educated on goal of less than 130/90advi sed low sodium diet, healthy lifestyle including exercise as ablenot controlled add on amlodipine ; f/u in 6 weeksER if any symptoms such as chest pain, shortness of breath [id number] CHELA BUI Therapeuayanna ic Intervent ions at [address] [place] [address] 09/08/2023 11:52:13 09/08/2023 12:32:02 [id number] Real Barkley MD [address] [place] [address] 09/27/2023 13:53:39 09/27/2023 14:20:01 Essential hypertension 15690831 I10 educated on goal of less than 130/90advi sed low sodium diet, healthy lifestyle including exercise as ablemeetin g goal, continue current medication regimenER if any symptoms such as chest pain, shortness of breath Prediabetes 579509113 R7 3.03 awaiting lab work, reinforced healthy lifestyle Hypothyroidism 49330012 E03.4 medication s as prescribed awaiting tsh Mixed hyperlipidemia 267 321600 E78.2 reinforced lifestyle, diet and exercise education Menopausal flushing 1983 30749 N95.1 did well with samples would like to continue medication [id number] INOCENTE CORRAL NP [address] [place] [address] 12/06/2023 14:32:28 12/07/2023 08:31:47 Medication monitoring 423454642 Z51.81 check liver enzymes todaydenie s any medication side effects Dysuria 63380868 R30.0 Poor stream of urine [address] abdomen pelvis to rule out kidney stone Blood in urine 00291553 R31.[address] abdomen pelvis to rule out kidney stone Acute cystitis 19225291 N30.01 Office UA suggesting UTI, urine sent for culture and office will call after culture received. Take all medicines prescribed for you for the allotted time period. Push fluids especially water. If no better in 48-72 hours or if you develop abdominal or back pain, with fever chills nausea or vomiting come back or go to the emergency room immediatel y [id number] INOCENTE CRORAL NP [address] [place] [address] 12/22/2023 09:34:04 12/22/2023 11:30:44 Dysuria 28337877 R30.0 Acute cystitis 31538927 N30.01 Office UA suggesting UTI, urine sent for culture and office will call after culture received. Take all medicines prescribed for you for the allotted time period. Push fluids especially water. If no better in 48-72 hours or if you develop abdominal or back pain, with fever chills nausea or vomiting come back or go to the emergency room immediatel y [id number] Real Barkley MD [address] [place] [address] 02/07/2024 15:03:36 02/08/2024 06:52:43 Cough 14121343 R05.1 stay well hydratedre stmedicati ons as prescribed symptomati c management ER if any urgent signs or symptoms arise Sore throat 280042921 J0 2.9 warm salt water garglescha nge toothbrush hydrations ymptomatic management f/u if symptoms persist or worsen Prediabetes 669903708 R7 3.03 awaiting lab work, reinforced healthy lifestyle Essential hypertension 18333186 I10 educated on goal of less than 130/90advi sed low sodium diet, healthy lifestyle including exercise as ablemeetin g goal, continue current medication regimenER if any symptoms such as chest pain, shortness of breath Acquired hypothyroidism 738925471 E03.9 recheck lab work todaytake medication first thing in AM on empty stomach Allergic rhinitis 601869 04 J30.9 Patient presents with allergic rhinitis. Supportive care reviewed: raising HOB, avoiding triggers, taking controller medication s, use of saline nasal spray/humi difier, encourage PO fluids, monitor hydration. RTO as scheduled for next WC; sooner if any new or concerning symptoms arise. Mixed anxi ety and depressive disorder 843353727 F41.8 controlled denies SI/HIrefil l provided Acute righ t otitis media 397679053 H66.91 medication s as prescribed , follow-up if symptoms persist or worsen Menopausal flushing 1984 98096 N95.1 Controlled , continue medication therapy we will assess lab work today [id number] INOCENTE CORRAL NP [address] [place] [address] 06/02/2024 15:11:47 06/02/2024 16:01:21 Screening mammography of bilateral breasts 0078440760 80721 Z12.31 agrees to mammogram Essential hypertension 91700162 I10 educated on goal of less than 130/90advi sed low sodium diet, healthy lifestyle including exercise as ablemeetin g goal, continue current medication regimenER if any symptoms such as chest pain, shortness of breath Hypothyroidism 67252411 E03.4 recheck lab work todaytake medication first thing in AM on empty stomach High risk medication monitoring indicated 8996344980 8399893 Z76.89 monitor liver enzymes due to veozah therapyasy mptomatic Mixed hyperlipidemia 267 954321 E78.2 reinforced lifestyle, diet and exercise education Prediabetes 449773499 R7 3.03 awaiting lab work, reinforced healthy lifestyle Hepatitis C screening 41 2608082 Z11.59 once lifetime screening requiremen t [id number] INOCENTE CORRAL NP [facility] [address] [facility] [place] [address] 08/31/2024 14:56:35 09/06/2024 03:55:58 Therapeutic drug monitoring assay 10098469 Z51.81 check liver enzymes todaydenie s any medication side effects Health Concerns Section Related Observation LastModified by Organization Detai ls LastModified Time None Recorded Concern Status LastModified by Organization Details LastModified Time None Recorded Advance Directives Directive N: Payers Encounter Date Sequence Insurance Name Policy Number Policy Art Covered Member ID Art Member ID Guarantor Name 12/06/2023 1 [facility] [facility] (MEDICAID HMO) Peyton Santana [id number] Peyton Santana 12/22/2023 1 [employer] [facility] (MEDICAID HMO) Peyton Santana [id number] Peyton Santana 02/07/2024 1 [employer] [facility] (MEDICAID HMO) Peyton Santana [id number] Peyton Santana 06/02/2024 1 [employer] [facility] (MEDICAID HMO) Peyton Santana [id number] Peyton Santana 08/31/2024 1 [employer] [facility] (MEDICAID HMO) Peyton Santana [id number] Peyton Santana Notes Date Note Type Note Provider Name and Address Organization Details Recorded Time 12/06/2023 text/html 53-year-old heena wilks who presents for follow-up. She is taking veozah therapy and needs her liver enzymes recheck. Denies any medication side effects. She reports needing to have right eye surgery on December 19. complains of urinary urgency, frequency, burning, when she goes to the bathroom nothing comes out or has a couple dribbles, weak stream. Denies any history of kidney stone. Symptoms have been present for a few days. Denies any fever, chills, nausea, vomiting, abdominal pain, diarrhea INOCENTE CORRAL, DALY [address] [place], [address], [facility] - [place] & [place] 12/06/2023 15:23:37 02/07/2024 text/html 53-year-old heena wilks who presents with complaints of cough, headache, sore throat, congestion for 1 week. Concerns with mold exposure she was drinking out of a cup that was found to have mold in it. Reports needing follow-up labs on chronic care, history of prediabetes. Denies any signs or symptoms of hyper or hypoglycemia. Needs liver enzymes recheck due to being on videos of therapy. She is tolerating well and is working for her hot flashes. taking her blood pressure medication as prescribed without any chest pain swelling shortness of breath. INOCENTE CORRAL NP [address] [place], [address], [facility] & [place] 02/10/2024 10:49:54 06/02/2024 text/html 53-year-old heena wilks who presents for follow-up. Blood pressure is elevated but reports she has not had her medications yet today. Is fasting for her lab work. Medications reviewed. Anxiety and depression are well controlled with sertraline and bupropion. Over thyroxine at 125 mcg. Denies any hair loss, constipation. Reflux is controlled with omeprazole. Taking atorvastatin and fenofibrate without side effect. Complains of right neck pain for 1 week. Denies any injuries or trauma, just feels tight and sore. Denies any radiating pain. INOCENTE CORRAL NP [address] [facility], [place], [address], [facility] & [place] 06/10/2024 16:32:21 OBGyn Episode No OBEpisode recorded.
[2024-10-13 15:17] LABS: Free T4 (Free Thyroxine) 0.97 ng/dl (0.78-2.19)
[2024-10-13 15:33] LABS: Thyroid Stimulating Hormone 5.43 uIU/mL (0.465-4.68)
== END 2024-10-13 23:59 | disposition home or self-care (01) ==
LOC: RAD 13:39
PROVIDERS: PCP Nurse Practitioner; Visit Provider Nurse Practitioner
DX: E04.1 Nontoxic single thyroid nodule (principal)
CPT/HCPCS: 36415; 76536; 84439; 84443

== ENCOUNTER 2025-01-30 14:07 | Outpatient (CLI) | payer OTHER, SELFPAY ==
[2025-01-30 15:04] LABS: Free T4 (Free Thyroxine) 1.69 ng/dl (0.78-2.19)
[2025-01-30 15:53] LABS: Thyroid Stimulating Hormone 1.78 uIU/mL (0.465-4.68)
== END 2025-01-30 23:59 | disposition home or self-care (01) ==
LOC: LAB 14:07
PROVIDERS: PCP Nurse Practitioner Family; Visit Provider Nurse Practitioner
DX: E01.0 Iodine-deficiency related diffuse (endemic) goiter (principal)
CPT/HCPCS: 36415; 84439; 84443

== ENCOUNTER 2025-03-26 14:24 | Outpatient (CLI) | payer OTHER, SELFPAY ==
--- OUTSIDE RECORDS SUMMARY | 2025-03-26 14:28 | XMS_ITS | Clinical Summary ---
Author Organization [employer] ([place], [place], [place], [place]) Address [address] [place] [address] Care Team Providers Care Traffic Administrator Name Role Phone [facility], Provider Not In The System MD Primary Care Provider Unavailable Social History Tobacco Use Types Packs/Day Years Used Date Smoking Tobacco: Never Assessed Food Insecurity Answer Date Recorded Food run out past 12 months Not on file 01/2024 Food did not last past 12 months Not on file 10/20/2023 Employment Answer Date Recorded Help finding and keeping a job Not on file 0 10/20/2023 Family and Community Support Answer Henri e Recorded Help with Day to Day Activities Not on file 10/20/2023 Feeling Lonely or Isolated Not on file 10/19 Educational Attainment Answer Date Jignesh rded Speak language other than Israeli at home Not on file 10/20/2023 Want help with school or training Not on file 10/20/2023 Substance Use Answer Date Recorded Used prescription meds for non-medical reasons N ot on file 10/20/2023 Used illegal drugs past 12 months Not on file 10/20/2023 Comments Unknown Sex and Gender Information Value Date Recorded Sex Assigned at Not on file Legal Sex Female 5:28 PM CDT Gender Identity Not on file Sexual Orientation Not on file Plan of Treatment Health Maintenance Due Date Last Done Comments CT Colonography 1971 Colonoscopy 1971 Colorectal Cancer Screening 1971 FOBT/FIT 1971 Fit-DNA (Cologuard) 1971 Sigmoidoscopy 1971 Depression Screening (12+) 1983 Tobacco Cessation Counseling and Screening (12+) 08/29 HIV Screening 08/29/1986 Hepatitis C Screening 08/29/1989 DTAP/TDAP/TD VACCINES (1 - Tdap) 08/29/1990 Pap Smear 08/29/1992 Lipid Panel 08/29/2016 Pneumococcal 50+ years (1 of 1 - PCV) 08/29/2021 Shingles Vaccine (Zoster) (1 of 2) 08/29/2021 COVID-19 VACCINE (1 - season) 2025 Influenza Vaccine (#1) 2025 Breast Cancer Screening 12/09/2025 12/10/2023 Procedures Procedure Name Priority Date/Time Associated Diagnosis Comments MM DIGITAL MAMMO SCREEN WITH ESTRADA BILATERAL Routine 12/10/2023 12:50 PM EDT Screening mammogram, encounter for from Last 3 Months or Most Recently Relevant to Health Maintenance Results * MM digital mammo screen with estrada bilateral (12/10/2023 12:50 PM EDT) Anatomical Region Laterality Modality Breast Bilateral Mammography 12/10/2023 3:53 PM EDT Impressions 12/10/2023 3:59 PM EDT FINAL IMPRESSION: Stable mammogram. No findings suspicious for malignancy. Bi-RADS: ACR BI-RADS 1: Negative. RECOMMENDATIONS: Annual screening mammography. A letter including results and recommendations was sent to the patient. Density notification was included for patients with pattern 3 or 4 breast tissue. Patient information was entered into a reminder system with a target due date for the next mammogram. At our facility, a bill moore[place] sl[place] marker is positioned over a visible skin lesion and a linear marker is used to indicate a scar. A triangular marker is placed on a self reported palpable finding. Note: Mammography does not detect approximately 10-15% of breast cancers. An annual clinical breast exam by the patient's breast care physician and regular monthly self breast exams by the patient are integral parts of breast cancer screening, in addition to annual mammography. A normal mammogram does not completely exclude the presence of breast cancer, especially if there is an abnormal finding on physical exam. When clinically indicated, a biopsy should not be deferred because of a normal mammogram report. Narrative 12/10/2023 3:59 PM EDT PROCEDURE: Digital screening mammogram with Digital Breast Tomosynthesis (DBT). REASON FOR EXAM: Routine screening. FAMILY HISTORY: No family history of breast cancer. COMPARISON STUDY: 2021 through 2015 from [facility] FINDINGS: Craniocaudal and mediolateral oblique images of both breasts were obtained in 2D and DBT modes. Synthesized views were reconstructed from DBT data. The breast tissue is almost entirely fatty. There is no evidence of dominant mass, architectural distortion, or suspicious calcifications. The mammogram was interpreted with the benefit of computer aided detection (CAD). us Provider Not In The System Amy KIRK IMG MAMMOGRAPH Y ORDERABLES Final Result from Last 3 Months or Most Recently Relevant to Health Maintenance Insurance [facility] Care Teams Traffic Administrator Relationship Specialty Start Date End Date [facility], Provider Not In The System, [place] [address] PCP - General 10/23/22
--- OUTSIDE RECORDS SUMMARY | 2025-03-26 14:28 | XMS_ITS | Referral Summary ---
Author Organization [employer] ([place], [place], [place], [place]) Address [address] [place] [address] Care Team Providers Care Geospatial Engineer Name Role Phone [facility], Provider Not In The System MD Primary [...] Date Jignesh rded Speak language other than Samoan at home Not on file 10/20/2023 Want [...] Orientation Not on file Plan of Treatment Not on file Procedures Procedure Name Priority Date/Time Associated Diagnosis [...] the next mammogram. At our facility, a [place] marker is positioned over a visible skin [...] cancer. COMPARISON STUDY: 2021 through 2015 from [facility] FINDINGS: Craniocaudal and mediolateral oblique images of both breasts were obtained in 2D and DBT modes. Synthesized views were reconstructed from DBT data. The breast tissue is almost entirely fatty. There is no evidence of dominant mass, architectural distortion, or suspicious calcifications. The mammogram was interpreted with the benefit of computer aided detection (CAD). us Provider Not In The System Amy APPLE MAMMOGRAPH Y ORDERABLES Final Result from Last 3 Months or Most Recently Relevant to Health Maintenance Insurance [facility] Care Teams Geospatial Engineer Relationship Specialty Start Date End Date [facility], Provider Not In The System, [place] [address] PCP - General 10/23/22
--- OUTSIDE RECORDS SUMMARY | 2025-03-26 14:28 | XMS_ITS | Encounter Summary ---
Author Organization [employer] ([place], [place], [place], [place]) Address [address] [place] [address] Care Team Providers Care Stockroom Helper Name Role Phone [facility], Provider Not In The System Primary Care Provider Unavailable Encounter Details Date Type Department Care Team (Late st Contact Info) Description 09/28/2022 Outside Orders [facility] Central Scheduling [address] [place] [address] Wilbur Wright, MANAGER PACU [address] [place] [address] Breast cancer screening by mammogram (Primary Dx) Social History Tobacco Use Types Packs/Day Years Used Date Smoking Tobacco: Never Assessed Comments Unknown Sex and Gender Information Value Date Recorded Sex Assigned at Not on file Legal Sex Female 5:28 PM CDT Gender Identity Not on file Sexual Orientation Not on file documented as of this encounter Plan of Treatment Not on file documented as of this encounter Visit Diagnoses Diagnosis Breast cancer screening by mammogram- Primary documented in this encounter Care Teams Stockroom Helper Relationship Specialty Start Date End Date Amy, Provider Not In The System, [place] [address] PCP - General 10/23/22 documented as of this encounter
[2025-03-26 15:13] LABS: Hematocrit 38.2 % (37.0-47.0); Hemoglobin 12.1 g/dL (12.2-16.2); Immature Granulocytes % 0.3 %; Mean Corpuscular HGB Conc 31.7 g/dL (31.8-35.4); Mean Corpuscular Hemoglobin 27.2 pg (27.0-31.2); Mean Corpuscular Volume 85.8 fl (81-99); Nucleated Red Blood Cells % 0 %; Platelet Count 303 K/mm3 (142-424); Red Blood Count 4.45 M/mm3 (4.20-5.40); Red Cell Distribution Width-SD 44.4 fL; White Blood Count 7.2 K/mm3 (4.8-10.8)
[2025-03-26 16:30] LABS: Albumin Level 3.9 g/dl (3.5-5.0)
[2025-03-26 16:31] LABS: Chloride 100 mmol/L (98-107); Potassium 4.2 mmoL/L (3.5-5.1); Sodium 138 mmol/L (136-145)
[2025-03-26 16:33] LABS: Alanine Aminotransferase 24 U/L (12-78); Anion Gap 11.2 mEq/L (5-15); Aspartate Amino Transferase 24 U/L (14-36); Bilirubin,Unconjugated 0.5 mg/dL (0.0-1.1); Blood Urea Nitrogen 13 mg/dl (7-17); Carbon Dioxide 31 mmol/L (22.0-30.0); Creatinine,Serum 0.90 mg/dl (0.52-1.04); Estimated Glomerular Filt Rate 65 ml/min (>60); GFR (African American) 79 ML/MIN (>60)
[2025-03-26 16:34] LABS: Alkaline Phosphatase 73 U/L (38-126); Bilirubin,Direct 0.0 mg/dl (0.0-0.4); Bilirubin,Indirect 0.5 mg/dL (0.0-0.9); Bilirubin,Total 0.5 mg/dl (0.2-1.3); Calcium 9.3 mg/dl (8.4-10.2); Cholesterol 213 mg/dl (140-200); Glucose 69 mg/dl (74-100); HDL Cholesterol 49 mg/dl (40-60); Magnesium 1.8 mg/dl (1.6-2.3); Total Protein,Serum 7.1 g/dl (6.3-8.2); Triglycerides 216 mg/dl (30-150)
[2025-03-26 16:48] LABS: Free T4 (Free Thyroxine) 1.40 ng/dl (0.78-2.19)
[2025-03-26 16:56] LABS: NT Pro Brain Natriuretic Pep. 117 pg/mL (0-125)
[2025-03-26 17:17] LABS: Thyroid Stimulating Hormone 0.98 uIU/mL (0.465-4.68)
[2025-03-26 18:16] LABS: Hemoglobin A1C 5.3 % (4.0-6.0)
== END 2025-03-26 23:59 | disposition home or self-care (01) ==
LOC: LAB 14:25
PROVIDERS: PCP Nurse Practitioner Family; Visit Provider Physician Assistant
DX: I11.9 Hypertensive heart disease without heart failure (principal); E78.5 Hyperlipidemia, unspecified; R55 Syncope and collapse
CPT/HCPCS: 36415; 80048; 80061; 80076; 83036; 83735; 83880; 84439; 84443; 85025

== ENCOUNTER → 2025-03-28 19:56 | Outpatient (CLI) | payer OTHER, SELFPAY ==
--- OUTSIDE RECORDS SUMMARY | 2025-02-20 00:11 | XMS_ITS | Continuity of Care Document ---
Author Organization [facility] Phone Care Team Providers Care Electrical Manufacturing Engineer Name Role Phone INOCENTE CORRAL Primary Care INOCENTE CORRAL Unavailable [phone] INOCENTE CORRAL Primary Attending INOCENTE CORRAL Admitting [phone] ALLERGIES AND ADVERSE REACTIONS ALLERGIES AND ADVERSE REACTIONS Code System Allergy Substance Adverse Reaction Date Reaction (Severity) Comment Status Reported By Updated By No Known Allergies [id number] on April 06, 2023 1:24:16 AM UTC RESULTS Patient: ESTHER MOREJON Date of : [birth year] 7 LABORATORY RESULTS ORDER 200: VAGINITIS PLUS VG (LOINC: 63382-8) ORDER DATE: February 16, 2025 5:10:00 PM UTC Specimen Source: Swab Specimen Type: Swab PERFORMING LAB: [address] [id number] Result Comment: February 19, 2025 9:07:00 AM UTC Performed at: =[facility] Nissa Santiago Result Comment: February 19, 2025 9:07:00 AM UTC [place] [id number] Result Comment: February 19, 2025 9:07:00 AM UTC Franchise Sales Manager: Alissa Galindo MD, Phone: [phone] Result Comment: February 19, 2025 9:07:00 AM UTC Final Result Date: February 16, 2025 5:10:00 PM UTC (TECH: LAB) LOINC TEST FLAG [place] [address]-0 Atopobium vaginae DN A [Presence] in Vaginal fluid by Probe and target amplification method N Low - 0 Score February 16 5:10:00 PM UTC (TECH: LAB) 13945-9 Bacterial vaginosis associated bacterium 2 DNA [Presence] in Vaginal fluid by Probe and target amplification method N Moderate - 1 Score February 16, 2025 5:10:00 PM UTC (TECH: LAB) 89350-9 Megasphaera sp type 1 DNA [Presence] in Vaginal fluid by Probe and target amplification method N Low - 0 Score February 5:10:00 PM UTC (TECH: LAB) 35822-6 Meaghan albicans DNA [Presence] in Vaginal fluid by Probe and target amplification method N Negative Negative February 16 5:10:00 PM UTC (TECH: LAB) 30196-6 Meaghan glabrata DNA [Presence] in Vaginal fluid by Probe and target amplification method N Negative Negative February 16 5:10:00 PM UTC (TECH: LAB) 71217-8 Trichomonas vaginali s DNA [Presence] in Vaginal fluid by Probe and target amplification method Positive Negative February 5:10:00 PM UTC (TECH: LAB) 42142-9 Chlamydia trachomati s DNA [Presence] in Unspecified specimen by Probe and target amplification method N Negative Negative February 5:10:00 PM UTC (TECH: LAB) 76844-2 Neisseria gonorrhoea e DNA [Presence] in Unspecified specimen by Probe and target amplification method N Negative Negative February 5:10:00 PM UTC (TECH: LAB) LABORATORY NARRATIVE RESULTS Information is [...] RXNORM NDC Medication Dose Route Frequency Dates Dis pense Data Comments Physician Updated By No Discharge Medication Info rmation Available INPATIENT MEDICATIONS Status RXNORM NDC Medication Dose Route Frequency Rat e Quantity Dates Indication Dispense Data Comments Physician Updated By No Inpatient Medication Info rmation Available SOCIAL HISTORY SOCIAL HISTORY - Smoking Status SNOMED-CT Social History Element Description Effective Dates Offered Cessation Comment Updated By [id number] Smoking Status Unknown If Ever Smoked SOCIAL HISTORY - Gender Sex: Female SOCIAL HISTORY - Status : status i nformation is not available Intention in Next Year: intention information is not available SOCIAL HISTORY - Assessments Code System Description Status Date Value of Assessment Updated By Comment Assessment Information is no t available SOCIAL HISTORY - [place] Affiliation [place] information is not av ailable SOCIAL HISTORY - Legal Sex Legal Sex information is not available SOCIAL HISTORY - Sexual Behavior Sexual Orientation Gender Identity SNOMED-CT Description SNO MED -CT Description Activity Level No of Partners Partner Type UpdatedBy Information is not available SOCIAL HISTORY - Occupation Occupation information is no t available HEALTH CONCERNS Problems Concern Status Health Concern problem infor mation not available. Smoking Status Status Years Used Consumed packs p er day Health Concern smoking histo ry information not available. Family History Concern Status Health Concern family histor y information not available. ENCOUNTERS ENCOUNTER INFORMATION Reason for Visit N76.0 Admission February 16, 2025 3:23:[address] [address] Discharge February 17, 2025 3:23:00 PM [facility] DISCHARGED TO HOME OR SELF CARE ENCOUNTER DIAGNOSES Notes information is not lilly ilable. Code System Diagnosis Onset Date Diagnosis information is not available. ABSTRACT DIAGNOSES Code System Diagnosis Updated By Abatement Date N76.0 ICD10 ACUTE VAGINITIS [id number] on S 2024 4:10:59 AM [facility] N76.0 ICD10 ACUTE VAGINITIS [id number] on [facility] 2024 4:10:59 AM [facility] CARE TEAM Care Electrical Manufacturing Engineer Role INOCENTE CORRAL Primary Care INOCENTE CORRAL Referring INOCENTE CORRAL Primary Attending INOCENTE CORRAL Admitting CARE TEAM CARE dining services manager Role on Team Location Telecom Status Start Date End Henri e Updated By ELLIS LOTT Referring normal February 16, 2025 4:00:00 AM [facility] February 17, 2025 3:23:00 PM [facility] [id number] on February 19, 2025 10:45:23 AM [facility] ELLIS LOTT Attending normal February 16, 2025 4:00:00 AM [facility] February 17, 2025 3:23:00 PM [facility] [id number] on February 19, 2025 10:45:23 AM [facility] ELLIS LOTT Admitting normal February 16, 2025 4:00:00 AM [facility] February 17, 2025 3:23:00 PM [facility] [id number] on February 19, 2025 10:45:23 AM [facility] ELLIS LOTT PCP normal February 16, 2025 3:23:39 PM [facility] February 17, 2025 3:23:00 PM [facility] [id number] on February 19, 2025 10:45:23 AM [facility]
--- OUTSIDE RECORDS SUMMARY | 2025-02-20 00:15 | XMS_ITS | Continuity of Care Document ---
Author Organization [facility] Phone Care Team Providers Care Travel Med Surg Rn Name Role Phone INOCENTE CORRAL Admitting [phone] INOCENTE CORRAL Primary Attending [phone] INOCENTE CORRAL Unavailable [phone] INOCENTE CORRAL Primary Care ALLERGIES AND ADVERSE REACTIONS ALLERGIES AND ADVERSE REACTIONS Code System Allergy Substance Adverse Reaction Date Reaction (Severity) Comment Status Reported By Updated By No Known Allergies [id number] on April 06, 2023 1:24:16 AM UTC RESULTS Patient: ESTHER MOREJON Date of : [birth year] 7 LABORATORY RESULTS Information is not available LABORATORY NARRATIVE RESULTS Information is not available RADIOLOGY RESULTS Information is not available PATHOLOGY NARRATIVE RESULTS Information is not available MICROBIOLOGY RESULTS ORDER 100: CULTURE URINE (LO INC: 630-4) ORDER DATE: February 16, 2025 2:53:00 PM UTC PERFORMING LAB: [address] [id number] Specimen Source: URINE Specimen Type: Result Comment: February 17, 2025 8:40:00 AM UTC (TECH: [facility]) >100,000 COL/ML Gram Positive Cocci Final Result Date: February 18, 2025 8:37:00 AM UTC (TECH: [facility]) ISOLATE #1 Organism: Streptococcus agalactiae (Group B) Result Comment: Final Result Date: February 18, 2025 8:37:00 AM UTC (TECH: [facility]) LOINC ANTIBIOTIC ERIC [place] Y 61429-4 Daptomycin <= 0.5 Systemic S February 18, 2025 8:37:00 AM UTC (TECH: [facility]) 39342-2 Daptomycin <= 0.5 Urine S February 18, 2025 8:37:00 AM UTC (TECH: [facility]) 39072-5 Levofloxacin <= 1.0 Systemic S Septemb er 2024 8:37:00 AM UTC (TECH: [facility]) 06389-9 Levofloxacin <= 1.0 Urine S Septemb er 2024 8:37:00 AM UTC (TECH: [facility]) 95843-3 Linezolid <= 1.0 Systemic S February 18, 2025 8:37:00 AM UTC (TECH: [facility]) 05209-9 Linezolid <= 1.0 Urine S February 18, 2025 8:37:00 AM UTC (TECH: [facility]) 96628-5 Penicillin <= 0.03 Systemic S February 18, 2025 8:37:00 AM UTC (TECH: [facility]) 19330-1 Penicillin <= 0.03 Urine S February 18, 2025 8:37:00 AM UTC (TECH: [facility]) 516-5 Trimeth/Sulfa 0.5 Systemic TFG Septem 2024 8:37:00 AM UTC (TECH: [facility]) 516-5 Trimeth/Sulfa 0.5 Urine TFG Septem 2024 8:37:00 AM UTC (TECH: [facility]) 79811-1 Vancomycin 0.5 Systemic S February 18, 2025 8:37:00 AM UTC (TECH: [facility]) 65202-4 Vancomycin 0.5 Urine S February 18, 2025 8:37:00 AM UTC (TECH: [facility]) BLOOD ADMIN RESULTS Information is not available [...] Effective Dates Offered Cessation Comment Updated By [id number] Smoking Status Unknown If Ever Smoked SOCIAL HISTORY - Gender Sex: Female SOCIAL HISTORY - Status : status i nformation is not available Intention in Next Year: intention information is not available SOCIAL HISTORY - Assessments Code System Description Status Date Value of Assessment Updated By Comment Assessment Information is no t available SOCIAL HISTORY - [place] Affiliation [place] information is not av ailable SOCIAL HISTORY [...] available. ENCOUNTERS ENCOUNTER INFORMATION Reason for Visit R30.0 Admission February 16, 2025 2:52:[address] [address] Discharge February 17, 2025 2:52:00 PM [facility] DISCHARGED TO HOME OR SELF CARE ENCOUNTER DIAGNOSES Notes information is not lilly ilable. Code System Diagnosis Onset Date Diagnosis information is not available. ABSTRACT DIAGNOSES Code System Diagnosis Updated By Abatement Date R30.0 ICD10 DYSURIA [id number] on February 20 4:15:32 AM [facility] R30.0 ICD10 DYSURIA [id number] on February 20 4:15:32 AM [facility] CARE TEAM Care Travel Med Surg Rn Role INOCENTE CORRAL Admitting INOCENTE CORRAL Primary Attending INOCENTE CORRAL Referring INOCENTE CORRAL Primary Care CARE TEAM CARE financial compliance examiner Role on Team Location Telecom Status Start Date End Henri e Updated By ELLIS LOTT Referring normal February 16, 2025 4:00:00 AM [facility] February 17, 2025 2:52:00 PM [facility] [id number] on February 19, 2025 10:46:19 AM [facility] ELLIS LOTT Attending normal February 16, 2025 4:00:00 AM [facility] February 17, 2025 2:52:00 PM [facility] [id number] on February 19, 2025 10:46:19 AM [facility] ELLIS LOTT Admitting normal February 16, 2025 4:00:00 AM [facility] February 17, 2025 2:52:00 PM [facility] [id number] on February 19, 2025 10:46:19 AM [facility] ELLIS LOTT PCP normal February 16, 2025 2:53:09 PM [facility] February 17, 2025 2:52:00 PM [facility] [id number] on February 19, 2025 10:46:19 AM [facility]
--- OUTSIDE RECORDS SUMMARY | 2025-03-28 19:59 | XMS_ITS | Clinical Summary ---
Author Organization [employer] ([place], [place], [place], [place]) Address [address] [place] [address] Care Team Providers Care Supervisor Curing Room Name Role Phone [facility], Provider Not In The System MD Primary [...] Date Jignesh rded Speak language other than [place] at home Not on file 10/20/2023 Want [...] the next mammogram. At our facility, a cher[place] marker is positioned over a visible skin [...] cancer. COMPARISON STUDY: 2021 through 2015 from [facility] FINDINGS: Craniocaudal and mediolateral oblique images [...] Most Recently Relevant to Health Maintenance Insurance [facility] Care Teams Supervisor Curing Room Relationship Specialty Start Date End Date [facility], Provider Not In The System, [place] [address] PCP - General 10/23/22
--- OUTSIDE RECORDS SUMMARY | 2025-03-28 19:59 | XMS_ITS | Data Portability ---
Author Organization [place] - Par8o., [facility] Address [address] [place] [address] Assessment No assessment recorded. Plan of Treatment Reminders Order Date Submit Date Provider Last Modified By Organization Details Last Modified Time Details Appointments None recorded. Lab unlisted lab - sureswab(R ) advanced vaginitis plus, tma 2023 [facility], [address], [place], [address], 12:47:35 pap, LB 2023 024 [facility], [address], [place], [address], 17:27:48 Referral None recorded. Procedures None recorded. Surgeries None recorded. Imaging None recorded. Medication Orders None recorded. Patient TargetsNo targets recorded. Patient InstructionsNo instructions recorded. Reason for Referral None Reported. Results Created Date Observation Date Name Description Value Unit Range Abnormal Flag Note LastModifiedBy Organization Detail LastModifiedTime 12/10/1912/11/2023 SURES WAB(R ) ADVAN OZZY VAGIN ITIS PLUS, TMA sureswab(R) adv bacterial vaginosis (bv), tma POSITI VE negati ve abnormal Not Available [facility] [place] [facility] [address] [facility], [place], [address], 12/11/2023 12:47:35 12/10/19 24 12/11/2023 SURES WAB(R ) ADVAN OZZY VAGIN ITIS PLUS, TMA anita species NOT DETECT ED not detect ed normal Not Available [facility] [place] [facility] [address] [place], [address], 12/11/2023 12:47:35 12/10/19 24 12/11/2023 SURES WAB(R ) ADVAN OZZY VAGIN ITIS PLUS, TMA anita glabrata NOT DETECT ED not detect ed normal Janny da speci es C. albic ans, C. tropi calis , C. parap carter is, and/o r C. dubli ni is can be detec conor, but not diffe renti ated, in the Janny da spp. resul t. Not Available [facility] [place] [facility] [address] [facility], [place], [address], 12/11/2023 12:47:35 12/10/19 24 12/11/2023 SURES WAB(R ) ADVAN OZZY VAGIN ITIS PLUS, TMA trichomonas vaginalis (TV), tma DETECT ED not detect ed abnormal Not Available [facility] [place] [facility] [address] [facility], [place], [address], 12/11/2023 12:47:35 12/10/19 24 12/11/2023 SURES WAB(R ) ADVAN OZZY VAGIN ITIS PLUS, TMA chlamydia trachomatis RNA, tma, urogenital NOT DETECT ED not detect ed normal Not Available [facility] [place] [facility] [address] [facility], [place], [address], 12/11/2023 12:47:35 12/10/19 24 12/11/2023 SURES WAB(R ) ADVAN OZZY VAGIN ITIS PLUS, TMA neisseria gonorrhoeae RNA, tma, urogenital NOT DETECT ED not detect ed normal For addit ional james zeng refer to https ://ed ucati on.qu génesis [place]. Modern Message/f aq/FA Q154 (This link is being provi ded for isaias romano/ educa miguel l purpo ses only. ) Not Available [facility] [place] [facility] [address], [place], [address], 12/11/2023 12:47:35 12/10/19 24 12/15/2023 IMAGE -GUID ED PAP W/AGE BASED SCR SCOTT COLS comment This order for age-b ased cervi miguel cance r and STI scree anu follo ws ACOG guide lines (PB 168, 140, FAQ07 1). See indiv idual assay s for perfo rming site locat ion. Not Available [facility] [place] [facility] [address], [place], [address], 12/15/2023 17:27:48 12/10/19 24 12/15/2023 IMAGE -GUID ED PAP W/AGE BASED SCR SCOTT COLS clinical information: normal None given Not Available [facility] [place] [facility] [address], [place], [address], 12/15/2023 17:27:48 12/10/19 24 12/15/2023 IMAGE -GUID ED PAP W/AGE BASED SCR SCOTT COLS LMP: normal NONE GIVEN Not Available [facility] [place] [facility] [address], [place], [address], 12/15/2023 17:27:48 12/10/19 24 12/15/2023 IMAGE -GUID ED PAP W/AGE BASED SCR SCOTT COLS prev. Pap: normal NONE GIVEN Not Available [facility] [place] [facility] [address], [place], [address], 12/15/2023 17:27:48 12/10/19 24 12/15/2023 IMAGE -GUID ED PAP W/AGE BASED SCR SCOTT COLS prev. BX: normal NONE GIVEN Not Available [facility] [place] [facility] [address], [place], [address], 12/15/2023 17:27:48 12/10/19 24 12/15/2023 IMAGE -GUID ED PAP W/AGE BASED SCR SCOTT COLS source: normal Vagin a, Cervi x, Endoc ervix Not Available [facility] [place] [facility] [address] [facility] [place], [address], 12/15/2023 17:27:48 12/10/19 24 12/15/2023 IMAGE -GUID ED PAP W/AGE BASED SCR SCOTT COLS statement of adequacy: normal Satis facto ry for evalu ation . Endoc ervic al/tr ansfo rmati on zone compo nent prese nt. Parti ally obscu ring infla mmati on Age and/o r menst rual statu s not provi ded Not Available [facility] [place] [facility] [address] [facility] [place], [address], 12/15/2023 17:27:48 12/10/19 24 12/15/2023 IMAGE -GUID ED PAP W/AGE BASED SCR SCOTT COLS interpretati on/result: normal Cytol ogy Resul ts: Negat rashida for intra epith elial lesio n or malig [place] . Not Available [facility] [place] [facility] [address] [facility] [place], [address], 12/15/2023 17:27:48 12/10/19 24 12/15/2023 IMAGE -GUID ED PAP W/AGE BASED SCR SCOTT COLS infection: normal Trich omona s vagin chen ident ified . Not Available [facility] [place] [facility] [address] [facility] [place], [address], 12/15/2023 17:27:48 12/10/19 24 12/15/2023 IMAGE -GUID ED PAP W/AGE BASED SCR SCOTT COLS comment: normal This Pap test has been evalu ated with compu ter helene [employer] . Not Available [facility] [place] [facility] [address] [facility] [place], [address], 12/15/2023 17:27:48 12/10/19 24 12/15/2023 IMAGE -GUID ED PAP W/AGE BASED SCR SCOTT COLS cytotechnolo gist: normal AVN, CT( CP) CT Scree anu locat ion: [facility] [place] [address] [place] [address] Not Available [facility] [place] [facility] [address] [place], [address], 12/15/2023 17:27:48 12/10/19 24 12/15/2023 IMAGE -GUID ED PAP W/AGE BASED SCR SCOTT COLS review cytotechnolo gist: normal ESW, CT (ASCP ) CT Scree anu locat ion: [facility] [place] [address] [facility] [place] [place] [address] Not Available [facility] [place] [facility] [address] [place], [address], 12/15/2023 17:27:48 12/10/19 24 12/15/2023 IMAGE -GUID ED PAP W/AGE BASED SCR SCOTT COLS comment EXPLA NATOR Y NOTE: The Pap is a scree anu test for cervi miguel cance r. It is not a diagn ostic test and is subje ct to false negat rashida and false posit rashida resul ts. It is most relia ble when a satis facto ry sampl e, regul santy obtai melissa, is submi tted with relev ant clini miguel findi ngs and histo ry, and when the Pap resul t is evalu ated along with histo reina and curre nt clini miguel infor matio n. Not Available [facility] [place] [facility] [address] [facility], [place], [address], 12/15/2023 17:27:48 12/10/19 24 12/15/2023 IMAGE -GUID ED PAP W/AGE BASED SCR SCOTT COLS HPV MRNA E6/E7 Detect ed not detect ed abnormal Metho dolog y: Trans cript ion-M ediat ed Ampli ficat ion This assay detec ts E6/E7 viral messe nger RNA (mRNA ) from 14 high- risk HPV types (16,1 8,31, 33,35 ,39,4 5,51, 52,56 ,58,5 9,66, 68). Cervi miguel sourc es are requi red for HPV testi ng. If a vagin al sourc e from a patie nt who has had a total hyste recto my with remov al of cervi x was submi tted, pleas e conta ct the testi ng labor atory for alter nativ e testi ng optio ns. For addit ional infor james norman refer to http: //[facility] yaneli romano.saeed stdia gnost ics.c om/fa q/FAQ 129v1 (This link if provi ded for infor aleyda romano/ educa miguel queen purpo ses only. ) Not Available [facility] [place] [facility] [address] [place], [address], 12/15/2023 17:27:48 12/10/19 24 12/15/2023 HPV GENOT YPES 16,18 /45 HPV 16 RNA NOT DETECT ED not detect ed Not Available [facility] [place] [facility] [address] [facility], [place], [address], 12/15/2023 17:27:49 12/10/19 24 12/15/2023 HPV GENOT YPES 16,18 /45 HPV 18/45 RNA NOT DETECT ED not detect ed normal Metho dolog y: Trans cript ion Media [employer] Ampli ficat ion Cervi miguel sourc es are requi red for HPV testi ng. If a vagin al sourc e from a patie nt who has had a total hyste recto my with remov al of cervi x was submi tted, pleas e conta ct the testi ng labor atory for alter nativ e testi ng optio ns. Not Available [facility] [place] [facility] [address] [facility], [place], [address], 12/15/2023 17:27:49 Result Notes Documentation Provider Name and Address Organization Details Recorded Time Sureswab(r) Advanced Vaginitis Plus, Tma : BV and trich Rodolfo hidalgo, [employer]. 12/13/2023 15:29:35 Pap, Lb : Negative Pap with +HPV- not 16/18-f/u 1yr Jorje Saini II, MD [address] [place] [address], [phone], [employer]. 12/17/2023 13:49:45 Hpv Dna, Genotypes 16+18, Genital : Negative 16/18 Jorje Saini II, MD [address] [place] [address], [phone], [employer]. 12/17/2023 13:48:52 Problems Name Problem SNOMED Code Status Onset Date Resolution Date Notes Provider Name and Address Organization Details Recorded Time Cyst of ovary 43500742 Active 2013 Problem Code: 620.2; Problem Code Type: ICD-9; Not Available [facility] 21:07:50 Follow-u p encounte r Completed 201311/06/2013 Problem Code: V67; Problem Code Type: ICD-9; Not Available [facility] 2 21:07:50 Dysfunct ional uterine bleeding Completed 201311/06/2013 Problem Code: 626.8; Problem Code Type: ICD-9; Not Available [facility] 2 21:07:50 Follicul ar cyst of ovary 9185149 Completed 201502/10/2016 Problem Code: N83.0; Problem Code Type: ICD-10; Not Available [facility] 2 21:07:49 Disorder of female genital organs 250233902 Completed 201701/06/2018 Not Available [facility] 2 21:07:49 Pelvic and perineal pain 843890263 Completed 201701/06/2018 Problem Code: R10.2; Problem Code Type: ICD-10; Not Available [facility] 2 21:07:49 Female genital organ symptoms 667090665 Active 2017 Problem Code: 625.9; Problem Code Type: ICD-9; Not Available [facility] 2 21:07:50 Amenorrh ea 21617850 Active 2018 Problem Code: N91.2; Problem Code Type: ICD-10; Not Available [facility] 2 21:07:49 Vaginola bial hernia Active 2019 Problem Code: N89.8; Problem Code Type: ICD-10; Not Available [facility] 2 21:07:50 Dysuria 19071033 Active 2019 Problem Code: R30.0; Problem Code Type: ICD-10; Not Available [facility] 2 21:07:50 Vaginiti s and vulvovag initis Completed 201901/18/2020 Problem Code: 616.10; Problem Code Type: ICD-9; Not Available [facility] 21:07:50 Vaginal discharg e 091671752 Active 2023 Jorje Saini II, MD [address] [place] [address], [phone] , [employer]. 4 13:43:19 Bacteria l vaginosi s 224503611 Active 2023 Jorje Saini II, MD [address] [place] [address], [phone] , [employer]. 4 10:20:17 Problem Notes None recorded. Procedures Surgical History Date Name Laterality Status Provider Name and Address Organization Details Recorded Time 4 Date of Last Pap Smear completed [facility]. 12/10/2023 13:24:42 4 Most Recent Mammogram completed [facility]. 12/10/2023 13:31:38 0 Lwr xtr vasc stdy bilat completed Not Available [facility] 02/17/2022 22:56:34 Imaging Results None recorded. Procedure Notes None recorded. Medical Equipment None Reported. Allergies No known drug allergies Medications Name Sig Start Date Stop Date Status Note LastModified by Organization Details LastModified Time medroxyprog esterone 10 mg tablet take 2 tablet (20 mg) by oral route once daily any time you go more than 2 months without a menstrual period. 12/09 completed Not Available Not Available Not Available cilostazol 100 mg tablet Take 1 tablet(s) by mouth bid 08/14 completed Not Available Not Available Not Available atorvastati n 80 mg tablet TAKE 1 TABLET BY MOUTH ONCE DAILY active Not Available Not Available No t Available cetirizine 10 mg tablet 1 po daily 08/09 completed Not Available Not Available Not Available ofloxacin 0.3 % eye drops INSTILL 1 DROP INTO OPERATIVE EYE 4 TIMES A DAY FOR 7 DAYS 12/09 completed Not Available Not Available Not Available lisinopril 20 mg tablet Take 1 tablet(s) by mouth daily 08/14 completed Not Available Not Available Not Available Prilosec 20 mg capsule,del ayed release Take 1 capsule(s ) by mouth daily 08/09 completed Not Available Not Available Not Available sertraline 100 mg tablet TAKE 1 TABLET BY MOUTH ONCE DAILY active Not Available Not Available No t Available terconazole 0.8 % vaginal cream insert 1 applicato rful by vaginal route once daily at bedtime.a lso applies small amount to thhe outside. 01/03 completed Not Available Not Available Not Available Diflucan 150 mg tablet take 1 tablet (150 mg) by oral route. Repeat in 1wk 12/09 completed Not Available Not Available Not Available metronidazo le 500 mg tablet TAKE 1 TABLET BY MOUTH TWICE DAILY active Not Available Not Available No t Available amlodipine 5 mg tablet Take 1 tablet(s) by mouth daily 08/09 completed Not Available Not Available Not Available ciprofloxac in 500 mg tablet TAKE 1 TABLET BY MOUTH TWICE DAILY FOR 10 DAYS active Not Available Not Available No t Available omeprazole 40 mg capsule,del ayed release TAKE 1 CAPSULE BY MOUTH ONCE DAILY active Not Available Not Available No t Available aspirin 81 mg tablet,karrie yed release take 1 tablet (81 mg) by oral route once daily 2019 active Not Available Not Available Not Avai lable spironolact one 25 mg tablet Take 1 Tablet by mouth daily 08/09 completed Not Available Not Available Not Available bisoprolol fumarate 10 mg tablet TAKE 1 TABLET BY MOUTH ONCE DAILY active Not Available Not Available No t Available ketorolac 0.5 % eye drops STARTING 3 DAYS BEFORE SURGERY, INSTILL 1 DROP INTO OPERATIVE EYE 4 TIMES A DAY FOR 10 DAYS THEN DECREASE TO TWICE A DAY FOR 14 DAYS 12/09 completed Not Available Not Available Not Available bisoprolol fumarate 5 mg tablet Take 1 tablet(s) by mouth daily 12/24 completed Not Available Not Available Not Available terbinafine HCl 250 mg tablet Take 1 tablet(s) by mouth daily 08/14 completed Not Available Not Available Not Available prednisolon e acetate 1 % eye drops,suspe nsion INSTILL 1 DROP INTO OPERATIVE EYE 4 TIMES A DAY FOR 7 DAYS THEN DECREASE TO TWICE A DAY FOR 14 DAYS 12/09 completed Not Available Not Available Not Available amlodipine 10 mg tablet TAKE 1 TABLET BY MOUTH ONCE DAILY active Not Available Not Available No t Available cephalexin 500 mg capsule TAKE 1 CAPSULE BY MOUTH EVERY 12 HOURS FOR 10 DAYS 12/09 completed Not Available Not Available Not Available naproxen sodium 550 mg tablet TAKE 1 TABLET BY MOUTH EVERY 12 HOURS NEEDED active Not Available Not Available No t Available levothyroxi ne 125 mcg tablet TAKE 1 TABLET BY MOUTH ONCE DAILY 12/09 completed Not Available Not Available Not Available fluorometho lone 0.1 % eye drops,suspe nsion INSTILL 1 DROP INTO RIGHT EYE THREE TIMES DAILY FOR 5 DAYS 12/09 completed Not Available Not Available Not Available promethazin e 25 mg tablet Take one orally three times a day 08/09 completed Not Available Not Available Not Available brimonidine 0.2 % eye drops INSTILL 1 DROP INTO RIGHT EYE TWICE DAILY active Not Available Not Available No t Available bupropion HCl 75 mg tablet TAKE 1 TABLET BY MOUTH TWICE DAILY 12/09 completed Not Available Not Available Not Available progesteron e micronized 200 mg capsule One pill at night for 2 weeks any time you go 2 months without bleeding. 09/03 completed Not Available Not Available Not Available aspirin 81 mg chewable tablet 08/09 completed Not Available Not Available Not Available amoxicillin 400 mg/5 mL oral suspension TAKE 10 ML BY MOUTH TWICE DAILY FOR 7 DAYS 12/09 completed Not Available Not Available Not Available mupirocin 2 % topical ointment APPLY A THIN FILM TO THE AFFECTED AREA OF SKIN 3 TIMES EACH DAY 12/09 completed Not Available Not Available Not Available furosemide 20 mg tablet one po q day as needed 12/09 completed Not Available Not Available Not Available levofloxaci n 500 mg tablet Take one tablet orally once a day 08/14 completed Not Available Not Available Not Available lovastatin 20 mg tablet Take one tablet orally once a day 08/14 completed Not Available Not Available Not Available methylpredn isolone 4 mg tablets in a dose pack TAKE DIRECTED 12/09 completed Not Available Not Available Not Available albuterol sulfate HFA 90 mcg/actuati on aerosol inhaler Inhale 1 to 2 puff(s) by mouth q 4 to 6 hr prn 08/14 completed Not Available Not Available Not Available losartan 100 mg tablet 1 tablet by mouth daily 08/09 completed Not Available Not Available Not Available fluticasone propionate 50 mcg/actuati on nasal spray,suspe nsion USE 1 SPRAY(S) IN EACH NOSTRIL ONCE DAILY active Not Available Not Available No t Available amoxicillin 875 mg-potassiu m clavulanate 125 mg tablet TAKE 1 TABLET BY MOUTH EVERY 12 HOURS FOR 10 DAYS 12/09 completed Not Available Not Available Not Available neomycin 3.5 mg/g-polymy norma B 10,000 unit/g-dexa meth 0.1 % eye oint APPLY INTO RIGHT EYE AT NIGHT active Not Available Not Available No t Available Sprintec (28) 0.25 mg-0.035 mg tablet Take 1 tablet(s) by mouth daily as directed. 08/14 completed Not Available Not Available Not Available moxifloxaci n 0.5 % eye drops INSTILL 1 DROP INTO RIGHT EYE EVERY 2 HOURS active Not Available Not Available No t Available bupropion HCl XL 150 mg 24 hr tablet, extended release TAKE 1 TABLET BY MOUTH ONCE DAILY IN THE MORNING FOR 30 DAYS 12/09 completed Not Available Not Available Not Available metoprolol tartrate 25 mg tablet Take one tablet daily by mouth 08/14 completed Not Available Not Available Not Available nitrofurant oin monohydrate /macrocryst als 100 mg capsule TAKE 1 CAPSULE BY MOUTH EVERY 12 HOURS FOR 5 DAYS active Not Available Not Available No t Available chlorhexidi ne gluconate 0.12 % mouthwash RINSE WITH 15ML FOR 30 SECONDS AND SPIT, USE TWICE DAILY (MORNING AND EVENING) AFTER BRUSHING AND FLOSSING . 12/09 completed Not Available Not Available Not Available albuterol 08/09 completed Not Available Not Available Not Available Lipitor 08/09 completed Not Available Not Available Not Available omeprazole 08/09 completed Not Available Not Available Not Available Fluticasone Propionate (Nasal) 1 spray each nostril daily 08/09 completed Not Available Not Available Not Available [facility] Levothyroxi ne Sodium 12/09 completed Not Available Not Available Not Available sodium fluoride 1.1 % dental paste USE DIRECTED 12/09 completed Not Available Not Available Not Available valsartan 320 mg-hydrochl orothiazide 25 mg tablet TAKE 1 TABLET BY MOUTH ONCE DAILY active Not Available Not Available No t Available fenofibrate nanocrystal lized 48 mg tablet TAKE 1 TABLET BY MOUTH ONCE DAILY active Not Available Not Available No t Available hydrochloro thiazide 12.5 mg tablet Take 1 tablet(s) by mouth bid 2015 active Not Available Not Available Not Avai lable cholecalcif najma (vitamin D3) 50 mcg (2,000 unit) capsule TAKE 1 CAPSULE BY MOUTH ONCE DAILY active Not Available Not Available No t Available Durezol 0.05 % eye drops INSTILL 1 DROP INTO RIGHT EYE 4 TIMES DAILY 12/09 completed Not Available Not Available Not Available levothyroxi ne 125 mcg capsule TAKE 1 CAPSULE BY MOUTH ONCE DAILY active Not Available Not Available No t Available Veozah 45 mg tablet active Not Available Not Available No t Available Vitals Date Recorded Body weight Body mass index (BMI) Body height Provider Name and Address Organization Details Last Updated DateTime 12/10/2023 382120.79 g 44.3 kg/m2 157.48 cm MAN [employer] [place]. 12/10/2023 13:21:21 Social History Question Answer Notes LastModified by Organizat ion Details LastModified Time Tobacco Smoking Status Former Smoker [facility]: 'Tobacco/ Alcohol/S upplement s'; [facility] nse: 'Former Smoker'; Not Available [facility] 02/17/2022 22:55:43 What Was The Date Of Your Most Recent Tobacco Screening? 12/10/2023 Information not available 12/10/2023 What Is Your Relationship Status? Information not available 12/10/2023 Sex: Female Functional Status Question Answer Note LastModified by Organization D etails LastModified Time Do you or have you ever used any other forms of tobacco or nicotine? No Information not available 12/10/2023 Mental Status None recorded. Family History Relationship Description Onset Age of this Age Resolved Age Notes LastModified by Organization Details LastModified Time Unspecified Relation Family history of hyperlipidem ia Relati ve: ''; [email or web address] Not available 02/17/2022 23:01:12 Unspecified Relation Family history of Hypertension Relati ve: ''; [email or web address] Not available 02/17/2022 23:01:14 Unspecified Relation Family history of neurological disorder Relati ve: ''; [email or web address] Not available 02/17/2022 23:01:16 Unspecified Relation Family history of Glaucoma Relati ve: ''; [email or web address] Not available 02/17/2022 23:01:18 Notes:*Procedure Description : Documented family medical history in mother*Relative: Mother Medical History Condition Response Allergies (Food, seasonal, environmental ) Y High Cholesterol Y Acid Reflux (GERD) Y Headaches Y Hypertension Y Hypothyroidism Y Asthma Y Gynecological History Statement/Question Response Abnormal Pap N Sexually Active? Y Menses Monthly N STIs/STDs N HPV Vaccine N Date of Last Pap Smear 12/10/2023 Sexual Problems? N Most Recent Mammogram 12/10/2023 LMP Unknown Obstetrics History GPAL:G 0 P 0 0 0 0 Immunizations Vaccine Type Date Status Note Provider Nam e and Address Organization Details Recorded Time Td(adult) unspecified formulation 01/02/2015 completed MAN hidalgo [facility] [employer] 12/10/2023 13:05:20 Influenza, split virus, quadrivalent, PF 06/22/2019 completed MAN MANE [employer] 12/10/2023 13:05:20 Influenza, split virus, quadrivalent, PF 02/26/2017 completed MAN ALHAJI null, [employer] 12/10/2023 13:05:20 Influenza, split virus, quadrivalent, PF 03/18/2015 completed MAN ALHAJI [employer] 12/10/2023 13:05:20 Influenza, split virus, quadrivalent, PF 03/24/2018 completed MAN ALHAJI [employer] 12/10/2023 13:05:20 Past Encounters Encounter ID Performer Location Encounter Start Date Encounter Closed Date Diagnosis/Indication Diagnosis SNOMED-CT Code Diagnosis ICD10 Code Diagnosis IMO Codes Diagnosis Note [id number] Jorje Saini II, MD [facility] [address] [phone] 12/10/2023 13:01:28 12/10/2023 14:13:51 Screening for malignant neoplasm of cervix 025940029 Z12.4 Vaginal discharge 202432 006 N89.8 I will call her with the results and treat josejuly pulliam. Health Concerns Section Related Observation LastModified by Organization Detai ls LastModified Time None Recorded Concern Status LastModified by Organization Details LastModified Time None Recorded Advance Directives Directive None Recorded Payers Insurance Date Sequence Insurance Name Policy Number Policy Art Covered Member ID Art Member ID Guarantor Name 12/06/2023 1 *SELF PAY* To real Peterson 12/13/2023 1 [employer] [facility] (MEDICAID HMO) Peyton Peterson [id number] Peyton Peterson Notes Date Note Type Note Provider Name and Address Organization Details Recorded Time 12/10/2023 text/html Annual GYNReport ed by Patient She is here for a Pap. She had a mammogram today and is up-to-date with colon screening with a colonoscopy. She is on a 5-year plan with the colon screening. She does occasional self breast exams. She has recently been diagnosed with an E. coli urinary tract infection and kidney stones. She has been on antibiotics for 4 days but the suprapubic pain has not really gotten much better [place] Saini II, MD [address] [place] [address], [id number], [facility] [employer] 12/10/2023 13:43:53 OBGyn Episode No OBEpisode recorded.
--- OUTSIDE RECORDS SUMMARY | 2025-03-28 19:59 | XMS_ITS | Referral Summary ---
Author Organization [email or web address] ([place], [place], [place], [place]) Address [address] [place] [address] Care Team Providers Care Commercial Real Estate Paralegal Name Role Phone [facility], Provider Not In The System MD [...] Date Jignesh rded Speak language other than [place] at home Not on file 10/20/2023 Want [...] the next mammogram. At our facility, a tanacross marker is positioned over a visible skin [...] cancer. COMPARISON STUDY: 2021 through 2015 from [facility] FINDINGS: Craniocaudal and mediolateral oblique images of [...] Recently Relevant to Health Maintenance Insurance [employer] [facility] [place] Care Teams Commercial Real Estate Paralegal Relationship Specialty Start Date End Date [facility], Provider Not In The System, [place] [address] PCP - General 10/23/22
--- OUTSIDE RECORDS SUMMARY | 2025-03-28 19:59 | XMS_ITS | Continuity of Care Document ---
Author Organization [facility] Address [address] [facility] [place] [address] Care Team Providers Care Freight Flow Sales Leader Name Role Phone INOCENTE CORRAL Primary Care Provider [phone] Assessment No assessment recorded. Plan of Treatment Reminders Order Date Submit Date Provider Last Modified By Organization Details Last Modified Time Details Appointments OV EST 30 2024 03:00P Luz Maria CORRAL NP Not available Not available Not available Lab influenza virus A + B + SARS-CoV- 2 (COVID19) Ag panel, rapid IA, upper respirato ry specimen 2024 025 [email or web address] 3 [facility], [address] [place], [address], 03/08/2025 15:39:12 Referral None recorded. Procedures None recorded. Surgeries None recorded. Imaging None recorded. Medication Orders None recorded. Patient TargetsNo targets recorded. Patient InstructionsNo instructions recorded. Reason for Referral None Reported. Results Created Date Observation Date Name Description Value Unit Range Abnormal Flag Note LastModifiedBy Organization Detail LastModifiedTime 02/17/2002/16/2025 CULTU RE URINE results [facility] 02-17 440 >100, 000 COL/M L Gram Posit rashida Cocci Not Available [facility] (Lab Registration) [address] [place], [address], 02/17/2025 04:42:30 02/17/2002/16/2025 CULTU RE URINE note Unles s other wilson noted testi ng perfo rmed at: [facility] [address] [place] [address] [phone] MD ABDIEL CallejasIA: [id number] Not Available [facility] (Lab Registration) [address], [place], [address], 02/17/2025 04:42:30 02/17/2002/16/2025 CULTU RE URINE culccur ===== ===== ===== ===== ===== ===== ===== ===== ===== ===== ===== ===== ===== ===== ===== ===== ===== ===== ===== ===== ===== ===== ===== ===== Speci men NO.: [id number] Exam Statu s: Final Proce dure: CULTU RE URINE ===== ===== ===== ===== ===== ===== ===== ===== ===== ===== ===== ===== ===== ===== ===== ===== ===== ===== ===== ===== ===== ===== ===== ===== Iso/R esult : 01 Strep tococ cus agala ctiae (Grou p B) Antim icrob ic/Do se ERIC Syste eric Urine __ ___ ___ Dapto mycin <=0.5 S S Levof loxac in <=1 S S Linez olid <=1 S S Penic illin <=0.0 3 S S Trime th/Valverde lfa <=0.5 /9.5 TFG TFG Vanco mycin 0.5 S S [facility] 02-17 440 >100, 000 COL/M L Gram Posit rashida Cocci Not Available [facility] (Lab Registration) [address], [place], [address], 02/18/2025 04:39:03 02/17/20 25 02/16/2025 CULTU RE URINE note Unles s other wilson noted testi ng perfo rmed at: [facility] [address] [place] [address] [phone] Ryan gonzalez MD CLIA: [id number] Not Available [facility] (Lab Registration) [address], [place], [address], 02/18/2025 04:39:03 02/17/20 25 02/16/2025 VAGIN ITIS PLUS (VG+) note Unles lisa other wilson noted testi ng perfo rmed at: [facility] [address] [place] [address] [phone] Ryan gonzalez MD CLIA: [id number] Not Available [facility] (Lab Registration) [address], [place], [address], 02/19/2025 05:08:52 02/17/20 25 02/19/2025 VAGIN ITIS PLUS (VG+) atopobium vaginae Low - 0 score Not Available [facility] (Lab Registration) [address] [place], [address], 02/19/2025 05:08:52 02/17/20 25 02/19/2025 VAGIN ITIS PLUS (VG+) bvab 2 Modera te - 1 score Not Available [facility] (Lab Registration) [address] [place], [address], 02/19/2025 05:08:52 02/17/20 25 02/19/2025 VAGIN ITIS PLUS (VG+) megasphaera 1 Low - 0 score . Calcu late total score by sim stauffer the 3 indiv idual bacte rial vagin osis (BV) marke r score s toget her. Total score is inter prete d as follo ws: Total score 0-1: Indic ates the absen ce of BV. Total score 2: Indet ermin ate for BV. Addit ional clini miguel data shoul d be evalu ated to estab kaylen a diagn osis. Total score 3-6: Indic ates the prese nce of BV. Not Available [facility] (Lab Registration) [address], [place], [address], 02/19/2025 05:08:52 02/17/20 25 02/19/2025 VAGIN ITIS PLUS (VG+) anita albicans, EDDIE Negati ve negati ve Not Available [facility] (Lab Registration) [address] [place], [address], 02/19/2025 05:08:52 02/17/20 25 02/19/2025 VAGIN ITIS PLUS (VG+) anita glabrata, EDDIE Negati ve negati ve Not Available [facility] (Lab Registration) [address], [place], [address], 02/19/2025 05:08:52 02/17/20 25 02/19/2025 VAGIN ITIS PLUS (VG+) trich vag by EDDIE Positi ve negati ve delta Not Available [facility] (Lab Registration) [address] [place], [address], 02/19/2025 05:08:52 02/17/20 25 02/19/2025 VAGIN ITIS PLUS (VG+) chlamydia trachomatis, EDDIE Negati ve negati ve Not Available [facility] (Lab Registration) [address] [place], [address], 02/19/2025 05:08:52 02/17/20 25 02/19/2025 VAGIN ITIS PLUS (VG+) neisseria gonorrhoeae, EDDIE Negati ve negati ve Perfo rmed at: [facility] [place] [address] , [place] [address] Lab Direc tor: Varsha floyd MD, Phone : [phone] Not Available [facility] (Lab Registration) [address] [place], [address], 02/19/2025 05:08:52 02/17/20 25 02/16/2025 urina lysis , dipst ick Leukocytes (reference range) small Not Available [address] [place], [address], 02/16/2025 10:39:01 02/17/20 25 02/16/2025 urina lysis , dipst ick Nitrite (reference range:) negati ve Not Available [address] [place], [address], 02/16/2025 10:39:01 02/17/20 25 02/16/2025 urina lysis , dipst ick Urobilinogen (reference range) 0.2 Not Available [address] [place], [address], 02/16/2025 10:39:01 02/17/20 25 02/16/2025 urina lysis , dipst ick Protein (reference range) 100 Not Available [address] [place], [address], 02/16/2025 10:39:01 02/17/20 25 02/16/2025 urina lysis , dipst ick pH (reference range 5-8.5) 5.5 Not Available [address] [place], [address], 02/16/2025 10:39:01 02/17/20 25 02/16/2025 urina lysis , dipst ick Blood (reference range:) modera te Not Available [address] [place], [address], 02/16/2025 10:39:01 02/17/20 25 02/16/2025 urina lysis , dipst ick Specific Barry (reference range) 1.030 Not Available [address] [place], [address], 02/16/2025 10:39:01 02/17/20 25 02/16/2025 urina lysis , dipst ick Ketone (reference range) negati ve Not Available [address] [place], [address], 02/16/2025 10:39:01 02/17/20 25 02/16/2025 urina lysis , dipst ick Bilirubin (reference range) small Not Available [address] [place], [address], 02/16/2025 10:39:01 02/17/20 25 02/16/2025 urina lysis , dipst ick Glucose (reference range) negati ve Not Available [address] [place], [address], 02/16/2025 10:39:01 02/17/20 25 02/16/2025 urina lysis , dipst ick Color (reference range: yellow-brown ) Dark Yellow Not Available [address] [place], [address], 02/16/2025 10:39:01 03/08/20 25 03/08/2025 influ sophia virus A + B + SARS- CoV-2 (COVI D19) Ag panel , rapid IA, upper respi rator y speci men FLU A negati ve Not Available [address] [place], [address], 03/08/2025 15:08:46 03/08/20 25 03/08/2025 influ sophia virus A + B + SARS- CoV-2 (COVI D19) Ag panel , rapid IA, upper respi rator y speci men FLU B negati ve Not Available [address] [place], [address], 03/08/2025 15:08:46 03/08/20 25 03/08/2025 influ sophia virus A + B + SARS- CoV-2 (COVI D19) Ag panel , rapid IA, upper respi rator y speci men SARS COV + SARS OV 2 negati ve Not Available [address] [place], [address], 03/08/2025 15:08:46 Result Notes None recorded. Problems Name Problem SNOMED Code Status Onset Date Resolution Date Notes Provider Name and Address Organization Details Recorded Time Essential hypertension 90802582 Active 2021 Larry Thorpe null, [place] - [facility] - [place] & [place] 4 15:05:59 Chronic bronchitis 58576591 Active 2021 Lynda Stout null, [place] [facility] [place] & [place] 2 08:52:05 Hypothyroidism 70935592 Active 2021 Larry Thor[place] null, [place] [facility] [place] & [place] 4 15:06:10 Asthma 537311120 Active 2021 Larry Thorpe null[place] [facility] [place] 4 15:05:49 Gastroesophage al reflux disease 683603276 Active 2021 Larry Thorpe null[place] [facility] [place] 4 15:06:05 Anxiety 08654753 Active 2021 Larry Thor[place] null, [place] [facility] & [place] 4 15:05:47 Edema 167364737 Active 2021 Larry Thorpe null[place] [facility] [place] 4 15:05:56 Fatigue 66523228 Active 2021 [place] [facility] [place] 4 15:06:01 Atherosclerosi s Active 2021 Larry Thor[place] [facility] & [place] 4 15:05:51 Obstructive sleep apnea syndrome 40949064 Active 2021 Larry Thor[place] [facility] & [place] 4 15:06:16 Hyperlipidemia 28755120 Active 2021 Larry [place] [facility] [place] & [place] 4 15:06:08 Allergic rhinitis 15892397 Active 2021 Larry Thor[place] [facility] & [place] 4 15:05:45 Depressive disorder 51895051 Active 2021 Larry Thor[place] [facility] & [place] 4 15:05:54 Obesity 958423738 Active 2021 Larry Thor[place] [facility] & [place] 4 15:06:13 Acquired hypothyroidism 524573163 Active 2023 INOCENTE CORRAL NP [address] [place] [address], [address] , [place] [facility] & [place] 4 15:48:18 Prediabetes 817037072 Active 2023 INOCENTE CORRAL NP [address] [place] [address], [address] , [place] [facility] & [place] 4 15:48:21 Menopausal flushing 461141563 Active 2023 Larry Thorpe null[place] [facility] & [place] 4 15:19:55 Problem Notes None recorded. Procedures Surgical History Date Name Laterality Status Provider Name and Address Organization Details Recorded Time 03/06/20 22 colonoscopy completed Not Available [facility] 07/19/2022 12:31:01 08/13/19 20 cardiac catheterization completed Not Available [facility] 07/19/2022 12:31:01 08/13/19 18 biopsy of thyroid completed Not Available [facility] 07/19/2022 12:31:01 11/13/19 15 Appendectomy completed Not Available [facility] 07/19/2022 12:31:01 Thyroid Surgery completed INOCENTE CORRAL NP [address] [place], [place], [address] [place] [address], [facility] & [place] 07/09/2023 11:52:28 Appendectomy completed INOCENTE CORRAL NP [address] [place], [place], [address] [place] [address], [facility] & [place] 07/09/2023 11:52:28 Colonoscopy completed INOCENTE CORRAL NP [address] [place] [address], [address] [place] [address], [facility] & [place] 07/09/2023 11:52:28 Cardiovascular Surgery completed INOCENTE CORRAL NP [address] [place] [address], [address] [place] [address], [facility] & [place] 07/09/2023 11:52:28 Tubal Ligation completed Not Available [facility] 07/19/2022 12:31:01 Imaging Results None recorded. Procedure Notes None recorded. Medical Equipment None Reported. Allergies Allergen ID Allergen Name Allergen Category Reaction Reaction Severity Criticality Documentation Date Start Date Code Code System Note Provider Name and Address Organization Details Recorded Time 914380 No known allergy (situatio n) Not available Not available Not available Not available 09/11/2024 38418 6003 SNOMED Ana Laura Colon [facility], [facility] & [place] 15:46:44 No known drug allergies Medications Name Sig Start Date Stop Date Status Note LastModified by Organization Details LastModified Time Prescriptio n - Renewal active Not Available Not Available Not Available levothyroxi ne 137 mcg tablet TAKE 1 TABLET BY MOUTH ONCE DAILY active Not Available Not Available No t Available atorvastati n 80 mg tablet Take 1 tablet by mouth once daily 2024 active Not Available Not Available Not Avai lable ofloxacin 0.3 % eye drops INSTILL 1 [...] MOUTH EVERY 6 HOURS NEEDED FOR PAIN 03/08 completed Not Available Not Available Not Available phenazopyri dine 200 mg tablet TAKE 1 TABLET BY MOUTH THREE TIMES DAILY AFTER MEALS 03/25 completed Not Available Not Available Not Available sertraline 100 mg tablet TAKE 1 TABLET BY MOUTH ONCE DAILY active Not Available Not Available No t Available metronidazo le 500 mg tablet Take 1 tablet twice a day by oral route for 7 days. 03/05 completed Not Available Not Available Not Available levofloxaci n 250 mg tablet Take 1 tablet every day by oral route for 5 days. 03/02 completed Not Available Not Available Not Available ciprofloxac in 500 mg tablet TAKE 1 TABLET BY MOUTH TWICE DAILY FOR 10 DAYS 02/06 completed Not Available Not Available Not Available folic acid 400 mcg tablet Take 1 tablet by mouth once daily 2024 active Not Available Not Available Not Avai lable omeprazole 40 mg capsule,del ayed release Take 1 capsule by mouth once daily 2024 active Not Available Not Available Not Avai lable Euthyrox 100 mcg tablet TAKE 1 TABLET [...] Not Available Not Available No t Available Advair Diskus 250 mcg-50 mcg/dose powder for inhalation INHALE 1 DOSE 2 TIMES EACH DAY. 09/23 completed Not Available Not Available Not Available bupropion HCl 75 mg tablet TAKE [...] POWDER TOPICALLY TO AFFECTED AREA TWICE DAILY active Not Available Not Available No t Available cefuroxime axetil 500 mg tablet TAKE 1 [...] HOURS NEEDED FOR NAUSEA AND FOR VOMITING 02/16 completed Not Available Not Available Not Available cefdinir 300 mg capsule TAKE 1 CAPSULE BY MOUTH EVERY 12 HOURS FOR 7 DAYS 05/29 completed Not Available Not Available Not Available fluticasone propionate 50 mcg/actuati on nasal spray,suspe nsion USE 1 SPRAY(S) IN EACH NOSTRIL ONCE DAILY 12/20 completed Not Available Not Available Not Available loratadine 10 mg tablet TAKE 1 [...] orothiazide 25 mg tablet Take 1 tablet by mouth once daily 2024 active Not Available Not Available Not Avai lable fenofibrate nanocrystal lized 48 mg tablet TAKE [...] TAKE 1 CAPSULE BY MOUTH ONCE DAILY 12/20 completed Not Available Not Available Not Available Veozah 45 mg tablet Take by oral route for 30 days. 2024 active Not Available Not Available Not Avai lable Vitals Date Recorded Body height Body mass index (BMI) Body weight Body temperature Oxygen saturation Oxygen saturation in Arterial blood by Pulse oximetry Heart rate Respiratory rate Systolic And Diastolic Provider Name and Address Organization Details Last Updated DateTime 5 162.56 cm 42.2 kg/m2 558355. 72 g 97.9 [degF] 99 % 99 % 74 /min 18 /min 141/90 mm[Hg] Larry Thorpe [facility] & [place] 5 15:08:11 Social History Question Answer Notes LastModified by Organizat ion Details LastModified Time Tobacco Smoking Status Former Smoker Lynda hidalgo [facility] & [place] 03/25/2022 10:38:09 Do You Have An Advance Directive? No [email or web address] Information not available 12/06/2023 Do You Wear A Helmet When Biking? Yes [email or web address] Information not available 12/06/2023 Are You Blind Or Do You Have Difficulty Seeing? Yes [email or web address] Information not available 08/04/2022 What Is Your Level Of Caffeine Consumption? Occasional Information not available 07/09/2023 In The 14 Days Before Symptom Onset, Have You Had Close Contact With A Laboratory-[facility] COVID-19 While That Case Was Ill? No [email or web address] Information not available 12/06/2023 In The 14 Days Before Symptom Onset, Have You Had Close Contact With A Person Who Is Under Investigation For COVID-19 While That Person Was Ill? No [email or web address] Information not available 12/06/2023 Have You Been To An Area Known To Be High Risk For COVID-19? No [email or web address] Information not available 12/06/2023 Are You Deaf Or Do You Have Serious Difficulty Hearing? No [email or web address] Information not available 12/06/2023 What Type Of Diet Are You Following? REGULAR [email or web address] Information not available 12/06/2023 Have You Processed Blood Or Body Fluids From An Ebola Virus Disease Patient Without Appropriate PPE? No [email or web address] Information not available 12/06/2023 Do You Reside In Or Have You Traveled To An Area Where Ebola Virus Transmission Is Active? No [email or web address] Information not available 12/06/2023 Have There Been Any Changes To Your Family Or Social Situation? No [email or web address] Information no t available 12/06/2023 What Is The Fluoride Status Of Your Home? Unknown [email or web address] Information not available 12/06/2023 When Did You Quit Smoking? 6-10yearssince ngoc diaz29 Information not available 07/09/2023 Are There Any Guns Present In Your Home? No [email or web address] Information not available 12/06/2023 Have You Recently Or Are You Planning To Travel To An Area With Zika Virus? No [email or web address] Information not available 12/06/2023 Do You Use Insect Repellent Routinely? Yes Information not available 12/06/2023 Do You Feel Safe At Home? Yes [email or web address] Information not available 12/06/2023 Do You Have A Medical Power Of Pusher Operator? No [email or web address] Information not available 12/06/2023 What Was The Date Of Your Most Recent Tobacco Screening? 12/20/2024 [email or web address] Information not available 12/20/2024 Do You Have Any Pets? No Information not available 12/06/2023 Do You Use Your Seat Belt Or Car Seat Routinely? Yes [email or web address] Information not available 12/06/2023 Do You Have Smoke And Carbon Monoxide Detectors In Your Home? Yes [email or web address] Information not available 12/06/2023 Are You Passively Exposed To Smoke? Yes [email or web address] Information no t available 08/04/2022 Do You Use Sunscreen Routinely? Yes Information not available 12/06/2023 Has Tobacco Cessation Counseling Been Provided? No Information not available 07/09/2023 Do You Have Difficulty Walking Or Climbing Stairs? No [email or web address] Information not available 12/06/2023 Are You Currently In School? No [email or web address] Information not available 12/06/2023 Sex: Female Functional Status Question Answer Note LastModified by Organizat ion Details LastModified Time Do you use any illicit or recreational drugs? No Information not available 03/25/2022 Do you or have you ever used any other forms of tobacco or nicotine? Yes Information not available 07/09/2023 What is your level of alcohol consumption? None Information not available 03/25/2022 Do you or have you ever used smokeless tobacco? Never used smokeless tobacco Information not available 03/25/2022 Are you currently employed? No [email or web address] Information not available 12/06/2023 Do you have transportation difficulties? No [email or web address] Information not available 12/06/2023 Are you able to walk independently without assistance or assistive devices? YESWOREST [email or web address] Information not available 12/06/2023 Do you have difficulty doing errands alone? No [email or web address] Information not available 12/06/2023 Are you able to care for yourself independently? Yes [email or web address] Information not available 12/06/2023 Do you have difficulty dressing, bathing, grooming, or toileting? No [email or web address] Information not available 12/06/2023 Do you or have you ever used e-cigarettes or vape? Current user of electronic cigarettes Information not available 07/09/2023 What is your exercise level? Occasional [email or web address] Information not available 08/04/2022 Mental Status Question Answer Note LastModified by Organizat ion Details LastModified Time Do you feel stressed (tense, restless, nervous, or anxious, or unable to sleep at night)? [id number] [email or web address] Information not available 08/04/2022 Do you have difficulty concentrating, remembering or making decisions? No [email or web address] Information no t available 12/06/2023 Family History Relationship Description Onset Age of this Age Resolved Age Notes LastModified by Organization Details LastModified Time Mother Glaucoma [email or web address] Not availabl e 03/08/2025 15:00:32 Mother Hyperlipidem ia [email or web address] Not available 2024 15:00:32 Father Heart disease [email or web address]_[email or web address] Not available 07/2023 14:29:46 Father Essential hypertension [email or web address] Not available 15:00:32 Daughter Bipolar disorder [email or web address] Not available 2024 15:00:32 Son Asthma [email or web address] Not available 03/08/2025 15:00:32 Son Attention deficit hyperactivit y disorder [email or web address] Not available 03/08 15:00:32 Medical History Condition Response Allergies/Hayfever Y Anxiety Disorder Y Vision or Eye Problems Y Reflux/GERD Y High Cholesterol Y Headaches Y Back Problems Y Thyroid Problems Y Obstructive Sleep Apnea Y Hypertension Y Hypothyroidism Y Gynecological History Statement/Question Response Current Control Method None Sexually Active? N Obstetrics History GPAL:G 0 P 0 0 0 0 Immunizations Vaccine Type Date Status Note Provider Nam e and Address Organization Details Recorded Time Td(adult) unspecified formulation 01/02/2015 completed PAUL Solano - [facility] & [place] 07/21/2022 14:07:40 Influenza, split virus, quadrivalent, PF 06/22/2019 completed PAUL Solano - [facility] & [place] 07/21/2022 14:07:40 Influenza, split virus, quadrivalent, PF 02/26/2017 completed PAUL Solano - [facility] & [place] 07/21/2022 14:07:40 Influenza, split virus, quadrivalent, PF 03/18/2015 completed PAUL Solano - [facility] & [place] 07/21/2022 14:07:40 Influenza, split virus, quadrivalent, PF 03/24/2018 completed PAUL Solano - [facility] & [place] 07/21/2022 14:07:40 Past Encounters Encounter ID Performer Location Encounter Start Date Encounter Closed Date Diagnosis/Indication Diagnosis SNOMED-CT Code Diagnosis ICD10 Code Diagnosis IMO Codes Diagnosis Note [id number] INOCENTE CORRAL NP [address] [place] [address] 02/16/2025 10:17:46 02/16/2025 10:56:58 Dysuria 56082676 R30.0 98468 Acute cystitis 80196594 N30.00 1311393 Office UA suggesting UTI, urine sent for culture and office will call after culture received. Take all medicines prescribed for you for the allotted time period. Push fluids especially water. If no better in 48-72 hours or if you develop abdominal or back pain, with fever chills nausea or vomiting come back or go to the emergency room immediatel y Acute vaginitis 85929048 N76.0 64065 A vaginal swab was performed to evaluate the discharge, which may be unrelated to the urinary symptoms. The swab will be sent for laboratory analysis to determine the cause, including bacterial vaginosis or yeast infection. [id number] RACHNA MARTIN [address] [place] [address] 03/08/2025 15:00:23 03/08/2025 15:24:10 Acute cough 4348772650 90660884 R05.5 9135112065 flu/COVID negativeSy mptoms likely due to acute viral syndrome or upper respirator y infection Acute viral disease 4096 16974 B34.9 34322938 drink plenty of fluids especially waterOTC Tylenol/ ibuprofen as neededSymp luann management Fever management Follow up with the office if symptoms worsen or persist Health Concerns Section Related Observation LastModified by Organization Detai ls LastModified Time None Recorded Concern Status LastModified by Organization Details LastModified Time None Recorded Payers Encounter Date Sequence Insurance Name Policy Number Policy Art Covered Member ID Art Member ID Guarantor Name 03/08/2025 1 [employer] [facility] (MEDICAID HMO) Peyton Peterson [id number] Peyton Peterson Notes Date Note Type Note Provider Name and Address Organization Details Recorded Time 03/08/2025 text/html ROS as noted in the HPI 54-year-old female presents to the clinic with complaints of shortness a breath and coughing that started a couple of days ago. Patient reports that her mother just tested positive for COVID recently. She denies headaches, body aches, fever, chills, nausea, vomiting, chest pain, and musculoskeletal pain. RACHNA MARTIN [address] [place] [address], [id number], [facility] 03/08/2025 15:26:45 OBGyn Episode No OBEpisode recorded.
--- OUTSIDE RECORDS SUMMARY | 2025-03-28 19:59 | XMS_ITS | Data Portability ---
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 Plan of Treatment Reminders Order Date Submit Date Provider Last Modified By Organization Details Last Modified Time Details Appointments OV EST 30 2024 03:00P Luz Maria CORRAL NP Not available Not available Not available Lab influenza virus A + B + SARS-CoV- 2 (COVID19) Ag panel, rapid IA, upper respirato ry specimen 2024 025 3 [facility], [address] [place], [address], 03/08/2025 15:39:12 urinalysi s, dipstick 2024 025 [facility], [address] [place], [address], 02/16/2025 10:44:02 culture, urine 2024 025 [facility] (Laboratory), [place], [address], 02/17/2025 04:42:30 bacterial vaginosis + vaginitis panel, vaginal 2024 025 [facility] (Laboratory), [address] [place], [address], 02/23/2025 07:44:12 CMP, serum or plasma [address] [place] [address] (Laboratory), [address] [place], [address], 12/20/2024 17:23:59 hemoglobi n A1c + average glucose, QN, blood [address] [place] [address] (Laboratory), [address] [place], [address], 12/27/2024 07:14:01 CBC w/ auto diff [address] [place] [address] (Laboratory), [address] [place], [address], 12/20/2024 16:48:24 lipid panel, serum [address] [place] [address] (Laboratory), [address] [place], [address], 12/20/2024 17:24:01 vitamin D, 25-hydrox y, total, serum [address] [place] [address] (Laboratory), [address] [place], [address], 12/27/2024 07:14:01 iron + TIBC + ferritin, serum [address] [place] [address] (Laboratory), [address] [place], [address], 12/27/2024 07:14:02 vitamin B12 + folate, serum or blood [address] [place] [address] (Laboratory), [address] [place], [address], 12/27/2024 07:14:02 lipid panel, serum 122023 [facility] (Laboratory), [address] [place], [address], 06/02/2024 17:49:03 HbA1c (hemoglob in A1c), blood 2023 [facility] (Laboratory), [address] [place], [address], 06/02/2024 18:00:45 CMP, serum or plasma 2023 [facility] (Laboratory), [address] [place], [address], 06/02/2024 17:50:08 CBC w/ auto diff 2023 [facility] (Laboratory), [address] [place], [address], 06/02/2024 17:28:56 hepatitis C virus Ab, serum 2023 [facility] (Laboratory), [address] [place], [address], 06/04/2024 08:13:53 TSH + free T4, serum 2023 [facility] (Laboratory), [address] [place], [address], 06/09/2024 08:27:25 Referral None recorded. Procedures None recorded. Surgeries None recorded. Imaging MAMMO, screening , digital, bilateral 2023 utchinso n26 [facility] (Scheduling), [address] [place], [address], 06/30/2024 07:37:37 Medication Orders Macrobid 100 mg capsule 2024 025 [facility], [address], [place], [address], 02/16/2025 10:51:34 Patient TargetsNo targets recorded. Patient InstructionsNo instructions recorded. Reason for Referral None Reported. Results Created Date Observation Date Name Description Value Unit Range Abnormal Flag Note LastModifiedBy Organization Detail LastModifiedTime 06/02/20 24 06/02/2024 CBC AUTO W DIFF WBC 6.2 10 4.5-11 .5 Not Available [facility] (Lab Registration) [address] [place], [address], 06/02/2024 17:28:56 06/02/20 24 06/02/2024 CBC AUTO W DIFF RBC 4.70 10 4.25-5 .57 Not Available [facility] (Lab Registration) [address] [place], [address], 06/02/2024 17:28:56 06/02/20 24 06/02/2024 CBC AUTO W DIFF HGB 12.7 g/dL 12.0-1 5.7 Not Available [facility] (Lab Registration) [address] [place], [address], 06/02/2024 17:28:56 06/02/20 24 06/02/2024 CBC AUTO W DIFF HCT 40.5 % 36.0-4 7.0 Not Available [facility] (Lab Registration) [address] [place], [address], 06/02/2024 17:28:56 06/02/20 24 06/02/2024 CBC AUTO W DIFF MCV 86.2 fL 80-95 Not Available [facility] (Lab Registration) [address] [place], [address], 06/02/2024 17:28:56 06/02/20 24 06/02/2024 CBC AUTO W DIFF MCH 27.0 pg 27.0-3 4.0 Not Available [facility] (Lab Registration) [address] [place], [address], 06/02/2024 17:28:56 06/02/20 24 06/02/2024 CBC AUTO W DIFF MCHC 31.4 g/dL 32.0-3 6.0 low Not Available [facility] (Lab Registration) [address] [place], [address], 06/02/2024 17:28:56 06/02/20 24 06/02/2024 CBC AUTO W DIFF platelet count 263 10 150-45 0 Not Available [facility] (Lab Registration) [address] [place], [address], 06/02/2024 17:28:56 06/02/20 24 06/02/2024 CBC AUTO W DIFF RDW 13.5 % 12.3-1 5.1 Not Available [facility] (Lab Registration) [address] [place], [address], 06/02/2024 17:28:56 06/02/20 24 06/02/2024 CBC AUTO W DIFF MPV 9.9 fL 7.4-10 .4 Not Available [facility] (Lab Registration) [address] [place], [address], 06/02/2024 17:28:56 06/02/20 24 06/02/2024 CBC AUTO W DIFF granulocyte% 54.7 % 40-75 Not Available [facility] (Lab Registration) [address] [place], [address], 06/02/2024 17:28:56 06/02/20 24 06/02/2024 CBC AUTO W DIFF lymphocyte% 36.2 % 15-57 Not Available [facility] (Lab Registration) [address] [place], [address], 06/02/2024 17:28:56 06/02/20 24 06/02/2024 CBC AUTO W DIFF monocyte% 6.3 % 4.0-12 .0 Not Available [facility] (Lab Registration) [address] [place], [address], 06/02/2024 17:28:56 06/02/20 24 06/02/2024 CBC AUTO W DIFF eosinophil% 2.4 % 0.0-4. 0 Not Available [facility] (Lab Registration) [address], [place], [address], 06/02/2024 17:28:56 06/02/20 24 06/02/2024 CBC AUTO W DIFF basophil% 0.2 % 0.0-1. 0 Not Available [facility] (Lab Registration) [address] [place], [address], 06/02/2024 17:28:56 06/02/20 24 06/02/2024 CBC AUTO W DIFF immature granulocytes % 0.2 % 0.0-0. 8 Not Available [facility] (Lab Registration) [address] [place], [address], 06/02/2024 17:28:56 06/02/20 24 06/02/2024 CBC AUTO W DIFF granulocyte# 3.42 10 Not Available [facility] (Lab Registration) [address] [place], [address], 06/02/2024 17:28:56 06/02/20 24 06/02/2024 CBC AUTO W DIFF lymphocyte# 2.26 10 Not Available [facility] (Lab Registration) [address] [place], [address], 06/02/2024 17:28:56 06/02/20 24 06/02/2024 CBC AUTO W DIFF monocyte# 0.39 10 Not Available [facility] (Lab Registration) [address] [place], [address], 06/02/2024 17:28:56 06/02/20 24 06/02/2024 CBC AUTO W DIFF eosinophil# 0.15 10 Not Available [facility] (Lab Registration) [address] [place], [address], 06/02/2024 17:28:56 06/02/20 24 06/02/2024 CBC AUTO W DIFF basophil# 0.01 10 Not Available [facility] (Lab Registration) [address] [place], [address], 06/02/2024 17:28:56 06/02/20 24 06/02/2024 CBC AUTO W DIFF immature granulocytes # 0.01 10 Not Available [facility] (Lab Registration) [address] [place], [address], 06/02/2024 17:28:56 06/02/20 24 06/02/2024 CBC AUTO W DIFF manual differential NO Not Available [facility] (Lab Registration) [address] [place], [address], 06/02/2024 17:28:56 06/02/20 24 06/02/2024 CBC AUTO W DIFF note Unles s other wilson noted testi ng perfo rmed at: [facility] [address] [place] [address] [phone] Ryan gonzalez MD CLIA: [id number] Not Available [facility] (Lab Registration) [address] [place], [address], 06/02/2024 17:28:56 06/02/20 24 06/02/2024 LIPID PANEL triglyceride 148 mg/dL 20-200 The Natio nal [employer] t[employer] am (NCEP ) has set the follo wing guide lines for Fasti ng Trigl yceri sulema: FELICITY L: <150 mg/dL BORDE RLINE HIGH: 150 - 199 mg/dL HIGH: 200 - 499 mg/dL VERY HIGH: > or =500 mg/dL Not Available [facility] (Lab Registration) [address] [place], [address], 06/02/2024 17:49:03 06/02/20 24 06/02/2024 LIPID PANEL cholesterol 173 mg/dL 0-200 The Natio nal [employer]ca t[employer]gr am (NCEP ) has set the follo wing guide lines for Fasti ng Salima stero l: KALPANA ABLE: <200 mg/dL BORDE RLINE HIGH: 200 - 239 mg/dL HIGH: > or =240 mg/dL Not Available [facility] (Lab Registration) [address], [place], [address], 06/02/2024 17:49:03 06/02/20 24 06/02/2024 LIPID PANEL HDL cholesterol 58 mg/dL 60- low The Natio nal [employer] l [employer]ca t[employer] Progr am ([facility] ) has set the follo wing guide lines for Fasti ng HDL Salima stero l: LOW HDL: <40 mg/dL FELICITY L: 40 - 60 mg/dL KALPANA ABLE: >60 mg/dL Not Available [facility] (Lab Registration) [address], [place], [address], 06/02/2024 17:49:03 06/02/20 24 06/02/2024 LIPID PANEL LDL calculated 85 mg/dL 100- low The Natio nal [employer]ca t[employer]gr am ([facility]DEP ) has set the follo wing guide lines for Fasti ng LDL Salima stero l: OPTIM AL: < 100 mg/dL LOW RISK: 100 - 129 mg/dL BORDE RLINE HIGH: 130 - 159 mg/dL HIGH: 160 - 189 mg/dL VERY HIGH: > or = 190 mg/dL Not Available [facility] (Lab Registration) [address], [place], [address], 06/02/2024 17:49:03 06/02/20 24 06/02/2024 LIPID PANEL chol/HDL ratio 3 -5 Not Available [facility] (Lab Registration) [address], [place], [address], 06/02/2024 17:49:03 06/02/20 24 06/02/2024 LIPID PANEL note Unles s other wilson noted testi ng perfo rmed at: [facility] [address] [place] [place] [address] [phone] Ryan gonzalez MD CLIA: [id number] Not Available [facility] (Lab Registration) [address] [place], [address], 06/02/2024 17:49:03 06/02/20 24 06/02/2024 THYRO ID STIMU LATIN G HORMO NE thyroid stimulating hormone 1.48 mIU/m L 0.34-4 .80 Not Available [facility] (Lab Registration) [address] [place], [address], 06/02/2024 17:49:06 06/02/20 24 06/02/2024 THYRO ID STIMU LATIN G HORMO NE note Unles s other wilson noted testi ng perfo rmed at: [facility] [address] [place] [address] [phone] Ryan gonzalez MD CLIA: [id number] Not Available [facility] (Lab Registration) [address] [place], [address], 06/02/2024 17:49:06 06/02/20 24 06/02/2024 T4 FREE T4,free 1.05 NG/dL 0.76-1 .46 Effec tive today 013 new Refer ence Range . Not Available [facility] (Lab Registration) [address] [place], [address], 06/02/2024 17:49:07 06/02/20 24 06/02/2024 T4 FREE note Unles s other wilson noted testi ng perfo rmed at: [facility] [address] [place] [address] [phone] Ryan gonzalez MD CLIA: [id number] Not Available [facility] (Lab Registration) [address] [place], [address], 06/02/2024 17:49:07 06/02/20 24 06/02/2024 COMP METAB OLIC PANEL sodium 145 mmol/ L 136-14 5 Not Available [facility] (Lab Registration) [address] [place], [address], 06/02/2024 17:50:08 06/02/20 24 06/02/2024 COMP METAB OLIC PANEL potassium 4.3 mmol/ L 3.5-5. 1 Not Available [facility] (Lab Registration) [address] [place], [address], 06/02/2024 17:50:08 06/02/20 24 06/02/2024 COMP METAB OLIC PANEL chloride 107 mmol/ L 98-107 Not Available [facility] (Lab Registration) [address] [place], [address], 06/02/2024 17:50:08 06/02/20 24 06/02/2024 COMP METAB OLIC PANEL carbon dioxide 29 mmol/ L 21-32 Not Available [facility] (Lab Registration) [address] [place], [address], 06/02/2024 17:50:08 06/02/20 24 06/02/2024 COMP METAB OLIC PANEL anion gap 9.0 Not Available [facility] (Lab Registration) [address] [place], [address], 06/02/2024 17:50:08 06/02/20 24 06/02/2024 COMP METAB OLIC PANEL glucose 87 mg/dL 70-110 Not Available [facility] (Lab Registration) [address] [place], [address], 06/02/2024 17:50:08 06/02/20 24 06/02/2024 COMP METAB OLIC PANEL blood urea nitrogen 10 mg/dL 7-18 Not Available [facility] (Lab Registration) [address] [place], [address], 06/02/2024 17:50:08 06/02/20 24 06/02/2024 COMP METAB OLIC PANEL creatinine 0.9 mg/dL 0.6-1. 0 Not Available [facility] (Lab Registration) [address] [place], [address], 06/02/2024 17:50:08 06/02/20 24 06/02/2024 COMP METAB OLIC PANEL BUN/creatini ne ratio 11.1 - Not Available [facility] (Lab Registration) [address], [place], [address], 06/02/2024 17:50:08 06/02/20 24 06/02/2024 COMP METAB [...] tai ing kiney funct ion. Not Available [facility] (Lab Registration) [address], [place], [address], 06/02/2024 17:50:08 06/02/20 24 06/02/2024 COMP METAB OLIC PANEL total protein 7.4 g/dL 6.4-8. 2 Not Available [facility] (Lab Registration) [address] [place], [address], 06/02/2024 17:50:08 06/02/20 24 06/02/2024 COMP METAB OLIC PANEL albumin 3.9 g/dL 3.4-5. 0 Not Available [facility] (Lab Registration) [address], [place], [address], 06/02/2024 17:50:08 06/02/20 24 06/02/2024 COMP METAB OLIC PANEL calcium 9.7 mg/dL 8.5-10 .1 Not Available [facility] (Lab Registration) [address], [place], [address], 06/02/2024 17:50:08 06/02/20 24 06/02/2024 COMP METAB OLIC PANEL corrected calcium 9.8 mg/dL 8.5-10 .1 Not Available [facility] (Lab Registration) [address], [place], [address], 06/02/2024 17:50:08 06/02/20 24 06/02/2024 COMP METAB OLIC PANEL bilirubin total 0.5 mg/dL 0.4-1. 5 Not Available [facility] (Lab Registration) [address] [place], [address], 06/02/2024 17:50:08 06/02/20 24 06/02/2024 COMP METAB OLIC PANEL AST (SGOT) 18 U/L 15-37 Not Available [facility] (Lab Registration) [address] [place], [address], 06/02/2024 17:50:08 06/02/20 24 06/02/2024 COMP METAB OLIC PANEL ALT (SGPT) 31 U/L 12-78 Not Available [facility] (Lab Registration) [address] [place], [address], 06/02/2024 17:50:08 06/02/20 24 06/02/2024 COMP METAB OLIC PANEL alk phosphatase 78 U/L 50-120 Not Available [facility] (Lab Registration) [address] [place], [address], 06/02/2024 17:50:08 06/02/20 24 06/02/2024 COMP METAB OLIC PANEL note Unles s other wilson noted testi ng perfo rmed at: [facility] [address] [place] [address] [phone] Ryan gonzalez MD CLIA: [id number] Not Available [facility] (Lab Registration) [address] [place], [address], 06/02/2024 17:50:08 06/02/20 24 06/02/2024 HEMOG LOBIN A1C glycosylated hemoglobin A1C 5.4 % 4.5-6. 2 Not Available [facility] (Lab Registration) [address] , [place], [address], 06/02/2024 18:00:45 06/02/20 24 06/02/2024 HEMOG LOBIN A1C estimated average glucose 108 mg/dL 82-131 Not Available [facility] (Lab Registration) [address] , [place], [address], 06/02/2024 18:00:45 06/02/20 24 06/02/2024 HEMOG LOBIN A1C note Unles s other wilson noted testi ng perfo rmed at: [facility] [address] [place] [address] [phone] Ryan gonzalez MD CLIA: [id number] Not Available [facility] (Lab Registration) [address] , [place], [address], 06/02/2024 18:00:45 06/02/20 24 06/02/2024 HCV ANTIB CECILIA note Unles s other wilson noted testi ng perfo rmed at: [facility] [address] [place] [address] [phone] Ryan gonzalez MD CLIA: [id number] Not Available [facility] (Lab Registration) [address] , [place], [address], 06/04/2024 08:13:53 06/02/20 24 06/04/2024 HCV ANTIB [...] e HCV infec tion. Perfo rmed at: [facility] [address], [place] [address] Lab Direc tor: Juanito jerome PhD, Phone : [phone] Not Available [facility] (Lab Registration) [address] [place], [address], 06/04/2024 08:13:53 09/01/19 25 08/31/2024 COMP METAB OLIC PANEL sodium 141 mmol/ L 136-14 5 Not Available [facility] (Lab Registration) [address] [place], [address], 08/31/2024 16:42:29 09/01/19 25 08/31/2024 COMP METAB OLIC PANEL potassium 3.9 mmol/ L 3.5-5. 1 Not Available [facility] (Lab Registration) [address] [place], [address], 08/31/2024 16:42:29 09/01/19 25 08/31/2024 COMP METAB OLIC PANEL chloride 105 mmol/ L 98-107 Not Available [facility] (Lab Registration) [address] [place], [address], 08/31/2024 16:42:29 09/01/19 25 08/31/2024 COMP METAB OLIC PANEL carbon dioxide 29 mmol/ L 21-32 Not Available [facility] (Lab Registration) [address] [place], [address], 08/31/2024 16:42:29 09/01/19 25 08/31/2024 COMP METAB OLIC PANEL anion gap 7.0 Not Available [facility] (Lab Registration) [address] [place], [address], 08/31/2024 16:42:29 09/01/19 25 08/31/2024 COMP METAB OLIC PANEL glucose 83 mg/dL 70-110 Not Available [facility] (Lab Registration) [address] [place], [address], 08/31/2024 16:42:29 09/01/19 25 08/31/2024 COMP METAB OLIC PANEL blood urea nitrogen 11 mg/dL 7-18 Not Available [facility] (Lab Registration) [address], [place], [address], 08/31/2024 16:42:29 09/01/19 25 08/31/2024 COMP METAB OLIC PANEL creatinine 0.9 mg/dL 0.6-1. 0 Not Available [facility] (Lab Registration) [address], [place], [address], 08/31/2024 16:42:29 09/01/19 25 08/31/2024 COMP METAB OLIC PANEL BUN/creatini ne ratio 12.2 9-21 Not Available [facility] (Lab Registration) [address], [place], [address], 08/31/2024 16:42:29 09/01/19 25 08/31/2024 COMP METAB [...] tai ing kiney funct ion. Not Available [facility] (Lab Registration) [address], [place], [address], 08/31/2024 16:42:29 09/01/19 25 08/31/2024 COMP METAB OLIC PANEL osmolality (calculated) 292 mOsm/ kg 275-30 1 OSMOL ALITY IS A CALCU LATIO N UTILI ZING THE SERUM /PLAS MA SODIU M, GLUCO SE AND UREA NITRO GEN (BUN) LEVEL S. FOR THE MOST ACCUR ATE RESUL T A MEASU RED SERUM OSMOL ALITY IS SUGGE STED. Not Available [facility] (Lab Registration) [address], [place], [address], 08/31/2024 16:42:29 09/01/19 25 08/31/2024 COMP METAB OLIC PANEL total protein 7.6 g/dL 6.4-8. 2 Not Available [facility] (Lab Registration) [address], [place], [address], 08/31/2024 16:42:29 09/01/19 25 08/31/2024 COMP METAB OLIC PANEL albumin 3.9 g/dL 3.4-5. 0 Not Available [facility] (Lab Registration) [address], [place], [address], 08/31/2024 16:42:29 09/01/19 25 08/31/2024 COMP METAB OLIC PANEL calcium 9.6 mg/dL 8.5-10 .1 Not Available [facility] (Lab Registration) [address], [place], [address], 08/31/2024 16:42:29 09/01/19 25 08/31/2024 COMP METAB OLIC PANEL corrected calcium 9.7 mg/dL 8.5-10 .1 Not Available [facility] (Lab Registration) [address], [place], [address], 08/31/2024 16:42:29 09/01/19 25 08/31/2024 COMP METAB OLIC PANEL bilirubin total 0.4 mg/dL 0.4-1. 5 Not Available [facility] (Lab Registration) [address] [place], [address], 08/31/2024 16:42:29 09/01/19 25 08/31/2024 COMP METAB OLIC PANEL AST (SGOT) 16 U/L 15-37 Not Available [facility] (Lab Registration) [address] [place], [address], 08/31/2024 16:42:29 09/01/19 25 08/31/2024 COMP METAB OLIC PANEL ALT (SGPT) 25 U/L 12-78 Not Available [facility] (Lab Registration) [address], [place], [address], 08/31/2024 16:42:29 09/01/19 25 08/31/2024 COMP METAB OLIC PANEL alk phosphatase 84 U/L 50-120 Not Available [facility] (Lab Registration) [address] [place], [address], 08/31/2024 16:42:29 09/01/19 25 08/31/2024 COMP METAB OLIC PANEL note Unles s other wilson noted testi ng perfo rmed at: [facility] [address] [place] [address] [phone] Ryan gonzalez MD CLIA: [id number] Not Available [facility] (Lab Registration) [address] [place], [address], 08/31/2024 16:42:29 12/21/19 25 12/20/2024 CBC AUTO W DIFF WBC 6.9 10 4.5-11 .5 Not Available [facility] (Lab Registration) [address] [place], [address], 12/20/2024 16:48:23 12/21/19 25 12/20/2024 CBC AUTO W DIFF RBC 4.67 10 4.25-5 .57 Not Available [facility] (Lab Registration) [address] [place], [address], 12/20/2024 16:48:23 12/21/19 25 12/20/2024 CBC AUTO W DIFF HGB 12.9 g/dL 12.0-1 5.7 Not Available [facility] (Lab Registration) [address] [place], [address], 12/20/2024 16:48:23 12/21/19 25 12/20/2024 CBC AUTO W DIFF HCT 40.6 % 36.0-4 7.0 Not Available [facility] (Lab Registration) [address] [place], [address], 12/20/2024 16:48:23 12/21/19 25 12/20/2024 CBC AUTO W DIFF MCV 86.9 fL 80-95 Not Available [facility] (Lab Registration) [address] [place], [address], 12/20/2024 16:48:23 12/21/19 25 12/20/2024 CBC AUTO W DIFF MCH 27.6 pg 27.0-3 4.0 Not Available [facility] (Lab Registration) [address] [place], [address], 12/20/2024 16:48:23 12/21/19 25 12/20/2024 CBC AUTO W DIFF MCHC 31.8 g/dL 32.0-3 6.0 low Not Available [facility] (Lab Registration) [address] [place], [address], 12/20/2024 16:48:23 12/21/19 25 12/20/2024 CBC AUTO W DIFF platelet count 273 10 150-45 0 Not Available [facility] (Lab Registration) [address] [place], [address], 12/20/2024 16:48:23 12/21/19 25 12/20/2024 CBC AUTO W DIFF RDW 14.2 % 12.3-1 5.1 Not Available [facility] (Lab Registration) [address] [place], [address], 12/20/2024 16:48:23 12/21/19 25 12/20/2024 CBC AUTO W DIFF MPV 9.9 fL 7.4-10 .4 Not Available [facility] (Lab Registration) [address] [place], [address], 12/20/2024 16:48:23 12/21/19 25 12/20/2024 CBC AUTO W DIFF granulocyte% 56.3 % 40-75 Not Available [facility] (Lab Registration) [address] [place], [address], 12/20/2024 16:48:23 12/21/19 25 12/20/2024 CBC AUTO W DIFF lymphocyte% 35.4 % 15-57 Not Available [facility] (Lab Registration) [address] [place], [address], 12/20/2024 16:48:23 12/21/19 25 12/20/2024 CBC AUTO W DIFF monocyte% 5.3 % 4.0-12 .0 Not Available [facility] (Lab Registration) [address] [place], [address], 12/20/2024 16:48:23 12/21/19 25 12/20/2024 CBC AUTO W DIFF eosinophil% 2.6 % 0.0-4. 0 Not Available [facility] (Lab Registration) [address] [place], [address], 12/20/2024 16:48:23 12/21/19 25 12/20/2024 CBC AUTO W DIFF basophil% 0.3 % 0.0-1. 0 Not Available [facility] (Lab Registration) [address] [place], [address], 12/20/2024 16:48:23 12/21/19 25 12/20/2024 CBC AUTO W DIFF immature granulocytes % 0.1 % 0.0-0. 8 Not Available [facility] (Lab Registration) [address] [place], [address], 12/20/2024 16:48:23 12/21/19 25 12/20/2024 CBC AUTO W DIFF granulocyte# 3.90 10 Not Available [facility] (Lab Registration) [address] [place], [address], 12/20/2024 16:48:23 12/21/19 25 12/20/2024 CBC AUTO W DIFF lymphocyte# 2.46 10 Not Available [facility] (Lab Registration) [address] [place], [address], 12/20/2024 16:48:23 12/21/19 25 12/20/2024 CBC AUTO W DIFF monocyte# 0.37 10 Not Available [facility] (Lab Registration) [address] [place], [address], 12/20/2024 16:48:23 12/21/19 25 12/20/2024 CBC AUTO W DIFF eosinophil# 0.18 10 Not Available [facility] (Lab Registration) [address] [place], [address], 12/20/2024 16:48:23 12/21/19 25 12/20/2024 CBC AUTO W DIFF basophil# 0.02 10 Not Available [facility] (Lab Registration) [address] [place], [address], 12/20/2024 16:48:23 12/21/19 25 12/20/2024 CBC AUTO W DIFF immature granulocytes # 0.01 10 Not Available [facility] (Lab Registration) [address] [place], [id number], 12/20/2024 16:48:23 12/21/19 25 12/20/2024 CBC AUTO W DIFF manual differential NO Not Available [facility] [facility] (Lab Registration) [address] [place], [address], 12/20/2024 16:48:23 12/21/19 25 12/20/2024 CBC AUTO W DIFF note Unles s other wilson noted testi ng perfo rmed at: [facility] [employer] [address] [phone] Ryan gonzalez MD CLIA: [id number] Not Available [facility] (Lab Registration) [address] [place], [address], 12/20/2024 16:48:23 12/21/19 25 12/20/2024 IRON/ TIBC/ %SAT (IRON STUDI ES) iron 44 ug/dL 35-150 Not Available [facility] (Lab Registration) [address], [place], [address], 12/20/2024 16:58:11 12/21/19 25 12/20/2024 IRON/ TIBC/ %SAT (IRON STUDI ES) total iron bind cap (TIBC) 352 ug/dL 250-45 0 Not Available [facility] (Lab Registration) [address] [place], [address], 12/20/2024 16:58:11 12/21/19 25 12/20/2024 IRON/ TIBC/ %SAT (IRON STUDI ES) % saturation 13 % 15-55 low Not Available [facility] (Lab Registration) [address] [place], [address], 12/20/2024 16:58:11 12/21/19 25 12/20/2024 IRON/ TIBC/ %SAT (IRON STUDI ES) note Unles s other wilson noted testi ng perfo rmed at: [facility] [address] [place] [address] [phone] Ryan gonzalez MD CLIA: [id number] Not Available [facility] (Lab Registration) [address] [place], [address], 12/20/2024 16:58:11 12/21/19 25 12/20/2024 HEMOG LOBIN A1C glycosylated hemoglobin A1C 5.5 % 4.5-6. 2 Not Available [facility] (Lab Registration) [address] [place], [address], 12/20/2024 16:58:15 12/21/19 25 12/20/2024 HEMOG LOBIN A1C estimated average glucose 111 mg/dL 82-131 Not Available [facility] (Lab Registration) [address] [place], [address], 12/20/2024 16:58:15 12/21/19 25 12/20/2024 HEMOG LOBIN A1C note Unles s other wilson noted testi ng perfo rmed at: [facility] [address] [place] [address] [phone] Ryan gonzalez MD CLIA: [id number] Not Available [facility] (Lab Registration) [address] [place], [address], 12/20/2024 16:58:15 12/21/19 25 12/20/2024 VITAM IN D TOTAL (D2+D 3) vitamin D25 (D2+D3) 22.9 NG/mL 30-100 low Not Available [facility] (Lab Registration) [address] [place], [address], 12/20/2024 17:23:57 12/21/19 25 12/20/2024 VITAM IN D TOTAL (D2+D 3) note Unles s other wilson noted testi ng perfo rmed at: [facility] [address] [place] [address] [phone] Ryan gonzalez MD CLIA: [id number] Not Available [facility] (Lab Registration) [address] [place], [address], 12/20/2024 17:23:57 12/21/19 25 12/20/2024 VITAM IN B12 vitamin B12 223 pg/mL 193-98 6 Not Available [facility] (Lab Registration) [address] [place], [address], 12/20/2024 17:23:58 12/21/19 25 12/20/2024 VITAM IN B12 folate (folic acid), serum 8.1 NG/mL 8.6-58 .9 low Not Available [facility] (Lab Registration) [address] [place], [address], 12/20/2024 17:23:58 12/21/19 25 12/20/2024 VITAM IN B12 note Unles s other wilson noted testi ng perfo rmed at: [facility] [address] [place] [address] [phone] Ryan gonzalez MD CLIA: [id number] Not Available [facility] (Lab Registration) [address] [place], [address], 12/20/2024 17:23:58 12/21/19 25 12/20/2024 COMP METAB OLIC PANEL sodium 141 mmol/ L 136-14 5 Not Available [facility] (Lab Registration) [address] [place], [address], 12/20/2024 17:23:59 12/21/19 25 12/20/2024 COMP METAB OLIC PANEL potassium 4.2 mmol/ L 3.5-5. 1 Not Available [facility] (Lab Registration) [address] [place], [address], 12/20/2024 17:23:59 12/21/19 25 12/20/2024 COMP METAB OLIC PANEL chloride 103 mmol/ L 98-107 Not Available [facility] (Lab Registration) [address] [place], [address], 12/20/2024 17:23:59 12/21/19 25 12/20/2024 COMP METAB OLIC PANEL carbon dioxide 29 mmol/ L 21-32 Not Available [facility] (Lab Registration) [address] [place], [address], 12/20/2024 17:23:59 12/21/19 25 12/20/2024 COMP METAB OLIC PANEL anion gap 9.0 Not Available [facility] (Lab Registration) [address] [place], [address], 12/20/2024 17:23:59 12/21/19 25 12/20/2024 COMP METAB OLIC PANEL glucose 91 mg/dL 70-110 Not Available [facility] (Lab Registration) [address], [place], [address], 12/20/2024 17:23:59 12/21/19 25 12/20/2024 COMP METAB OLIC PANEL blood urea nitrogen 17 mg/dL 7-18 Not Available [facility] (Lab Registration) [address], [place], [address], 12/20/2024 17:23:59 12/21/19 25 12/20/2024 COMP METAB OLIC PANEL creatinine 0.6 mg/dL 0.6-1. 0 Not Available [facility] (Lab Registration) [address], [place], [address], 12/20/2024 17:23:59 12/21/19 25 12/20/2024 COMP METAB OLIC PANEL BUN/creatini ne ratio 28.3 9-21 high Not Available [facility] (Lab Registration) [address], [place], [address], 12/20/2024 17:23:59 12/21/19 25 12/20/2024 COMP METAB OLIC PANEL estimated glom filtration rate 107 mL/mi n >60- GFR LIMIT ATION : [...] tai ing kiney funct ion. Not Available [facility] (Lab Registration) [address] [place], [address], 12/20/2024 17:23:59 12/21/19 25 12/20/2024 COMP METAB OLIC PANEL osmolality (calculated) 294 mOsm/ kg 275-30 1 OSMOL ALITY IS A CALCU LATIO N UTILI ZING THE SERUM /PLAS MA SODIU M, GLUCO SE AND UREA NITRO GEN (BUN) LEVEL S. FOR THE MOST ACCUR ATE RESUL T A MEASU RED SERUM OSMOL ALITY IS SUGGE STED. Not Available [facility] (Lab Registration) [address], [place], [address], 12/20/2024 17:23:59 12/21/19 25 12/20/2024 COMP METAB OLIC PANEL total protein 8.0 g/dL 6.4-8. 2 Not Available [facility] (Lab Registration) [address], [place], [address], 12/20/2024 17:23:59 12/21/19 25 12/20/2024 COMP METAB OLIC PANEL albumin 4.3 g/dL 3.4-5. 0 Not Available [facility] (Lab Registration) [address] [place], [address], 12/20/2024 17:23:59 12/21/19 25 12/20/2024 COMP METAB OLIC PANEL calcium 9.7 mg/dL 8.5-10 .1 Not Available [facility] (Lab Registration) [address], [place], [address], 12/20/2024 17:23:59 12/21/19 25 12/20/2024 COMP METAB OLIC PANEL corrected calcium 9.5 mg/dL 8.5-10 .1 Not Available [facility] (Lab Registration) [address] [place], [address], 12/20/2024 17:23:59 12/21/19 25 12/20/2024 COMP METAB OLIC PANEL bilirubin total 0.6 mg/dL 0.4-1. 5 Not Available [facility] (Lab Registration) 9 [place], [address], 12/20/2024 17:23:59 12/21/19 25 12/20/2024 COMP METAB OLIC PANEL AST (SGOT) 25 U/L 15-37 Not Available [facility] (Lab Registration) [address] [place], [address], 12/20/2024 17:23:59 12/21/19 25 12/20/2024 COMP METAB OLIC PANEL ALT (SGPT) 30 U/L 12-78 Not Available [facility] (Lab Registration) [address] [place], [address], 12/20/2024 17:23:59 12/21/19 25 12/20/2024 COMP METAB OLIC PANEL alk phosphatase 84 U/L 50-120 Not Available [facility] (Lab Registration) [address] [place], [address], 12/20/2024 17:23:59 12/21/19 25 12/20/2024 COMP METAB OLIC PANEL note Unles s other wilson noted testi ng perfo rmed at: [facility] 9 [facility] [place] [address] [phone] Ryan gonzalez MD CLIA: [id number] Not Available [facility] (Lab Registration) [address] [place], [address], 12/20/2024 17:23:59 12/21/19 25 12/20/2024 LIPID PANEL triglyceride 307 mg/dL 20-200 high The Natio nal Salima st[employer] l [employer]ca tion Progr am (NCEP ) has set the follo wing guide lines for Fasti ng Trigl yceri sulema: FELICITY L: <150 mg/dL BORDE RLINE HIGH: 150 - 199 mg/dL HIGH: 200 - 499 mg/dL VERY HIGH: > or =500 mg/dL Not Available [facility] (Lab Registration) [address] [place], [address], 12/20/2024 17:24:01 12/21/19 25 12/20/2024 LIPID PANEL cholesterol 194 mg/dL 0-200 The Natio nal [employer] l [employer]ca tion Progr am (NCEP ) has set the follo wing guide lines for Fasti ng Salima stero l: KALPANA ABLE: <200 mg/dL BORDE RLINE HIGH: 200 - 239 mg/dL HIGH: > or =240 mg/dL Not Available [facility] (Lab Registration) [address] [place], [address], 12/20/2024 17:24:01 12/21/19 25 12/20/2024 LIPID PANEL HDL cholesterol 55 mg/dL 60- low The Natio nal [employer] l [employer]ca tion Progr am (NDEP ) has set the follo wing guide lines for Fasti ng HDL Salima stero l: LOW HDL: <40 mg/dL FELICITY L: 40 - 60 mg/dL KALPANA ABLE: >60 mg/dL Not Available [facility] (Lab Registration) [address] [place], [address], 12/20/2024 17:24:01 12/21/19 25 12/20/2024 LIPID PANEL LDL calculated 78 mg/dL 100- low The Natio nal [employer] l [employer]ca tion Progr am (NDEP ) has set the follo wing guide lines for Fasti ng LDL Salima stero l: OPTIM AL: < 100 mg/dL LOW RISK: 100 - 129 mg/dL BORDE RLINE HIGH: 130 - 159 mg/dL HIGH: 160 - 189 mg/dL VERY HIGH: > or = 190 mg/dL Not Available [facility] (Lab Registration) [address] [place], [address], 12/20/2024 17:24:01 12/21/19 25 12/20/2024 LIPID PANEL chol/HDL ratio 4 -5 Not Available [facility] (Lab Registration) [address] [place], [address], 12/20/2024 17:24:01 12/21/19 25 12/20/2024 LIPID PANEL note Unles s other wilson noted testi ng perfo rmed at: [facility] [address] [place] [phone] Ryan gonzalez MD CLIA: [id number] Not Available [facility] (Lab Registration) [address] [place], [address], 12/20/2024 17:24:01 12/21/19 25 12/20/2024 NAT TIN ferritin 29 NG/mL 8-388 Not Available [facility] (Lab Registration) [address] [place], [address], 12/20/2024 17:24:03 12/21/19 25 12/20/2024 NAT TIN note Unles s other wilson noted testi ng perfo rmed at: [facility] [address] [place] [phone] Ryan gonzalez MD CLIA: [id number] Not Available [facility] (Lab Registration) [address] [place], [address], 12/20/2024 17:24:03 02/17/20 25 02/16/2025 CULTU RE URINE results [facility] 02-17 440 >100, 000 COL/M L Gram Posit rashida Cocci Not Available [facility] (Lab Registration) [address] [place], [address], 02/17/2025 04:42:30 02/17/20 25 02/16/2025 CULTU RE URINE note Unles s other wilson noted testi ng perfo rmed at: [facility] [address] [place] [phone] Ryan gonzalez MD CLIA: [id number] Not Available [facility] (Lab Registration) [address] [place], [address], 02/17/2025 04:42:30 02/17/20 25 02/16/2025 CULTU RE URINE culccur ===== ===== ===== ===== ===== ===== ===== ===== ===== ===== ===== ===== ===== ===== ===== ===== ===== ===== ===== ===== ===== ===== ===== ===== Speci men NO.: [id number] Exam Statu s: Final Proce dure: [...] TFG TFG Vanco mycin 0.5 S S [facility] 02-17 440 >100, 000 COL/M L Gram Posit rashida Cocci Not Available [facility] (Lab Registration) [address], [place], [address], 02/18/2025 04:39:03 02/17/20 25 02/16/2025 CULTU RE URINE note Unles s other wilson noted testi ng perfo rmed at: [facility] [address] [address] [phone] Ryan gonzalez MD CLIA: [id number] Not Available [facility] (Lab Registration) [address] , [place], [address], 02/18/2025 04:39:03 02/17/20 25 02/16/2025 VAGIN ITIS PLUS (VG+) note Unles s other wilson noted testi ng perfo rmed at: [facility] [address] [place] [address] [phone] Ryan gonzalez MD CLIA: [id number] Not Available [facility] (Lab Registration) [address] , [place], [address], 02/19/2025 05:08:52 02/17/20 25 02/19/2025 VAGIN ITIS PLUS (VG+) atopobium vaginae Low - 0 score Not Available [facility] (Lab Registration) [address], [place], [address], 02/19/2025 05:08:52 02/17/2002/19/2025 VAGIN ITIS PLUS (VG+) bvab 2 Modera te - 1 score Not Available [facility] (Lab Registration) [address] , [place], [address], 02/19/2025 05:08:52 02/17/2002/19/2025 VAGIN ITIS PLUS (VG+) megasphaera 1 Low - 0 score . Calcu late total score by sim g the 3 indiv idual bacte rial vagin [...] the prese nce of BV. Not Available [facility] (Lab Registration) [address] [place], [address], 02/19/2025 05:08:52 02/17/20 25 02/19/2025 VAGIN ITIS PLUS (VG+) anita albicans, EDDIE Negati ve negati ve Not Available [facility] (Lab Registration) [address] [place], [address], 02/19/2025 05:08:52 02/17/20 25 02/19/2025 VAGIN ITIS PLUS (VG+) anita glabrata, EDDIE Negati ve negati ve Not Available [facility] (Lab Registration) [address] [place], [address], 02/19/2025 05:08:52 02/17/20 25 02/19/2025 VAGIN ITIS PLUS (VG+) trich vag by EDDIE Positi ve negati ve delta Not Available [facility] (Lab Registration) [address] [place], [address], 02/19/2025 05:08:52 02/17/20 25 02/19/2025 VAGIN ITIS PLUS (VG+) chlamydia trachomatis, EDDIE Negati ve negati ve Not Available [facility] (Lab Registration) [address] [place], [address], 02/19/2025 05:08:52 02/17/20 25 02/19/2025 VAGIN ITIS PLUS (VG+) neisseria gonorrhoeae, EDDIE Negati ve negati ve Perfo rmed at: =G - [facility] [address] , [place] [address] Lab Direc tor: Varsha floyd MD, Phone : [phone] Not Available [facility] (Lab Registration) [address] [place], [address], 02/19/2025 05:08:52 02/17/20 25 02/16/2025 urina lysis , dipst ick Leukocytes (reference range) small Not Available [address] [place], [address], 02/16/2025 10:39:01 02/17/20 25 02/16/2025 urina lysis , dipst ick Nitrite (reference range:) negati ve Not Available [address] [place], [address], 02/16/2025 10:39:01 02/17/20 25 02/16/2025 urina lysis , dipst ick Urobilinogen (reference range) 0.2 Not Available [address] [place], [address], 02/16/2025 10:39:01 02/17/20 25 02/16/2025 urina lysis , dipst ick Protein (reference range) 100 Not Available [address] [place], [address], 02/16/2025 10:39:01 02/17/20 25 02/16/2025 urina lysis , dipst ick pH (reference range 5-8.5) 5.5 Not Available [address] [place], [address], 02/16/2025 10:39:01 02/17/20 25 02/16/2025 urina lysis , dipst ick Blood (reference range:) modera te Not Available [address] [place], [address], 02/16/2025 10:39:01 02/17/20 25 02/16/2025 urina lysis , dipst ick Specific [place] (reference range) 1.030 Not Available [address] [place], [address], 02/16/2025 10:39:01 02/17/20 25 02/16/2025 urina lysis , dipst ick Ketone (reference range) negati ve Not Available [address] [place], [address], 02/16/2025 10:39:01 02/17/20 25 02/16/2025 urina lysis , dipst ick Bilirubin (reference range) small Not Available [address] [place], [address], 02/16/2025 10:39:01 02/17/2002/16/2025 urina lysis , dipst ick Glucose (reference range) negati ve Not Available [address] [place], [address], 02/16/2025 10:39:01 02/17/20 25 02/16/2025 urina lysis , dipst ick Color (reference range: yellow-brown ) Dark Yellow Not Available [address] [place], [address], 02/16/2025 10:39:01 03/08/20 25 03/08/2025 influ sophia virus A + B + SARS- CoV-2 (COVI D19) Ag panel , rapid IA, upper respi rator y speci men FLU A negati ve Not Available [address] [place], [address], 03/08/2025 15:08:46 03/08/20 25 03/08/2025 influ sophia virus A + B + SARS- CoV-2 (COVI D19) Ag panel , rapid [place], upper respi rator y speci men FLU B negati ve Not Available [address] [place], [address], 03/08/2025 15:08:46 03/08/20 25 03/08/2025 influ sophia virus A + B + SARS- CoV-2 (COVI D19) Ag panel , rapid [place], upper respi rator y speci men SARS COV + SARS OV 2 negati ve Not Available [facility] [address] [place], [address], 03/08/2025 15:08:46 05/04/20 24 05/01/2024 [place], thyro id No observ ation record ed. [facility] [address], [place], [address], 05/04/2024 11:30:21 Result Notes None recorded. Problems Name Problem SNOMED Code Status Onset Date Resolution Date Notes Provider Name and Address Organization Details Recorded Time Essential hypertension 86956215 Active 2021 Larry Thorpe null, [place] - [facility] - [facility] & [place] 4 15:05:59 Chronic bronchitis 05147999 Active 2021 Lynda Stout null, [place] [facility] & [place] 2 08:52:05 Hypothyroidism 53236281 Active 2021 Larry Thorpe null, [place] [facility] - [place] & [place] 4 15:06:10 Asthma 794852458 Active 2021 Larry Thorpe null, [place] [facility] & [place] 4 15:05:49 Gastroesophage al reflux disease 330008731 Active 2021 Larry Thorpe null, [place] [facility] - [place] & [place] 4 15:06:05 Anxiety 56994074 Active 2021 Larry Thorpe null, [place] [facility] - [place] & [place] 4 15:05:47 Edema 389458561 Active 2021 Larry Thorpe null[place] [facility] & [place] 4 15:05:56 Fatigue 47398628 Active 2021 [place] Thor[place] [facility] & [place] 4 15:06:01 Atherosclerosi s Active 2021 Larry Thor[place] [facility] & [place] 4 15:05:51 Obstructive sleep apnea syndrome 54585807 Active 2021 Larry Thorpe null, [place] [facility] - [place] & [place] 4 15:06:16 Hyperlipidemia 89545353 Active 2021 [place] Thor[place] null[place] [facility] & [place] 4 15:06:08 Allergic rhinitis 66024094 Active 2021 Larry Thorpe null, [place] - [place] & [place] 4 15:05:45 Depressive disorder 23030470 Active 2021 Larry Thorpe [place] [facility] & [place] 4 15:05:54 Obesity 575848353 Active 2021 Larry Thorpe [place], [place] [facility] - [place] & [place] 4 15:06:13 Acquired hypothyroidism 264709382 Active 2023 [facility] [address] [place], [address], [place] [facility] - [place] & [place] 4 15:48:18 Prediabetes 230515200 Active 2023 [facility] [address] [place], [address], [place] [facility] [place] & [place] 4 15:48:21 Menopausal flushing 040591941 Active 2023 Larry Thorpe null, [place] [facility] - [place] & [place] 4 15:19:55 Problem Notes None [...] Thyroid Surgery completed [facility] [address] [place], [address], [facility] & [place] 07/09/2023 11:52:28 Appendectomy completed [facility] [address] [facility], [place], [address], [facility] & [place] 07/09/2023 11:52:28 Colonoscopy completed [facility] [address] [place], [address], [facility] & [place] 07/09/2023 11:52:28 Cardiovascular Surgery completed [facility] NP [address] [facility], [place], [address], [facility] & [place] 07/09/2023 11:52:28 Tubal Ligation completed Not Available [facility] 07/19/2022 12:31:01 Imaging Results None recorded. Procedure Notes None recorded. Medical Equipment None Reported. Allergies Allergen ID Allergen Name Allergen Category Reaction Reaction Severity Criticality Documentation Date Start Date Code Code System Note Provider Name and Address Organization Details Recorded Time 536288 No known allergy (situatio n) Not available Not available Not available Not available 09/11/2024 36683 6003 SNOMED Ana Laura Colon null, [facility] & [place] 15:46:44 No known drug allergies Medications Name [...] Not Available Not Available No t Available Carrieol 0.05 % eye drops INSTILL 1 DROP [...] blood by Pulse oximetry Heart rate Systolic And Diastolic Provider Name and Address Organization Details Last Updated DateTime 5 162.56 cm 41.9 kg/m2 498756. 54 g 97.2 [degF] 98 % 98 % 58 /min 139/89 mm[Hg] Jm romano [facility] & [place] 5 14:26:01 Date Recorded Body height Body mass index (BMI) Body weight Body temperature Oxygen saturation Oxygen saturation in Arterial blood by Pulse oximetry Heart rate Respiratory rate Systolic And Diastolic Provider Name and Address Organization Details Last Updated DateTime 5 162.56 cm 42.1 kg/m2 482499. 13 g 97.2 [degF] 94 % 94 % 71 /min 16 /min 122/83 mm[Hg] Darline Isable [facility] & [place] 5 10:30:41 Date Recorded Body height Body mass index (BMI) Body weight Body temperature Oxygen saturation Oxygen saturation in Arterial blood by Pulse oximetry Heart rate Respiratory rate Systolic And Diastolic Provider Name and Address Organization Details Last Updated DateTime 5 162.56 cm 42.2 kg/m2 051986. 72 g 97.9 [degF] 99 % 99 % 74 /min 18 /min 141/90 mm[Hg] Larry Thorpe [facility] & [place] 5 15:08:11 Date Recorded Body height Body mass index (BMI) Body weight Body temperature Oxygen saturation Oxygen saturation in Arterial blood by Pulse oximetry Heart rate Systolic And Diastolic Provider Name and Address Organization Details Last Updated DateTime 4 162.56 cm 40.7 kg/m2 183201. 39 g 97.9 [degF] 99 % 99 % 64 /min 145/102 mm[Hg] Jm romano [place] - [facility] & [place] 15:26:24 Social History Question Answer Notes LastModified by Organizat ion Details LastModified Time Tobacco Smoking Status Former Smoker Lynda hidalgo, [facility] & [place] 03/25/2022 10:38:09 Do You Have An Advance Directive? No [email or web address] Information not available 12/06/2023 Do You Wear A Helmet When Biking? Yes [email or web address] Information not available 12/06/2023 Are You Blind Or Do You Have Difficulty Seeing? Yes [email or web address] Information not available 08/04/2022 What Is Your Level Of Caffeine Consumption? Occasional Information not available 07/09/2023 In The 14 Days Before Symptom Onset, Have You Had Close Contact With A Laboratory-confir med COVID-19 While That Case Was Ill? No [email or web address] Information not available 12/06/2023 In The 14 Days Before Symptom Onset, Have You Had Close Contact With A Person Who Is Under Investigation For COVID-19 While That Person Was Ill? No [email or web address] Information not available 12/06/2023 Have You Been To An Area Known To Be High Risk For COVID-19? No [email or web address] Information not available 12/06/2023 Are You Deaf Or Do You Have Serious Difficulty Hearing? No [email or web address] Information not available 12/06/2023 What Type Of Diet Are You Following? REGULAR [email or web address] Information not available 12/06/2023 Have You Processed Blood Or Body Fluids From An Ebola Virus Disease Patient Without Appropriate PPE? No [email or web address] Information not available 12/06/2023 Do You Reside In Or Have You Traveled To An Area Where Ebola Virus Transmission Is Active? No [email or web address] Information not available 12/06/2023 Have There Been Any Changes To Your Family Or Social Situation? No [email or web address] Information no t available 12/06/2023 What Is The Fluoride Status Of Your Home? Unknown [email or web address] Information not available 12/06/2023 When Did You Quit Smoking? 6-10yearssince ngoc Information not available 07/09/2023 Are There Any Guns Present In Your Home? No Information not available 12/06/2023 Have You Recently Or Are You Planning To Travel To An Area With Zika Virus? No [email or web address] Information not available 12/06/2023 Do You Use Insect Repellent Routinely? Yes [email or web address] Information not available 12/06/2023 Do You Feel Safe At Home? Yes [email or web address] Information not available 12/06/2023 Do You Have A Medical Power Of Vp Ad Products And Planning? No [email or web address] Information not available 12/06/2023 What Was The Date Of Your Most Recent Tobacco Screening? 12/20/2024 [email or web address] Information not available 12/20/2024 Do You Have Any Pets? No [email or web address] Information not available 12/06/2023 Do You Use Your Seat Belt Or Car Seat Routinely? Yes Information not available 12/06/2023 Do You Have Smoke And Carbon Monoxide Detectors In Your Home? Yes [email or web address] Information not available 12/06/2023 Are You Passively Exposed To Smoke? Yes Information no t available 08/04/2022 Do You Use Sunscreen Routinely? Yes [email or web address] Information not available 12/06/2023 Has Tobacco Cessation Counseling Been Provided? No Information not available 07/09/2023 Do You Have Difficulty Walking Or Climbing Stairs? No Information not available 12/06/2023 Are You Currently In School? No [email or web address] Information not available 12/06/2023 Sex: Female Functional [...] available 03/25/2022 Are you currently employed? No [email or web address] Information not available 12/06/2023 Do you have transportation difficulties? No [email or web address] Information not available 12/06/2023 Are you able to walk independently without assistance or assistive devices? YESWOREST [email or web address] Information not available 12/06/2023 Do you have difficulty doing errands alone? No [email or web address] Information not available 12/06/2023 Are you able to care for yourself independently? Yes [email or web address] Information not available 12/06/2023 Do you have difficulty dressing, bathing, grooming, or toileting? No [email or web address] Information not available 12/06/2023 Do you or have you ever used e-cigarettes or vape? Current user of electronic cigarettes Information not available 07/09/2023 What is your exercise level? Occasional [email or web address] Information not available 08/04/2022 Mental Status Question Answer Note LastModified by Organizat ion Details LastModified Time Do you feel stressed (tense, restless, nervous, or anxious, or unable to sleep at night)? [id number] [email or web address] Information not available 08/04/2022 Do you have difficulty concentrating, remembering or making decisions? No [email or web address] Information no t available 12/06/2023 Family History Relationship Description Onset Age of this Age Resolved Age Notes LastModified by Organization Details LastModified Time Mother Glaucoma [email or web address] Not availabl e 03/08/2025 15:00:32 Mother Hyperlipidem ia [email or web address] Not available 2024 15:00:32 Father Heart disease [email or web address] Not available 07/2023 14:29:46 Father Essential hypertension [email or web address] Not available 15:00:32 Daughter Bipolar disorder [email or web address] Not available 2024 15:00:32 Son Asthma [email or web address] Not available 03/08/2025 15:00:32 Son Attention deficit hyperactivit y disorder [email or web address] Not available 03/08 15:00:32 Medical History Condition Response Allergies/Hayfever Y Anxiety Disorder Y Vision or Eye Problems Y Back Problems Y Thyroid Problems Y Hypothyroidism Y Reflux/GERD Y High Cholesterol Y Headaches Y Obstructive Sleep Apnea Y Hypertension Y Gynecological History Statement/Question Response Current Control Method None Sexually Active? N Obstetrics History GPAL:G 0 P 0 0 0 0 Immunizations Vaccine Type Date Status Note Provider Nam e and Address Organization Details Recorded Time Td(adult) unspecified formulation 01/02/2015 completed Lynda hidalgo, [place] [facility] [place] & [place] 07/21/2022 14:07:40 Influenza, split virus, quadrivalent, PF 06/22/2019 completed Lynda Stout [place], [place] [facility] [place] 07/21/2022 14:07:40 Influenza, split virus, quadrivalent, PF 02/26/2017 completed Lynda Stout [place] [facility] [place] 07/21/2022 14:07:40 Influenza, split virus, quadrivalent, PF 03/18/2015 completed Lynda Stout [place] [facility] [place] 07/21/2022 14:07:40 Influenza, split virus, quadrivalent, PF 03/24/2018 completed Lynda Stout null, [place] [facility] [place] 07/21/2022 14:07:40 Past Encounters Encounter ID Performer Location Encounter Start Date Encounter Closed Date Diagnosis/Indication Diagnosis SNOMED-CT Code Diagnosis ICD10 Code Diagnosis IMO Codes Diagnosis Note [id number] INOCENTE CORRAL NP [email or web address] [address] [address] 03/25/2022 10:27:13 03/25/2022 12:00:30 Hypothyroidism 93549358 E03.9 medication s as prescribed awaiting tsh Hypoglycemia 953538619 E 16.2 awaiting [email or web address] forced diet and lifestyle changes Essential hypertension 06075279 I10 educated on goal of less than 130/90advi sed low sodium diet, healthy lifestyle including exercise as ablecontin ue current medication regimenER if any symptoms such as chest pain, shortness of breath Mixed hyperlipidemia 267 960921 E78.2 reinforced lifestyle, diet and exercise education Mixed anxi ety and depressive disorder 758043218 F41.8 controlled except able to tell she has been out of sertraline denies SI/HI Gastroesop hageal reflux disease 009624483 K21.9 Avoid spicy foods, carbonated beverages, lying down 30 minutes to 1 hour after eating Eat smaller portion sizes Take medication s as prescribed Weight management [id number] DALY JONES[address] [address] 07/21/2022 14:02:18 07/27/2022 14:59:10 Diarrhea 20767357 R19.7 reports ate two can of arlene sausages right before recallER if any worsening or urgent signs or symptoms arise Essential hypertension 21883292 I10 cardiology increased medication yesterday but hasnt picked up yetadvised 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 controledu cated on goal of less than 130/90advi sed low sodium diet, healthy lifestyle including exercise as ableER if any symptoms such as chest pain, shortness of breath Hypothyroidism 78986761 E03.9 medication s as prescribed awaiting tsh [id number] INOCENTE CRORAL NP [address] [address] 08/04/2022 12:25:30 08/04/2022 14:34:04 Essential hypertension 49985398 I10 educated on goal of less than 130/90advi sed low sodium diet, healthy lifestyle including exercise as ableER if any symptoms such as chest pain, shortness of breathcont inue current medication [id number] INOCENTE CORRAL NP [address] [address] 09/23/2022 13:48:59 10/06/2022 09:14:30 Screening mammography of bilateral breasts 6688218959 07417 Z12.31 agrees to mammogram Contact dermatitis 02844 004 L25.9 keep skin clean and drytx as discussedf /u if symptoms persist or worsen Candidiasis of skin 4988 3006 B37.2 keep skin clean and drychange if sweatymedi cations as prescribed Essential hypertension 86393060 I10 educated on goal of less than 130/90elev ated today; but hasn't had any of her medication sadvised low sodium diet, healthy lifestyle including exercise as ableER if any symptoms such as chest pain, shortness of breathcont inue current medication Mixed hyperlipidemia 267 294196 E78.2 reinforced lifestyle, diet and exercise education [id number] Jesús Garrett MD [address] [place] [address] 01/01/2023 12:18:20 01/01/2023 13:57:57 Streptococcal tonsillitis 40303646 J03.00 Acute strep throat. Positive systemic symptoms. [...] home and take her blood pressure pill. [id number] INOCENTE CORRAL NP [address] [place] [address] 04/07/2023 11:05:25 04/07/2023 11:43:40 Localized infection of skin AND/OR subcutaneous tissue 923207957 L08.9 keep clean and drykeflex as prescribed by ER for UTI will help with skin as wellwarm compresses topical ointmentf/ u if symptoms persist or worsen [id number] Real Barkley MD [address] [place] [address] 07/09/2023 11:33:04 07/09/2023 16:28:01 Mixed anxiety and depressive disorder 540868980 F41.8 controlled except able to tell she has been out of sertraline denies SI/HIhas not worked for years due to anxiety and depression ; letter for food stamps must see therapist to get letter at least every 1 to 2 months Essential hypertension 19026224 I10 educated on goal of less than 130/90elev ated today; but hasn't had any of her medication sadvised low sodium diet, healthy lifestyle including exercise as ableER if any symptoms such as chest pain, shortness of breathcont inue current medication Hypothyroidism 33338475 E03.4 medication s as prescribed awaiting tsh Vitamin D deficiency 347 02853 E55.9 recheck today Mixed hyperlipidemia 267 962472 E78.2 reinforced lifestyle, diet and exercise education Gastroesop hageal reflux disease 759985599 K21.9 Avoid spicy foods, carbonated beverages, lying down 30 minutes to 1 hour after eating Eat smaller portion sizes Take medication s as prescribed Weight management Allergic rhinitis 112383 04 J30.9 controlled refill given [id number] Real Barkley MD [address] [place] [address] 07/15/2023 10:28:09 07/16/2023 11:05:53 Dysuria 84354184 R30.0 Acute cystitis 91054495 N30.01 [id number] CHELA BUI Therapeut ic Intervent ions at [address] [place] [address] 08/10/2023 14:14:10 08/12/2023 14:13:48 [id number] INOCENTE CORRAL, DALY [address] [place] [address] 08/10/2023 15:02:17 08/11/2023 12:59:37 Localized enlarged lymph nodes 956899815 R59.0 medication as prescribed f/u if symptoms persist or worsenavoi d scratching or picking Essential hypertension 60846116 I10 educated on goal of less than 130/90advi sed low sodium diet, healthy lifestyle including exercise as ablenot controlled add on amlodipine ; f/u in 6 weeksER if any symptoms such as chest pain, shortness of breath [id number] CHELA BUI Therapeuayanna ic Intervent ions at [address] [place] [address] 09/08/2023 11:52:13 09/08/2023 12:32:02 [id number] Real Barkley MD [address] [place] [address] 09/27/2023 13:53:39 09/27/2023 14:20:01 Essential hypertension 56975704 I10 educated on goal of less than 130/90advi sed low sodium diet, healthy lifestyle including exercise as ablemeetin g goal, continue current medication regimenER if any symptoms such as chest pain, shortness of breath Prediabetes 029971596 R7 3.03 awaiting lab work, reinforced healthy lifestyle Hypothyroidism 13864486 E03.4 medication s as prescribed awaiting tsh Mixed hyperlipidemia 267 088614 E78.2 reinforced lifestyle, diet and exercise education Menopausal flushing 1984 53463 N95.1 did well with samples would like to continue medication [id number] INOCENTE CORRAL NP [address] [place] [address] 12/06/2023 14:32:28 12/07/2023 08:31:47 Medication monitoring 097997386 Z51.81 check liver enzymes todaydenie s any medication side effects Dysuria 34468097 R30.0 Poor stream of urine [address] abdomen pelvis to rule out kidney stone Blood in urine 39939219 R31.[address] abdomen pelvis to rule out kidney stone Acute cystitis 82093516 N30.01 Office UA suggesting UTI, urine sent for culture and office will call after culture received. Take all medicines prescribed for you for the allotted time period. Push fluids especially water. If no better in 48-72 hours or if you develop abdominal or back pain, with fever chills nausea or vomiting come back or go to the emergency room immediatel y [id number] INOCENTE CORRAL NP [address] [place] [address] 12/22/2023 09:34:04 12/22/2023 11:30:44 Dysuria 42320070 R30.0 Acute cystitis 73401189 N30.01 Office UA suggesting UTI, urine sent for culture and office will call after culture received. Take all medicines prescribed for you for the allotted time period. Push fluids especially water. If no better in 48-72 hours or if you develop abdominal or back pain, with fever chills nausea or vomiting come back or go to the emergency room immediatel y [id number] Real Barkley MD [address] [place] [address] 02/07/2024 15:03:36 02/08/2024 06:52:43 Cough 28027391 R05.1 stay well hydratedre stmedicati ons as prescribed symptomati c management ER if any urgent signs or symptoms arise Sore throat 870136981 J0 2.9 warm salt water garglescha nge toothbrush hydrations ymptomatic management f/u if symptoms persist or worsen Prediabetes 276170074 R7 3.03 awaiting lab work, reinforced healthy lifestyle Essential hypertension 31922075 I10 educated on goal of less than 130/90advi sed low sodium diet, healthy lifestyle including exercise as ablemeetin g goal, continue current medication regimenER if any symptoms such as chest pain, shortness of breath Acquired hypothyroidism 444367991 E03.9 recheck lab work todaytake medication first thing in AM on empty stomach Allergic rhinitis 226238 04 J30.9 Patient presents with allergic rhinitis. Supportive care reviewed: raising HOB, avoiding triggers, taking controller medication s, use of saline nasal spray/humi difier, encourage PO fluids, monitor hydration. RTO as scheduled for next [facility]; sooner if any new or concerning symptoms arise. Mixed anxi ety and depressive disorder 414026343 F41.8 controlled denies SI/HIrefil l provided Acute righ t otitis media 602889141 H66.91 medication s as prescribed , follow-up if symptoms persist or worsen Menopausal flushing 1984 17849 N95.1 Controlled , continue medication therapy we will assess lab work today [id number] INOCENTE CORRAL NP [address] [place] [address] 06/02/2024 15:11:47 06/02/2024 16:01:21 Screening mammography of bilateral breasts 6685952670 55074 Z12.31 agrees to mammogram Essential hypertension 22335488 I10 educated on goal of less than 130/90advi sed low sodium diet, healthy lifestyle including exercise as ablemeetin g goal, continue current medication regimenER if any symptoms such as chest pain, shortness of breath Hypothyroidism 16555526 E03.4 recheck lab work todaytake medication first thing in AM on empty stomach High risk medication monitoring indicated [id number] 9630745 Z76.89 monitor liver enzymes due to veozah therapyasy mptomatic Mixed hyperlipidemia 267 489215 E78.2 reinforced lifestyle, diet and exercise education Prediabetes 253814692 R7 3.03 awaiting lab work, reinforced healthy lifestyle Hepatitis C screening 41 9738071 Z11.59 once lifetime screening requiremen t [id number] INOCENTE CORRAL NP [facility] [address] [facility] [place] [address] 08/31/2024 14:56:35 09/06/2024 03:55:58 Therapeutic drug monitoring assay 77706271 Z51.81 982255 check liver enzymes todaydenie s any medication side effects [id number] INOCENTE CORRAL NP [address] [place] [address] 12/20/2024 13:58:36 12/22/2024 07:46:20 Goiter 2178096 E04.9 [id number] followed by [facility] [place], I have her thyroid ultrasound from April but do not have most up-to-date when, we can request from [facility] to keep in her file, recently increased her thyroid medication , will have follow-up with them to recheck Therapeuti c drug monitoring assay 78033163 Z51.81 700301 check liver enzymes todaydenie s any medication side effects Essential hypertension 75624541 I10 educated on goal of less than 130/90advi sed low sodium diet, healthy lifestyle including exercise as ableswelli ng of lower extremitie s, could be contributi ng to her weight gain, already on HCTZ, discussed compressio n socks, decreasing sodium intake, elevation of her legs, consider decreasing amlodipine , adding on Lasix as neededER if any symptoms such as chest pain, shortness of breath Hyperlipidemia 11668152 E78.5 reinforced healthy diet, healthy weight and exercise, continue current medication regimen with statin therapy and fenofibrat e Prediabetes 709616126 R7 3.03 awaiting lab work, reinforced healthy lifestyle Fatigue 49381446 R53.83 [id number] Awaiting laboratory workEducat ed on sleep hygiene, screen time, diet, exerciseFo llow-up if symptoms persist or worsen [id number] INOCENTE CORRAL NP [address] [place] [address] 02/16/2025 10:17:46 02/16/2025 10:56:58 Dysuria 48524904 R30.0 12290 Acute cystitis 27920471 N30.00 [id number] Office UA suggesting UTI, urine sent for culture and office will call after culture received. Take all medicines prescribed for you for the allotted time period. Push fluids especially water. If no better in 48-72 hours or if you develop abdominal or back pain, with fever chills nausea or vomiting come back or go to the emergency room immediatel y Acute vaginitis 47613273 N76.0 68135 A vaginal swab was performed to evaluate the discharge, which may be unrelated to the urinary symptoms. The swab will be sent for laboratory analysis to determine the cause, including bacterial vaginosis or yeast infection. [id number] RACHNA MARTIN [facility] [address] [facility] [place] [address] 03/08/2025 15:00:23 03/08/2025 15:24:10 Acute cough 2237396363 88662911 R05.3 [id number] flu/COVID negativeSy mptoms likely due to acute viral syndrome or upper respirator y infection Acute viral disease 4096 14711 B34.9 30183398 drink plenty of fluids especially waterOTC Tylenol/ ibuprofen as neededSymp luann management Fever management Follow up with the office if symptoms worsen or persist Health Concerns Section Related Observation LastModified by Organization Detai ls LastModified Time None Recorded Concern Status LastModified by Organization Details LastModified Time None Recorded Advance Directives Directive N: Payers Insurance Date Sequence Insurance Name Policy Number Policy Art Covered Member ID Art Member ID Guarantor Name 03/08/2025 1 [employer] [facility] (MEDICAID HMO) Peyton Peterson [id number] Peyton Peterson Notes Date Note Type Note Provider Name and Address Organization Details Recorded Time 06/02/2024 text/html ROS as noted in the [facility] 53-year-old female who presents for follow-up. Blood pressure is [...] any radiating pain. INOCENTE CORRAL NP [address] [facility], [place], [address], [place] [facility] & [place] 06/10/2024 16:32:21 12/20/2024 text/html ROS as noted in the [facility] 54-year-old female who presents for chronic care follow-up. She is followed by thyroid specialist at [facility]. Recently had thyroid medication increased from 125-137 mcg. Reports she believes her thyroid ultrasound is up-to-date. Mood is controlled. Denies any chest pain shortness of breath. She does have lower extremity swelling. Does take medication as prescribed. Doing well with veozah therapy and hot flashes. Denies any abdominal pain. Denies any change in bowel or bladder habits. Is fasting today INOCENTE CORRAL NP [address] [place], [address], [facility] & [place] 12/21/2024 10:58:14 02/16/2025 text/html ROS as noted in the [facility] Peyton Peterson is a 54-year-old female who presents for evaluation of possible urinary tract infection (UTI). Symptoms have been ongoing for three days and include increased urinary frequency, urgency, and a sensation of needing to urinate even after voiding. She denies burning or pain during urination. Additionally, she reports significant vaginal discharge. She has attempted self-treatment with cranberry juice, which provided minimal relief. INOCENTE CORRAL NP [address] [place], [address], [facility] & [place] 02/18/2025 18:41:03 03/08/2025 text/html ROS as noted in the HPI 54-year-old female presents to the clinic with complaints of shortness a breath and coughing that started a couple of days ago. Patient reports that her mother just tested positive for COVID recently. She denies headaches, body aches, fever, chills, nausea, vomiting, chest pain, and musculoskeletal pain. RACHNA MARTIN [address] [place], [address], [facility] & [place] 03/08/2025 15:26:45 OBGyn Episode No OBEpisode recorded.
--- OUTSIDE RECORDS SUMMARY | 2025-03-28 19:59 | XMS_ITS | Encounter Summary ---
Author Organization [employer] ([place], [place], [place], [place]) Address [address] [place] [address] Care Team Providers Care Tobacco Sampler Name Role Phone [facility], Provider Not In The System Primary Care Provider Unavailable Encounter Details Date Type Department Care Team (Late st Contact Info) Description 09/28/2022 Outside Orders [facility] [address] [place] [address] Wilbur Wright, [employer] [address] [place] [address] Breast cancer screening by mammogram [...] Primary documented in this encounter Care Teams Tobacco Sampler Relationship Specialty Start Date End Date Amy, Provider Not In The System, [place] [address] PCP - General 10/23/22 documented as of this encounter
--- OUTSIDE RECORDS SUMMARY | 2025-03-28 19:59 | XMS_ITS | Continuity of Care Document ---
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 Plan of Treatment Reminders Order Date Submit Date Provider Last Modified By Organization Details Last Modified Time Details Appointments OV EST 30 2024 03:00P Luz Maria CORRAL NP Not available Not available Not available Lab urinalysi s, dipstick 2024 025 [facility], [address] [place], [address], 02/16/2025 10:44:02 culture, urine 2024 025 [facility] (Laboratory), [address] [place], [address], 02/17/2025 04:42:30 bacterial vaginosis + vaginitis panel, vaginal 2024 025 [facility] (Laboratory), [address] [place], [address], 02/23/2025 07:44:12 Referral None recorded. Procedures None recorded. Surgeries None recorded. Imaging None recorded. Medication Orders Macrobid 100 mg capsule 2024 025 [facility], [address] [facility], [place], [address], 02/16/2025 10:51:34 Patient TargetsNo targets recorded. Patient InstructionsNo instructions recorded. Reason for Referral None Reported. Results Created Date Observation Date Name Description Value Unit Range Abnormal Flag Note LastModifiedBy Organization Detail LastModifiedTime 02/17/2002/16/2025 CULTU RE URINE results [facility] 02-17 440 >100, 000 COL/M L Gram Posit rashida Cocci Not Available [facility] (Lab Registration) [address], [place], [address], 02/17/2025 04:42:30 02/17/2002/16/2025 CULTU RE URINE note Unles s other wilson noted testi ng perfo rmed at: [facility] [address] [place] [address] [phone] Ryan gonzalez MD CLIA: [id number] Not Available [facility] (Lab Registration) [address], [place], [address], 02/17/2025 04:42:30 02/17/2002/16/2025 CULTU RE URINE culccur ===== ===== ===== ===== ===== ===== ===== ===== ===== ===== ===== ===== ===== ===== ===== ===== ===== ===== ===== ===== ===== ===== ===== ===== Speci men NO.: [id number] Exam Statu s: Final Proce dure: [...] TFG TFG Vanco mycin 0.5 [facility] 02-17 440 >100, 000 COL/M L Gram Posit rashida Cocci Not Available [facility] (Lab Registration) [address], [place], [address], 02/18/2025 04:39:03 02/17/2002/16/2025 CULTU RE URINE note Unles s other wilson noted testi ng perfo rmed at: [facility] [address] [place] [address] [phone] Ryan gonzalez MD CLIA: [id number] Not Available [facility] (Lab Registration) [address] [place], [address], 02/18/2025 04:39:03 02/17/2002/16/2025 VAGIN ITIS PLUS (VG+) note Unles s other wilson noted testi ng perfo rmed at: [facility] [address] [place] [address] [phone] Ryan gonzalez MD CLIA: [id number] Not Available [facility] (Lab Registration) [address] [place], [address], 02/19/2025 05:08:52 02/17/20 25 02/19/2025 VAGIN ITIS PLUS (VG+) atopobium vaginae Low - 0 score Not Available [facility] (Lab Registration) [address] [place], [address], 02/19/2025 05:08:52 02/17/20 25 02/19/2025 VAGIN ITIS PLUS (VG+) bvab 2 Modera te - 1 score Not Available [facility] (Lab Registration) [address] [place], [address], 02/19/2025 05:08:52 02/17/20 25 02/19/2025 VAGIN ITIS [...] the prese nce of BV. Not Available [facility] (Lab Registration) [address], [place], [address], 02/19/2025 05:08:52 02/17/20 25 02/19/2025 VAGIN ITIS PLUS (VG+) anita albicans, EDDIE Negati ve negati ve Not Available [facility] (Lab Registration) [address] [place], [address], 02/19/2025 05:08:52 02/17/20 25 02/19/2025 VAGIN ITIS PLUS (VG+) anita glabrata, EDDIE Negati ve negati ve Not Available [facility] (Lab Registration) [address] [place], [address], 02/19/2025 05:08:52 02/17/20 25 02/19/2025 VAGIN ITIS PLUS (VG+) trich vag by EDDIE Positi ve negati ve delta Not Available [facility] (Lab Registration) [address] [place], [address], 02/19/2025 05:08:52 02/17/20 25 02/19/2025 VAGIN ITIS PLUS (VG+) chlamydia trachomatis, EDDIE Negati ve negati ve Not Available [facility] (Lab Registration) [address] [place], [address], 02/19/2025 05:08:52 02/17/20 25 02/19/2025 VAGIN ITIS PLUS (VG+) neisseria gonorrhoeae, EDDIE Negati ve negati ve Perfo rmed at: [facility] [place] [address] , [place] [address] Lab Direc tor: Varsha floyd MD, Phone : [phone] Not Available [facility] (Lab Registration) [address] [place], [address], 02/19/2025 05:08:52 02/17/2002/16/2025 urina lysis , dipst ick Leukocytes (reference range) small Not Available [address] [place], [address], 02/16/2025 10:39:01 02/17/20 25 02/16/2025 urina lysis , dipst ick Nitrite (reference range:) negati ve Not Available [address] [place], [address], 02/16/2025 10:39:01 02/17/20 25 02/16/2025 urina lysis , dipst ick Urobilinogen (reference range) 0.2 Not Available [address] [place], [address], 02/16/2025 10:39:01 09/05/02/16/2025 urina lysis , dipst ick Protein (reference range) 100 Not Available [address] [place], [address], 02/16/2025 10:39:01 02/17/20 25 02/16/2025 urina lysis , dipst ick pH (reference range 5-8.5) 5.5 Not Available [place] [address] [place], [address], 02/16/2025 10:39:01 02/17/20 25 02/16/2025 urina lysis , dipst ick Blood (reference range:) modera te Not Available [address] [place], [address], 02/16/2025 10:39:01 02/17/20 25 02/16/2025 urina lysis , dipst ick Specific [place] (reference range) 1.030 Not Available [address] [place], [address], 02/16/2025 10:39:01 02/17/20 25 02/16/2025 urina lysis , dipst ick Ketone (reference range) negati ve Not Available [address] [place], [address], 02/16/2025 10:39:01 02/17/20 25 02/16/2025 urina lysis , dipst ick Bilirubin (reference range) small Not Available [address] [place], [address], 02/16/2025 10:39:01 02/17/20 25 02/16/2025 urina lysis , dipst ick Glucose (reference range) negati ve Not Available [address] [place], [address], 02/16/2025 10:39:02/17/2002/16/2025 urina lysis , dipst ick Color (reference range: yellow-brown ) Dark Yellow Not Available [facility] [address] [place], [address], 02/16/2025 10:39:01 Result Notes None recorded. Problems Name Problem SNOMED Code Status Onset Date Resolution Date Notes Provider Name and Address Organization Details Recorded Time Essential hypertension 62766250 Active 2021 Larry Thorpe null, [place] [facility] [place] & [place] 4 15:05:59 Chronic bronchitis 62799504 Active 2021 Lynda Girish [place] [facility] [place] 2 08:52:05 Hypothyroidism 26351906 Active 2021 Larry Thorpe null, [place] [facility] [place] [facility] [place] 4 15:06:10 Asthma 452832845 Active 2021 Larry Thorpe [place] [facility] [place] 4 15:05:49 Gastroesophage al reflux disease 532741571 Active 2021 Larry Thor[place] [facility] [place] 4 15:06:05 Anxiety 48656560 Active 2021 Larry Thor[place] [facility] [place] 4 15:05:47 Edema 455628212 Active 2021 Larry Thor[place], [place] [facility] [place] 4 15:05:56 Fatigue 23463191 Active 2021 Larry Thor[place] [facility] [place] 4 15:06:01 Atherosclerosi s Active 2021 Larry Thor[place] [facility] [place] 4 15:05:51 Obstructive sleep apnea syndrome 74193156 Active 2021 Larry Thor[place] [facility] [place] 4 15:06:16 Hyperlipidemia 18745920 Active 2021 Larry Thorpe null, [place] [facility] & [place] 4 15:06:08 Allergic rhinitis 00076602 Active 2021 Larry Thorpe null, [place] [facility] [place] 4 15:05:45 Depressive disorder 25671176 Active 2021 Larry Thor[place] null[place] [facility] [place] [facility] & [place] 4 15:05:54 Obesity 190130607 Active 2021 Larry Thor[place] [facility] [place] [facility] & [place] 4 15:06:13 Acquired hypothyroidism 553705362 Active 2023 INOCENTE CORRAL NP [address] [place], [address], [place] [facility] [place] 4 15:48:18 Prediabetes 367835972 Active 2023 INOCENTE CORRAL NP [address] [place], [address], [place] [facility] [place] 4 15:48:21 Menopausal flushing 281134292 Active 2023 Larry Thorpe null, [place] [facility] [place] 4 15:19:55 Problem Notes None recorded. Procedures [...] Thyroid Surgery completed INOCENTE CORRAL NP [address] [place], [address], [place] [facility] [place] 07/09/2023 11:52:28 Appendectomy completed INOCENTE CORRAL NP [address] [place], [address], [facility] & [place] 07/09/2023 11:52:28 Colonoscopy completed INOCENTE CORRAL NP [address] [facility], [place], [address], [facility] & [place] 07/09/2023 11:52:28 Cardiovascular Surgery completed INOCENTE CORRAL NP [address] [facility], [place], [address], [facility] & [place] 07/09/2023 11:52:28 Tubal Ligation completed Not Available [facility] 07/19/2022 12:31:01 Imaging Results None recorded. Procedure Notes None recorded. Medical Equipment None Reported. Allergies Allergen ID Allergen Name Allergen Category Reaction Reaction Severity Criticality Documentation Date Start Date Code Code System Note Provider Name and Address Organization Details Recorded Time 202558 No known allergy (situatio n) Not available Not available Not available Not available 09/11/2024 43277 6003 SNOMED Ana Laura Colon null, [facility] & [place] 15:46:44 No known drug allergies Medications Name [...] Updated DateTime 5 162.56 cm 42.1 kg/m2 495971. 13 g 97.2 [degF] 94 % 94 % 71 /min 16 /min 122/83 mm[Hg] Darline Isable [facility] & [place] 10:30:41 Social History Question Answer Notes LastModified by Organizat ion Details LastModified Time Tobacco Smoking Status Former Smoker Lynda Stout [facility], [facility] & [place] 03/25/2022 10:38:09 Do You Have An Advance Directive? No [email or web address] Information not available 12/06/2023 Do You Wear A Helmet When Biking? Yes [email or web address] Information not available 12/06/2023 Are You Blind Or Do You Have Difficulty Seeing? Yes [email or web address] Information not available 08/04/2022 What Is Your Level Of Caffeine Consumption? Occasional Information not available 07/09/2023 In The 14 Days Before Symptom Onset, Have You Had Close Contact With A Laboratory-confir med COVID-19 While That Case Was Ill? No [email or web address] Information not available 12/06/2023 In The 14 Days Before Symptom Onset, Have You Had Close Contact With A Person Who Is Under Investigation For COVID-19 While That Person Was Ill? No [email or web address] Information not available 12/06/2023 Have You Been To An Area Known To Be High Risk For COVID-19? No [email or web address] Information not available 12/06/2023 Are You Deaf Or Do You Have Serious Difficulty Hearing? No [email or web address] Information not available 12/06/2023 What Type Of Diet Are You Following? REGULAR [email or web address] Information not available 12/06/2023 Have You Processed Blood Or Body Fluids From An Ebola Virus Disease Patient Without Appropriate PPE? No Information not available 12/06/2023 Do You Reside In Or Have You Traveled To An Area Where Ebola Virus Transmission Is Active? No [email or web address] Information not available 12/06/2023 Have There Been Any Changes To Your Family Or Social Situation? No [email or web address] Information no t available 12/06/2023 What Is The Fluoride Status Of Your Home? Unknown [email or web address] Information not available 12/06/2023 When Did You Quit Smoking? 6-10yearssince ngoc diaz29 Information not available 07/09/2023 Are There Any Guns Present In Your Home? No [email or web address] Information not available 12/06/2023 Have You Recently Or Are You Planning To Travel To An Area With Zika Virus? No [email or web address] Information not available 12/06/2023 Do You Use Insect Repellent Routinely? Yes [email or web address] Information not available 12/06/2023 Do You Feel Safe At Home? Yes [email or web address] Information not available 12/06/2023 Do You Have A Medical Power Of Infertility Medical Assistant? No [email or web address] Information not available 12/06/2023 What Was The Date Of Your Most Recent Tobacco Screening? 12/20/2024 Information not available 12/20/2024 Do You Have Any Pets? No [email or web address] Information not available 12/06/2023 Do You Use Your Seat Belt Or Car Seat Routinely? Yes [email or web address] Information not available 12/06/2023 Do You Have Smoke And Carbon Monoxide Detectors In Your Home? Yes Information not available 12/06/2023 Are You Passively Exposed To Smoke? Yes [email or web address] Information no t available 08/04/2022 Do You Use Sunscreen Routinely? Yes Information not available 12/06/2023 Has Tobacco Cessation Counseling Been Provided? No Information not available 07/09/2023 Do You Have Difficulty Walking Or Climbing Stairs? No Information not available 12/06/2023 Are You Currently In School? No [email or web address] Information not available 12/06/2023 Sex: Female Functional [...] available 03/25/2022 Are you currently employed? No [email or web address] Information not available 12/06/2023 Do you have transportation difficulties? No [email or web address] Information not available 12/06/2023 Are you able to walk independently without assistance or assistive devices? YESWOREST [email or web address] Information not available 12/06/2023 Do you have difficulty doing errands alone? No [email or web address] Information not available 12/06/2023 Are you able to care for yourself independently? Yes [email or web address] Information not available 12/06/2023 Do you have difficulty dressing, bathing, grooming, or toileting? No [email or web address] Information not available 12/06/2023 Do you or have you ever used e-cigarettes or vape? Current user of electronic cigarettes Information not available 07/09/2023 What is your exercise level? Occasional [email or web address] Information not available 08/04/2022 Mental Status Question Answer Note LastModified by Organizat [employer] Details LastModified Time Do you feel stressed (tense, restless, nervous, or anxious, or unable to sleep at night)? [id number] [email or web address] Information not available 08/04/2022 Do you have difficulty concentrating, remembering or making decisions? No [email or web address] Information no t available 12/06/2023 Family History Relationship Description Onset Age of this Age Resolved Age Notes LastModified by Organization Details LastModified Time Mother Glaucoma [email or web address] Not availabl e 03/08/2025 15:00:32 Mother Hyperlipidem ia [email or web address] Not available 2024 15:00:32 Father Heart disease [email or web address] Not available 07/2023 14:29:46 Father Essential hypertension [email or web address] Not available 15:00:32 Daughter Bipolar disorder [email or web address] Not available 2024 15:00:32 Son Asthma [email or web address] Not available 03/08/2025 15:00:32 Son Attention deficit hyperactivit y disorder [email or web address] Not available 03/08 15:00:32 Medical History Condition Response Hypothyroidism Y Obstructive Sleep Apnea Y Anxiety Disorder Y Vision or Eye Problems Y High Cholesterol Y Headaches Y Allergies/Hayfever Y Thyroid Problems Y Back Problems Y Reflux/GERD Y Hypertension Y Gynecological History Statement/Question Response Current Control Method None Sexually Active? N Obstetrics History GPAL:G 0 P 0 0 0 0 Immunizations Vaccine Type Date Status Note Provider Nam e and Address Organization Details Recorded Time Td(adult) unspecified formulation 01/02/2015 completed PAUL Solano [facility] & [place] 07/21/2022 14:07:40 Influenza, split virus, quadrivalent, PF 06/22/2019 completed PAUL Solano - [facility] & [place] 07/21/2022 14:07:40 Influenza, split virus, quadrivalent, PF 02/26/2017 completed Lynda hidalgo, [place] - [facility] [place] 07/21/2022 14:07:40 Influenza, split virus, quadrivalent, PF 03/18/2015 completed Lynda hidalgo, [place] - [facility] [place] 07/21/2022 14:07:40 Influenza, split virus, quadrivalent, PF 03/24/2018 completed Lynda hidalgo, [place] - [facility] & [place] 07/21/2022 14:07:40 Past Encounters Encounter ID Performer Location Encounter Start Date Encounter Closed Date Diagnosis/Indication Diagnosis SNOMED-CT Code Diagnosis ICD10 Code Diagnosis IMO Codes Diagnosis Note [id number] INOCENTE CORRAL NP [facility] [address] [place] [address] 02/16/2025 10:17:46 02/16/2025 10:56:58 Dysuria 54850585 R30.0 34211 Acute cystitis 40987286 N30.00 [id number] Office UA suggesting UTI, urine sent for culture and office will call after culture received. Take all medicines prescribed for you for the allotted time period. Push fluids especially water. If no better in 48-72 hours or if you develop abdominal or back pain, with fever chills nausea or vomiting come back or go to the emergency room immediatel y Acute vaginitis 60204030 N76.0 68596 A vaginal swab was performed to evaluate the discharge, which may be unrelated to the urinary symptoms. The swab will be sent for laboratory analysis to determine the cause, including bacterial vaginosis or yeast infection. Health Concerns Section Related Observation LastModified by Organization Detai ls LastModified Time None Recorded Concern Status LastModified by Organization Details LastModified Time None Recorded Payers Encounter Date Sequence Insurance Name Policy Number Policy Art Covered Member ID Art Member ID Guarantor Name 02/16/2025 1 [employer] [facility] (MEDICAID HMO) Peyton Peterson [id number] Peyton Peterson Notes Date Note Type Note Provider Name and Address Organization Details Recorded Time 02/16/2025 text/html ROS as noted in the HPI Peyton Peterson is a 54-year-old female who [...] which provided minimal relief. INOCENTE CORRAL NP [address] [place] [address], [phone] & [place] 02/18/2025 18:41:03 OBGyn Episode No OBEpisode recorded.
== END ==
LOC: SL 19:57
PROVIDERS: PCP Nurse Practitioner Family; Visit Provider Specialist
DX: G47.33 Obstructive sleep apnea (adult) (pediatric) (principal); E66.01 Morbid (severe) obesity due to excess calories; Z68.42 Body mass index [BMI] 45.0-49.9, adult

== ENCOUNTER 2025-05-14 12:39 | Outpatient (CLI) | payer OTHER, SELFPAY ==
--- OUTSIDE RECORDS SUMMARY | 2025-05-14 12:41 | XMS_ITS | Data Portability ---
Author Organization [place] - [employer] [facility] Address [address] [place] [address] Assessment No assessment recorded. Plan of Treatment Reminders Order Date Submit Date Provider Last Modified By Organization Details Last Modified Time Details Appointments None recorded. Lab unlisted lab - sureswab(R ) advanced vaginitis plus, tma 2023 [facility], [address], [place], [address], 12:47:35 pap, LB 2023 024 [facility], [address], [place], [address], 17:27:48 Referral None recorded. Procedures None recorded. [...] ve abnormal Not Available [facility] [place] [facility] [address] [facility], [place], [address], 12/11/2023 12:47:35 12/10/19 24 12/11/2023 SURES WAB(R ) ADVAN OZZY VAGIN ITIS PLUS, TMA anita species NOT DETECT ED not detect ed normal Not Available [facility] [place] [facility] [address] [facility] [place], [address], 12/11/2023 12:47:35 12/10/19 24 12/11/2023 SURES WAB(R [...] resul t. Not Available [facility] [place] [facility] [address] [facility], [place], [address], 12/11/2023 12:47:35 12/10/19 24 12/11/2023 SURES WAB(R ) ADVAN OZZY VAGIN ITIS PLUS, TMA trichomonas vaginalis (TV), tma DETECT ED not detect ed abnormal Not Available [facility] [place] [facility] [address] [facility], [place], [address], 12/11/2023 12:47:35 12/10/19 24 12/11/2023 SURES WAB(R ) ADVAN OZZY VAGIN ITIS PLUS, TMA chlamydia trachomatis RNA, tma, urogenital NOT DETECT ED not detect ed normal Not Available [facility] [place] [facility] [address] [facility], [place], [address], 12/11/2023 12:47:35 12/10/19 24 12/11/2023 SURES WAB(R ) ADVAN OZZY VAGIN ITIS PLUS, TMA neisseria gonorrhoeae RNA, tma, urogenital NOT DETECT ED not detect ed normal For addit ional james zeng refer to https ://ed ucati on.qu génesis ADARTIS. [employer]f aq/FA Q154 (This link is being provi ded for isaias romano/ educa miguel l purpo ses only. ) Not Available [facility] [place] [facility] [address], [place], [address], 12/11/2023 12:47:35 12/10/19 24 12/15/2023 IMAGE -GUID ED PAP W/AGE BASED SCR SCOTT COLS comment This order for age-b ased cervi miguel cance r and STI scree anu follo ws ACOG guide lines (PB 168, 140, FAQ07 1). See indiv idual assay s for perfo rming site locat ion. Not Available [facility] [place] [facility] [address], [place], [address], 12/15/2023 17:27:48 12/10/19 24 12/15/2023 IMAGE -GUID ED PAP W/AGE BASED SCR SCOTT COLS clinical information: normal None given Not Available [facility] [place] [facility] [address], [place], [address], 12/15/2023 17:27:48 12/10/19 24 12/15/2023 IMAGE -GUID ED PAP W/AGE BASED SCR SCOTT COLS LMP: normal NONE GIVEN Not Available [facility] [place] [facility] [address], [place], [address], 12/15/2023 17:27:48 12/10/19 24 12/15/2023 IMAGE -GUID ED PAP W/AGE BASED SCR SCOTT COLS prev. Pap: normal NONE GIVEN Not Available [facility] [place] [facility] [address], [place], [address], 12/15/2023 17:27:48 12/10/19 24 12/15/2023 IMAGE -GUID ED PAP W/AGE BASED SCR SCOTT COLS prev. BX: normal NONE GIVEN Not Available [facility] [place] [facility] [address], [place], [address], 12/15/2023 17:27:48 12/10/19 24 12/15/2023 IMAGE -GUID ED PAP W/AGE BASED SCR SCOTT COLS source: normal Vagin a, Cervi x, Endoc ervix Not Available [facility] [place] [facility] [address] [facility] [place], [address], 12/15/2023 17:27:48 12/10/19 24 12/15/2023 IMAGE -GUID ED PAP W/AGE BASED SCR SCOTT COLS statement of adequacy: normal Satis facto ry for evalu ation . Endoc ervic al/tr ansfo rmati on zone compo nent prese nt. Parti ally obscu ring infla mmati on Age and/o r menst rual statu s not provi ded Not Available [facility] [place] [facility] [address] [facility] [place], [address], 12/15/2023 17:27:48 12/10/19 24 12/15/2023 IMAGE -GUID ED PAP W/AGE BASED SCR SCOTT COLS interpretati on/result: normal Cytol ogy Resul ts: Negat rashida for intra epith elial lesio n or [place] . Not Available [facility] [place] [facility] [address] [facility] [place], [address], 12/15/2023 17:27:48 12/10/19 24 12/15/2023 IMAGE -GUID ED PAP W/AGE BASED SCR SCOTT COLS infection: normal Trich omona s vagin chen ident ified . Not Available [facility] [place] [facility] [address] [facility] [place], [address], 12/15/2023 17:27:48 12/10/19 24 12/15/2023 IMAGE -GUID ED PAP W/AGE BASED SCR SCOTT COLS comment: normal This Pap test has been evalu ated with compu ter helene conor [employer] ology . Not Available [facility] [place] [facility] [address] [facility] [place], [address], 12/15/2023 17:27:48 12/10/19 24 12/15/2023 IMAGE -GUID ED PAP W/AGE BASED SCR SCOTT COLS cytotechnolo gist: normal AVN, CT( CP) CT Scree anu locat ion: [facility] [address] [place] [address] Not Available [facility] [place] [facility] [address] [place], [address], 12/15/2023 17:27:48 12/10/19 24 12/15/2023 IMAGE -GUID ED PAP W/AGE BASED SCR SCOTT COLS review cytotechnolo gist: normal ESW, CT (ASCP ) CT Scree anu locat ion: [facility] [address] [facility] [place] [address] Not Available [facility] [place] [facility] [address] [place], [address], 12/15/2023 17:27:48 12/10/19 24 12/15/2023 IMAGE -GUID [...] matio n. Not Available [facility] [place] [facility] [address] [facility], [place], [address], 12/15/2023 17:27:48 12/10/19 24 12/15/2023 IMAGE -GUID [...] ional infor james norman refer to http: //[facility] yaneli romano.saeed stdia gnost ics.c om/fa q/FAQ 129v1 (This link if provi ded for infor aleyda romano/ educa miguel queen purpo ses only. ) Not Available [facility] [place] [facility] [address] [place], [address], 12/15/2023 17:27:48 12/10/19 24 12/15/2023 HPV GENOT YPES 16,18 /45 HPV 16 RNA NOT DETECT ED not detect ed Not Available [facility] [place] [facility] [address] [facility], [place], [address], 12/15/2023 17:27:49 12/10/19 24 12/15/2023 HPV GENOT [...] optio ns. Not Available [facility] [place] [facility] [address] [facility], [place], [address], 12/15/2023 17:27:49 Result Notes Documentation Provider Name and Address Organization Details Recorded Time Sureswab(r) Advanced Vaginitis Plus, Tma : BV and trich Rodolfo hidalog, [facility]. 12/13/2023 15:29:35 Pap, Lb : Negative Pap with +HPV- not 16/18-f/u 1yr Jorje Saini II, MD [address] [place] [address], [phone], [facility]. 12/17/2023 13:49:45 Hpv Dna, Genotypes 16+18, Genital : Negative 16/18 Jorje Saini II, MD [address] [place] [address], [phone], [facility]. 12/17/2023 13:48:52 Problems Name Problem SNOMED Code Status Onset Date Resolution Date Notes Provider Name and Address Organization Details Recorded Time Cyst of ovary 91345209 Active 2013 Problem Code: 620.2; Problem Code Type: ICD-9; Not Available [facility] 21:07:50 Follow-u p encounte r Completed 201311/06/2013 Problem Code: V67; Problem Code Type: ICD-9; Not Available [facility] 2 21:07:50 Dysfunct ional uterine bleeding Completed 201311/06/2013 Problem Code: 626.8; Problem Code Type: ICD-9; Not Available [facility] 2 21:07:50 Follicul ar cyst of ovary 1041983 Completed 201502/10/2016 Problem Code: N83.0; Problem Code Type: ICD-10; Not Available [facility] 2 21:07:49 Disorder of female genital organs 523918674 Completed 201701/06/2018 Not Available [facility] 2 21:07:49 Pelvic and perineal pain 308680503 Completed 201701/06/2018 Problem Code: R10.2; Problem Code Type: ICD-10; Not Available [facility] 2 21:07:49 Female genital organ symptoms 887026666 Active 2017 Problem Code: 625.9; Problem Code Type: ICD-9; Not Available [facility] 2 21:07:50 Amenorrh ea 69313579 Active 2018 Problem Code: N91.2; Problem Code Type: ICD-10; Not Available [facility] 2 21:07:49 Vaginola bial hernia Active 2019 Problem Code: N89.8; Problem Code Type: ICD-10; Not Available [facility] 2 21:07:50 Dysuria 24455578 Active 2019 Problem Code: R30.0; Problem Code Type: ICD-10; Not Available [facility] 2 21:07:50 Vaginiti s and vulvovag initis Completed 201901/18/2020 Problem Code: 616.10; Problem Code Type: ICD-9; Not Available [facility] 21:07:50 Vaginal discharg e 394303777 Active 2023 Jorje Saini II, MD [address] [place] [address], [phone] , [facility]. 4 13:43:19 Bacteria l vaginosi s 526975716 Active 2023 Jorje Saini II, MD [address] [place] [address], [phone] , [facility]. 4 10:20:17 Problem Notes None recorded. Procedures Surgical History Date Name Laterality Status Provider Name and Address Organization Details Recorded Time 4 Date of Last Pap Smear completed [place]. 12/10/2023 13:24:42 4 Most Recent Mammogram completed [facility] [place]. 12/10/2023 13:31:38 0 Lwr xtr vasc stdy bilat completed Not Available [facility] 02/17/2022 22:56:34 Imaging Results None recorded. Procedure [...] Address Organization Details Last Updated DateTime 12/10/2023 951669.79 g 44.3 kg/m2 157.48 cm MAN [employer] [place] [facility]. 12/10/2023 13:21:21 Social History Question Answer Notes LastModified by Organizat ion Details LastModified Time Tobacco Smoking Status Former Smoker SocialHis toryQuest ion: 'Tobacco/ Alcohol/S upplement s'; SocialHis toryRespo nse: 'Former Smoker'; Not Available [facility] 02/17/2022 22:55:43 What Was The Date Of [...] Td(adult) unspecified formulation 01/02/2015 completed MAN [facility] [employer] 12/10/2023 13:05:20 Influenza, split virus, quadrivalent, PF 06/22/2019 completed MAN MANE [place], [employer] 12/10/2023 13:05:20 Influenza, split virus, quadrivalent, PF 02/26/2017 completed MAN ALHAJI null, [employer] 12/10/2023 13:05:20 Influenza, split virus, quadrivalent, PF 03/18/2015 completed MAN ALHAJI [place], [employer] 12/10/2023 13:05:20 Influenza, split virus, quadrivalent, PF 03/24/2018 completed MAN ALHAJI [place], [employer] 12/10/2023 13:05:20 Past Encounters Encounter ID Performer Location Encounter Start Date Encounter Closed Date Diagnosis/Indication Diagnosis SNOMED-CT Code Diagnosis ICD10 Code Diagnosis IMO Codes Diagnosis Note [id number] Jorje Saini II, MD [facility] [address] [address] 12/10/2023 13:01:28 12/10/2023 14:13:51 Screening for malignant neoplasm of cervix 694059436 Z12.4 Vaginal discharge 053842 006 N89.8 I will call her with [...] PAY* To real Peterson 12/13/2023 1 [employer] [facility] (MEDICAID HMO) Peyton Peterson [id number] Peyton Peterson Notes Date Note Type Note [...] pain has not really gotten much better Sevillejuany Saini II, MD [address] [place] [address], [phone], [facility] [employer] 12/10/2023 13:43:53 OBGyn Episode No OBEpisode recorded.
--- NOTE | 2025-05-14 13:00 | US_ITS ---
FINAL REPORT TECHNIQUE: Sonographic images of the thyroid gland were obtained in the longitudinal and transverse planes. CLINICAL HISTORY: Goiter per U/S COMPARISON: None FINDINGS: The right lobe measures 2.1 x 4.3 x 1.9 cm. The right lobe is heterogeneous. There are several nodules in the right lobe. There is a hypoechoic upper pole nodule measuring 11 mm. A 2nd nodule in the mid right thyroid measuring 21 mm is mixed cystic and solid. A 3rd nodule is hypoechoic and measures 10 mm in the lower pole. The left lobe measures 1.7 x 4.4 x 1.7 cm. The left lobe is heterogeneous. There is a isoechoic upper pole nodule measuring 10 mm. The isthmus measures 4 mm. This is normal. IMPRESSION: Nodular heterogeneous gland favored to represent multinodular goiter. TR 3 and TR 4 nodules on the right. The largest nodule measuring 21 mm should be FNA'd. Other nodules should be followed. TR 3 left thyroid nodule should be followed. Reviewed, Interpreted and Dictated by Zuleika Stein MD Transcribed by Linda Avina Authenticated and [facility]
== END 2025-05-14 23:59 | disposition home or self-care (01) ==
LOC: RAD 12:40
PROVIDERS: PCP Nurse Practitioner Family; Visit Provider Nurse Practitioner
DX: E04.2 Nontoxic multinodular goiter (principal)
CPT/HCPCS: 76536

== ENCOUNTER 2025-05-23 13:35 | Outpatient (CLI) | payer OTHER, SELFPAY ==
[2025-05-23 15:25] LABS: Free T4 (Free Thyroxine) 1.09 ng/dl (0.78-2.19)
[2025-05-23 17:11] LABS: Thyroid Stimulating Hormone 4.43 uIU/mL (0.465-4.68)
== END 2025-05-23 23:59 | disposition home or self-care (01) ==
LOC: LAB 13:36
PROVIDERS: PCP Nurse Practitioner Family; Visit Provider Nurse Practitioner
DX: E01.0 Iodine-deficiency related diffuse (endemic) goiter (principal)
CPT/HCPCS: 36415; 84439; 84443

== ENCOUNTER 2025-06-12 07:31 | Outpatient (CLI) | payer OTHER, SELFPAY ==
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
--- OUTSIDE RECORDS SUMMARY | 2025-05-25 13:19 | XMS_ITS | Continuity of Care Document ---
Author Organization [facility] Phone Care Team Providers Care Director Of Business Operations Name Role Phone INOCNETE CORRAL Primary Attending [phone] INOCENTE CORRAL Admitting [phone] INOCENTE CORRAL Unavailable [phone] INOCENTE CORRAL Primary Care [phone] ALLERGIES AND ADVERSE REACTIONS ALLERGIES AND ADVERSE REACTIONS Code System Allergy Substance Adverse Reaction Date Reaction (Severity) Comment Status Reported By Updated By No Known Allergies [email or web address] on April 06, 2023 1:24:16 AM UTC RESULTS Patient: ESTHER MOREJON Date of : [birth year] 7 LABORATORY RESULTS ORDER 100: VAGINITIS PLUS VG (LOINC: 91698-4) ORDER DATE: May 15, 2025 7:20:00 PM UTC Specimen Source: Swab Specimen Type: Swab PERFORMING LAB: [address] [id number] Result Comment: May 17, 2025 7:08:00 AM UTC [facility] Result Comment: May 17, 2025 7:08:00 AM UTC [address] [place] [id number] Result Comment: May 17, 2025 7:08:00 AM UTC State Epidemiologist: Alissa Galindo MD, Phone: [phone] Result Comment: May 17, 2025 7:08:00 AM UTC Final Result Date: May 15, 2025 7:21:00 PM UTC (TECH: LAB) LOINC TEST FLAG [place] [address]-4 Atopobium vaginae DN A [Presence] in Vaginal fluid by Probe and target amplification method N Low - 0 Score May 15, 2025 7:21:00 PM UTC (TECH: LAB) 60208-3 Bacterial vaginosis associated bacterium 2 DNA [Presence] in Vaginal fluid by Probe and target amplification method High - 2 Score May 15, 2025 7:21:00 PM UTC (TECH: LAB) 54906-1 Megasphaera sp type 1 DNA [Presence] in Vaginal fluid by Probe and target amplification method N Low - 0 Score May 15, 2025 7:21:00 PM UTC (TECH: LAB) 54009-9 Meaghan albicans DNA [Presence] in Vaginal fluid by Probe and target amplification method N Negative Negative May 15, 2025 7:21:00 PM UTC (TECH: LAB) 07617-8 Meaghan glabrata DNA [Presence] in Vaginal fluid by Probe and target amplification method N Negative Negative May 15, 2025 7:21:00 PM UTC (TECH: LAB) 71834-4 Trichomonas vaginali s DNA [Presence] in Vaginal fluid by Probe and target amplification method N Negative Negative May 15, 2025 7:21:00 PM UTC (TECH: LAB) 35278-5 Chlamydia trachomati s DNA [Presence] in Unspecified specimen by Probe and target amplification method N Negative Negative May 15, 2025 7:21:00 PM UTC (TECH: LAB) 12269-5 Neisseria gonorrhoea e DNA [Presence] in Unspecified specimen by Probe and target amplification method N Negative Negative May 15, 2025 7:21:00 PM UTC (TECH: LAB) LABORATORY NARRATIVE RESULTS [...] is no t available SOCIAL HISTORY - [place] Affiliation [place] information is not av ailable SOCIAL HISTORY - Legal Sex Legal Sex : Female (finding) SOCIAL HISTORY - Sexual Behavior Sexual Orientation Gender Identity SNOMED-CT Description SNO MED -CT Description Activity Level No of Partners Partner Type UpdatedBy Information is not available SOCIAL HISTORY - Occupation Occupation information is no t available ENCOUNTERS ENCOUNTER INFORMATION Reason for Visit N76.0 Admission May 15, 2025 7:20:00 PM [facility] [address] [facility] [address] Discharge May 15, 2025 8:43:00 PM [facility] DISCHARGED TO HOME OR SELF CARE ENCOUNTER DIAGNOSES Notes information is not lilly ilable. Code System Diagnosis Onset Date Diagnosis information is not available. ABSTRACT DIAGNOSES Code System Diagnosis Updated By Abatement Date N76.0 ICD10 ACUTE VAGINITIS [id number] on D [id number] 11:05:15 AM [place] N76.0 ICD10 ACUTE VAGINITIS [id number] on D [id number] 11:05:17 AM [facility] CARE TEAM Care Director Of Business Operations Role INOCENTE CORRAL Primary Attending INOCENTE CORRAL Admitting INOCENTE CORRAL Referring INOCENTE CORRAL Primary Care CARE TEAM CARE efficiency clerk Role on Team Location Telecom Status Start Date End Henri e Updated By ELLIS LOTT Referring [address] [place] [address], [id number] normal May 15, 2025 8:27:25 PM [facility] May 15, 2025 8:43:00 PM [facility] [id number] on May 15, 2025 8:27:25 PM [facility] ELLIS LOTT Attending [address] [place] [address], [address] normal May 15, 2025 8:27:25 PM [facility] May 15, 2025 8:43:00 PM [facility] [id number] on May 15, 2025 8:27:25 PM [facility] ELLIS LOTT Admitting [address] [place] [address], [phone] normal May 15, 2025 8:27:25 PM [facility] May 15, 2025 8:43:00 PM [facility] [id number] on May 15, 2025 8:27:25 PM [facility] ELLIS LOTT PCP [address] [place] [address], [address] normal May 15, 2025 7:20:36 PM [facility] May 15, 2025 8:43:00 PM [facility] [id number] on May 15, 2025 8:27:25 PM [facility] INSURANCE PROVIDERS INSURANCE PROVIDER Coverage Status - Effective Date Coverage Type Payor Plan Order Relationship To Subscriber Insurance Plan No Insurance Plan 2024-06-14 W PRIMARY 18 [id number] [facility] AETN A BETTER HEALTH
--- OUTSIDE RECORDS SUMMARY | 2025-06-12 07:33 | XMS_ITS | Data Portability ---
Author Organization [place] - [employer] [facility] Address [address] [place] [address] Assessment No assessment recorded. Plan of Treatment Reminders Order Date Submit Date Provider Last Modified By Organization Details Last Modified Time Details Appointments None recorded. Lab unlisted lab - sureswab(R ) advanced vaginitis plus, tma 2023 [facility], [address], [place], [address], 12:47:35 pap, LB 2023 024 [facility], [address], [place], [address], 17:27:48 Referral None recorded. Procedures None recorded. [...] ve abnormal Not Available [facility] [place] [facility] [address] [facility], [place], [address], 12/11/2023 12:47:35 12/10/19 24 12/11/2023 SURES WAB(R ) ADVAN OZZY VAGIN ITIS PLUS, TMA anita species NOT DETECT ED not detect ed normal Not Available [facility] [place] [facility] [address] [facility] [place], [address], 12/11/2023 12:47:35 12/10/19 24 12/11/2023 SURES WAB(R [...] resul t. Not Available [facility] [place] [facility] [address] [facility], [place], [address], 12/11/2023 12:47:35 12/10/19 24 12/11/2023 SURES WAB(R ) ADVAN OZZY VAGIN ITIS PLUS, TMA trichomonas vaginalis (TV), tma DETECT ED not detect ed abnormal Not Available [facility] [place] [facility] [address] [facility], [place], [address], 12/11/2023 12:47:35 12/10/19 24 12/11/2023 SURES WAB(R ) ADVAN OZZY VAGIN ITIS PLUS, TMA chlamydia trachomatis RNA, tma, urogenital NOT DETECT ED not detect ed normal Not Available [facility] [place] [facility] [address] [facility], [place], [address], 12/11/2023 12:47:35 12/10/19 24 12/11/2023 SURES WAB(R ) ADVAN OZZY VAGIN ITIS PLUS, TMA neisseria gonorrhoeae RNA, tma, urogenital NOT DETECT ED not detect ed normal For addit ional james zeng refer to https ://ed ucati on.qu génesis Zaranga. [employer]/f aq/FA Q154 (This link is being provi ded for isaias romano/ educa miguel l purpo ses only. ) Not Available [facility] [place] [facility] [address], [place], [address], 12/11/2023 12:47:35 12/10/19 24 12/15/2023 IMAGE -GUID ED PAP W/AGE BASED SCR SCTOT COLS comment This order for age-b ased cervi miguel cance r and STI scree anu follo ws ACOG guide lines (PB 168, 140, FAQ07 1). See indiv idual assay s for perfo rming site locat ion. Not Available [facility] [place] [facility] [address], [place], [address], 12/15/2023 17:27:48 12/10/19 24 12/15/2023 IMAGE -GUID ED PAP W/AGE BASED SCR SCOTT COLS clinical information: normal None given Not Available [facility] [place] [facility] [address], [place], [address], 12/15/2023 17:27:48 12/10/19 24 12/15/2023 IMAGE -GUID ED PAP W/AGE BASED SCR SCOTT COLS LMP: normal NONE GIVEN Not Available [facility] [place] [facility] [address], [place], [address], 12/15/2023 17:27:48 12/10/19 24 12/15/2023 IMAGE -GUID ED PAP W/AGE BASED SCR SCOTT COLS prev. Pap: normal NONE GIVEN Not Available [facility] [place] [facility] [address], [place], [address], 12/15/2023 17:27:48 12/10/19 24 12/15/2023 IMAGE -GUID ED PAP W/AGE BASED SCR SCOTT COLS prev. BX: normal NONE GIVEN Not Available [facility] [place] [facility] [address], [place], [address], 12/15/2023 17:27:48 12/10/19 24 12/15/2023 IMAGE -GUID ED PAP W/AGE BASED SCR SCOTT COLS source: normal Vagin a, Cervi x, Endoc ervix Not Available [facility] [place] [facility] [address] [facility] [place], [address], 12/15/2023 17:27:48 12/10/19 24 12/15/2023 IMAGE -GUID ED PAP W/AGE BASED SCR SCOTT COLS statement of adequacy: normal Satis facto ry for evalu ation . Endoc ervic al/tr ansfo rmati on zone compo nent prese nt. Parti ally obscu ring infla mmati on Age and/o r menst rual statu s not provi ded Not Available [facility] [place] [facility] [address] [facility] [place], [address], 12/15/2023 17:27:48 12/10/19 24 12/15/2023 IMAGE -GUID ED PAP W/AGE BASED SCR SCOTT COLS interpretati on/result: normal Cytol ogy Resul ts: Negat rashida for intra epith elial lesio n or malig [place] . Not Available [facility] [place] [facility] [address] [facility] [place], [address], 12/15/2023 17:27:48 12/10/19 24 12/15/2023 IMAGE -GUID ED PAP W/AGE BASED SCR SCOTT COLS infection: normal Trich omona s vagin chen ident ified . Not Available [facility] [place] [facility] [address] [facility] [place], [address], 12/15/2023 17:27:48 12/10/19 24 12/15/2023 IMAGE -GUID ED PAP W/AGE BASED SCR SCOTT COLS comment: normal This Pap test has been evalu ated with compu ter helene conor [employer] . Not Available [facility] [place] [facility] [address] [facility] [place], [address], 12/15/2023 17:27:48 12/10/19 24 12/15/2023 IMAGE -GUID ED PAP W/AGE BASED SCR SCOTT COLS cytotechnolo gist: normal AVN, CT( CP) CT Scree anu locat ion: [facility] [address] [place] [address] Not Available [facility] [place] [facility] [address] [place], [address], 12/15/2023 17:27:48 12/10/19 24 12/15/2023 IMAGE -GUID ED PAP W/AGE BASED SCR SCOTT COLS review cytotechnolo gist: normal ESW, CT (ASCP ) CT Scree anu locat ion: [facility] [address] [facility] [place] [place] [address] Not Available [facility] [place] [facility] [address] [place], [address], 12/15/2023 17:27:48 12/10/19 24 12/15/2023 IMAGE -GUID [...] matio n. Not Available [facility] [place] [facility] [address] [facility], [place], [address], 12/15/2023 17:27:48 12/10/19 24 12/15/2023 IMAGE -GUID [...] ional infor james norman refer to http: //[facility] yaneli romano.saeed stdia gnost ics.c om/fa q/FAQ 129v1 (This link if provi ded for infor aleyda romano/ educa miguel queen purpo ses only. ) Not Available [facility] [place] [facility] [address] [place], [address], 12/15/2023 17:27:48 12/10/19 24 12/15/2023 HPV GENOT YPES 16,18 /45 HPV 16 RNA NOT DETECT ED not detect ed Not Available [facility] [place] [facility] [address] [facility], [place], [address], 12/15/2023 17:27:49 12/10/19 24 12/15/2023 HPV GENOT [...] optio ns. Not Available [facility] [place] [facility] [address] [facility], [place], [address], 12/15/2023 17:27:49 Result Notes Documentation Provider Name and Address Organization Details Recorded Time Sureswab(r) Advanced Vaginitis Plus, Tma : BV and trich Rodolfo hidalgo, [place]. 12/13/2023 15:29:35 Pap, Lb : Negative Pap with +HPV- not 16/18-f/u 1yr Jorje Saini II, MD [address] [place] [address], [phone], [place]. 12/17/2023 13:49:45 Hpv Dna, Genotypes 16+18, Genital : Negative 16/18 Jorje Saini II, MD [address] [place] [address], [phone], [place]. 12/17/2023 13:48:52 Problems Name Problem SNOMED Code Status Onset Date Resolution Date Notes Provider Name and Address Organization Details Recorded Time Cyst of ovary 46378076 Active 2013 Problem Code: 620.2; Problem Code Type: ICD-9; Not Available [facility] 21:07:50 Follow-u p encounte r Completed 201311/06/2013 Problem Code: V67; Problem Code Type: ICD-9; Not Available [facility] 2 21:07:50 Dysfunct ional uterine bleeding Completed 201311/06/2013 Problem Code: 626.8; Problem Code Type: ICD-9; Not Available [facility] 2 21:07:50 Follicul ar cyst of ovary 5766251 Completed 201502/10/2016 Problem Code: N83.0; Problem Code Type: ICD-10; Not Available [facility] 2 21:07:49 Disorder of female genital organs 942442920 Completed 201701/06/2018 Not Available [facility] 2 21:07:49 Pelvic and perineal pain 389513121 Completed 201701/06/2018 Problem Code: R10.2; Problem Code Type: ICD-10; Not Available [facility] 2 21:07:49 Female genital organ symptoms 044029547 Active 2017 Problem Code: 625.9; Problem Code Type: ICD-9; Not Available [facility] 2 21:07:50 Amenorrh ea 63618539 Active 2018 Problem Code: N91.2; Problem Code Type: ICD-10; Not Available [facility] 2 21:07:49 Vaginola bial hernia Active 2019 Problem Code: N89.8; Problem Code Type: ICD-10; Not Available [facility] 2 21:07:50 Dysuria 33719610 Active 2019 Problem Code: R30.0; Problem Code Type: ICD-10; Not Available [facility] 2 21:07:50 Vaginiti s and vulvovag initis Completed 201901/18/2020 Problem Code: 616.10; Problem Code Type: ICD-9; Not Available [facility] 21:07:50 Vaginal discharg e 332528652 Active 2023 Jorje Saini II, MD [address] [place] [address], [phone] , [place]. 4 13:43:19 Bacteria l vaginosi s 140318168 Active 2023 Jorje Saini II, MD [address] [place] [address], [phone] , [place]. 4 10:20:17 Problem Notes None recorded. Procedures Surgical History Date Name Laterality Status Provider Name and Address Organization Details Recorded Time 4 Date of Last Pap Smear completed [employer]. 12/10/2023 13:24:42 4 Most Recent Mammogram completed [employer]. 12/10/2023 13:31:38 0 Lwr xtr vasc stdy bilat completed Not Available [facility] 02/17/2022 22:56:34 Imaging Results None recorded. Procedure [...] Address Organization Details Last Updated DateTime 12/10/2023 850953.79 g 44.3 kg/m2 157.48 cm [employer] [place] [employer]. 12/10/2023 13:21:21 Social History Question Answer Notes LastModified by Organizat ion Details LastModified Time Tobacco Smoking Status Former Smoker [employer]His [facility] ion: 'Tobacco/ Alcohol/S upplement s'; SocialHis toryRespo nse: 'Former Smoker'; Not Available [facility] 02/17/2022 22:55:43 What Was The Date [...] Reflux (GERD) Y Headaches Y Hypertension Y Asthma Y Hypothyroidism Y Gynecological History Statement/Question Response Abnormal Pap [...] Td(adult) unspecified formulation 01/02/2015 completed MAN hidalgo [facility] [employer] 12/10/2023 13:05:20 Influenza, split virus, quadrivalent, PF 06/22/2019 completed MAN MANE [employer] 12/10/2023 13:05:20 Influenza, split virus, quadrivalent, PF 02/26/2017 completed MAN ALHAJI null, [employer] 12/10/2023 13:05:20 Influenza, split virus, quadrivalent, PF 03/18/2015 completed MAN ALHAJI [employer] 12/10/2023 13:05:20 Influenza, split virus, quadrivalent, PF 03/24/2018 completed MAN ALHAJI [employer] 12/10/2023 13:05:20 Past Encounters Encounter ID Performer Location Encounter Start Date Encounter Closed Date Diagnosis/Indication Diagnosis SNOMED-CT Code Diagnosis ICD10 Code Diagnosis IMO Codes Diagnosis Note [id number] Jorje Saini II, MD [facility] [address] [phone] 12/10/2023 13:01:28 12/10/2023 14:13:51 Screening for malignant neoplasm of cervix 822502021 Z12.4 Vaginal discharge 079235 006 N89.8 I will call her with [...] PAY* To real Peterson 12/13/2023 1 [employer] [facility] (MEDICAID HMO) Peyton Peterson [id number] Peyton Peterson Notes Date Note Type Note [...] pain has not really gotten much better Jorjejuany Saini II, MD [address] [place] [address], [phone], [facility] [employer] 12/10/2023 13:43:53 OBGyn Episode No OBEpisode recorded.
--- OUTSIDE RECORDS SUMMARY | 2025-06-12 07:33 | XMS_ITS | Clinical Summary ---
Author Organization [employer] ([place], [place], [place], [place], [place]) Address [address] [place] [address] Care Team Providers Care Tablet Machine Operator Name Role Phone Sj, Provider Not In The System MD Primary [...] Date Jignesh rded Speak language other than Panamanian at home Not on file 10/20/2023 Want [...] the next mammogram. At our facility, a red cliff marker is positioned over a visible skin [...] cancer. COMPARISON STUDY: 2021 through 2015 from [facility] FINDINGS: Craniocaudal and mediolateral oblique images [...] Most Recently Relevant to Health Maintenance [place] [address] [place] [address] Care Teams Tablet Machine Operator Relationship Specialty Start Date End Date [facility], Provider Not In The System, [place] [address] PCP - General 10/23/22
--- OUTSIDE RECORDS SUMMARY | 2025-06-12 07:33 | XMS_ITS | Referral Summary ---
Author Organization [employer] ([place], [place], [place], [place], [place]) Address [address] [place] [address] Care Team Providers Care Carbon Dioxide Operator Name Role Phone Sj, Provider Not [...] Date Jignesh rded Speak language other than Ghanaian at home Not on file 10/20/2023 Want [...] the next mammogram. At our facility, a [place] marker is positioned over a visible skin [...] Recently Relevant to Health Maintenance Insurance [employer] [facility] Care Teams Carbon Dioxide Operator Relationship Specialty Start Date End Date [facility], Provider Not In The System, [place] [address] PCP - General 10/23/22
== END 2025-06-12 23:59 | disposition home or self-care (01) ==
LOC: RAD 07:32
PROVIDERS: PCP Nurse Practitioner Family; Visit Provider Nurse Practitioner
DX: E05.20 Thyrotoxicosis with toxic multinodular goiter without thyrotoxic crisis or storm (principal)